=== PATIENT | female | born 1945 | race Caucasian/White ===

== ENCOUNTER 2019-12-13 11:52 | Outpatient (CLI) | payer MEDICARE, SELFPAY ==
--- NOTE | ~2019-12-13 | XR_ITS ---
XR lumbar spine 2-3V DATE: 12/13/2019 12:16 INDICATION: Chronic low back pain. No injury. TECHNIQUE: AP, lateral, coned lateral lumbosacral views COMPARISON: AP, lateral, coned lateral lumbosacral views FINDINGS: There is diffuse idiopathic skeletal hyperostosis of the thoracolumbar spine. Diffuse osteopenia. There is mild dextro scoliosis of the lumbar spine. There is severe degenerative disc disease at L1-2 and L5-S1 and moderate the prominent degenerative d isc disease at L4-5, mild degenerative disease at L2-3, L3-4. No spondylolisthesis. The sacroiliac susie ints are intact. Status post left total hip arthroplasty. There is prominent calcification the abdominal aorta but no evidence of aneurysm. IMPRESSION: Degenerative changes of the thoracic and lumbar spine Diffuse osteopenia Status post left total hip arthroplasty Reviewed, dictated and finalized at location A.
--- NOTE | ~2019-12-13 | US_ITS ---
EXAMINATION: US soft tissue head and neck DATE: 12/13/2019 12:46 INDICATION: Nonfocal swelling at the lateral right neck TECHNIQUE: Multiple grayscale and Doppler ultrasound images of the region of concern at the lateral r ight neck were obtained. COMPARISON: None FINDINGS: Visualized portions of the right common carotid artery and internal jugular vein appear normal. No ab normal mass, fluid collections or pathologically enlarged lymphadenopathy at the region of concern. IMPRESSION: 1. No discrete correlate identified for the region of swelling of concern with no abnormal masses, fl uid collections or lymphadenopathy. Reviewed, dictated and finalized at location A. IMPRESSION: 1. No discrete correlate identified for the region of swelling of concern with no abnormal masses, fluid collections or lymphadenopathy.
== END 2019-12-13 11:53 | disposition home or self-care (01) ==
LOC: ANHIMG 11:53
PROVIDERS: PCP Family Medicine; Visit Provider Family Medicine
DX: R22.1 Localized swelling, mass and lump, neck (principal); M85.88 Other specified disorders of bone density and structure, other site; Z96.642 Presence of left artificial hip joint
CPT/HCPCS: 72100; 76536

== ENCOUNTER 2020-01-18 12:52 | Outpatient (CLI) | payer MEDICARE, SELFPAY ==
--- NOTE | ~2020-01-18 | XR_ITS ---
EXAMINATION: XR thoracic spine 3V DATE: 01/18/2020 13:27 INDICATION: Chest pain and upper back pain TECHNIQUE: AP, lateral and lateral swimmer's views of the thoracic spine were obtained. COMPARISON: 12/20/2015 FINDINGS: There is no fracture, dislocation, or subluxation. There is moderate loss of intervertebral disc space height throughout the thoracic spine. The vertebral body heights are maintained. Degenera tive osteophytes project from the anterior endplates of multiple vertebral bodies. IMPRESSION: 1. Severe thoracic spondylosis without acute findings or significant interval change. Reviewed, dictated and finalized at location A. IMPRESSION: 1. Severe thoracic spondylosis without acute findings or significant interval c loretta.
--- NOTE | ~2020-01-18 | XR_ITS ---
EXAMINATION: XR chest 2V DATE: 01/18/2020 13:27 INDICATION: Chest pain. TECHNIQUE: Frontal and lateral views of the chest were obtained. COMPARISON: Chest 2 views 10/23/2015 FINDINGS: There is mild atelectasis at the lung bases. No pleural effusion or pneumothorax. The heart size is normal. There is mild chronic anterior wedging of multiple midthoracic vertebral bodies. IMPRESSION: 1. Mild atelectasis at the lung bases. Reviewed, dictated and finalized at location A.
== END 2020-01-18 12:53 | disposition home or self-care (01) ==
PROVIDERS: PCP Family Medicine; Visit Provider Family Medicine
DX: R07.9 Chest pain, unspecified (principal); M47.894 Other spondylosis, thoracic region; R91.8 Other nonspecific abnormal finding of lung field
CPT/HCPCS: 71046; 72072

== ENCOUNTER 2020-01-28 16:08 | Inpatient (IN) | payer MEDICARE, SELFPAY ==
[2020-01-28] VITALS (12 sets, daily range): BP systolic 101–137; BP diastolic 58–90; PULSE 102–155; RESP 16–25; TEMP 36.1–36.6; O2SAT 95–99; BMI 39.2
--- NOTE | ~2020-01-28 | XR_ITS ---
XR chest 2V 01/28/2020 17:06 Indication: Rapid heart rate. Midsternal chest pain. Procedure: PA and lateral views of the chest Comparison: Comparison to multiple prior studies sequentially, with oldest reviewed study dated 07/2009. Findings: Heart size normal. No focal air space disease, pulmonary edema, pleural effusion or suspect ed pneumothorax. No acute osseous abnormality. Impression: 1: No acute cardiopulmonary disease. Reviewed, dictated and finalized at location A. Impression: 1: No acute cardiopulmonary disease.
--- NOTE | 2020-01-28 16:48 | ECG_ITS ---
Measurements Intervals Gable Rate: 140 P: KS: 0 QRS: -7 QRSD: 87 T: 43 QT: 304 QTc: 464 Interpretive Statements ATRIAL FIBRILLATION WITH RAPID VENTRICULAR RESPONSE DELAYED PRECORDIAL R/S TRANSITION BORDERLINE ST-T WAVE ABNORMALITY- HIGH LATERAL LEADS ABNORMAL ECG Electronically Signed On 01-28-2020 16:53:12 CDT by Truong Mendez D.O.
[2020-01-28 17:02] LABS: Basophils Percent Auto 0.4 % (0.2-1.2); Eosinophils Absolute Auto 0.1 K/mm3 (0-0.3); Eosinophils Percent Auto 1.3 % (0-4.4); Hematocrit 43.5 % (37.0-47.0); Hemoglobin 14.5 g/dL (12.0-15.0); Immature Granulocyte Absolute 0.01 K/mm3 (0.00-0.031); Immature Granulocyte Percent A 0.1 % (0-0.5); Lymphocytes Absolute Auto 1.48 K/mm3 (0.9-3.2); Lymphocytes Percent Auto 21.9 % (18.3-44.2); Mean Corpuscular HGB Conc 33.3 g/dl (32-36); Mean Corpuscular Hemoglobin 29.2 pg (26-34); Mean Corpuscular Volume 87.5 fl (80-100); Mean Platelet Volume 10.8 fl (7.4-10.4); Monocytes Absolute Auto 0.5 K/mm3 (0.1-0.6); Monocytes Percent Auto 7.7 % (2.6-8.5); Neutrophils Absolute Auto 4.6 K/mm3 (1.3-6.7); Neutrophils Percent Auto 68.6 % (45.5-73.1); Platelet Count Result 303 k/mm3 (150-375); Red Blood Count 4.97 M/mm3 (4.2-5.4); Red Cell Distribution Width 14.8 % (11.5-14.5); White Blood Count 6.8 K/mm3 (4.5-10.0)
[2020-01-28 17:21] LABS: Anion Gap 7 mmol/L (8-16); Blood Urea Nitrogen 18 mg/dL (7-17); Carbon Dioxide 23 mmol/L (22-30); Chloride 109 mmol/L (98-107); Estimated CRCL calculation 57 ml/min; Estimated Glomerular Filt Rate > 60; Glucose 102 mg/dL (65-105); Potassium 4.3 mmol/L (3.4-5.0); Sodium 139 mmol/L (137-145)
[2020-01-28] MEDS: SODIUM CHLORIDE 0.9% IV 1,000 ML 999 ML IV CONT (17:23)
[2020-01-28] MEDS: ASPIRIN 81 MG CHEWABLE TABLET 324 MG PO (17:23)
[2020-01-28] MEDS: dilTIAZem HCl INJ 25 MG/5 ML VIAL 5 MG IV PUSH (17:23)
--- NOTE | 2020-01-28 17:23 | ED.ARRPALP ---
HPI - Arrhythmia/Palpitations General Chief Complaint: Arrhythmia/Palpitations Stated Complaint: sent by PCP, new onset AFIB Time Seen by Provider: 01/28/20 17:11 Source: RN notes reviewed History of Present Illness HPI narrative: Patient presents emergency department from PCP office for atrial fibrillation. Patient states for the past 4 days she has been feeling like her heart is been racing. Is associated with a mild aching feeling in her anterior chest and shortness of breath. Patient states she gone to her PCP today and was noted to be in A. fib with RVR and was referred to the emergency department for further evaluation. She denies any fevers or chills abdominal pain nausea vomiting or any other symptoms. Denies any previous cardiac history and denies any previous history of atrial fibrillation Related Data Allergies Allergy/AdvReac Type Severity Reaction Status Date / Time morphine Allergy Unknown ITCHING Verified 05/08/19 18:04 Review of Systems Review of Systems: Narrative: Gen.: Denies fevers or chills ENT: Denies congestion Respiratory: Reports shortness of breath CV: See HPI GI: Denies abdominal pain nausea, emesis or diarrhea Musculoskeletal: Denies back pain or muscle pain Neuro: Denies numbness, tingling, weakness or focal weakness Skin: Denies rash Except as documented, all other systems reviewed and negative [facility] Past Medical History Medical History Arthritis Bronchitis Bulging disc Depression HLD (hyperlipidemia) IBS (irritable bowel syndrome) Kidney stone Right wrist fracture UTI (urinary tract infection) Social History Social History Smoking status: Never smoker Alcohol intake: current Gender identity (if verbalized by the patient): Female Exam Narrative: Exam Narrative: APPEARANCE: No acute distress, nontoxic, resting in bed EYES: EOMI HEENT: Normocephalic, atraumatic, OMM RESPIRATORY: No respiratory distress Clear to auscultation bilaterally with no rhonchi wheezing or rales. CARDIOVASCULAR: Irregular tachycardic without murmurs rubs or gallops. ABDOMINAL: Soft, nontender, nondistended, no rebound or guarding MUSCULOSKELETAl: Moves all extremities. No clubbing, cyanosis or edema. NEURO: Awake and alert. Following commands, speech normal, no focal deficits SKIN:: Warm, dry. No rashes lesions or abrasions PSYCHIATRIC: Normal affect/mood, Course Course Emergency Course: Discussed with Dr. Katz presentation work-up. Request patient received a dose of Lovenox at this time will follow as inpatient Discussed with KARLEE Tinoco for Dr. Jiménez presentation work-up. Agrees with admission at this time Discussed with patient and family results of workup and diagnosis. Discussed need for admission. Patient and family understand and agree to current treatment plan Vital Signs Vital signs: Vital Signs Temperature 97.7 F 01/28/20 16:43 Pulse Rate 105 H 01/28/20 16:43 Respiratory Rate 16 01/28/20 16:43 Blood Pressure 109/77 01/28/20 16:43 Pulse Oximetry 97 01/28/20 16:43 Temperature 97.7 F 01/28/20 16:43 Pulse Rate 115 H 01/28/20 17:45 Respiratory Rate 18 01/28/20 17:45 Blood Pressure 104/65 01/28/20 17:45 Pulse Oximetry 98 01/28/20 17:45 MDM - Arrhythmia/Palpitations Lab Data Result diagrams: 01/28/20 16:56 01/28/20 16:56 Labs: Lab Results 01/28/20 01/28/20 01/28/20 Range/Units 16:56 16:56 17:20 WBC 6.8 (4.5-10.0) K/mm3 RBC 4.97 (4.2-5.4) M/mm3 Hgb 14.5 (12.0-15.0) g/dL Hct 43.5 (37.0-47.0) % MCV 87.5 (80-100) fl MCH 29.2 (26-34) pg MCHC 33.3 (32-36) g/dl RDW 14.8 H (11.5-14.5) % Plt Count 303 (150-375) k/mm3 MPV 10.8 H (7.4-10.4) fl Immature Gran % (Auto) 0.1 (0-0.5) % Neut % (Auto) 68.6 (45.5-73.1) % Lymph % (Auto) 21.9 (18.3-44.2) %
[2020-01-28 17:33] LABS: Troponin I < 0.012 ng/mL (0.000-0.034)
[2020-01-28 17:39] LABS: Partial Thromboplastin Time 21.8 SECONDS (22.3-36.8); Prothrombin Time 12.6 Seconds (11.1-14.7)
[2020-01-28] MEDS: ENOXAPARIN 100 MG/ML SYRINGE SUB-Q (18:12)
[2020-01-28 20:59] LABS: Troponin I < 0.012 ng/mL (0.000-0.034)
--- NOTE | 2020-01-28 21:02 | PM.IMHP ---
H&P: HPI History of Present Illness Date/Time: 01/28/20 21:02 Chief complaint: afib with rvr Narrative: This is a pleasant 74 year old female with known history of renal stones and gallbladder disease who presented to the hospital with a complaint of exertional shortness of breath and palpitations over the past 3-4 days. She has noticed that she gets very diaphoretic and short of breath with minimal exertion. She denies any significant cough, fevers, or chills. She has not had any significant chest pain but does feel some chest discomfort with the racing of her heart. She has no previous history of heart arrhythmias but tonight the patient was found to be in atrial fibrillation w/ RVR in the ER. On further questioning she also denies any history of nausea, vomiting, abdominal pain, dysuria, hematuria, diarrhea or rectal bleeding. No significant LE swelling is reported. The patient has been started on Cardizem IV and has already been anticoagulated in the ER w/ SC Lovenox. Cardiology has been consulted by ER provider. No other complaints. Review of Systems Review of Systems: All systems reviewed & are unremarkable except as noted in HPI and below PMFSH Past Medical History Medical History Arthritis Asymptomatic gallstones Bronchitis Bulging disc Depression Hemorrhoids HLD (hyperlipidemia) IBS (irritable bowel syndrome) Kidney stone Pulmonary nodule Right wrist fracture UTI (urinary tract infection) Surgical History Surgical History History of bilateral knee replacement History of total left hip replacement Family History Family History Mother Hypertension Family history of diabetes mellitus in first degree relative Family history of heart disease in male family member before age 55 Father No problems noted. Social History Social History Social History: , has been has had AFib. Three grown children. Smoking packs per day: 1 Smoking cigarettes per day: 20.0 Years smoked: 18 Smoking pack-years: 18.00 Smoking status: Former smoker Tobacco type: cigarettes Second hand tobacco smoke exposure: No Alcohol intake: never Substance use: never Substance use type: does not use Gender identity (if verbalized by the patient): Female Sexual Orientation (if Verbalized by the Patient): Straight or Heterosexual Spiritual care concerns: No Meds Home Medications and Allergies Home Medications Medication Instructions Recorded Confirmed Type acetaminophen [Tylenol Extra 500 mg PO Q6H PRN 01/28/20 01/28/20 History Strength] allopurinol 300 mg PO DAILY 01/28/20 01/28/20 History alprazolam 2 mg PO TID PRN 01/28/20 01/28/20 History baclofen 10 mg PO TID PRN 01/28/20 01/28/20 History Allergies Allergy/AdvReac Type Severity Reaction Status Date / Time morphine Allergy Unknown ITCHING Verified 01/28/20 22:25 Vital Signs Vital Signs - 24 hr 01/28/20 16:43 01/28/20 17:36 01/28/20 17:45 Temperature 36.5 C Pulse Rate 105 H 106 H 115 H Respiratory Rate 16 18 Blood Pressure 109/77 101/58 L 104/65 Pulse Oximetry 97 98 01/28/20 18:54 01/28/20 19:30 01/28/20 20:00 Temperature Pulse Rate 133 H 103 H 135 H Respiratory Rate 25 H Blood Pressure 117/90 122/83 122/87 Pulse Oximetry 96 98 01/28/20 20:30 Temperature Pulse Rate 102 H Respiratory Rate 20 Blood Pressure 115/89 Pulse Oximetry 95 Exam Const: General: cooperative, alert, awake and ill appearing chronically Nutritional Appearance: obese morbidly obese Orientation/consciousness: patient oriented x3 HENMT: Head: normal to inspection General nose exam: Normal external nose present Face and sinus: normal facial exam Mouth: Yes Normal oral and palatal mucosa present and Yes o
--- NOTE | 2020-01-28 22:00 | ADMGEN ---
This patient, Sheryl Melendez, was admitted to IMU Room 205-01 on 01/28/20 at 2113. Patient/family oriented to hospital policies and general routines including ID bracelet, bed and alarms, visiting hours, pain management, procedures, bathroom and other care routines, personal items, smoking policy, room service/diet, and visiting hours. Valuables list has been completed. Information on how to activate the Rapid Response Team has been discussed. Patient/Family are encouraged to report perceived risks to care and to ask questions if they do not understand what they are told or what they should do.
[2020-01-28 23:12] LABS: Troponin I < 0.012 ng/mL (0.000-0.034)
[2020-01-29] VITALS (25 sets, daily range): BP systolic 87–126; BP diastolic 57–68; PULSE 62–110; RESP 16–20; TEMP 35.9–36.4; O2SAT 94–97
[2020-01-29] MEDS: ALPRAZolam 0.5 MG TABLET 2 MG PO ×2 (02:20→21:08)
[2020-01-29] MEDS: ENOXAPARIN 100 MG/ML SYRINGE SUB-Q (05:09)
[2020-01-29 05:26] LABS: Basophils Percent Auto 0.3 % (0.2-1.2); Eosinophils Absolute Auto 0.1 K/mm3 (0-0.3); Eosinophils Percent Auto 1.8 % (0-4.4); Hematocrit 39.5 % (37.0-47.0); Hemoglobin 12.7 g/dL (12.0-15.0); Immature Granulocyte Absolute 0.01 K/mm3 (0.00-0.031); Immature Granulocyte Percent A 0.2 % (0-0.5); Lymphocytes Absolute Auto 1.82 K/mm3 (0.9-3.2); Mean Corpuscular HGB Conc 32.2 g/dl (32-36); Mean Corpuscular Hemoglobin 28.6 pg (26-34); Mean Platelet Volume 11.3 fl (7.4-10.4); Monocytes Absolute Auto 0.6 K/mm3 (0.1-0.6); Monocytes Percent Auto 9.1 % (2.6-8.5); Neutrophils Percent Auto 60.6 % (45.5-73.1); Platelet Count Result 269 k/mm3 (150-375); Red Blood Count 4.44 M/mm3 (4.2-5.4); Red Cell Distribution Width 14.8 % (11.5-14.5); White Blood Count 6.5 K/mm3 (4.5-10.0)
[2020-01-29 05:35] LABS: Anion Gap 3 mmol/L (8-16); Blood Urea Nitrogen 18 mg/dL (7-17); Calcium 8.4 mg/dL (8.4-10.2); Carbon Dioxide 25 mmol/L (22-30); Chloride 110 mmol/L (98-107); Estimated CRCL calculation 66 ml/min; Estimated Glomerular Filt Rate > 60; Glucose 104 mg/dL (65-105); Potassium 4.2 mmol/L (3.4-5.0); Sodium 138 mmol/L (137-145)
--- NOTE | 2020-01-29 08:34 | WPDCN ---
Assessment and Plan Assessment and plan (1) Atrial fibrillation with rapid ventricular response: Code(s): I48.91 - Unspecified atrial fibrillation Status: Acute Assessment and Plan: New onset AFib RVR, heart rate still not well controlled. Etiology may be from age, obesity, and we should rule out sleep apnea. Echo pending Apnea link Increase Cardizem drip to 15 milligrams/hour Will try to switch to p.o. Cardizem in the next 24 hours Discussed atrial fibrillation, risk of cardioembolic events etc. and recommended anticoagulation. Patient does not want to use Xarelto since she had epistaxis when using Xarelto in the past, which of course can occur with any anticoagulant. We will start Eliquis and stop Lovenox. Jose have had some hemorroidal bleeding. Follow for more significant rectal bleeding. Will see how patient does and decide on rate control/ anticoagulation strategy versus rhythm control strategy depending on patient's course. (2) Rectal bleed: Code(s): K62.5 - Hemorrhage of anus and rectum Status: Acute Assessment and Plan: Noted some blood on toilet tissue this a.m. H/O hemorrhoids May need GI eval. HPI Data of Consult Date/Time: 01/29/20 08:34 Requesting Physician: Eufemia Caruso PA-C Primary Care Provider: Shannen Doan, Consult Narrative Narrative: Date of service: 01/29/2020 Sheryl Melendez is a 74 year old female whom we were asked to see at the request of Dr. Shepherd for advice and opinion regarding her new onset atrial fibrillation, RVR. The patient states that she had noted [place] with minor exertion over the last 3 or 4 days and she felt funny and strange in her chest. She thought it might be her hiatal hernia but since it did not go away she came to the emergency room and was found to be in AFib RVR. She started on a Cardizem drip and is currently on 10 milligrams/hour with heart rate 85-120 beats per minute. She was started on Lovenox. She denies any shortness of breath at rest, chest discomfort or palpitations. The patient has no history of heart disease. She had a mildly abnormal stress test resulting in a cardiac catheterization in December [address] Valentine which showed normal coronary arteries and normal left ventricular function. She does have hyperlipidemia but no diabetes, hypertension, strokes, or known sleep apnea. She does not sleep well and has been told that she snores but nobody is noted any apnea. She had bad epistaxis when she took Xarelto for after her total hip replacement, and she noted a a little blood on her toilet tissue this morning after a bowel movement; she has a history of hemorrhoids. Review of Systems Constitutional: Constitutional: Reports difficulty sleeping and Reports fatigue Eyes: Eyes: Reports no additional eye complaints ENT: Reports epistaxis ( None recently but had epistaxis when on Xarelto) Cardiovascular: Cardiovascular: Denies chest pain, Denies pedal edema, Denies leg edema, Denies lightheadedness and Denies palpitations Respiratory: Respiratory: Denies chest congestion, Reports cough ( mild cough at night sometimes.), Denies dyspnea and Reports dyspnea on exertion Gastrointestinal: Gastrointestinal: Denies abdominal pain, Reports hematochezia ( Some blood on toilet tissue this morning) and Reports heartburn ( history of hiatal hernia) Genitourinary: Genitourinary: Denies hematuria and Denies dysuria Musculoskeletal: Musculoskeletal: Reports back pain and Reports arthralgias Integumentary/Breasts: Skin/Breast: Denies rash Neurologic: Denies confusion Psychiatric: Psychiatric: Denies anxiety and Denies confusion [facility] Past Medical History Medical History (Updated 01/29/20 @ 09:13 by Sharee Katz MD) Arthritis Asymptomatic gallstones Bronchitis Bulging disc Depression HLD
[2020-01-29] MEDS: allopurinoL 300 MG TABLET PO (09:06)
--- NOTE | 2020-01-29 12:01 | PM.IMPN ---
Progress Note: A&P Assessment and Plan (1) Atrial fibrillation with rapid ventricular response: Code(s): I48.91 - Unspecified atrial fibrillation Status: Acute Assessment and Plan: New onset. The patient reports that she developed exertional dyspnea and palpitations 3-4 days ago. She has no prior hx of atrial fibrillation. She remains in atrial fibrillation at this time. Etiology unclear. Cardiology is on board and input is greatly appreciated. Plan for apnea link to assess for underlying sleep apnea. She is obese. She remains on cardizem gtt which was increased today per cardiology. Rate is in the 80s. Plan to transition to PO cardizem in the next 24 hours. She received lovenox in the ED and was transitioned to PO eliquis today. She did report bright red blood on the toilet paper and has a hx of nose bleeds while on xarelto. Plan to monitor closely for any sx of bleeding. Trend H&H. Continue telemetry. TSH was 2.64. Echocardiogram was performed today and is pending. Appreciate cardiology. Management per cardiology. (2) Rectal bleed: Code(s): K62.5 - Hemorrhage of anus and rectum Status: Acute Assessment and Plan: She reports that she had bright red blood on the toilet paper with wiping x2 today. She is on eliquis and received lovenox yesterday in the emergency department. She has a hx of hemorrhoids. Her most recent colonoscopy was 3-4 years ago and she reports that polyps were removed. I suspect hemorrhoids but she will need to follow-up for repeat colonoscopy outpatient. Plan to order occult blood stool testing. Monitor H&H closely and consider GI consult if she has ongoing blood loss or H&H decline. Subjective Date/time seen: 01/29/20 12:01 Interval history: Mrs. Melendez is a 74 y.o. female who is seen in follow-up for atrial fibrillation with RVR. She is feeling better today. She denies palpitations, chest pain, and dyspnea at rest. She has not exerted herself today. She denies lightheadedness and dizziness. She noticed bright red blood on the toilet paper x2 today with wiping. She reports a history of this intermittently in the past and has known hemorrhoids. She denies dark black tarry stool or bright red blood filling the toilet. She reports that her bowels are regular and she has no nausea or vomiting. She reports a hx of nose bleeds in the past while on xarelto for DVT ppx following hip replacement. She has no other complaints. Review of Systems Review of Systems: All systems reviewed & are unremarkable except as noted in HPI and below Exam Narrative: Exam Narrative: General: Pleasant, well-developed, obese 74 y.o. female who is lying in the semi-recumbent position in no acute distress. HEENT: Normocephalic and atraumatic. Conjunctivae without injection or exudate. EOMI. Oral mucosa moist. Neck: Supple. Cardiac: Irregularly irregular rhythm. Rate 85 and telemetry reviewed from 01/28 with atrial fibrillation, rate controlled, and infrequent PVCs. Lungs: Effort normal. She is speaking in full sentences without distress. Lungs are clear to auscultation bilaterally. Abdomen: Normoactive bowel sounds. Abdomen is soft, non-tender, and non-distended. Musculoskeletal: Post-operative changes to the bilateral knees. Extremities: Lower extremities with scant edema. Telangiectasia throughout the lower extremities. DP and PT 1+ bilaterally. Neurological: Alert. Exam is non-focal to casual conversation. Speech is clear. Skin: Warm and dry. Psychiatric: Judgment and insight intact. Mood pleasant. Patient loquacious. Objective Data Vital Signs Vital Signs: Vital Signs - 24 hr 01/28/20 16:43 01/28/20 17:36 01/28/20 17:45 Temperature 97.7 F Pulse Rate 105 H 106 H 115 H Respiratory Rate 16 18 Blood Pressure 109/77 101/58 L 104/65 Pulse Oximetry 97 98 01/28/20 18:54 01/28/20 19:30 01/28/20 20:00 Temperature Pulse Rate 133 H 103 H 135 H Respiratory Rate 25 H Blood Pressure 117
[2020-01-29] MEDS: SODIUM CHLORIDE 0.9% IV 200 ML 999 ML IV CONT (12:57)
[2020-01-29] MEDS: APIXABAN 5 MG TABLET PO (20:57)
--- NOTE | 2020-01-29 21:13 | ECHO_ITS ---
Patient Info Name: Sheryl Melendez Age: 74 years : 1945 Gender: Female Ht: 65 in Wt: 219 lbs BSA: 2.18 m2 HR: 89 bpm BP: 115 / 68 mmHg Heart Rhythm: Atrial Fibrillation Technical Quality: Good Exam Date: 01/29/2020 9:31 AM Exam Location: [facility] Exam Room: [facility] Patient Status: Outpatient Admit Date: 01/28/2020 Staff Ordering Physician: Grzegorz Garcia MD Unemployment Claims Adjudicator: Elif Chester RDCS Attending Provider: Eufemia Caruso PA-C Referring Physician: Radha PRAKASH; Exam Type: CA echo doppler color flow Study Info Indications - A FIB RVR Complete two-dimensional, color flow and Doppler transthoracic echocardiogram is performed. Summary 1. Complete two-dimensional, color flow and Doppler transthoracic echocardiogram is performed. 2. Normal left ventricular size and function with no segmental wall motion abnormalities. Ejection fraction was 60%. Diastolic function is indeterminate. 3. Left atrial chamber dimension is moderately enlarged. 4. There is small pericardial effusion, 1.5 cm posteriorly, but otherwise trivial. 5. Mildly calcified aortic root. 6. No significant valve disease. 7. Atrial fibrillation. Left Ventricle Left ventricular chamber dimension is normal. Left ventricular systolic function is normal, estimated at 55-60%. There is no increased left ventricular wall thickness. Left ventricular septal wall motion is normal. The left ventricular diastolic function is indeterminate. Right Ventricle Right ventricular chamber dimension is normal. Right ventricular systolic function is normal. Left Atria Left atrial chamber dimension is moderately enlarged. Right Atria Right atrial chamber dimension is normal. Aortic Valve The aortic valve is trileaflet. There is no aortic valve sclerosis. There is no aortic valve stenosis. There is no aortic valve regurgitation. Pulmonic Valve The pulmonic valve is normal. There is no pulmonic valve stenosis. There is no pulmonic regurgitation. Mitral Valve The mitral valve has normal leaflets. There is no mitral valve stenosis. There is trace mitral valve regurgitation. Tricuspid Valve The tricuspid valve leaflets are normal. There is no significant tricuspid valve stenosis. There is trace tricuspid valve regurgitation. No pulmonary hypertension, estimated pulmonary arterial systolic pressure is 30 mmHg. Pericardium/Pleural The pericardium appears normal. There is small pericardial effusion, 1.5 cm posteriorly, but otherwise trivial. Inferior Vena Cava Normal inferior vena cava with >50% collapse upon inspiration consistent with Empty right atrial pressure, 10 mmHg. Aorta The aortic root size at the sinus of Valsalva is normal. The prox ascending aorta size is normal. There is mild aortic atherosclerosis. Left Ventricular Outflow Tract Name Value Normal LVOT 2D LVOT Diameter 2.0 cm LVOT Doppler LVOT Peak Gradient 7 mmHg LVOT Mean Gradient 3 mmHg LVOT VTI 21 cm LVOT VTI/AV VT
[2020-01-29] MEDS: ACETAMINOPHEN 500 MG TABLET PO (23:27)
[2020-01-30] VITALS (16 sets, daily range): BP systolic 96–122; BP diastolic 50–74; PULSE 65–96; RESP 16–20; TEMP 35.8–36.7; O2SAT 65–100
[2020-01-30 07:34] LABS: Hematocrit 39.1 % (37.0-47.0); Hemoglobin 12.5 g/dL (12.0-15.0); Mean Corpuscular Hemoglobin 28.5 pg (26-34); Mean Corpuscular Volume 89.1 fl (80-100); Mean Platelet Volume 10.7 fl (7.4-10.4); Platelet Count Result 254 k/mm3 (150-375); Red Blood Count 4.39 M/mm3 (4.2-5.4); Red Cell Distribution Width 14.9 % (11.5-14.5); White Blood Count 6.1 K/mm3 (4.5-10.0)
[2020-01-30 07:51] LABS: Anion Gap 5 mmol/L (8-16); Blood Urea Nitrogen 22 mg/dL (7-17); Calcium 8.9 mg/dL (8.4-10.2); Carbon Dioxide 24 mmol/L (22-30); Chloride 108 mmol/L (98-107); Estimated CRCL calculation 66 ml/min; Estimated Glomerular Filt Rate > 60; Glucose 106 mg/dL (65-105); Potassium 4.1 mmol/L (3.4-5.0); Sodium 137 mmol/L (137-145)
[2020-01-30] MEDS: allopurinoL 300 MG TABLET PO (08:14)
[2020-01-30] MEDS: APIXABAN 5 MG TABLET PO ×2 (08:14→20:25)
--- NOTE | 2020-01-30 08:26 | PM.PNCARD ---
Progress Note: A&P Assessment and Plan (1) Atrial fibrillation with rapid ventricular response: Code(s): I48.91 - Unspecified atrial fibrillation Status: Acute Assessment and Plan: Change Cardizem drip to p.o. Cardizem 60 mg q.6 hours. Tomorrow transition to once daily CArdizem CD. Continue Eliquis for now; pt given a Coupon card for 1 month for free. However we will have to switch her to warfarin as an outpatient. Probably discharge tomorrow with office follow-up. If she is feeling well with rate control and anticoagulation we may continue this strategy but if she is not feeling well then we can plan for an outpatient cardioversion.. (2) Suspected sleep apnea: Code(s): R29.818 - Other symptoms and signs involving the nervous system Status: Acute Assessment and Plan: Apnea link suggested mild sleep apnea. Will follow up with this as an outpatient. (3) Rectal bleed: Code(s): K62.5 - Hemorrhage of anus and rectum Status: Acute Assessment and Plan: No recurrent blood on toilet tissue. History of hemorrhoids. May need GI evaluation electively. Subjective Date/time seen: 01/30/20 08:26 Follow-up for new onset atrial fibrillation. Date of service: 01/30/2020 The patient has remained on a Cardizem drip at 15 milligrams/hour overnight with heart rates ranging in the 70s. Occasionally Has brief pauses of 2-2.3 seconds overnight. blood pressure somewhat low, given 200 cc normal saline bolus x1. Up and about in her room with no shortness of breath, chest pain or palpitations. Upset that the Eliquis ( and all the NOACs ) will cost her 100s of dollars so she will eventually be on warfarin instead of Eliquis. Apnea link: Suspected sleep apnea, AHI 6.9 events per hour. Lowest O2 sat was 81%. Echo: EF 60%, indeterminate diastolic function, trivial to small pericardial effusion, no significant valve disease. Review of Systems Constitutional: Constitutional: Reports fatigue ENT: Reports epistaxis ( None recently but had epistaxis when on Xarelto) Cardiovascular: Cardiovascular: Denies chest pain, Denies pedal edema, Denies leg edema, Denies lightheadedness, Denies palpitations, Denies dyspnea and Reports dyspnea on exertion Respiratory: Respiratory: Denies chest congestion, Reports cough ( mild cough at night sometimes.), Denies dyspnea and Reports dyspnea on exertion Gastrointestinal: Gastrointestinal: Denies abdominal pain and Denies hematochezia ( Some blood on toilet tissue this morning) Genitourinary: Genitourinary: Denies hematuria Musculoskeletal: Musculoskeletal: Reports back pain and Reports arthralgias Integumentary/Breasts: Skin/Breast: Denies rash Neurologic: Denies confusion Psychiatric: Psychiatric: Denies anxiety and Denies confusion Endocrine: Endocrine: Reports fatigue and Denies palpitations Exam Const: General: comfortable and no acute distress; No confusion Orientation/consciousness: No confusion Other: Pleasant, chatty obese white female in no distress HENMT: Mouth: Yes moist mucous membranes Eyes: EOM: EOMs intact bilaterally Neck: Neck: supple and no JVD Thyroid: thyroid normal Resp: Effort & Inspection: normal respiratory effort Cardio: Rhythm: abnormal rhythm irregularly irregular Heart sounds: no murmurs Other: dorsalis pedis pulses are intact, although decreased on the right GI: Inspection: non-distended Other: no hepatosplenomegaly Skin: General skin exam: no rashes or lesions noted Neuro: General: No confusion Cognition (Neuro): normal cognition Speech: normal speech Motor exam (neuro): Normal motor muscle tone present throughout Extrem: General: no edema and no pedal edema Psych: Mental Status: mental status grossly normal Affect: normal affect Objective Data Vital Signs Vital Signs: Vital Signs
--- NOTE | 2020-01-30 09:32 | PM.IMPN ---
Progress Note: A&P Assessment and Plan (1) Atrial fibrillation with rapid ventricular response: Code(s): I48.91 - Unspecified atrial fibrillation Status: Acute Assessment and Plan: New onset. The patient reports that she developed exertional dyspnea and palpitations 3-4 days prior to admission. She has no prior hx of atrial fibrillation. Etiology unclear. She is obese. Apnea link revealed suspected pathological breathing disorder and she will need formal outpatient sleep study. TSH was 2.64. Echocardiogram was performed and shows normal left ventricular function with no segmental wall motion abnormalities, EF 60%, moderately enlarged left atrium, small pericardial effusion posteriorly, and no significant valvular pathology. She has not converted to NSR and remains in rate-controlled atrial fibrillation. Cardizem gtt will be transitioned to PO cardizem today per cardiology. BP is soft and she received 200cc bolus overnight. Continue to monitor BP with transition to PO cardizem. She needs to get OOB and ambulate. Continue PO eliquis. She has no further evidence of bleeding. Management per cardiology. Appreciate recommendations. (2) Rectal bleed: Code(s): K62.5 - Hemorrhage of anus and rectum Status: Acute Assessment and Plan: She reports that she had bright red blood on the toilet paper with wiping x2 today. She is on eliquis and received lovenox yesterday in the emergency department. She has a hx of hemorrhoids. Her most recent colonoscopy was 3-4 years ago and she reports that polyps were removed. I suspect hemorrhoids but she will need to follow-up for repeat colonoscopy outpatient. Plan to order occult blood stool testing. Monitor H&H closely and consider GI consult if she has ongoing blood loss or H&H decline. (3) Suspected sleep apnea: Code(s): R29.818 - Other symptoms and signs involving the nervous system Status: Acute Assessment and Plan: Apnea link revealed suspected pathological breathing disorder. She will need a formal outpatient sleep study for further evaluation. Subjective Date/time seen: 01/30/20 09:32 Interval history: Mrs. Melendez is a 74 y.o. female who is seen in follow-up for atrial fibrillation with RVR. She denies chest pain, palpitations, and dyspnea. She denies dizziness, lightheadedness, and headaches. She denies fatigue. She reports anxiety overnight because she has a roommate and cannot sleep well. Her appetite is good. She denies any further episodes of rectal bleeding, melena, hematochezia. She denies urinary complaints, nausea, vomiting. She has no other concerns. Review of Systems Review of Systems: All systems reviewed & are unremarkable except as noted in HPI and below Exam Narrative: Exam Narrative: General: Pleasant, well-developed, obese 74 y.o. female lying supine in no acute distress. HEENT: Normocephalic and atraumatic. EOMI. Oral mucosa moist. Neck: Supple. Cardiac: Irregularly irregular rhythm. Rate 71 and telemetry reviewed from 01/29 with atrial fibrillation, occasional pauses 2-2.5 seconds, occasional PVCs. Lungs: Effort normal. Lungs are clear to auscultation bilaterally. Abdomen: Positive bowel sounds. Abdomen is soft, non-tender, and non-distended. Musculoskeletal: Post-operative changes to the bilateral knees. Extremities: Lower extremities with scant edema. Telangiectasia throughout. DP and PT 1+ bilaterally. Neurological: Alert. Exam is non-focal to casual conversation. Speech is clear. Skin: Warm and dry. Psychiatric: Judgment and insight intact. Mood pleasant. Patient is talkative. Objective Data Vital Signs Vital Signs: Vital Signs - 24 hr 01/29/20 10:00 01/29/20 12:00 01/29/20 12:16 Temperature 97.0 F L Pulse Rate 95 92 81 Respiratory Rate 20 Blood Pressure 87/58 L Pulse Oximetry 96 01/29/20 13:21 01/29/20 13:22 01/29/20 13:44 Temperature Pulse Rate 77 77 81 Respiratory Ra
[2020-01-30] MEDS: dilTIAZem HCL 60 MG TABLET PO ×3 (09:41→23:10)
[2020-01-30] MEDS: ACETAMINOPHEN 500 MG TABLET PO (17:16)
[2020-01-30] MEDS: ALPRAZolam 0.5 MG TABLET 2 MG PO (20:25)
[2020-01-31] VITALS: PULSE 72
[2020-01-31 03:58] VITALS: PULSE 72
[2020-01-31 04:00] VITALS: BP 121/70; PULSE 69; RESP 20; TEMP 36.3; O2SAT 95
[2020-01-31 05:44] LABS: Hematocrit 38.2 % (37.0-47.0); Hemoglobin 12.4 g/dL (12.0-15.0); Mean Corpuscular HGB Conc 32.5 g/dl (32-36); Mean Corpuscular Hemoglobin 28.8 pg (26-34); Mean Corpuscular Volume 88.6 fl (80-100); Mean Platelet Volume 10.7 fl (7.4-10.4); Platelet Count Result 250 k/mm3 (150-375); Red Blood Count 4.31 M/mm3 (4.2-5.4); Red Cell Distribution Width 14.8 % (11.5-14.5); White Blood Count 6.1 K/mm3 (4.5-10.0)
[2020-01-31] MEDS: dilTIAZem HCL 60 MG TABLET PO (05:46)
[2020-01-31 06:04] LABS: Anion Gap 4 mmol/L (8-16); Blood Urea Nitrogen 22 mg/dL (7-17); Calcium 8.8 mg/dL (8.4-10.2); Carbon Dioxide 26 mmol/L (22-30); Chloride 108 mmol/L (98-107); Estimated CRCL calculation 60 ml/min; Estimated Glomerular Filt Rate > 60; Glucose 95 mg/dL (65-105); Sodium 138 mmol/L (137-145)
[2020-01-31 07:06] VITALS: BP 105/56; PULSE 60; RESP 20; TEMP 36.6; O2SAT 95
[2020-01-31 08:00] VITALS: PULSE 64
[2020-01-31] MEDS: APIXABAN 5 MG TABLET PO (09:04)
[2020-01-31] MEDS: allopurinoL 300 MG TABLET PO (09:04)
--- NOTE | 2020-01-31 11:04 | PM.PNCARD ---
Progress Note: A&P Additional Plan 74-year-old female with: Paroxysmal atrial fibrillation patient spontaneously has converted to sinus rhythm and is asymptomatic. I would therefore shift her planned for simple rate control to rhythm control. I will discontinue diltiazem and start sotalol starting tomorrow morning. Systemic anticoagulation will be continue with apixaban. Patient was given a discount card for the 1st month supply. After that we may have to shift her to warfarin if this is unaffordable. I believe she can be discharged to home and we will follow her in the office. Vish Valentine MD [facility] Subjective Date/time seen: Date of service:01/31/20 11:04 Interval history: Follow-up visit in this 74-year-old patient with symptomatic atrial fibrillation of unknown chronicity. She feels well this morning and offers no significant complaints telemetry indicates patient has converted to sinus rhythm heart rate is in the 60s. Exam Const: General: comfortable and no acute distress HENMT: Mouth: Yes moist mucous membranes Eyes: Sclera: sclerae normal Pupils: Equal, round and reactive pupils present Neck: Neck: supple and no JVD Thyroid: thyroid normal Resp: Effort & Inspection: normal respiratory effort Auscultation: clear to auscultation bilaterally Cardio: Rate: regular rate Rhythm: regular rhythm GI: Auscultation: normal bowel sounds Skin: General skin exam: normal color Neuro: Cognition (Neuro): normal cognition Extrem: General: normal to inspection Objective Data Vital Signs Vital Signs: Vital Signs - 24 hr 01/30/20 11:49 01/30/20 12:00 01/30/20 13:44 Temperature 36.1 C L Pulse Rate 73 67 82 Respiratory Rate 16 Blood Pressure 115/52 L Pulse Oximetry 98 01/30/20 16:00 01/30/20 20:00 01/30/20 23:48 Temperature 36.7 C 36.5 C 36.4 C Pulse Rate 65 71 69 Respiratory Rate 16 20 20 Blood Pressure 122/65 99/58 L 109/51 L Pulse Oximetry 65 L 100 95 01/31/20 00:00 01/31/20 03:58 01/31/20 04:00 Temperature 36.3 C L Pulse Rate 72 72 69 Respiratory Rate 20 Blood Pressure 121/70 Pulse Oximetry 95 01/31/20 07:06 01/31/20 08:00 Temperature 36.6 C Pulse Rate 60 64 Respiratory Rate 20 Blood Pressure 105/56 L Pulse Oximetry 95 Intake/Output Intake/Output: Intake & Output 01/28/20 01/29/20 01/30/20 01/31/20 23:59 23:59 23:59 23:59 Intake Total 1000 1440 1115 240 Output Total 250 900 600 Balance 750 540 515 240 Meds/Results Medications: Active Medications Generic Name Dose Route Start Last Admin Trade Name Freq PRN Reason Stop Dose Admin Acetaminophen 500 mg 01/29/20 00:28 01/30/20 17:16 Tylenol Tablet PO 500 mg Q6H PRN Administration Fever Or Pain Allopurinol 300 mg 01/29/20 09:00 01/31/20 09:04 Zyloprim PO 300 mg DAILY DELILAH Administration Alprazolam 2 mg 01/29/20 00:28 01/30/20 20:25 Xanax PO 2 mg TID PRN Administration Anxiety Apixaban 5 mg 01/29/20 21:00 01/31/20 09:04 Eliquis PO 5 mg Q12HR DELILAH Administration Baclofen 10 mg 01/29/20 00:28 Lioresal Po PO TID PRN MUSCLE SPASMS/BACK PAIN Diltiazem HCl 60 mg 01/30/20 12:00 01/31/20 05:46 Cardizem Tab PO 60 mg Q6HR DELILAH Administration Radiology Results: ITS Impressions Chest X-Ray 01/28/20 17:08 Impression: 1: No acute cardiopulmonary disease. Labs Labs: Laboratory Results - last 24 hr 01/31/20 01/31/20 05:10 05:10 WBC 6.1 RBC 4.31 Hgb 12.4 Hct 38.2 MCV 88.6 MCH 28.8 MCHC 32.5 RDW 14.8 H Plt Count 250 MPV 10.7 H Sodium 138 Potassium 4.0 Chloride 108 H Carbon Dioxide 26 Anion Gap 4 L BUN 22 H Creatinine 0.90 Estim Creat Clear Calc 60 Estimated GFR > 60 Glucose 95 Calcium 8.8 Quality VTE Prophylaxis VTE prophylaxis: pharmacologic ordered (Therapeutic eliquis )
[2020-01-31 12:00] VITALS: BP 113/54; PULSE 66; PULSE 67; RESP 12; TEMP 36; O2SAT 95
--- NOTE | 2020-01-31 13:52 | PM.DS ---
DS: Admitting Diagnosis Admitting Diagnosis Admitting Diagnosis: afib with rvr DS: Discharge Diagnosis Discharge Diagnosis (1) Atrial fibrillation with rapid ventricular response: Code(s): I48.91 - Unspecified atrial fibrillation Status: Acute Assessment and Plan: Discharge Summary (Date of service 01/31/20): Mrs. Melendez is a 74 y.o. female with PMH significant for HLD, nephrolithiasis, IBS, and depression who presented to the emergency department after she was noted by her PCP to be in atrial fibrillation with RVR. She reported dyspnea with exertion, palpitations, diaphoresis, and chest discomfort when her heart was racing. Initial EKG in the emergency department demonstrated atrial fibrillation with RVR [address] change in the high lateral leads. Troponin was negative x3. CXR showed no evidence of acute abnormalities. She was treated with lovenox for anticoagulation and cardizem for rate control. She was admitted to the IMU and cardiology was consulted. She had no prior hx of atrial fibrillation. Etiology was unclear. She is obese. Apnea link revealed suspected pathological breathing disorder and she will need formal outpatient sleep study. TSH was 2.64. Echocardiogram was performed and showed normal left ventricular function with no segmental wall motion abnormalities, EF 60%, moderately enlarged left atrium, small pericardial effusion posteriorly, and no significant valvular pathology. She converted to normal sinus rhythm 01/[address] Valentine recommended that she discontinue diltiazem and start sotalol one day after stopping diltiazem. She was transitioned to PO eliquis for anticoagulation. She was cleared for discharge from Dr. Valentine's standpoint. She was instructed to monitor her heart rate and blood pressure and follow-up with cardiology outpatient. She was discharged in stable condition on the afternoon of 01/31/20. (2) Rectal bleed: Code(s): K62.5 - Hemorrhage of anus and rectum Status: Acute Assessment and Plan: She reports that she had bright red blood on the toilet paper with wiping x2 01/28. She was on therapeutic anticoagulation for stroke prophylaxis due to new-onset atrial fibrillation. She has a hx of hemorrhoids. Her most recent colonoscopy was 3-4 years ago and she reports that polyps were removed. I suspect that her rectal bleeding was due to hemorrhoids but she will need to follow-up for repeat colonoscopy outpatient. Hemoglobin and hematocrit were stable and she had no further episodes of bright red blood per rectum or dark stools after the two episodes 01/28. She was encouraged to follow-up with GI outpatient for repeat colonoscopy. (3) Suspected sleep apnea: Code(s): R29.818 - Other symptoms and signs involving the nervous system Status: Acute Assessment and Plan: Apnea link revealed suspected pathological breathing disorder. She will need a formal outpatient sleep study for further evaluation. DS: Summary Hospital Course Reason for hospitalization: Exertional dyspnea, palpitations Hospital Course: As above. Status at Discharge Functional status at discharge: independent ambulation Overall status at discharge: patient is back to baseline Time Spent with Patient Time attestation: Total time spent providing and/or coordinating discharge services: 35 minutes Exam Narrative: Exam Narrative: Vitals at presentation: Temp Pulse Resp BP Pulse Ox 97.7 F 105 H 16 109/77 97 01/28/20 16:43 01/28/20 16:43 01/28/20 16:43 01/28/20 16:43 01/28/20 16:43 Vitals at discharge: Temp Pulse Resp BP Pulse Ox 96.8 F L 67 12 113/54 L 95 01/31/20 12:00 01/31/20 12:00 01/31/20 12:00 01/02
== END 2020-01-31 15:05 | disposition home or self-care (01) | DRG 309 ==
LOC: ANHED 18:14 → ANHIMU 19:32
PROVIDERS: Emergency Medicine; Family Medicine; Physician Assistant; Admitting Provider Internal Medicine; Emergency Provider Emergency Medicine; PCP Family Medicine; Visit Provider Internal Medicine
DX: I48.91 Unspecified atrial fibrillation (principal); K62.5 Hemorrhage of anus and rectum; E78.5 Hyperlipidemia, unspecified; Z87.891 Personal history of nicotine dependence; K80.20 Calculus of gallbladder without cholecystitis without obstruction; K58.9 Irritable bowel syndrome, unspecified; K64.9 Unspecified hemorrhoids
CPT/HCPCS: 36415; 71046; 80048; 83735; 84443; 84484; 85025; 85027; 85610; 85730; 93005; 93306; 94762; 96365; 96366; 96372; 96375; 99285; A9270; G0378; J1650; J7030

== ENCOUNTER 2020-04-13 09:35 | Outpatient (CLI) | payer MEDICARE, SELFPAY ==
--- NOTE | 2020-05-12 03:15 | WPDHOMESLEEP ---
Sleep Study - Home Unattended Date of Study: 04/13/20 Ordering Provider: Sharon Cosby MP Interpreting Physician: Celia Ryan MD Home Sleep Study Type: Apnea Link Air Height: 1.65 m Weight: 104.326 kg Body Mass Index: 38.2 Neck Circumference (inches): 15 [place]: 4 Reason for Sleep Study Insomnia; atrial fibrillation Sleep History Sheryl Melendez is a 74 yo female who was admitted to the hospital for atrial fibrillation for 3 days. She is being evaluated for sleep disordered breathing. The patient has a primary Sleep complaint of insomnia. This is been going on between 1 and 2 years. She has difficulty falling asleep and she wakes up at night. She has tried Ambien but this has not helped her. She does not awaken from sleep feeling short of breath. She occasionally awakens at night with heartburn, belching or coughing. She does not think that she snores. She occasionally has trouble sleeping with a cold. She does not wake up gasping for breath at night. She does not have breathing problems at night reported to her by others. She occasionally sweats excessively at night. She does not notice her heart pounding or beating irregularly at night. She occasionally falls asleep during the day, never involuntarily and never while driving. She does not fall asleep during physical effort. She does not have loss of muscle tone was strong emotion. She does not have daytime difficulties due to excessive sleepiness. She denies feeling paralyzed on waking or falling asleep. She denies having vivid dreamlike scenes upon awakening or falling asleep. She has never for a to go to sleep. She does not have nightmares. She rarely remembers her dreams. She rarely has racing thoughts. She occasionally feels sad or depressed. She occasionally has anxiety. She occasionally has muscular tension. She does not notice parts of her body jerking and she does not kick at night. She occasionally has crawling and aching feelings in her legs before bedtime occasionally has leg pain during the night. She occasionally has morning jaw pain. She frequently has bothered by pain during the day. She occasionally awakens due to pain at night, frequently wakes up with sore sore achy muscles with pain in her spine. She has fatigue and depression. She occasionally has morning headaches, only occasionally wakes up feeling refreshed. Normal bedtime is 12:30 am - 1:00 am, falling asleep within 20 minutes, waking 1-2 times at night to use the bathroom, waking at 7:00 am. She takes short naps which can be refreshing. She is drowsy in the morning for 2 hours. She feels better in the evening. Habits: Smoked 1 ppd x 18 years, quit. No caffeine or alcohol. [facility] Past Medical History Medical History (Updated 05/12/20 @ 03:34 by Celia Ryan MD) Arthritis Asymptomatic gallstones Atrial fibrillation with rapid ventricular response Bronchitis Bulging disc Depression Hemorrhoids HLD (hyperlipidemia) IBS (irritable bowel syndrome) Kidney stone Pulmonary nodule Right wrist fracture UTI (urinary tract infection) Surgical History Surgical History History of bilateral knee replacement History of total left hip replacement Family History Family History Mother Hypertension Family history of diabetes mellitus in first degree relative Family history of heart disease in male family member before age 55 Father No problems noted. Social History Social History Social History: , has been has had AFib. Three grown children. Smoking packs per day: 1 Smoking cigarettes per day: 20.0 Years smoked: 18 Smoking pack-years: 18.00 Smoking status: Former smoker Tobacco type: cigarettes Second hand tobacco smoke exposure: No Alcohol intake: never Substance use: never Substance us
[2020-05-12 03:40] VITALS: BMI 38.2
== END 2020-04-13 09:36 | disposition home or self-care (01) ==
LOC: ANHCSM 09:35
PROVIDERS: PCP Family Medicine; Visit Provider Nurse Practitioner Adult Health
DX: G47.30 Sleep apnea, unspecified (principal); I48.0 Paroxysmal atrial fibrillation; G47.00 Insomnia, unspecified
CPT/HCPCS: 36415; 80048; 95806

== ENCOUNTER 2020-04-13 13:13 | Outpatient (CLI) | payer MEDICARE, SELFPAY ==
[2020-04-13 13:56] LABS: Anion Gap 6 mmol/L (8-16); Blood Urea Nitrogen 17 mg/dL (7-17); Calcium 9.7 mg/dL (8.4-10.2); Carbon Dioxide 30 mmol/L (22-30); Chloride 104 mmol/L (98-107); Estimated Glomerular Filt Rate > 60; Glucose 93 mg/dL (65-105); Potassium 4.2 mmol/L (3.4-5.0); Sodium 140 mmol/L (137-145)
== END 2020-04-13 13:14 | disposition home or self-care (01) ==
PROVIDERS: PCP Family Medicine; Visit Provider Specialist
DX: I15.9 Secondary hypertension, unspecified (principal); Z79.899 Other long term (current) drug therapy
CPT/HCPCS: 36415; 80048

== ENCOUNTER 2020-08-18 11:00 | Emergency (ER) | payer MEDICARE, SELFPAY ==
--- NOTE | ~2020-08-18 | XR_ITS ---
EXAMINATION: XR chest 2V DATE: 08/18/2020 12:21 INDICATION: Epigastric pain. Upper back pain. TECHNIQUE: frontal and lateral views of the chest were obtained. COMPARISON: Chest radiograph dated 01/28/2020 FINDINGS: The lungs remain clear with no focal airspace opacities, pulmonary edema, pleural effusion or pneumot horax. Heart size is normal. Prominent bilateral paracardial fat pads mild thoracic kyphosis with chr onic mild anterior wedging of a few mid thoracic vertebral bodies and moderate spondylosis. IMPRESSION: 1. No acute cardiopulmonary disease. Reviewed, dictated and finalized at location B.
--- NOTE | ~2020-08-18 | CT_ITS ---
EXAMINATION: CT abdomen pelvis wo con EXAM DATE: 08/18/2020 13:05 INDICATION: Right upper quadrant pain, back pain radiating to right side. TECHNIQUE: Spiral CT of the abdomen and pelvis was performed without contrast. Axial, coronal and sag ittal images were reviewed. The dose-length product (DLP) for this examination was 1335.48 mGy-cm. The exposure was tailored according to patient size (auto mA exposure control), and iterative reconst ruction (ASIR) was used as additional dose reduction technique. Comparison is made to prior examinati on from 05/08/2019. FINDINGS: There is a new region of circumscribed fat along the antimesenteric border of the ascending colon measuring about 2 cm, probably torsed epiploic appendagitis, which can cause pain but is a rahda f-limiting condition. This finding has been indicated on axial image 107. Left mid calyceal 5 mm stone. There are scattered other punctate bilateral kidney stones. No ureteral stones or hydronephrosis. Several renal lesions consistent with cysts largest in the left kidney at 2.5 cm. The uterus is anteverted and morphologically normal. The bladder is unremarkable. The edouard er, spleen, adrenal glands and pancreas are unremarkable. There are gallstones within an otherwise u nremarkable gallbladder. No evidence of obstructive biliary disease. There is no retroperitoneal or pelvic lymphadenopathy. There is moderate scattered arteriosclerotic disease. Mild chronic karishma m esentery appearance. The appendix is normal. The stomach and small bowel are unremarkable. There is expected amount of c olonic stool. No free intraperitoneal gas. The heart is normal in size. There are no pericardial or pleural effusions. There is 5 mm right middle lobe granuloma. Some new small ill-defined bibasil ar opacities which are likely infectious or postinfectious, not present in May. There are no os teoblastic or osteolytic lesions identified. There is a left hip replacement. Moderate] primary osteo arthritis. IMPRESSION: 1. Probable acute torsed epiploic appendagitis, a self-limiting condition. 2. Small amount of new basilar opacities, infectious or postinfectious. 3. Bilateral nephrolithiasis. 4. Cholelithiasis. Reviewed, dictated and finalized at location A.
[2020-08-18 11:02] VITALS: BP 150/78; PULSE 55; RESP 20; TEMP 36.2; O2SAT 97
[2020-08-18 11:29] LABS: Basophils Percent Auto 0.3 % (0.2-1.2); Eosinophils Absolute Auto 0.1 K/mm3 (0-0.3); Eosinophils Percent Auto 0.8 % (0-4.4); Hematocrit 47.3 % (37.0-47.0); Hemoglobin 15.4 g/dL (12.0-15.0); Immature Granulocyte Absolute 0.02 K/mm3 (0.00-0.031); Immature Granulocyte Percent A 0.3 % (0-0.5); Lymphocytes Absolute Auto 0.98 K/mm3 (0.9-3.2); Lymphocytes Percent Auto 13.5 % (18.3-44.2); Mean Corpuscular HGB Conc 32.6 g/dl (32-36); Mean Corpuscular Hemoglobin 28.9 pg (26-34); Mean Corpuscular Volume 88.7 fl (80-100); Mean Platelet Volume 10.6 fl (7.4-10.4); Monocytes Absolute Auto 0.5 K/mm3 (0.1-0.6); Monocytes Percent Auto 6.2 % (2.6-8.5); Neutrophils Absolute Auto 5.7 K/mm3 (1.3-6.7); Neutrophils Percent Auto 78.9 % (45.5-73.1); Platelet Count Result 258 k/mm3 (150-375); Red Blood Count 5.33 M/mm3 (4.2-5.4); Red Cell Distribution Width 13.8 % (11.5-14.5); White Blood Count 7.3 K/mm3 (4.5-10.0)
[2020-08-18 11:45] LABS: Add Urine Microscopic? YES; Appearance Urine Cloudy (Clear); Bacteria Urine Trace /hpf; Bilirubin Urine Negative (Negative); Blood Urine Negative (Negative); Color Urine Yellow (Yellow); Glucose Urine UA Negative (Negative); Ketones Urine Negative (Negative); Leukocyte Esterase Ur 2+ LEU/UL (Negative); Mucus Urine Rare /lpf; Nitrate Urine Negative (Negative); Protein Urine Negative (Negative); RBC Urine 0-2 /hpf (0-2); Specific Grav Ur 1.016 (1.001-1.035); Squamous Epithelial Cell Urine Many /hpf (Few); Urobilinogen Urine Negative mg/dL (<2.0)
[2020-08-18 11:48] LABS: Alanine Aminotransferase 12 U/L (4-35); Albumin Level 4.1 g/dL (3.5-5.1); Alkaline Phosphatase 76 U/L (38-126); Anion Gap 6 mmol/L (8-16); Aspartate Amino Transferase 21 U/L (14-36); Bilirubin,Total 0.6 mg/dL (0.2-1.3); Blood Urea Nitrogen 20 mg/dL (7-17); Calcium 9.5 mg/dL (8.4-10.2); Carbon Dioxide 28 mmol/L (22-30); Chloride 105 mmol/L (98-107); Estimated CRCL calculation 56 ml/min; Estimated Glomerular Filt Rate > 60; Glucose 111 mg/dL (65-105); Lipase 45 U/L (23-300); Potassium 4.5 mmol/L (3.4-5.0); Sodium 139 mmol/L (137-145)
[2020-08-18] MEDS: FAMOTIDINE 20 MG/2 ML VIAL IV PUSH (12:24)
--- NOTE | 2020-08-18 12:26 | ECG_ITS ---
Measurements Intervals Willis Rate: 51 P: 49 LA: 135 QRS: -8 QRSD: 96 T: 5 QT: 456 QTc: 421 Interpretive Statements SINUS BRADYCARDIA DELAYED PRECORDIAL R/S TRANSITION BORDERLINE T WAVE ABNORMALITY- INFERIOR LEADS BORDERLINE ECG Electronically Signed On 08-18-2020 13:47:37 CDT by Truong Mendez D.O.
[2020-08-18 12:48] LABS: Troponin I < 0.012 ng/mL (0.000-0.034)
--- NOTE | 2020-08-18 13:35 | ED.ABDPAIN ---
HPI - Abdominal Pain General Chief Complaint: Back Pain/Injury Stated Complaint: abd/back pain Time Seen by Provider: 08/18/20 11:18 Source: patient Mode of arrival: ambulatory Limitations: no limitations History of Present Illness HPI narrative: Patient is a 75-year-old female presents complaining of right flank pain that radiates to upper abdomen. Reports pain increases with movement. She states it all happened after Covid vaccine . Patient reports having Pfizer Covid vaccination approximately 1 week ago. She denies nausea, vomiting, diarrhea or constipation. She report mild urinary complaints at this time. She reports pain as dull and constant. She denies chest pain, shortness of breath, cough or fever. She denies taking over the counter medications for relief. MD elicited complaint: flank pain Related Data Home Medications Medication Instructions Recorded Confirmed acetaminophen [Tylenol Extra 500 mg PO Q6H PRN 01/28/20 01/28/20 Strength] allopurinol 300 mg PO DAILY 01/28/20 01/28/20 alprazolam 2 mg PO TID PRN 01/28/20 01/28/20 baclofen 10 mg PO TID PRN 01/28/20 01/28/20 Allergies Allergy/AdvReac Type Severity Reaction Status Date / Time morphine Allergy Unknown ITCHING Verified 08/18/20 11:09 Review of Systems Review of Systems: Narrative: CONSTITUTIONAL: Denies fever, chills, or sweats. EYES: Denies visual changes, redness, or discharge. ENT: Denies rhinorrhea, congestion, sore throat, or otalgia. CARDIOVASCULAR: Denies chest pain, palpitations, or edema. RESPIRATORY: Denies cough or dyspnea. GASTROINTESTINAL: Reports right flank and epigastric pain, denies nausea, vomiting or diarrhea GENITOURINARY: Denies dysuria or hematuria. SKIN: Denies rash or itching. MUSCULOSKELETAL: Denies back pain, joint pain, or myalgia. NEUROLOGIC: Denies headache, numbness, dizziness, or weakness. PSYCHIATRIC: Denies anxiety or depression. [facility] Past Medical History Medical History Arthritis Asymptomatic gallstones Atrial fibrillation with rapid ventricular response Bronchitis Bulging disc Depression Hemorrhoids HLD (hyperlipidemia) IBS (irritable bowel syndrome) Kidney stone Pulmonary nodule Right wrist fracture UTI (urinary tract infection) Surgical History Surgical History History of bilateral knee replacement History of total left hip replacement Family History Family History Mother Hypertension Family history of diabetes mellitus in first degree relative Family history of heart disease in male family member before age 55 Father No problems noted. Social History Social History Social History: , has been has had AFib. Three grown children. Smoking packs per day: 1 Smoking cigarettes per day: 20.0 Years smoked: 18 Smoking pack-years: 18.00 Smoking status: Former smoker Tobacco type: cigarettes Second hand tobacco smoke exposure: No Alcohol intake: never Substance use: never Substance use type: does not use Gender identity (if verbalized by the patient): Female Spiritual care concerns: No Comments At the time of signature, I have reviewed and agree with nursing past medical, surgical, social, and family history unless otherwise noted. Please see nursing chart for further information. There is no relevant family history pertinent to the presenting complaint. Exam Narrative: Exam Narrative: GENERAL: Well-appearing, well-nourished, and in no acute distress. HEAD: Normocephalic, atraumatic. EYES: EOMI. No redness or drainage. Conjunctiva are normal. ENT: Mucous membranes pink and moist. Nares clear. Throat normal. Uvula midline. NECK: AROM. Supple. No lymphadenopathy. CHEST: No respiratory distress. Clear to auscultation. HEART: Regular
[2020-08-18 14:13] VITALS: BP 145/70; PULSE 58; RESP 14; O2SAT 99
[2020-08-18 14:59] LABS: Troponin I < 0.012 ng/mL (0.000-0.034)
[2020-08-18 15:00] VITALS: BP 129/79; PULSE 98; RESP 16; O2SAT 100
== END 2020-08-18 15:00 | disposition home or self-care (01) ==
PROVIDERS: Emergency Medicine; Emergency Provider Nurse Practitioner; PCP Family Medicine
DX: K63.89 Other specified diseases of intestine (principal); N39.0 Urinary tract infection, site not specified; M54.9 Dorsalgia, unspecified; M19.90 Unspecified osteoarthritis, unspecified site; I48.91 Unspecified atrial fibrillation; E78.5 Hyperlipidemia, unspecified; K58.9 Irritable bowel syndrome, unspecified; F32.9 Major depressive disorder, single episode, unspecified; Z87.442 Personal history of urinary calculi; Z87.440 Personal history of urinary (tract) infections; Z96.653 Presence of artificial knee joint, bilateral; Z96.642 Presence of left artificial hip joint; Z87.891 Personal history of nicotine dependence; R03.0 Elevated blood-pressure reading, without diagnosis of hypertension; K80.20 Calculus of gallbladder without cholecystitis without obstruction; N20.0 Calculus of kidney; R00.1 Bradycardia, unspecified; R94.31 Abnormal electrocardiogram [ECG] [EKG]
CPT/HCPCS: 36415; 71046; 74176; 80053; 81001; 83690; 84484; 85025; 93005; 96374; 96375; 99284; J0131

== ENCOUNTER 2020-09-13 08:54 | Outpatient (CLI) | payer MEDICARE, SELFPAY ==
--- NOTE | ~2020-09-13 | US_ITS ---
EXAMINATION: US right upper quadrant DATE: 09/13/2020 09:28 INDICATION: Cholelithiasis without obstruction TECHNIQUE: Multiple grayscale and Doppler ultrasound images of the abdomen were obtained. COMPARISON: CT, 08/18/2020 FINDINGS: The head and body of the pancreas are normal. The pancreatic tail is obscured by bowel gas. The liver is normal with normal echogenicity and echotexture. No surface nodularity. Normal hepatope jazzy flow in the main portal vein. Stones are present in the nondistended gallbladder. There is no per icholecystic fluid or gallbladder wall thickening. The normal common bile duct measures 5 mm. There w as no sonographic Winkler sign. IMPRESSION: 1. Cholelithiasis without evidence of cholecystitis. Reviewed, dictated and finalized at location B.
== END 2020-09-13 08:55 | disposition home or self-care (01) ==
PROVIDERS: PCP Family Medicine; Visit Provider Family Medicine
DX: K80.20 Calculus of gallbladder without cholecystitis without obstruction (principal)
CPT/HCPCS: 76705

== ENCOUNTER 2020-12-29 13:40 | Outpatient (CLI) | payer MEDICARE, SELFPAY ==
--- NOTE | ~2020-12-29 | MM_ITS ---
EXAMINATION: MM screening jacqueline BI w lesly HISTORY: Screening mammogram TECHNIQUE: Craniocaudal and mediolateral oblique 3-D tomosynthesis images were obtained and synthetic 2-D images were generated. Bilateral rotated lateral CC views. CAD analysis was submitted and interp reted. COMPARISON: 03/11/2019, 12/19/2017, 08/19/2013 bilateral digital screening mammogram examinations BREAST PARENCHYMAL COMPOSITION: The breasts are almost entirely fatty. FINDINGS: There is no evidence of suspicious mass, calcification, or architectural distortion to sugg est malignancy in either breast. There has been no suspicious interval change. IMPRESSION: 1. No mammographic evidence of malignancy. 2. Recommend routine screening mammography in one year. BI-RADS Category 1: Negative Reviewed, dictated and finalized at location A.
--- NOTE | ~2020-12-29 | DEXA_ITS ---
Bone Density Report Name: Sheryl Melendez Age: 75 Sex: Female Ethnicity: White Date of : 1945 Indication: postmenopausal; parental hip fracture; height loss; prior fracture; Referring Provider: RADHA, RASHAUN Ruffin Study: Bone densitometry was performed. Exam Date: December 29, 2020 Accession number: [id number] Bone Density: Region BMD T-score Z-score Classification AP Spine (L1-L4) 1.006 -0.4 2.0 Normal Femoral Neck (Right) 0.663 -1.7 0.4 Osteopenia Total Hip (Right) 0.821 -1.0 0.8 Normal World Health Organization criteria for BMD impression classify patients as: Normal (T-score at or above -1.0), Osteopenia (T-score between -1.0 and -2.5), or Osteoporosis (T-score at or below -2.5). 10-year Fracture Risk(1): Major Osteoporotic Fracture 24% Hip Fracture 10% Reported Risk Factors: [place] (), Neck BMD=0.663, BMI=40.7, previous fracture, parental fracture (1) FRAX(R) Version 3.08. Fracture probability calculated for an untreated patient. Fracture probability may be lower if the patient has received treatment. Previous Exams: Region Exam Age BMD T-score BMD Change BMD Change Date g/cm2 vs Baseline vs Previous AP Spine(L1-L4) 12/29/2020 75 1.006 -0.4 0.051(5.3%)# 0.045(4.7%)* 12/02/2017 72 0.961 -0.8 0.006(0.6%)# 0.006(0.6%)# 03/25/2007 61 0.955 -0.8 Total Hip(Right) 12/29/2020 75 0.821 -1.0 -0.021(-2.5%)# -0.033(-3.8%)* 12/02/2017 72 0.853 -0.7 0.012(1.4%)# 0.012(1.4%)# 03/25/2007 61 0.842 -0.8 *Denotes significance at 95% confidence level, LSC for AP Spine = 0.022 g/cm2, LSC for Total Hip = 0.027 g/cm2 Clinical Information Provided by Patient: Has had a low trauma fracture Parent has had a hip fracture Patient maximum height was 65 Menopause Age: 48 No regular weight bearing exercise Does not regularly consume dairy products Drinks caffeinated beverages Onset of menses at age 12 Number of children 3 Impression: The patient has low bone mass, based on the Right Femoral Neck T-score. The patient has an estimated ten-year risk of hip fracture of 10% and an estimated ten-year risk of major fracture of 24%, based on the WHO FRAX algorithm. The patient has risk factors, including: parental hip fracture, previous fracture. The BMD for the Total Hip(Right) decreased, changing by -3.8% since the last DXA exam. Discussion: BONE DENSITY IS LOW AT ONE OR MORE SKELETAL SITES. THE PATIENT'S BMD AND CLINICAL RISK FACTORS CONTRIBUTE TO THIS PATIENT'S HIGH RIS
== END 2020-12-29 13:41 | disposition home or self-care (01) ==
LOC: ANHIMG 13:42
PROVIDERS: PCP Family Medicine; Visit Provider Family Medicine
DX: Z12.31 Encounter for screening mammogram for malignant neoplasm of breast (principal); Z78.0 Asymptomatic menopausal state; M85.851 Other specified disorders of bone density and structure, right thigh
CPT/HCPCS: 77063; 77067; 77080

== ENCOUNTER 2021-01-15 14:43 | Outpatient (CLI) | payer MEDICARE, SELFPAY ==
--- NOTE | ~2021-01-15 | XR_ITS ---
XR abdomen/kub 1V DATE: 01/15/2021 15:33 INDICATION: Bilateral kidney stones TECHNIQUE: AP projection, 2 views COMPARISON: 08/18/[address] abdomen pelvis FINDINGS: At least 2 small calcifications overlying the left kidney. Feculent bowel gas shadows overl ie both kidneys and may obscure subtle small or faintly calcified renal calculi. Noncontrast CT abdom en pelvis is more sensitive for detection of kidney stones. Abdominal aortic calcification. Moderately prominent amount fecal material within the colon. No bowel obstruction. The psoas shadows are intact. No visceromegaly. Severe right hip osteoarthritis. Status post left total hip arthroplasty. Heterotopic ossification at the left hip area. IMPRESSION: Probable left renal calcified calculi; noncontrast CT abdomen pelvis would be more sensit coleen and accurate for detection of urinary tract stones Reviewed, dictated and finalized at Location A. Reviewed, dictated and finalized at location A. IMPRESSION: Probable left renal calcified calculi; noncontrast CT abdomen pelvi s would be more sensitive and accurate for detection of urinary tract stones
== END 2021-01-15 14:44 | disposition home or self-care (01) ==
LOC: ANHIMG 14:46
PROVIDERS: PCP Family Medicine; Visit Provider Urology
DX: N20.0 Calculus of kidney (principal)
CPT/HCPCS: 74018

== ENCOUNTER 2021-06-08 14:18 | Outpatient (CLI) | payer MEDICARE, SELFPAY ==
--- NOTE | ~2021-06-08 | XR_ITS ---
EXAMINATION: XR thoracic spine 3V EXAM DATE: 06/08/2021 14:56 INDICATION: Cervicalgia, Low Back Pain, Pain In Thoracic Spin TECHNIQUE: Frontal and lateral projections of the thoracic spine as well as lateral swimmers projecti on of the upper thoracic spine for interpretation. Comparison is made to prior examination from 020. FINDINGS: Moderate sized bridging mid and lower thoracic endplate osteophytes. Mild to moderate mid a nd lower thoracic disc disease. There is aortic arteriosclerosis. There is mild diffuse loss of the l ower thoracic vertebral body heights without acute fracture line identified. Paraspinal soft tissue i s unremarkable. IMPRESSION: Chronic thoracic findings Reviewed, dictated and finalized at location G. ONAL ENGINEER IMPRESSION: Chronic thoracic findings
--- NOTE | ~2021-06-08 | CT_ITS ---
EXAMINATION: CT brain wo con DATE: 06/08/2021 15:03 INDICATION: Headache. TECHNIQUE: Computed tomography (CT) of the head was performed without intravenous contrast. The mA wa s adjusted according to patient size. Iterative reconstruction technique was employed. The dose-lengt h product was 681.00 mGy-cm. COMPARISON: None FINDINGS: There is no intracranial hemorrhage, acute infarction, or abnormal intracranial mass lesion . There are scattered areas of low attenuation in the cerebral white matter. The ventricles are yanna l in size. Cavum septum pellucidum and vergae are noted. There are likely changes of ocular lens repl acement surgeries. The paranasal sinuses are clear. The mastoid air cells are normal. IMPRESSION: 1. Moderate nonspecific cerebral white matter disease, which likely represents chronic small vessel i schemic disease. Reviewed, dictated and finalized at location A. INVENTORY SPECIALIST IMPRESSION: 1. Moderate nonspecific cerebral white matter disease, which likely represents chronic small vessel ischemic disease.
--- NOTE | ~2021-06-08 | XR_ITS ---
EXAMINATION: XR lumbar spine 2-3V EXAM DATE: 06/08/2021 14:56 INDICATION: Cervicalgia, Low Back Pain, Pain In Thoracic Spin . TECHNIQUE: Lumber spine frontal, lateral, lateral L5-S1 projections for interpretation. Comparison is made to prior examination from 12/13/2019. FINDINGS: There is mild to moderate lumbar disc disease. There is moderate to severe mid and lower simeon mbar facet arthropathy. Mild to moderate aortic arterial sclerosis and some ectasia. There is left hi p replacement. The vertebral bodies are aligned in the AP dimension. There are no acute fractures trevor ntified. Sacrum, sacroiliac joints, sacral arcuate lines are intact. Paraspinal soft tissue is unrema rkable. IMPRESSION: Moderate to severe lumbar facet arthropathy, mild to moderate disc disease. Reviewed, dictated and finalized at location G. PARALEGAL
--- NOTE | ~2021-06-08 | XR_ITS ---
EXAMINATION: XR cervical spine 4-5V EXAM DATE: 06/08/2021 14:56 INDICATION: Cervicalgia, Low Back Pain, Pain In Thoracic Spin TECHNIQUE: Cervical spine frontal, lateral, lateral swimmers, and open-mouth odontoid projections. There is no prior study for comparison. FINDINGS: Vertebral body and disc heights are well-maintained. Prevertebral soft tissue and pre-dens space are within normal limits. The odontoid process is intact. The lateral masses of C1 line up wi th C2. There is moderate cervical arthropathy. Apices are clear. IMPRESSION: Moderate arthropathy. Reviewed, dictated and finalized at location . R TREATMENT PLANT SUPERVISOR IMPRESSION: Moderate arthropathy.
== END 2021-06-08 14:19 | disposition home or self-care (01) ==
LOC: ANHIMG 14:27
PROVIDERS: PCP Family Medicine; Visit Provider Family Medicine
DX: R51.9 Headache, unspecified (principal); M54.2 Cervicalgia; M51.36 Other intervertebral disc degeneration, lumbar region; R93.0 Abnormal findings on diagnostic imaging of skull and head, not elsewhere classified
CPT/HCPCS: 70450; 72050; 72072; 72100

== ENCOUNTER 2021-09-06 13:20 | Outpatient (CLI) | payer MEDICARE, SELFPAY ==
--- NOTE | ~2021-09-06 | MR_ITS ---
EXAMINATION: MR lumbar spine wo con DATE: 09/06/2021 14:26 INDICATION: Leg pain, numbness and tingling. TECHNIQUE: Magnetic resonance imaging (MRI) of the lumbar spine was performed without intravenous con trast. Sequences included sagittal T2-weighted FSE, sagittal T2-weighted FS FSE, sagittal T1-weighted FSE, and axial T2-weighted FSE. COMPARISON: None FINDINGS: Alignment is normal. Vertebral body heights are normal with several small Schmorl's nodes along the e ndplates in the lower thoracic and upper lumbar spine. T1 hyperintense hemangioma at T11. Severe disc height loss at L1-L2, L5-S1 and at the left side of L4-L5 with associated fibrofatty degenerative en dplate changes. Marrow signal is otherwise normal. Mild disc height loss at L3-L4. The conus medullar is terminates at L1. There is normal signal in the caudal spinal cord.. 11 mm T2 hyperintense right r enal cyst. Paravertebral soft tissues are unremarkable. Metallic magnetic field artifact on the epic radiant analyst localizer images associated with a left total hip arthroplasty. The following disc levels are specif ically discussed: T12-L1: The disc does not extend beyond the endplate margin. There is mild bilateral facet joint oste oarthritis. There is no neural foraminal stenosis. There is no central canal stenosis. L1-L2: Disc is bulging. There is mild bilateral facet joint osteoarthritis. There is minimal bilatera l neural foraminal stenosis. There is mild central canal stenosis. L2-L3: The disc does not extend beyond the endplate margin. There is mild hypertrophy of the ligament um flavum. There is mild bilateral facet joint osteoarthritis. There is mild bilateral neural forami nal stenosis. There is no central canal stenosis. L3-L4: Mild disc protrusions at the bilateral foraminal zones. There is hypertrophy of the ligamentum flavum. There is mild bilateral facet joint osteoarthritis. There is mild bilateral neural foramina l stenosis. There is mild central canal stenosis. L4-L5: Disc is mildly bulging. There is hypertrophy of the ligamentum flavum. There is mild bilateral facet joint osteoarthritis. There is moderate right and mild left neural foraminal stenosis. There i s no central canal stenosis. L5-S1: Posterior disc osteophyte complex. There is mild bilateral facet joint osteoarthritis. There i s mild to moderate bilateral neural foraminal stenosis. There is no central canal stenosis. IMPRESSION: 1. Severe lumbar spondylosis. Reviewed, dictated and finalized at location B.
== END 2021-09-06 13:21 | disposition home or self-care (01) ==
PROVIDERS: PCP Family Medicine; Visit Provider Orthopaedic Surgery
DX: R20.2 Paresthesia of skin (principal); M47.896 Other spondylosis, lumbar region
CPT/HCPCS: 72148

== ENCOUNTER 2021-12-07 12:36 | Outpatient (CLI) | payer MEDICARE, SELFPAY ==
--- NOTE | ~2021-12-07 | XR_ITS ---
XR femur LT min 2V DATE: 12/07/2021 13:29 INDICATION: Left flank pain TECHNIQUE: AP and lateral views COMPARISON: None FINDINGS: Status post left total hip arthroplasty. Status post left knee arthroplasty with patellar resurfacing. There is osteopenia. No fracture or dislocation, periosteal reaction or bone destruction is detected. No prosthetic fractu re or displacement or loosening is evident radiographically. IMPRESSION: Osteopenia Status post left total hip arthroplasty Status post left total knee arthroplasty with patellar resurfacing Reviewed, dictated and finalized at location A.
--- NOTE | ~2021-12-07 | XR_ITS ---
XR knee RT min 4V DATE: 12/07/2021 13:29 INDICATION: Left knee pain TECHNIQUE: [place] and standing AP, PA and lateral views COMPARISON: None FINDINGS: Status post right total knee arthroplasty with patellar resurfacing. No fracture, dislocation, joint effusion. There is osteopenia. No periosteal reaction or bone destruction. IMPRESSION: Status post arthroplasty Osteopenia Reviewed, dictated and finalized at location A.
--- NOTE | ~2021-12-07 | XR_ITS ---
XR knee LT min 4V DATE: 12/07/2021 13:29 INDICATION: Left knee pain TECHNIQUE: AP, lateral standing views and sunrise view COMPARISON: 03/26/2019 left knee FINDINGS: Status post left total knee arthroplasty with patellar resurfacing. Osteopenia. No fracture or dislocation or joint effusion is detected. No periosteal reaction or bone destruction. IMPRESSION: Status post left total knee arthroplasty with patellar resurfacing Osteopenia No fracture or dislocation or joint effusion Reviewed, dictated and finalized at location A.
[2021-12-07 14:23] LABS: Basophils Percent Auto 0.5 % (0.2-1.2); Eosinophils Absolute Auto 0.1 K/mm3 (0-0.3); Eosinophils Percent Auto 1.2 % (0-4.4); Hematocrit 44.8 % (37.0-47.0); Hemoglobin 14.4 g/dL (12.0-15.0); Immature Granulocyte Absolute 0.02 K/mm3 (0.00-0.031); Immature Granulocyte Percent A 0.3 % (0-0.5); Lymphocytes Absolute Auto 1.37 K/mm3 (0.9-3.2); Lymphocytes Percent Auto 18.7 % (18.3-44.2); Mean Corpuscular HGB Conc 32.1 g/dl (32-36); Mean Corpuscular Hemoglobin 28.9 pg (26-34); Mean Corpuscular Volume 89.8 fl (80-100); Mean Platelet Volume 10.7 fl (7.4-10.4); Monocytes Absolute Auto 0.5 K/mm3 (0.1-0.6); Monocytes Percent Auto 7.2 % (2.6-8.5); Neutrophils Absolute Auto 5.3 K/mm3 (1.3-6.7); Neutrophils Percent Auto 72.1 % (45.5-73.1); Platelet Count Result 278 k/mm3 (150-375); Red Blood Count 4.99 M/mm3 (4.2-5.4); White Blood Count 7.3 K/mm3 (4.5-10.0)
[2021-12-07 14:34] LABS: Alanine Aminotransferase 12 U/L (6-35); Albumin Level 3.8 g/dL (3.5-5.1); Alkaline Phosphatase 67 U/L (38-126); Anion Gap 5 mmol/L (8-16); Aspartate Amino Transferase 18 U/L (14-36); Bilirubin,Total 0.5 mg/dL (0.2-1.3); Blood Urea Nitrogen 19 mg/dL (7-17); Calcium 9.2 mg/dL (8.4-10.2); Carbon Dioxide 27 mmol/L (22-30); Chloride 107 mmol/L (98-107); Cholesterol 175 mg/dL (0-200); Estimated Glomerular Filt Rate > 60; Glucose 87 mg/dL (65-110); HDL Direct 43 mg/dL; Potassium 4.1 mmol/L (3.4-5.0); Sodium 139 mmol/L (137-145); Triglycerides 189 mg/dL (<150); Uric Acid 7.7 mg/dL (2.5-7.5)
[2021-12-07 14:36] LABS: Hemoglobin A1C 6.1 % (<5.7)
[2021-12-07 14:45] LABS: LDL Cholesterol Direct 78 mg/dL
[2021-12-07 16:47] LABS: Iron 79 ug/dL (37-170)
[2021-12-07 17:20] LABS: Percent Iron Saturation 25 % (20-50)
[2021-12-07 17:21] LABS: Free T4 Free Thyroxine 1.05 ng/mL (0.78-2.19)
[2021-12-10 22:18] LABS: Vitamin D 1,25 (OH)2 Total 23 pg/mL (18-72); Vitamin D2 1,25 (OH)2 <8 pg/mL; Vitamin D3 1,25 (OH)2 23 pg/mL
== END 2021-12-07 12:37 | disposition home or self-care (01) ==
LOC: ANHIMG 12:51
PROVIDERS: PCP Family Medicine; Visit Provider Family Medicine
DX: M79.605 Pain in left leg (principal); M25.561 Pain in right knee; E11.9 Type 2 diabetes mellitus without complications; E55.9 Vitamin D deficiency, unspecified; E78.5 Hyperlipidemia, unspecified; E79.0 Hyperuricemia without signs of inflammatory arthritis and tophaceous disease; D50.9 Iron deficiency anemia, unspecified; E53.8 Deficiency of other specified B group vitamins; L65.9 Nonscarring hair loss, unspecified; M85.852 Other specified disorders of bone density and structure, left thigh; M85.861 Other specified disorders of bone density and structure, right lower leg; M85.862 Other specified disorders of bone density and structure, left lower leg
CPT/HCPCS: 36415; 73552; 73564; 80048; 80061; 80076; 82607; 82652; 82728; 83036; 83540; 83550; 84439; 84443; 84550; 85025

== ENCOUNTER 2022-03-09 12:35 | Outpatient (CLI) | payer MEDICARE, SELFPAY ==
--- NOTE | ~2022-03-09 | XR_ITS ---
XR cervical spine 4-5V INDICATION: Cervicalgia TECHNIQUE: 4 views of the cervical spine. FINDINGS: The cervical spine is visualized to the cervicothoracic junction. There is no prevertebral soft tiss ue swelling, listhesis, or loss of vertebral body height. There is moderate multilevel facet arthropa thy. Intervertebral disc spaces are normal. The osseous central canal is patent. No displaced cervi chanda spine fractures are identified. IMPRESSION: 1. Moderate cervical spondylosis.. Reviewed, dictated and finalized at location A.
--- NOTE | ~2022-03-09 | XR_ITS ---
XR hand RT min 3V 03/09/2022 14:02 Indication: Right hand pain Procedure: 3 views right hand Comparison: 07/29/2006 Findings: There is polyarticular osteoarthritis. There is mild osteoarthritis of the first MTP joint with small loose body. There is triscaphe osteoarthritis. No acute fracture or traumatic malalignment . Osteopenia. Impression: 1: Mild-moderate polyarticular osteoarthritis. Reviewed, dictated and finalized at location A. Impression: 1: Mild-moderate polyarticular osteoarthritis.
[2022-03-09 13:18] LABS: Basophils Percent Auto 0.4 % (0.2-1.2); Eosinophils Absolute Auto 0.1 K/mm3 (0-0.3); Eosinophils Percent Auto 1.3 % (0-4.4); Hematocrit 44.6 % (37.0-47.0); Hemoglobin 14.7 g/dL (12.0-15.0); Immature Granulocyte Absolute 0.01 K/mm3 (0.00-0.031); Immature Granulocyte Percent A 0.1 % (0-0.5); Lymphocytes Absolute Auto 1.36 K/mm3 (0.9-3.2); Lymphocytes Percent Auto 17.6 % (18.3-44.2); Mean Platelet Volume 10.5 fl (7.4-10.4); Monocytes Absolute Auto 0.6 K/mm3 (0.1-0.6); Monocytes Percent Auto 8.3 % (2.6-8.5); Neutrophils Absolute Auto 5.6 K/mm3 (1.3-6.7); Neutrophils Percent Auto 72.3 % (45.5-73.1); Platelet Count Result 267 k/mm3 (150-375); Red Blood Count 5.07 M/mm3 (4.2-5.4); Red Cell Distribution Width 14.2 % (11.5-14.5); White Blood Count 7.7 K/mm3 (4.5-10.0)
[2022-03-09 13:28] LABS: Alanine Aminotransferase 20 U/L (6-35); Albumin Level 4.1 g/dL (3.5-5.1); Alkaline Phosphatase 73 U/L (38-126); Anion Gap 10 mmol/L (8-16); Aspartate Amino Transferase 28 U/L (14-36); Bilirubin,Total 0.6 mg/dL (0.2-1.3); Blood Urea Nitrogen 21 mg/dL (7-17); Calcium 9.2 mg/dL (8.4-10.2); Carbon Dioxide 22 mmol/L (22-30); Chloride 109 mmol/L (98-107); Cholesterol 192 mg/dL (0-200); Estimated Glomerular Filt Rate > 60; Glucose 123 mg/dL (65-110); HDL Direct 44 mg/dL; Potassium 4.1 mmol/L (3.4-5.0); Sodium 141 mmol/L (137-145); Triglycerides 229 mg/dL (<150); Uric Acid 7.1 mg/dL (2.5-7.5)
[2022-03-09 13:36] LABS: Hemoglobin A1C 6.4 % (<5.7)
[2022-03-09 13:39] LABS: LDL Cholesterol Direct 94 mg/dL
[2022-03-09 14:34] LABS: Add Urine Microscopic? YES; Appearance Urine Cloudy (Clear); Bilirubin Urine Negative (Negative); Blood Urine 2+ (Negative); Color Urine Yellow (Yellow); Glucose Urine UA Negative (Negative); Ketones Urine Negative (Negative); Leukocyte Esterase Ur 2+ LEU/UL (Negative); Nitrate Urine Negative (Negative); Protein Urine Negative (Negative); Specific Grav Ur 1.017 (1.001-1.035); Squamous Epithelial Cell Urine Few /hpf (Few); Urobilinogen Urine Negative mg/dL (<2.0); WBC Urine 0-3 /hpf
[2022-03-09 16:36] LABS: Iron 77 ug/dL (37-170)
[2022-03-09 16:41] LABS: Percent Iron Saturation 26 % (20-50)
[2022-03-09 17:37] LABS: Free T4 Free Thyroxine 1.32 ng/mL (0.78-2.19)
== END 2022-03-09 12:36 | disposition home or self-care (01) ==
PROVIDERS: PCP Family Medicine; Visit Provider Family Medicine
DX: M79.641 Pain in right hand (principal); M54.2 Cervicalgia; E11.9 Type 2 diabetes mellitus without complications; E55.9 Vitamin D deficiency, unspecified; E78.5 Hyperlipidemia, unspecified; Z79.899 Other long term (current) drug therapy; E79.0 Hyperuricemia without signs of inflammatory arthritis and tophaceous disease; D50.9 Iron deficiency anemia, unspecified; E53.8 Deficiency of other specified B group vitamins; L65.9 Nonscarring hair loss, unspecified; R32 Unspecified urinary incontinence; M19.041 Primary osteoarthritis, right hand; M47.812 Spondylosis without myelopathy or radiculopathy, cervical region
CPT/HCPCS: 36415; 72050; 73130; 80048; 80061; 80076; 81001; 82306; 82607; 82728; 83036; 83540; 83550; 84439; 84443; 84550; 85025

== ENCOUNTER 2022-07-08 12:17 | Outpatient (CLI) | payer MEDICARE, SELFPAY ==
--- NOTE | ~2022-07-08 | XR_ITS ---
EXAMINATION: XR abdomen/kub 1V INDICATION: Right flank pain TECHNIQUE: Supine views of the abdomen were obtained on 2 radiographs. COMPARISON: 01/15/2021 FINDINGS: Stones measuring 5 mm and 4 mm project in the left kidney. No right-sided urolithiasis is i dentified. The bowel gas pattern is normal. There is advanced osteoarthritis of the right hip. Change s of left total hip arthroplasty are noted. The visualized lung bases are clear. IMPRESSION: 1. Left nephrolithiasis. Reviewed, dictated and finalized at location B. ER SHOP SUPERVISOR IMPRESSION: 1. Left nephrolithiasis.
== END 2022-07-08 12:18 | disposition home or self-care (01) ==
LOC: ANHLAB 12:21
PROVIDERS: PCP Family Medicine; Visit Provider Family Medicine
DX: R10.9 Unspecified abdominal pain (principal); N20.0 Calculus of kidney
CPT/HCPCS: 74018

== ENCOUNTER 2022-07-17 12:54 | Inpatient (IN) | payer MEDICARE, SELFPAY ==
[2022-07-17] VITALS (20 sets, daily range): BP systolic 123–189; BP diastolic 59–90; PULSE 53–67; RESP 7–28; TEMP 36.3; O2SAT 89–98; BMI 40.5
--- NOTE | ~2022-07-17 | XR_ITS ---
EXAMINATION: XR ERCP DATE: 07/18/2022 12:55 INDICATION: Cholelithiasis. TECHNIQUE: 1 spot fluoroscopic image of the right upper quadrant was obtained during endoscopic retro grade cholangiopancreatography (ERCP). Fluoroscopy exposure time was 188 seconds. COMPARISON: Ultrasound 07/17/2022 FINDINGS: The endoscope is in the second portion of the duodenum with wire in the common duct. IMPRESSION: 1. Endoscope in the duodenum. Please refer to the ERCP procedure note for additional details. Reviewed, dictated and finalized at location A. ING CHECKER IMPRESSION: 1. Endoscope in the duodenum. Please refer to the ERCP procedure note for addit ional details.
--- NOTE | ~2022-07-17 | XR_ITS ---
EXAMINATION: XR UGI water soluble wo kub DATE: 08/03/2022 12:58 INDICATION: Intractable nausea and vomiting. TECHNIQUE: The patient drank thick barium, gas-producing crystals, and thin barium. Fluoroscopy of th e esophagus, stomach, and proximal small bowel was performed. Fluoroscopy exposure time was 0.8 minut es. The total number of images was 204. COMPARISON: CT abdomen and pelvis 08/01/2022, 07/19/2021, 07/24/2022 FINDINGS: There is no mass or stricture of the esophagus. Esophageal motility is normal. There is no hiatal hernia. The stomach was filled with fluid at the beginning the exam despite the patient report ing only sips of water today. The distal stomach is not well visualized due to dilution of the contra st. There is spontaneous gastroesophageal reflux. There is a total left hip arthroplasty. IMPRESSION: 1. Large volume of fluid in the stomach despite the patient reporting only sips of water today, likel y gastric outlet obstruction secondary to pancreatitis. 2. Spontaneous gastroesophageal reflux. Reviewed, dictated and finalized at location A. E DIRECTOR IMPRESSION: 1. Large volume of fluid in the stomach despite the patient reporting only sips of water today, likely gastric outlet obstruction secondary to pancreatitis. 2. Spontaneous gastroesophageal reflux.
--- NOTE | ~2022-07-17 | XR_ITS ---
EXAMINATION: XR abdomen NG/feed tube insert INDICATION: Nasogastric tube placement TECHNIQUE: Portable AP KUB-NG at 1459 hours COMPARISON: 07/18/2022 FINDINGS: The tip of the nasogastric tube is in the stomach. The proximal side port appears to be in the distal esophagus. The bowel gas pattern is nonspecific. There is atelectasis of the lung bases. A right upper extremity PICC ends with its tip in the distal superior vena cava. IMPRESSION: 1. Tip of the nasogastric tube in the stomach with the proximal side port in the distal esophagus. Re commend advancing 3 to 4 cm. Reviewed, dictated and finalized at location F. HIC DESIGN INTERN IMPRESSION: 1. Tip of the nasogastric tube in the stomach with the proximal side port in th e distal esophagus. Recommend advancing 3 to 4 cm.
--- NOTE | ~2022-07-17 | XR_ITS ---
EXAMINATION: XR UGI water soluble w sbs DATE: 08/08/2022 12:33 INDICATION: Gastric outlet obstruction. TECHNIQUE: Water-soluble contrast was injected into the nasogastric tube. Fluoroscopy of the stomach and small bowel was performed. Fluoroscopy exposure time was 0.1 minutes. Radiographs of the abdomen were obtained. The total number of images was 10. COMPARISON: CT abdomen and pelvis 08/08/2022 FINDINGS: UPPER GASTROINTESTINAL SERIES: The nasogastric tube tip is in the stomach. There is mass effect on the distal stomach and proximal d uodenum. There is delayed passage of contrast in the stomach to the small bowel. SMALL BOWEL SERIES: The small bowel is normal in caliber. Transit time to the colon was 45 minutes. There is a total left hip arthroplasty. IMPRESSION: 1. Gastric outlet obstruction with mass effect on the distal stomach and proximal duodenum from compl ications of pancreatitis. Reviewed, dictated and finalized at location A. BULANCE MECHANIC IMPRESSION: 1. Gastric outlet obstruction with mass effect on the distal stomach and proxim al duodenum from complications of pancreatitis.
--- NOTE | ~2022-07-17 | XR_ITS ---
XR chest PICC line 08/02/2022 12:58 Indication: PICC line placement Procedure: AP portable chest Comparison: Comparison to multiple prior studies sequentially, with oldest reviewed study dated 08/18. Findings: Right subclavian PICC line tip in the SVC. Cardiomegaly. Bibasilar airspace disease. Possib le small left effusion. No pneumothorax. Impression: 1: Bibasilar airspace disease may represent residual edema, pneumonia or atelectasis. Reviewed, dictated and finalized at location B. UNITY DEVELOPMENT OFFICER Impression: 1: Bibasilar airspace disease may represent residual edema, pneumonia or atelec tasis.
--- NOTE | ~2022-07-17 | CT_ITS ---
EXAMINATION: CT abdomen pelvis wo con DATE: 07/19/2022 12:38 INDICATION: Pancreatitis TECHNIQUE: Computed tomography (CT) of the abdomen and pelvis was performed without intravenous contr ast. The dose-length product (DLP) was 1542.46 mGy-cm. Automated exposure control and iterative recon struction technique were employed. COMPARISON: 08/18/2020 FINDINGS: There are airspace opacities of the visualized lower lobes, consistent with atelectasis she isai pneumonia. The heart size is normal. The liver, spleen, and adrenal glands are normal. Contrast m aterial in the gallbladder and common bile duct are likely from yesterday's ERCP. There is a stone in the gallbladder. There is mild fat stranding surrounding the pancreas. The pancreas appears normal a nd the absence of intravenous contrast. There is mild periportal lymphadenopathy, likely reactive. No nobstructing stones of the left kidney measure up to 5 mm. Nonobstructing stones of the right kidney measure up to 3 mm. There are peripelvic cysts of the left kidney. There is a 1.9 cm cyst of the righ t kidney. There is calcified atherosclerosis of the aorta and many of the other arteries. No free int raperitoneal gas or evidence of bowel obstruction. There are changes of left hip arthroplasty. There is chronic mild infiltration of the small bowel mesentery. There are umbilical and infraumbilical palomo tral hernias containing fat. There is severe lumbar spondylosis. IMPRESSION: 1. Peripancreatic inflammatory change, consistent with history of pancreatitis. 2. Cholelithiasis. 3. Bilateral nonobstructing nephrolithiasis. Reviewed, dictated and finalized at location B. DENTIAL CONCIERGE
--- NOTE | ~2022-07-17 | US_ITS ---
US renal BI 07/22/2022 14:18 Procedure: Realtime transabdominal ultrasound of the kidneys and bladder. Indication: Acute renal insufficiency Comparison: No prior studies for comparison. Findings: Renal echotexture is normal bilaterally without hydronephrosis. There is a right renal cyst of the right kidney measuring 1.9 cm. There is an echogenic focus in the right kidney, likely repres enting a nonobstructing renal stone. The right kidney measures 10.8 cm and left kidney measures 9.7 c m. Bladder within normal limits. Impression: 1: Probable nonobstructing right nephrolithiasis. 2: Right renal cyst measuring 1.9 cm. Reviewed, dictated and finalized at location B. T PROPAGATOR Impression: 1: Probable nonobstructing right nephrolithiasis. 2: Right renal cyst measuring 1.9 cm.
--- NOTE | ~2022-07-17 | CT_ITS ---
CT of the Abdomen and Pelvis: Indication: Pancreatitis Technique: 2.5 mm axial scans were obtained through the abdomen and pelvis prior to and following in travenous administration of 100 cc of Omnipaque 350. Dose reduction technique was used on this scan b y utilizing automated exposure control and iterative reconstruction technique. The dose-length produc t (DLP) was 3054.58 mGy-cm. COMPARISON: 08/01/2022 Findings: Scans through the lung bases demonstrate small left pleural effusion. Extensive peripancreatic fluid collection extending along the lesser curvature of the stomach and gas tric antrum and somewhat surrounding the duodenum is similar in extent to prior exam. There is more a pparent peripheral enhancing wall on the current contrast enhanced exam, with internal gas within the collection now present. The liver, spleen, and adrenal glands are within normal limits. Calcified gallstones are unchanged. S table nonobstructing bilateral renal stones. No evidence of aortic aneurysm. No lymphadenopathy. The re are atherosclerotic calcifications of the aorta. No bowel obstruction or bowel wall thickening. There is no evidence to suggest acute appendicitis. Images through the pelvis were performed. Urinary bladder unremarkable. No adnexal mass evident. Trace free fluid in the pelvis. Impression: Extensive fluid collection in the peripancreatic region, surrounding the duodenum, and along the less er curvature of the stomach/gastric antrum is similar extent to prior exam, interval development of i nternal gas. Findings are consistent with pseudocyst versus walled off necrosis, with possible superi nfection given the gas present. Correlate clinically for signs symptoms of infection. Small left pleural effusion. Stable cholelithiasis and nonobstructing nephrolithiasis. Reviewed, dictated and finalized at location . P CLASSIFIER Impression: Extensive fluid collection in the peripancreatic region, surrounding the duoden um, and along the lesser curvature of the stomach/gastric antrum is similar ext ent to prior exam, interval development of internal gas. Findings are consisten t with pseudocyst versus walled off necrosis, with possible superinfection give n the gas present. Correlate clinically for signs symptoms of infection. Small left pleural effusion. Stable cholelithiasis and nonobstructing nephrolithiasis.
--- NOTE | ~2022-07-17 | XR_ITS ---
Portable chest x-ray Comparison: 07/18/2022 Clinical History: Hypoxia Findings: Probable minimal pleural effusions. Probable minimal pulmonary edema/atelectasis. Cardiom ediastinal silhouette is stable. Bones and soft tissues are unremarkable. Impression: Minimal pleural effusions with minimal bibasilar pulmonary edema/atelectasis. Correlate clinically fo r pneumonia. Reviewed, dictated and finalized at location . PLUG SHAPER Impression: Minimal pleural effusions with minimal bibasilar pulmonary edema/atelectasis. C orrelate clinically for pneumonia.
--- NOTE | ~2022-07-17 | XR_ITS ---
EXAMINATION: XR abdomen NG/feed tube rechec INDICATION: Advanced nasogastric tube TECHNIQUE: Portable AP KUB-NG at 1618 hours COMPARISON: 1459 hours FINDINGS: The nasogastric tube has been advanced. The tip is in the gastric antrum. There are airspac e opacities of the left lung base, consistent with atelectasis versus pneumonia. A right upper extrem ity PICC ends with its tip in the superior vena cava. IMPRESSION: 1. Advanced nasogastric tube now ending with its tip in the gastric antrum. Reviewed, dictated and finalized at location F. ICIPANT ADMINISTRATOR
--- NOTE | ~2022-07-17 | XR_ITS ---
Portable chest x-ray Comparison: 07/21/2022 Clinical History: Shortness of breath Findings: There is mild interstitial pattern of the lungs. Probable minimal bilateral pleural effusi ons. Cardiomediastinal silhouette is stable. Bones and soft tissues are unremarkable. Impression: Minimal bilateral pleural effusions. Interstitial pulmonary edema versus chronic interstitial disease. Reviewed, dictated and finalized at [facility]. ON BRUSH MAKER Impression: Minimal bilateral pleural effusions. Interstitial pulmonary edema versus chronic interstitial disease.
--- NOTE | ~2022-07-17 | XR_ITS ---
XR chest 1V portable 07/18/2022 18:45 Indication: Shortness of breath Procedure: AP portable chest Comparison: Comparison to multiple prior studies sequentially, with oldest reviewed study dated 10/22. Findings: Cardiomegaly. Bibasilar airspace disease. No significant effusion or pneumothorax. No acute osseous abnormality. Impression: 1: Bibasilar airspace disease may represent atelectasis or pneumonia. Reviewed, dictated and finalized at location A. S NEGOTIATOR Impression: 1: Bibasilar airspace disease may represent atelectasis or pneumonia.
--- NOTE | ~2022-07-17 | CT_ITS ---
EXAMINATION: CT abdomen pelvis wo con DATE: 07/24/2022 17:20 INDICATION: abdominal pain TECHNIQUE: Computed tomography (CT) of the abdomen and pelvis was performed without intravenous contr ast. Automated exposure control and iterative reconstruction technique were employed. The dose-length product was 1585.37 mGy-cm. COMPARISON: 07/19/2022. FINDINGS: Lower thorax: Bibasilar scar/atelectasis. Small bilateral effusions. Liver: Normal. Biliary/Gallbladder: The gallbladder is partially contracted. Multiple gallstones. Gallbladder inflam matory changes likely related to the adjacent pancreatic process. No bile duct dilation. Pancreas: Fatty atrophy. Marked increase in pancreatic inflammatory change as well as increased perip ancreatic about the pancreatic head and body and perigastric fluid about the gastric antrum and pylor us. Spleen: Normal. Adrenals:No mass. Kidneys: Bilateral scarring and cortical thinning. Bilateral nonobstructing calculi. Prominent bilate ral calyces versus parapelvic cysts. Simple midpole right cyst. GI tract: No small or large bowel dilation. Normal appendix. Mesentery/Peritoneum: No generalized ascites, mass, or free air. Rodrigue hepatic lymphadenopathy. Retroperitoneum: No mass. Atherosclerotic abdominal aortic and/or arterial calcifications. Pelvis: Pelvic organs are within normal limits. Soft Tissues: Small fat-containing infraumbilical midline hernia, with increased inflammatory change. Bones: No acute osseous finding. Uncomplicated appearing partially visualized left hip arthroplasty. IMPRESSION: Severe peripancreatic inflammation, considerably worse than the prior study. Interval interval develo pment of an organized peripancreatic fluid collections. Increasing inflammation of a small fat-contai mike infraumbilical ventral hernia. Reviewed, dictated and finalized at location K. ISHING MANAGER IMPRESSION: Severe peripancreatic inflammation, considerably worse than the prior study. In terval interval development of an organized peripancreatic fluid collections. I ncreasing inflammation of a small fat-containing infraumbilical ventral hernia.
--- NOTE | ~2022-07-17 | US_ITS ---
US abdomen limited INDICATION: Elevated liver enzymes PROCEDURE: Realtime right upper abdominal ultrasound. COMPARISON: No prior studies for comparison. FINDINGS: The pancreas is normal without focal mass or pancreatic ductal dilation. Liver echotexture is diffusely increased, consistent with fatty infiltration. There are gallstones. The gallbladder is normal without stones, gallbladder wall thickening or pericholecystic fluid. Comm on bile duct measures 9.5 mm. No sonographic Winkler's sign. IMPRESSION: 1: Cholelithiasis with dilated common bile duct measuring 9.5 mm. 2: Hepatic steatosis. Reviewed, dictated and finalized at location B. R FEEDER
--- NOTE | ~2022-07-17 | US_ITS ---
EXAMINATION: US right upper quadrant DATE: 07/17/2022 14:42 INDICATION: pain TECHNIQUE: Multiple grayscale and Doppler ultrasound images of the right upper quadrant were obtained . COMPARISON: 09/13/2020. FINDINGS: The visualized portions of the pancreas are normal. The liver is mildly enlarged with incre ased echogenicity and echotexture. No surface nodularity. Normal hepatopetal flow in the main portal vein. The gallbladder is partially contracted and contains gallstones. There is borderline wall thick ening to 3 mm, but this is difficult to interpret without complete gallbladder distention. No pericho lecystic fluid. The common bile duct measures 7 mm. There was no sonographic Winkler sign, but the pat ient is reportedly on pain medication. IMPRESSION: Mild hepatomegaly. Echogenic liver, most commonly due to steatosis but also can be seen with hepatiti s and fibrosis. Cholelithiasis in a partially contracted gallbladder, which limits evaluation. Sonogr aphic Winkler sign was negative, but pain medication confounds this interpretation. The common bile du ct diameter is at the upper limit for age, but has increased in size since the prior study. Reviewed, dictated and finalized at location K. ING SYSTEM INSTALLER IMPRESSION: Mild hepatomegaly. Echogenic liver, most commonly due to steatosis but also can be seen with hepatitis and fibrosis. Cholelithiasis in a partially contracted gallbladder, which limits evaluation. Sonographic Winkler sign was negative, but pain medication confounds this interpretation. The common bile duct diameter i s at the upper limit for age, but has increased in size since the prior study.
--- NOTE | ~2022-07-17 | XR_ITS ---
XR abdomen/kub 1V 07/18/2022 18:46 Indication: 07/08/2022 Procedure: KUB Comparison: No prior studies for comparison. Findings: Bowel gas pattern is nonobstructive. No abnormal calcifications. There is a left hip arthro plasty. 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 There is left basilar airspace disease which may represent edema or pneumonia. Impression: 1: Left basilar airspace disease may represent edema or pneumonia. 2: Nonobstructive bowel gas pattern. Reviewed, dictated and finalized at location A. IFIED SOCIAL WORKERS IN HEALTH CARE Impression: 1: Left basilar airspace disease may represent edema or pneumonia. 2: Nonobstructive bowel gas pattern.
--- NOTE | ~2022-07-17 | CT_ITS ---
Non-contrast CT scan of the Abdomen and Pelvis Clinical indication: Pancreatitis Technique: 2.5 mm axial scans were obtained through the abdomen and pelvis without intravenous or or al contrast. Dose reduction technique was used on this scan by utilizing automated exposure control a nd iterative reconstruction technique. The dose-length product (DLP) was 1443.73 mGy-cm. COMPARISON: 07/24/2022 Findings: Images through the lung bases reveal small left pleural effusion. There is an increasing, developing fluid collection along the lesser curvature of the gastric antrum and in the subhepatic region, now measuring up to approximately 10.5 x 6.1 cm in extent (axial image 68 for example). Additional peripancreatic inflammatory changes persist throughout the upper abdomen. The liver, spleen, right kidney, and adrenals appear normal. Nonobstructing left renal stones are pre sent. Cholelithiasis present. There is no aortic aneurysm. There is no evidence of bowel obstruction. Images through the pelvis are degraded by streak artifact from left hip arthroplasty. No lymphadenopa thy evident. Urinary bladder unremarkable. No adnexal mass. Trace pelvic ascites present. Impression: Progressive increase in fluid about the lesser curvature of the stomach and subhepatic region, suspic ious for very early developing pseudocyst versus walled off necrosis. Extensive peripancreatic inflam matory changes otherwise persists, similar to prior exam. Cholelithiasis and left nephrolithiasis, unchanged. Small left pleural effusion, essentially unchanged. Reviewed, dictated and finalized at [facility] [place]. UE MAKER Impression: Progressive increase in fluid about the lesser curvature of the stomach and sub hepatic region, suspicious for very early developing pseudocyst versus walled o ff necrosis. Extensive peripancreatic inflammatory changes otherwise persists, similar to prior exam. Cholelithiasis and left nephrolithiasis, unchanged. Small left pleural effusion, essentially unchanged.
[2022-07-17 14:10] LABS: Basophils Percent Auto 0.2 % (0.2-1.2); Eosinophils Percent Auto 0.4 % (0-4.4); Hematocrit 46.9 % (37.0-47.0); Hemoglobin 15.5 g/dL (12.0-15.0); Immature Granulocyte Absolute 0.03 K/mm3 (0.00-0.031); Immature Granulocyte Percent A 0.4 % (0-0.5); Lymphocytes Absolute Auto 0.66 K/mm3 (0.9-3.2); Lymphocytes Percent Auto 8.1 % (18.3-44.2); Mean Corpuscular Hemoglobin 29.3 pg (26-34); Mean Corpuscular Volume 88.7 fl (80-100); Mean Platelet Volume 10.7 fl (7.4-10.4); Monocytes Absolute Auto 0.5 K/mm3 (0.1-0.6); Monocytes Percent Auto 5.8 % (2.6-8.5); Neutrophils Absolute Auto 6.9 K/mm3 (1.3-6.7); Neutrophils Percent Auto 85.1 % (45.5-73.1); Platelet Count Result 263 k/mm3 (150-375); Red Blood Count 5.29 M/mm3 (4.2-5.4); Red Cell Distribution Width 14.2 % (11.5-14.5); White Blood Count 8.1 K/mm3 (4.5-10.0)
[2022-07-17] MEDS: ONDANSETRON INJ 4 MG/2 ML VIAL IV PUSH (14:14)
[2022-07-17] MEDS: fentaNYL CITRATE INJ (*CRX) 100 MCG/2 ML VIAL 50 MCG IV PUSH (14:15)
[2022-07-17 14:20] LABS: Alanine Aminotransferase 313 U/L (6-35); Albumin Level 4.2 g/dL (3.5-5.1); Alkaline Phosphatase 168 U/L (38-126); Anion Gap 5 mmol/L (8-16); Aspartate Amino Transferase 456 U/L (14-36); Bilirubin,Total 1.1 mg/dL (0.2-1.3); Blood Urea Nitrogen 14 mg/dL (7-17); Calcium 9.3 mg/dL (8.4-10.2); Carbon Dioxide 27 mmol/L (22-30); Chloride 105 mmol/L (98-107); Estimated CRCL calculation 65 ml/min; Estimated Glomerular Filt Rate > 60; Glucose 121 mg/dL (65-110); Lipase 51 U/L (23-300); Potassium 4.1 mmol/L (3.4-5.0); Sodium 137 mmol/L (137-145)
--- NOTE | 2022-07-17 14:26 | PC.NURSE ---
US at bedside to obtain abdominal US.
[2022-07-17 14:28] LABS: Appearance Urine Clear (Clear); Bilirubin Urine Negative (Negative); Blood Urine Trace-intact (Negative); Color Urine Yellow (Yellow); Glucose Urine UA Negative (Negative); Ketones Urine Negative (Negative); Leukocyte Esterase Ur Negative LEU/UL (Negative); Nitrate Urine Negative (Negative); Protein Urine Negative (Negative); Urobilinogen Urine 0.2 mg/dL (<2.0)
[2022-07-17 14:33] LABS: Mucus Urine Rare /lpf; Squamous Epithelial Cell Urine Rare /hpf (Few); WBC Urine 0-3 /hpf
[2022-07-17 14:46] LABS: Add Urine Microscopic? YES
--- NOTE | 2022-07-17 15:37 | ED.GENADULT ---
HPI - General Adult General Chief complaint: Abdominal Pain Stated complaint: abdominal pain Time Seen by Provider: 07/17/22 13:48 History of Present Illness HPI narrative: Patient is a 76-year-old female with history of cholelithiasis who presents ER with right upper quadrant abdominal pain. Began early this morning. Radiates into her right back. She has been having increased discomfort with eating and drinking over the last week. No fevers chills or sweats. Multiple episodes of vomiting today. Related Data Home Medications Medication Instructions Recorded Confirmed acetaminophen 500 mg tablet 500 mg PO Q6H PRN Fever Or Pain 01/28/20 01/28/20 (Tylenol Extra Strength) allopurinol 300 mg tablet 300 mg PO DAILY 01/28/20 01/28/20 alprazolam 2 mg tablet 2 mg PO TID PRN Anxiety 01/28/20 01/28/20 baclofen 10 mg tablet 10 mg PO TID PRN Pain 01/28/20 01/28/20 Allergies Allergy/AdvReac Type Severity Reaction Status Date / Time morphine Allergy Unknown ITCHING Verified 08/18/20 11:09 Review of Systems Review of Systems: All systems reviewed & are unremarkable except as noted in HPI and below Constitutional: Constitutional: Denies chills, Denies fatigue and Denies fever(s) ENT: Denies nasal congestion and Denies sore throat Cardiovascular: Cardiovascular: Denies chest pain and Denies rapid heart rate Respiratory: Respiratory: Denies cough and Denies dyspnea Gastrointestinal: Gastrointestinal: Reports abdominal pain, Denies diarrhea, Reports nausea and Reports vomiting Musculoskeletal: Musculoskeletal: Denies arthralgias and Denies joint swelling PMF Past Medical History Medical History Arthritis Asymptomatic gallstones Atrial fibrillation with rapid ventricular response Bronchitis Bulging disc Depression Hemorrhoids HLD (hyperlipidemia) IBS (irritable bowel syndrome) Kidney stone Pulmonary nodule Right wrist fracture UTI (urinary tract infection) Surgical History Surgical History History of bilateral knee replacement History of total left hip replacement Family History Family History Mother Hypertension Family history of diabetes mellitus in first degree relative Family history of heart disease in male family member before age 55 Father No problems noted. Social History Social History Social History: , has been has had AFib. Three grown children. Smoking packs per day: 1 Smoking cigarettes per day: 20.0 Years smoked: 18 Smoking pack-years: 18.00 Smoking status: Former smoker Tobacco type: cigarettes Second hand tobacco smoke exposure: No Alcohol intake: never Substance use: never Substance use type: does not use Gender identity (if verbalized by the patient): Female Sexual Orientation (if Verbalized by the Patient): Straight or Heterosexual Spiritual care concerns: No Exam Narrative: GENERAL: Well-appearing, well-nourished, and in no acute distress. HEAD: Normocephalic, atraumatic. EYES: PERRL and EOMI. CHEST: Clear to auscultation. No respiratory distress. HEART: Regular rate and rhythm. Normal peripheral pulses. ABDOMEN: Soft, tender to palpation right upper quadrant without guarding, nondistended. EXTREMITIES: Normal range of motion. No edema. SKIN: Warm, dry, no rash. NEURO: Alert and oriented x3. PSYCH: Normal mood and affect. Course Course Emergency Course: Improvement in pain with morphine but starting to return. Discussed case with GI who would like patient admitted to hospitalist service. Likely has a stone in the duct. Will need MRCP tomorrow. Patient aware of diagnosis and treatment plan. Vital Signs Vital signs: Vital Signs Temperature 97.3 F L 07/17/22 13:00 Pulse Rate 60 07/17/22 13:00 R
[2022-07-17 17:04] LABS: Influenza A QL RT-PCR Negative (Negative); Influenza B QL RT-PCR Negative (Negative); SARS-CoV-2 RNA PCR Negative
--- NOTE | 2022-07-17 17:30 | PM.IMHP ---
H&P: HPI History of Present Illness Date/Time: 07/17/22 17:30 Chief Complaint: Abdominal pain. Narrative: This is a 76-year-old female with paroxysmal atrial fibrillation on chronic anticoagulation and hypertension who presented to the emergency department for evaluation of abdominal pain. Patient provides following history. She reports upper abdominal pain for the past week. She has difficulties describing the pain but tells me it feels as though she has either constipation or has gas. Her pain worsened on Friday and has been constant since that time. Occasionally the pain is sharp and severe and seems to radiate into the right upper quadrant and through to the right side of the back. She has had nausea, vomiting, and dry heaves since Friday and has not eaten a whole lot due to the symptoms. She has also noted that her urine is a bit darker than usual, almost a yellowish orange color. She denies fever, hematemesis, melena, hematochezia, acholic stools, jaundice, and pruritus. Vital signs were stable on arrival to the ED. Labs were significant for a total bilirubin of 1.1, AST 456, ALT 313, alkaline phosphatase 168, lipase 51. Right upper quadrant ultrasound showed mild hepatomegaly, echogenic liver most commonly due to steatosis though can be seen with hepatitis and fibrosis, cholelithiasis and a partially contracted gallbladder, and common bile duct diameter at the upper limit of normal and increase in size from a prior study. She is being admitted in this setting for further evaluation in GI consultation. At the time my evaluation she is hungry and is asking for some food. She denies that her pain is worse with eating. Review of Systems Review of Systems: Twelve systems were reviewed and are negative except for as per HPI. [facility] Past Medical History Medical History (Updated 07/17/22 @ 21:25 by Ayla Plaza PA-C) Arthritis Cholelithiasis Chronic anticoagulation Depression Hemorrhoids Hyperlipidemia Hypertension Irritable bowel syndrome Kidney stone Paroxysmal atrial fibrillation Pulmonary nodule Surgical History Surgical History (Updated 07/17/22 @ 21:22 by Ayla Plaza PA-C) History of bilateral knee replacement History of removal of cyst History of total left hip replacement Family History Family History Mother Hypertension Family history of diabetes mellitus in first degree relative Family history of heart disease in male family member before age 55 Father No problems noted. Social History Social History (Updated 07/17/22 @ 21:23 by Ayla Plaza PA-C) Social History: Surrogate medical decision maker: Trevin () or Ivania (daughter) Nora. Code status: Full code. Smoking packs per day: 1 Smoking cigarettes per day: 20.0 Years smoked: 18 Smoking pack-years: 18.00 Smoking status: Former smoker Tobacco type: cigarettes Second hand tobacco smoke exposure: No Alcohol intake: never Substance use: never Substance use type: does not use Lack of Transportation: No Lack of Food: Never True Current Housing: I Have Housing Concerned About Future Housing: No Difficulty Paying Gas/Electric Bills: No Difficulty Paying for Meds: YES Currently Unemployed: No Education: High School Diploma/GED Difficulty w/ Childcare or Family Care: No Additional living arrangements comments: Lives with in [place]. Spiritual care concerns: No Meds Home Medications and Allergies Home Medications Medication Instructions Recorded Confirmed Type acetaminophen 500 mg tablet 500 mg PO Q6H PRN Fever Or Pain 01/28/20 07/17/22 History (Tylenol Extra Strength) alprazolam 2 mg tablet 1 mg PO HS 01/28/20 07/17/22 History apixaban 5 mg tablet (Eliquis) 5 mg PO Q12HR 30 days #60 tabs 01/31/20 07/17/22 Rx losartan 50 mg tablet 50 mg PO DAILY 07/17/22 07/17/22 History sertraline 50 mg tablet 50
--- NOTE | 2022-07-17 17:46 | PC.NURSE ---
Kayy CHIN approved pt to have Jetoneo. Vania given to pt in ER
[2022-07-17] MEDS: SODIUM CHLORIDE 0.9% IV 1,000 ML 125 ML IV CONT (21:09)
--- NOTE | 2022-07-17 23:16 | PC.NURSE ---
Patient arrived to unit @ 1900. Oriented to unit and resting comfortably
[2022-07-17] MEDS: ALPRAZolam (*CRX) 0.5 MG TABLET 1 MG PO (23:47)
[2022-07-18] VITALS (16 sets, daily range): BP systolic 144–206; BP diastolic 70–102; PULSE 51–77; RESP 18–25; TEMP 35.7–36.6; O2SAT 92–99
[2022-07-18] MEDS: SODIUM CHLORIDE 0.9% IV 1,000 ML 125 ML IV CONT ×3 (05:03→19:18)
[2022-07-18 06:30] LABS: Hematocrit 44.1 % (37.0-47.0); Mean Corpuscular HGB Conc 31.7 g/dl (32-36); Mean Corpuscular Hemoglobin 28.7 pg (26-34); Mean Corpuscular Volume 90.6 fl (80-100); Mean Platelet Volume 10.8 fl (7.4-10.4); Platelet Count Result 231 k/mm3 (150-375); Red Blood Count 4.87 M/mm3 (4.2-5.4); Red Cell Distribution Width 14.5 % (11.5-14.5); White Blood Count 6.1 K/mm3 (4.5-10.0)
[2022-07-18 06:41] LABS: Alanine Aminotransferase 211 U/L (6-35); Albumin Level 3.6 g/dL (3.5-5.1); Alkaline Phosphatase 122 U/L (38-126); Anion Gap 1 mmol/L (8-16); Aspartate Amino Transferase 169 U/L (14-36); Bilirubin,Total 0.9 mg/dL (0.2-1.3); Blood Urea Nitrogen 14 mg/dL (7-17); Calcium 8.7 mg/dL (8.4-10.2); Carbon Dioxide 29 mmol/L (22-30); Chloride 105 mmol/L (98-107); Estimated CRCL calculation 65 ml/min; Estimated Glomerular Filt Rate > 60; Glucose 97 mg/dL (65-110); Lipase 38 U/L (23-300); Magnesium 1.9 mg/dL (1.6-2.3); Potassium 3.8 mmol/L (3.4-5.0); Sodium 135 mmol/L (137-145)
[2022-07-18] MEDS: ACETAMINOPHEN 325 MG TABLET 650 MG PO ×2 (07:01→15:52)
--- NOTE | 2022-07-18 07:04 | WPDGICN ---
Assessment and Plan Assessment and plan (1) Abnormal abdominal ultrasound: Code(s): R93.5 - Abnormal findings on diagnostic imaging of other abdominal regions, including retroperitoneum Status: Acute Assessment and Plan: Bile duct is at the upper limits of normal on ultrasound. Her presentation is consistent with choledocholithiasis. MRCP was ordered for today. The patient however is hesitant because she has had knee and hip replacements several years ago. (2) Abdominal pain: Code(s): R10.9 - Unspecified abdominal pain Status: Acute Assessment and Plan: This appears to be due to cholelithiasis with choledocholithiasis. Patient asked, appropriately, it would be simpler to simply have surgery. I explained that if stones are the bile duct surgical removal would require common bile duct exploration and possible T-tube, an open procedure. We will recheck her labs and see if perhaps they have returned to normal in which case there may not be a need for ERCP. (3) Transaminitis: Code(s): R74.01 - Elevation of levels of liver transaminase levels Status: Acute Assessment and Plan: Enzyme elevations consistent with choledocholithiasis. I discussed with her ERCP and how it would be the means of removing stones from the bile duct. I explained that stones in the bile duct can cause pancreatitis and that even ERCP can cause pancreatitis which could be severe, could result in prolonged hospitalization or even in rare cases surgery. she is reluctant to do MRCP because the fact that she has hardware in her knees and hips. (4) Chronic anticoagulation: Code(s): Z79.01 - [facility] (current) use of anticoagulants Status: Acute Assessment and Plan: She takes Eliquis for atrial fibrillation. Her last dose was Friday evening. I explained that there is risk of bleeding even the person is not on a blood thinner but he has been off Eliquis almost 48 hours now and therefore think that she has relatively low risk of bleeding from the procedure. GI Consult Note Consult date/time: 07/18/22 07:04 HPI: Sheryl Melendez is a 76 year old female With chronic atrial fibrillation for which she is on chronic anticoagulation, came to emergency room because she has had abdominal pain for the past week. It began about a week ago present in the right upper quadrant with radiation to the back and epigastric area. She has not had a fever. She has noticed that her urine is darker. She has been nauseated and vomiting in fact she has had dry heaves although this morning she states she is feeling hungry. On presentation to the emergency room her AST was 456 ALT 313 lipase 51 and bilirubin only 1.1. Ultrasound shows a contracted gallbladder and a common bile duct at the upper limits of normal increase in size from previous studies. Review of Systems Review of Systems: All systems reviewed & are unremarkable except as noted in HPI and below PMFSH Past Medical History Medical History Arthritis Cholelithiasis Chronic anticoagulation Depression Hemorrhoids Hyperlipidemia Hypertension Irritable bowel syndrome Kidney stone Paroxysmal atrial fibrillation Pulmonary nodule Surgical History Surgical History History of bilateral knee replacement History of removal of cyst History of total left hip replacement Family History Family History Mother Hypertension Family history of diabetes mellitus in first degree relative Family history of heart disease in male family member before age 55 Father No problems noted. Social History Social History Social History: Surrogate medical decision maker: Trevin () or Ivania (daughter) Nora. Code status: Full code.
--- NOTE | 2022-07-18 08:31 | PM.IMPN ---
Progress Note: A&P Assessment and Plan (1) Transaminitis: Code(s): R74.01 - Elevation of levels of liver transaminase levels Status: Acute (2) Abdominal pain: Code(s): R10.9 - Unspecified abdominal pain Status: Acute (3) Abnormal abdominal ultrasound: Code(s): R93.5 - Abnormal findings on diagnostic imaging of other abdominal regions, including retroperitoneum Status: Acute (4) Cholelithiasis: Code(s): K80.20 - Calculus of gallbladder without cholecystitis without obstruction Status: Acute (5) Paroxysmal atrial fibrillation: Code(s): I48.0 - Paroxysmal atrial fibrillation Status: Acute (6) Chronic anticoagulation: Code(s): Z79.01 - nursing home (current) use of anticoagulants Status: Acute (7) Hypertension: Code(s): I10 - Essential (primary) hypertension Status: Acute Plan The patient presented to the emergency department for evaluation of upper abdominal pain and vomiting Transaminases are elevated and show a predominantly hepatocellular elevated alkaline phosphatase . Right upper quadrant ultrasound shows mild hepatomegaly and echogenic liver which could be steatosis though similar findings could be seen with hepatitis and fibrosis. cholelithiasis with a partially contracted gallbladder. Common bile duct diameter was at the upper limit of normal for her age though was noted to be increased from prior studies. Repeat LFTs in a.m. Hepatitis panel Dr. Steele has been consulted, considers abd pain to be due to cholelithiasis with choledocholithiasis, and has performed ERCP Patient has diffuse abdominal pain, shortness breast status post ERCP. Stat chest x-ray in August x-ray does not show free air. Pending radiologist's report [facility] Her Vijay has been placed on hold continue sotalol. Blood pressures are stable. Her antihypertensives will be continued. . Subjective Date/time seen: 07/18/22 08:31 Patient underwent ERCP abdomen, had a severe bone pain, and short of breath. Order stat chest x-ray and abdominal x-ray that do not show free air. Patient is afebrile, hemodynamically stable Exam Narrative: General: Nontoxic-appearing female sitting up in bed no distress. Weight: 110.45 kg. BMI: 40.5. HEENT: Wearing corrective lenses. PERRL, EOMI. Sclera anicteric. Tacky mucous membranes. Neck: Supple. Respiratory: Lungs are clear to auscultation bilaterally. Cardiovascular: Regular rate and rhythm with S1-S2. Gastrointestinal: Abdomen is soft, but has diffused tender, no rebound and nondistended with positive bowel sounds. . Skin: Warm and dry. No rash or lesions on limited exam. Extremities: No cyanosis, clubbing, or edema. Radial and pedal pulses intact. Neurological: Alert. Cranial nerves 2-12 are grossly intact. No gross focal deficits to casual conversation. Psychiatric: Appropriate mood and affect. Objective Data Vital Signs Vital Signs: Vital Signs - 24 hr 07/17/22 13:00 07/17/22 13:53 07/17/22 14:00 Temperature 97.3 F L Pulse Rate 60 55 L 54 L Respiratory Rate 14 18 19 Blood Pressure 177/90 H Pulse Oximetry 98 98 94 Oxygen Delivery Room Air 07/17/22 14:17 07/17/22 14:30 07/17/22 14:32 Temperature Pulse Rate 63 54 L 67 Respiratory Rate 17 7 L 27 H Blood Pressure 189/84 H Pulse Oximetry 94 91 92 Oxygen Delivery 07/17/22 14:42 07/17/22 14:45 07/17/22 14:47 Temperature Pulse Rate 57 L 56 L 56 L Respiratory Rate 17 23 H 26 H Blood Pressure 173/72 H Pulse Oximetry 91 89 L 90 Oxygen Delivery 07/17/22 15:00 07/17/22 15:15 07/17/22 15:17 Temperature Pulse Rate 65 55 L 56 L Respiratory Rate 25 H 28 H 24 H Blood Pressure 163/82 H Pulse Oximetry 90 92 93 Oxygen Delivery 07/17/22 15:30 07/17/22 16:11 07/17/22 16:26 Temperature Pulse Rate 54 L 54 L 55 L Respiratory Rate 27 H 20 28 H Blood Pressure Pulse Oximetry 91 96 92 Oxyge
[2022-07-18] MEDS: SOTALOL HCL 40 MG TABLET PO ×2 (09:19→20:25)
[2022-07-18 10:01] LABS: Hepatitis B Surface Antigen Negative (Negative)
[2022-07-18 10:07] LABS: HAV RESULT Negative (Negative); Hepatitis B Core IgM Result Negative (Negative)
[2022-07-18 10:18] LABS: Hepatitis C Virus Antibody Negative (Negative)
[2022-07-18] MEDS: LACTATED RINGERS 1,000 ML 150 ML IV CONT (10:40)
--- NOTE | 2022-07-18 10:49 | WPDANESEPPF ---
Anes - Initial Pre Proc Eval Procedure: Operation Date: 07/18/22 11:30 Proposed Procedures p Endoscopic Retro Cholangiopancreatogram - Kevin Steele MD Date/Time: 07/18/22 10:49 Surgeon: Lilia Taylor MD Pre Op Diagnosis: abdominal pain Patient Data Age: 76 Gender: F Height: 1.65 m Weight: 109.9 kg Last Vital Signs Temp 97.2 F L 07/18/22 10:38 Pulse 53 L 07/18/22 10:38 Resp 18 07/18/22 10:38 BP 166/77 H 07/18/22 10:38 Pulse Ox 97 07/18/22 10:38 O2 Del Method Room Air 07/18/22 10:38 Allergies Allergy/AdvReac Type Severity Reaction Status Date / Time morphine Allergy Unknown ITCHING Verified 07/18/22 10:36 Home Medications Medication Instructions Recorded Confirmed Type acetaminophen 500 mg tablet 500 mg PO Q6H PRN Fever Or Pain 01/28/20 07/17/22 History (Tylenol Extra Strength) alprazolam 2 mg tablet 1 mg PO HS 01/28/20 07/17/22 History apixaban 5 mg tablet (Eliquis) 5 mg PO Q12HR 30 days #60 tabs 01/31/20 07/17/22 Rx losartan 50 mg tablet 50 mg PO DAILY 07/17/22 07/17/22 History sertraline 50 mg tablet 50 mg PO DAILY 07/17/22 07/17/22 History sotalol 80 mg tablet 40 mg PO Q12HR 07/17/22 07/17/22 History Laboratory Tests 07/17/22 07/17/22 07/17/22 14:03 14:03 14:03 WBC 8.1 K/mm3 K/mm3 (4.5-10.0) RBC 5.29 M/mm3 M/mm3 (4.2-5.4) Hgb 15.5 g/dL H g/dL (12.0-15.0) Hct 46.9 % % (37.0-47.0) MCV 88.7 fl fl (80-100) MCH 29.3 pg pg (26-34) MCHC 33.0 g/dl g/dl (32-36) RDW 14.2 % % (11.5-14.5) Plt Count 263 k/mm3 k/mm3 (150-375) MPV 10.7 fl H fl (7.4-10.4) Immature Gran % (Auto) 0.4 % % (0-0.5) Neut % (Auto) 85.1 % H % (45.5-73.1) Lymph % (Auto) 8.1 % L % (18.3-44.2) [place] % (Auto) 5.8 % % (2.6-8.5) Eos % (Auto) 0.4 % % (0-4.4) Baso % (Auto) 0.2 % % (0.2-1.2) Lymph # (Auto) 0.66 K/mm3 L K/mm3 (0.9-3.2) [place] # (Auto) 0.5 K/mm3 K/mm3 (0.1-0.6) Eos # (Auto) 0.0 K/mm3 K/mm3 (0-0.3) Baso # (Auto) 0.0 K/mm3 K/mm3 (0.0-0.1) Abs Immat Gran (auto) 0.03 K/mm3 K/mm3 (0.00-0.031) Absolute Neuts (auto) 6.9 K/mm3 H K/mm3 (1.3-6.7) Absolute Nucleated RBC 0.0 K/mm3 K/mm3 (0.0-0.012) Nucleated RBC % 0.0 % % (0.0-0.2) Sodium 137 mmol/L mmol/L (137-145) Potassium 4.1 mmol/L mmol/L (3.4-5.0) Chloride 105 mmol/L mmol/L (98-107) Carbon Dioxide 27 mmol/L mmol/L (22-30) Anion Gap 5 mmol/L L mmol/L (8-16) BUN 14 mg/dL D mg/dL (7-17) Creatinine 0.80 mg/dL mg/dL (0.7-1.0) Estim Creat Clear Calc 65 ml/min ml/min Estimated GFR > 60 (59 - ) Glucose 121 mg/dL H mg/dL (65-110) Calcium 9.3 mg/dL mg/dL (8.4-10.2) Magnesium Total Bilirubin 1.1 mg/dL mg/dL (0.2-1.3) AST 456 U/L H U/L (14-36) ALT 313 U/L H U/L (6-35) Alkaline Phosphatase 168 U/L H U/L (38-126) Total Protein 7.0 g/dL g/dL (6.3-8.2) Albumin 4.2 g/dL g/dL (3.5-5.1) Lipase 51 U/L U/L (23-300) TSH (Reflex) Urine Color Yellow (Yellow) Urine Appearance Clear (Clear) Urine pH 6.0 (5.0-9.0) Ur Specific [place] 1.020 (1.001-1.035) Urine Protein Negative mg/dL mg/dL (Negative) Urine Glucose (UA) Negative mg/dL mg/dL (Negative) Urine Ketones Negative mg/dL mg/dL (Negative) Ur Blood (Man) Trace-intact (Negative) Urine Nitrate Negative (Negative) Urine Bilirubin Negative (Negative) Urine Urobilinogen 0.2 mg/dL mg/dL (<2.0) Leukocyte Esterase Rfl Negative DESIRE/UL DESIRE/UL (Negative) Urine RBC 3-5 /hpf
[2022-07-18] MEDS: INDOMETHACIN 50 MG SUPP.RECT 100 MG RECTAL (12:00)
--- NOTE | 2022-07-18 13:48 | SUR.PHASEII ---
Blood pressure at 1340 180/82, Patient denies pain or any other symptoms, Dr. Nelson notified, no new orders at this time, Okay to transfer pt. back to floor.
[2022-07-18] MEDS: fentaNYL CITRATE INJ (*CRX) 100 MCG/2 ML VIAL 50 MCG IV PUSH (14:59)
[2022-07-18] MEDS: fentaNYL CITRATE INJ (*CRX) 100 MCG/2 ML VIAL 25 MCG IV PUSH ×3 (17:25→22:14)
[2022-07-18] MEDS: LOSARTAN POTASSIUM 50 MG TABLET PO (18:00)
[2022-07-18] MEDS: ALPRAZolam (*CRX) 0.5 MG TABLET 1 MG PO (20:26)
[2022-07-18] MEDS: traMADol HCL (*CRX) 50 MG TABLET PO (22:55)
[2022-07-18] MEDS: hydrALAZINE HCL 20 MG/ML VIAL 10 MG IV PUSH (23:54)
[2022-07-19] VITALS (7 sets, daily range): BP systolic 118–177; BP diastolic 57–84; PULSE 72–80; RESP 18; TEMP 36.2–36.6; O2SAT 88–95
[2022-07-19] MEDS: KETOROLAC 15 MG/ML VIAL (*BKC) IV PUSH (00:25)
[2022-07-19] MEDS: fentaNYL CITRATE INJ (*CRX) 100 MCG/2 ML VIAL 25 MCG IV PUSH (02:45)
[2022-07-19] MEDS: HYDROmorphone HCL INJ (*CRX) 1 MG/ML SYR 0.5 MG IV PUSH ×2 (04:23→07:35)
--- NOTE | 2022-07-19 07:15 | WPDGIPROGNO ---
Progress Note: A&P Assessment and Plan (1) Abnormal abdominal ultrasound: Code(s): R93.5 - Abnormal findings on diagnostic imaging of other abdominal regions, including retroperitoneum Status: Acute Assessment and Plan: Bile duct is at the upper limits of normal on ultrasound. Her presentation is consistent with choledocholithiasis. MRCP was ordered for today. The patient however is hesitant because she has had knee and hip replacements several years ago. ERCP revealed no stones in the bile duct, therefore she likely passed stones or sludge prior to the procedure. (2) Abdominal pain: Code(s): R10.9 - Unspecified abdominal pain Status: Acute Assessment and Plan: This appears to be due to cholelithiasis with choledocholithiasis. Patient asked, appropriately, it would be simpler to simply have surgery. I explained that if stones are the bile duct surgical removal would require common bile duct exploration and possible T-tube, an open procedure. We will recheck her labs and see if perhaps they have returned to normal in which case there may not be a need for ERCP. 07/19/2022 she is having significant pain today beginning with past evening. I suspect that she has pancreatitis. Lipase has been ordered but is pending. the current regimen is not controlling her pain. I will increase her hydromorphone to 1 mg every 2-3 hours (3) Transaminitis: Code(s): R74.01 - Elevation of levels of liver transaminase levels Status: Acute Assessment and Plan: Enzyme elevations consistent with choledocholithiasis. I discussed with her ERCP and how it would be the means of removing stones from the bile duct. I explained that stones in the bile duct can cause pancreatitis and that even ERCP can cause pancreatitis which could be severe, could result in prolonged hospitalization or even in rare cases surgery. she is reluctant to do MRCP because the fact that she has hardware in her knees and hips. 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 Her last dose was Friday evening. I explained that there is risk of bleeding even the person is not on a blood thinner but he has been off Eliquis almost 48 hours now and therefore think that she has relatively low risk of bleeding from the procedure. will hold off on anticoagulation for now (5) Cholelithiasis: Code(s): K80.20 - Calculus of gallbladder without cholecystitis without obstruction Status: Acute Assessment and Plan: she would like Dr. Rodarte to do her cholecystectomy. I told her that it would probably have to wait until she has recovered from her present situation, Probably be done later as an outpatient but we will notify him. Plan I discussed with her the that she apparently has pancreatitis secondary to the ERCP. As we had discussed yesterday it is unfortunately an outcome in a small percentage of patients. CT scan will be ordered to assess the extent of pancreatitis. Gut rest will be continued except for ice chips today. Pancreatic enzyme supplements will be use when she is able to start eating. Subjective Date/time seen: 07/19/22 07:15 she is experiencing severe pain which began a few hours after her procedure yesterday. The pain is generalized. She points to her mid abdomen upper abdomen and her flanks and states that is worse when she walks. She has not tried eating but has had ice chips. Fentanyl only gave her partial relief of her pain. She has been switched to Dilaudid. She is allergic to morphine. Exam Const: General: alert Nutritional Appearance: obese Orientation/consciousness: patient oriented x3 Resp: Auscultation: clear to auscultation bilaterally Cardio: Rhythm: regular rhythm GI: Inspecti
[2022-07-19 07:27] LABS: Basophils Percent Auto 0.2 % (0.2-1.2); Hematocrit 45.8 % (37.0-47.0); Hemoglobin 14.9 g/dL (12.0-15.0); Immature Granulocyte Absolute 0.07 K/mm3 (0.00-0.031); Immature Granulocyte Percent A 0.6 % (0-0.5); Lymphocytes Percent Auto 4.7 % (18.3-44.2); Mean Corpuscular HGB Conc 32.5 g/dl (32-36); Mean Corpuscular Hemoglobin 28.6 pg (26-34); Mean Corpuscular Volume 87.9 fl (80-100); Mean Platelet Volume 10.6 fl (7.4-10.4); Monocytes Absolute Auto 0.8 K/mm3 (0.1-0.6); Monocytes Percent Auto 6.5 % (2.6-8.5); Neutrophils Absolute Auto 11.2 K/mm3 (1.3-6.7); Platelet Count Result 262 k/mm3 (150-375); Red Blood Count 5.21 M/mm3 (4.2-5.4); Red Cell Distribution Width 14.4 % (11.5-14.5); White Blood Count 12.7 K/mm3 (4.5-10.0)
[2022-07-19] MEDS: hydrALAZINE HCL 20 MG/ML VIAL 10 MG IV PUSH (07:36)
[2022-07-19 07:46] LABS: Alanine Aminotransferase 182 U/L (6-35); Albumin Level 4.2 g/dL (3.5-5.1); Alkaline Phosphatase 133 U/L (38-126); Anion Gap 6 mmol/L (8-16); Aspartate Amino Transferase 118 U/L (14-36); Bilirubin,Total 1.3 mg/dL (0.2-1.3); Blood Urea Nitrogen 19 mg/dL (7-17); Calcium 8.2 mg/dL (8.4-10.2); Carbon Dioxide 26 mmol/L (22-30); Chloride 103 mmol/L (98-107); Estimated CRCL calculation 66 ml/min; Estimated Glomerular Filt Rate > 60; Glucose 118 mg/dL (65-110); Potassium 3.8 mmol/L (3.4-5.0); Sodium 135 mmol/L (137-145)
[2022-07-19] MEDS: ONDANSETRON INJ 4 MG/2 ML VIAL IV PUSH (09:11)
[2022-07-19] MEDS: SERTRALINE HCL 50 MG TABLET PO (09:12)
[2022-07-19] MEDS: SOTALOL HCL 40 MG TABLET PO ×2 (09:12→20:13)
[2022-07-19 09:18] LABS: Lipase 5197 U/L (23-300)
[2022-07-19] MEDS: ACETAMINOPHEN 325 MG TABLET 650 MG PO (09:19)
[2022-07-19] MEDS: LOSARTAN POTASSIUM 50 MG TABLET PO (10:44)
[2022-07-19] MEDS: HYDROmorphone HCL INJ (*CRX) 1 MG/ML SYR IV PUSH ×3 (10:45→23:08)
--- NOTE | 2022-07-19 14:36 | P.PNAN_ITS ---
Anes - Prog Note Post-Op Date/Time: 07/19/22 14:36 Vital Signs: Last Vital Signs Temp 36.2 C L 07/19/22 07:24 Pulse 72 07/19/22 09:12 Resp 18 07/19/22 07:24 BP 177/84 H 07/19/22 07:24 Pulse Ox 94 07/19/22 08:39 O2 Del Method Room Air 07/19/22 09:10 O2 Flow Rate 1 07/18/22 13:20 Pain Score (VAS): 4-sore abdomen I/O: Intake & Output 07/18/22 07/19/22 07/19/22 23:59 07:59 15:59 Intake Total 1200 500 Output Total 200 625 Balance 1000 -125 Laboratory Tests 07/19/22 07:01 07/19/22 07:01 07/19/22 07/19/22 07:01 07:01 WBC 12.7 H RBC 5.21 Hgb 14.9 Hct 45.8 MCV 87.9 MCH 28.6 MCHC 32.5 RDW 14.4 Plt Count 262 MPV 10.6 H Immature Gran % (Auto) 0.6 H Neut % (Auto) 88.0 H Lymph % (Auto) 4.7 L [place] % (Auto) 6.5 Eos % (Auto) 0.0 Baso % (Auto) 0.2 Lymph # (Auto) 0.60 L [place] # (Auto) 0.8 H Eos # (Auto) 0.0 Baso # (Auto) 0.0 Abs Immat Gran (auto) 0.07 H Absolute Neuts (auto) 11.2 H Absolute Nucleated RBC 0.0 Nucleated RBC % 0.0 Sodium 135 L Potassium 3.8 Chloride 103 Carbon Dioxide 26 Anion Gap 6 L BUN 19 H Creatinine 0.80 Estim Creat Clear Calc 66 Estimated GFR > 60 Glucose 118 H Calcium 8.2 L Total Bilirubin 1.3 AST 118 H ALT 182 H Alkaline Phosphatase 133 H Total Protein 7.0 Albumin 4.2 Lipase 5197 H Patient Feedback: Patient satisfied with anesthetic care.
[2022-07-19] MEDS: LORazepam INJ (*CRX) 2 MG/ML VIAL 0.5 MG IV PUSH (14:44)
--- NOTE | 2022-07-19 16:26 | PM.IMPN ---
Progress Note: A&P Assessment and Plan (1) Transaminitis: Code(s): R74.01 - Elevation of levels of liver transaminase levels Status: Acute (2) Abdominal pain: Code(s): R10.9 - Unspecified abdominal pain Status: Acute (3) Abnormal abdominal ultrasound: Code(s): R93.5 - Abnormal findings on diagnostic imaging of other abdominal regions, including retroperitoneum Status: Acute (4) Cholelithiasis: Code(s): K80.20 - Calculus of gallbladder without cholecystitis without obstruction Status: Acute (5) Paroxysmal atrial fibrillation: Code(s): I48.0 - Paroxysmal atrial fibrillation Status: Acute (6) Chronic anticoagulation: Code(s): Z79.01 - [facility] care (current) use of anticoagulants Status: Acute (7) Hypertension: Code(s): I10 - Essential (primary) hypertension Status: Acute Plan The patient presented to the emergency department for evaluation of upper abdominal pain and vomiting Transaminases are elevated and show a predominantly hepatocellular elevated alkaline phosphatase . Right upper quadrant ultrasound shows mild hepatomegaly and echogenic liver which could be steatosis though similar findings could be seen with hepatitis and fibrosis. cholelithiasis with a partially contracted gallbladder. Common bile duct diameter was at the upper limit of normal for her age though was noted to be increased from prior studies. Repeat LFTs in a.m. Hepatitis panel Dr. Steele has been consulted, considers abd pain to be due to cholelithiasis with choledocholithiasis, and has performed ERCP Patient has diffuse abdominal pain, shortness breast status post ERCP. Stat chest x-ray in August x-ray does not show free air. Pending radiologist's report [facility] Her Vijay has been placed on hold continue sotalol. Blood pressures are stable. Her antihypertensives will be continued. . 07/19/2022 interval history: 76-year-old female with abdominal pain is found to have cholelithiasis patient had a ERCP did not show any stone in the duct, likely passed stones, however patient lipase are elevated most likely secondary to ERCP, patient patient continue to complain of abdominal pain currently NPO, continue to hydrate the patient and monitor. Subjective Date/time seen: 07/19/22 16:26 07/19/2022 interval history: 76-year-old female with abdominal pain is found to have cholelithiasis patient had a ERCP did not show any stone in the duct, likely passed stones, however patient lipase are elevated most likely secondary to ERCP, patient patient continue to complain of abdominal pain currently NPO, continue to hydrate the patient and monitor. Review of Systems Review of Systems: All systems reviewed & are unremarkable except as noted in HPI and below Exam Narrative: Patient is comfortable, NAD HEENT: eyes are clear and none icteric LUNGS: normal respiratory effort ABD: not distended Lower extremities: no edema SKIN: nonjaundiced Neuro: grossly intact. Objective Data Vital Signs Vital Signs: Vital Signs - 24 hr 07/18/22 20:25 07/18/22 20:00 07/18/22 22:57 Temperature 96.3 F L Pulse Rate 63 63 62 Respiratory Rate 20 18 Blood Pressure 189/89 H Pulse Oximetry 95 96 Oxygen Delivery Room Air 07/18/22 23:00 07/18/22 23:00 07/18/22 23:00 Temperature Pulse Rate 77 Respiratory Rate Blood Pressure 201/83 H 204/102 H 206/98 H Pulse Oximetry Oxygen Delivery 07/19/22 03:15 07/19/22 03:15 07/19/22 07:24 Temperature 97.2 F L Pulse Rate 80 80 72 Respiratory Rate 18 18 18 Blood Pressure 165/73 H 165/73 H 177/84 H Pulse Oximetry 95 95 93 Oxygen Delivery 07/19/22 09:12 07/19/22 08:39 07/19/22 09:10 Temperature Pulse Rate 72 Respiratory Rate Blood Pressure Pulse Oximetry 94 Oxygen Delivery Room Air Room Air Intake/Output Intake/Output: Intake & Output 07/16/22 07/17/22 0
[2022-07-19] MEDS: ALPRAZolam (*CRX) 0.5 MG TABLET 1 MG PO (23:05)
[2022-07-20] VITALS (8 sets, daily range): BP systolic 85–107; BP diastolic 46–60; PULSE 65–78; RESP 18–20; TEMP 36.1–36.6; O2SAT 90–98
[2022-07-20] MEDS: HYDROmorphone HCL INJ (*CRX) 1 MG/ML SYR IV PUSH ×3 (06:49→22:36)
--- NOTE | 2022-07-20 07:51 | WPDGIPROGNO ---
Progress Note: A&P Assessment and Plan (1) Abnormal abdominal ultrasound: Code(s): R93.5 - Abnormal findings on diagnostic imaging of other abdominal regions, including retroperitoneum Status: Acute Assessment and Plan: Bile duct is at the upper limits of normal on ultrasound. Her presentation is consistent with choledocholithiasis. MRCP was ordered for today. The patient however is hesitant because she has had knee and hip replacements several years ago. ERCP revealed no stones in the bile duct, therefore she likely passed stones or sludge prior to the procedure. (2) Abdominal pain: Code(s): R10.9 - Unspecified abdominal pain Status: Acute Assessment and Plan: This appears to be due to cholelithiasis with choledocholithiasis. Patient asked, appropriately, it would be simpler to simply have surgery. I explained that if stones are the bile duct surgical removal would require common bile duct exploration and possible T-tube, an open procedure. We will recheck her labs and see if perhaps they have returned to normal in which case there may not be a need for ERCP. 07/19/2022 she is having significant pain today beginning with past evening. I suspect that she has pancreatitis. Lipase has been ordered but is pending. the current regimen is not controlling her pain. I will increase her hydromorphone to 1 mg every 2-3 hours 07/20/2022 much less pain today. She is not needing pain medication nearly as often. Now her pain is back to where was on admission, primarily epigastric area (3) Transaminitis: Code(s): R74.01 - Elevation of levels of liver transaminase levels Status: Acute Assessment and Plan: Enzyme elevations consistent with choledocholithiasis. I discussed with her ERCP and how it would be the means of removing stones from the bile duct. I explained that stones in the bile duct can cause pancreatitis and that even ERCP can cause pancreatitis which could be severe, could result in prolonged hospitalization or even in rare cases surgery. she is reluctant to do MRCP because the fact that she has hardware in her knees and hips. transaminases are gradually improving. Today however bilirubin has increased to 1.6. 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 Her last dose was Lacy evening. I explained that there is risk of bleeding even the person is not on a blood thinner but he has been off Eliquis almost 48 hours now and therefore think that she has relatively low risk of bleeding from the procedure. will hold off on anticoagulation for now (5) Cholelithiasis: Code(s): K80.20 - Calculus of gallbladder without cholecystitis without obstruction Status: Acute Assessment and Plan: she would like Dr. Rodarte to do her cholecystectomy. I told her that it would probably have to wait until she has recovered from her present situation, Probably be done later as an outpatient but we will notify him. (6) Dehydration: Code(s): E86.0 - Dehydration Status: Acute Assessment and Plan: relative dehydration due to NPO status and lack of IV fluids. Will start clear liquid diet today lactated Ringer's, initially 150 mils per hour (7) Acute pancreatitis: Code(s): K85.90 - Acute pancreatitis without necrosis or infection, unspecified Status: Acute Assessment and Plan: lipase, which shows over 5000 yesterday is down to 579 today. Alkaline phosphatase also has normalized and AST is down to 55. I think we can gradually start her on oral feedings. I will start with clear liquids this morning. Plan I discussed with her the that she apparently has pancreatitis secondary to the ERCP. As we had discussed yesterday it is unfortunately an outcome in a small percentage of patien
[2022-07-20 08:07] LABS: Hematocrit 42.1 % (37.0-47.0); Hemoglobin 13.6 g/dL (12.0-15.0); Mean Corpuscular HGB Conc 32.3 g/dl (32-36); Mean Corpuscular Hemoglobin 28.6 pg (26-34); Mean Corpuscular Volume 88.6 fl (80-100); Platelet Count Result 241 k/mm3 (150-375); Red Blood Count 4.75 M/mm3 (4.2-5.4); Red Cell Distribution Width 15.4 % (11.5-14.5); White Blood Count 18.4 K/mm3 (4.5-10.0)
[2022-07-20 08:13] LABS: Alanine Aminotransferase 109 U/L (6-35); Albumin Level 3.6 g/dL (3.5-5.1); Alkaline Phosphatase 103 U/L (38-126); Anion Gap 7 mmol/L (8-16); Aspartate Amino Transferase 55 U/L (14-36); Bilirubin,Total 1.6 mg/dL (0.2-1.3); Blood Urea Nitrogen 37 mg/dL (7-17); Calcium 7.4 mg/dL (8.4-10.2); Carbon Dioxide 23 mmol/L (22-30); Chloride 105 mmol/L (98-107); Estimated CRCL calculation 26 ml/min; Estimated Glomerular Filt Rate 23; Glucose 93 mg/dL (65-110); Lipase 579 U/L (23-300); Magnesium 1.7 mg/dL (1.6-2.3); Potassium 3.8 mmol/L (3.4-5.0); Sodium 135 mmol/L (137-145)
[2022-07-20] MEDS: LACTATED RINGERS 1,000 ML 150 ML IV CONT ×3 (08:35→22:41)
[2022-07-20] MEDS: SOTALOL HCL 40 MG TABLET PO ×2 (08:38→20:46)
[2022-07-20] MEDS: LORazepam INJ (*CRX) 2 MG/ML VIAL 0.5 MG IV PUSH ×3 (08:39→22:36)
[2022-07-20] MEDS: LOSARTAN POTASSIUM 50 MG TABLET PO (08:39)
[2022-07-20] MEDS: SERTRALINE HCL 50 MG TABLET PO (08:39)
--- NOTE | 2022-07-20 12:08 | PM.IMPN ---
Progress Note: A&P Assessment and Plan (1) Transaminitis: Code(s): R74.01 - Elevation of levels of liver transaminase levels Status: Acute (2) Abdominal pain: Code(s): R10.9 - Unspecified abdominal pain Status: Acute (3) Abnormal abdominal ultrasound: Code(s): R93.5 - Abnormal findings on diagnostic imaging of other abdominal regions, including retroperitoneum Status: Acute (4) Cholelithiasis: Code(s): K80.20 - Calculus of gallbladder without cholecystitis without obstruction Status: Acute (5) Paroxysmal atrial fibrillation: Code(s): I48.0 - Paroxysmal atrial fibrillation Status: Acute (6) Chronic anticoagulation: Code(s): Z79.01 - correction (current) use of anticoagulants Status: Acute (7) Hypertension: Code(s): I10 - Essential (primary) hypertension Status: Acute Plan The patient presented to the emergency department for evaluation of upper abdominal pain and vomiting Transaminases are elevated and show a predominantly hepatocellular elevated alkaline phosphatase . Right upper quadrant ultrasound shows mild hepatomegaly and echogenic liver which could be steatosis though similar findings could be seen with hepatitis and fibrosis. cholelithiasis with a partially contracted gallbladder. Common bile duct diameter was at the upper limit of normal for her age though was noted to be increased from prior studies. Repeat LFTs in a.m. Hepatitis panel Dr. Steele has been consulted, considers abd pain to be due to cholelithiasis with choledocholithiasis, and has performed ERCP Patient has diffuse abdominal pain, shortness breast status post ERCP. Stat chest x-ray in August x-ray does not show free air. Pending radiologist's report [facility] Her Michaelis has been placed on hold continue sotalol. Blood pressures are stable. Her antihypertensives will be continued. .07/20/2022 interval history: 76-year-old female with abdominal pain is found to have cholelithiasis patient had a ERCP did not show any stone in the duct, likely passed stones, however patient lipase were elevated on 07/19 most likely secondary to ERCP, patient patient continue to complain of abdominal pain currently NPO, continued to hydrate the patient and monitor. today patient lipase have trended down to 579 from 5197, seen by GI started the patient on clear liquid, will stop the patient IV Dilaudid and switch her over to [place] 5/325 every 6 hours as needed, will advance the diet as tolerated, per PT OT evaluate the and further recommendation to follow. patient on Eliquis for atrial fibrillation GI is recommending to hold until further recommendation Subjective Date/time seen: 07/20/22 12:08 The patient presented to the emergency department for evaluation of upper abdominal pain and vomiting Transaminases are elevated and show a predominantly hepatocellular elevated alkaline phosphatase . Right upper quadrant ultrasound shows mild hepatomegaly and echogenic liver which could be steatosis though similar findings could be seen with hepatitis and fibrosis. cholelithiasis with a partially contracted gallbladder. Common bile duct diameter was at the upper limit of normal for her age though was noted to be increased from prior studies. Repeat LFTs in a.m. Hepatitis panel Dr. Steele has been consulted, considers abd pain to be due to cholelithiasis with choledocholithiasis, and has performed ERCP Patient has diffuse abdominal pain, shortness breast status post ERCP. Stat chest x-ray in August x-ray does not show free air. Pending radiologist's report [facility] Her Eliquis has been placed on hold continue sotalol. Blood pressures are stable. Her antihypertensives will be continued. . 07/20/2022 interval history: 76-year-old female with abdominal pain is found to have cholelithiasis patient had a ERCP did not show any stone in the duct, likely
[2022-07-20 13:10] LABS: Procalcitonin 2.6 ng/mL
[2022-07-20] MEDS: HYDROcodone/acetaminophen (*CRX) 5-325 MG TABLET 1 TAB PO (15:06)
[2022-07-20] MEDS: ALPRAZolam (*CRX) 0.5 MG TABLET 1 MG PO (20:46)
[2022-07-21] MEDS: LORazepam INJ (*CRX) 2 MG/ML VIAL 0.5 MG IV PUSH ×2 (05:24→12:27)
[2022-07-21] MEDS: HYDROmorphone HCL INJ (*CRX) 1 MG/ML SYR IV PUSH ×2 (05:25→08:48)
[2022-07-21] MEDS: LACTATED RINGERS 1,000 ML 150 ML IV CONT ×2 (05:28→12:24)
[2022-07-21 05:45] VITALS: BP 113/65; PULSE 75; RESP 18; TEMP 36.6; O2SAT 94
[2022-07-21 06:15] LABS: Hematocrit 40.3 % (37.0-47.0); Hemoglobin 12.6 g/dL (12.0-15.0); Mean Corpuscular HGB Conc 31.3 g/dl (32-36); Mean Corpuscular Volume 92.6 fl (80-100); Mean Platelet Volume 10.8 fl (7.4-10.4); Platelet Count Result 208 k/mm3 (150-375); Red Blood Count 4.35 M/mm3 (4.2-5.4); Red Cell Distribution Width 15.8 % (11.5-14.5); White Blood Count 16.4 K/mm3 (4.5-10.0)
[2022-07-21 06:32] LABS: Alanine Aminotransferase 114 U/L (6-35); Albumin Level 3.2 g/dL (3.5-5.1); Alkaline Phosphatase 98 U/L (38-126); Anion Gap 6 mmol/L (8-16); Aspartate Amino Transferase 98 U/L (14-36); Bilirubin,Total 1.9 mg/dL (0.2-1.3); Blood Urea Nitrogen 45 mg/dL (7-17); Calcium 7.6 mg/dL (8.4-10.2); Carbon Dioxide 25 mmol/L (22-30); Chloride 106 mmol/L (98-107); Estimated CRCL calculation 26 ml/min; Estimated Glomerular Filt Rate 23; Glucose 83 mg/dL (65-110); Magnesium 1.8 mg/dL (1.6-2.3); Potassium 3.6 mmol/L (3.4-5.0); Sodium 137 mmol/L (137-145)
[2022-07-21 07:34] LABS: Lipase 55 U/L (23-300)
[2022-07-21 08:00] VITALS: O2SAT 93
[2022-07-21 08:47] VITALS: PULSE 75
[2022-07-21] MEDS: SOTALOL HCL 40 MG TABLET PO (08:47)
[2022-07-21] MEDS: SERTRALINE HCL 50 MG TABLET PO (08:47)
[2022-07-21] MEDS: LOSARTAN POTASSIUM 50 MG TABLET PO (08:48)
[2022-07-21] MEDS: LIPASE/AMYLASE/PROTEASE 12,000 UNITS CAP 2 CAP PO ×2 (08:48→12:25)
--- NOTE | 2022-07-21 11:04 | WPDGIPROGNO ---
Progress Note: A&P Assessment and Plan (1) Abnormal abdominal ultrasound: Code(s): R93.5 - Abnormal findings on diagnostic imaging of other abdominal regions, including retroperitoneum Status: Acute Assessment and Plan: Bile duct is at the upper limits of normal on ultrasound. Her presentation is consistent with choledocholithiasis. MRCP was ordered for today. The patient however is hesitant because she has had knee and hip replacements several years ago. ERCP revealed no stones in the bile duct, therefore she likely passed stones or sludge prior to the procedure. (2) Abdominal pain: Code(s): R10.9 - Unspecified abdominal pain Status: Acute Assessment and Plan: This appears to be due to cholelithiasis with choledocholithiasis. Patient asked, appropriately, it would be simpler to simply have surgery. I explained that if stones are the bile duct surgical removal would require common bile duct exploration and possible T-tube, an open procedure. We will recheck her labs and see if perhaps they have returned to normal in which case there may not be a need for ERCP. 07/19/2022 she is having significant pain today beginning with past evening. I suspect that she has pancreatitis. Lipase has been ordered but is pending. the current regimen is not controlling her pain. I will increase her hydromorphone to 1 mg every 2-3 hours 07/20/2022 much less pain today. She is not needing pain medication nearly as often. Now her pain is back to where was on admission, primarily epigastric area 07/21/2022 today she says her pain is a little more generalized than it was but still mostly epigastric. her states that she has been out of it this morning. I explained to the patient and family that we would like to get her off Dilaudid which she has been requesting regularly. I explained her that this may be causing some of her nausea and certainly some of her mental status changes, Sedation. (3) Transaminitis: Code(s): R74.01 - Elevation of levels of liver transaminase levels Status: Acute Assessment and Plan: Enzyme elevations consistent with choledocholithiasis. I discussed with her ERCP and how it would be the means of removing stones from the bile duct. I explained that stones in the bile duct can cause pancreatitis and that even ERCP can cause pancreatitis which could be severe, could result in prolonged hospitalization or even in rare cases surgery. she is reluctant to do MRCP because the fact that she has hardware in her knees and hips. transaminases are gradually improving. Today however bilirubin has increased to 1.6. LFTs are essentially unchanged. 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 Her last dose was Friday evening. I explained that there is risk of bleeding even the person is not on a blood thinner but he has been off Eliquis almost 48 hours now and therefore think that she has relatively low risk of bleeding from the procedure. will hold off on anticoagulation for now (5) Cholelithiasis: Code(s): K80.20 - Calculus of gallbladder without cholecystitis without obstruction Status: Acute Assessment and Plan: she would like Dr. Rodarte to do her cholecystectomy. I told her that it would probably have to wait until she has recovered from her present situation, Probably be done later as an outpatient but we will notify him. surgical consultation placed (6) Dehydration: Code(s): E86.0 - Dehydration Status: Acute Assessment and Plan: relative dehydration due to NPO status and lack of IV fluids. Will start clear liquid diet today lactated Rin
[2022-07-21] MEDS: HYDROcodone/acetaminophen (*CRX) 5-325 MG TABLET 1 TAB PO (12:29)
--- NOTE | 2022-07-21 12:57 | PM.IMPN ---
Progress Note: A&P Assessment and Plan (1) Transaminitis: Code(s): R74.01 - Elevation of levels of liver transaminase levels Status: Acute (2) Abdominal pain: Code(s): R10.9 - Unspecified abdominal pain Status: Acute (3) Abnormal abdominal ultrasound: Code(s): R93.5 - Abnormal findings on diagnostic imaging of other abdominal regions, including retroperitoneum Status: Acute (4) Cholelithiasis: Code(s): K80.20 - Calculus of gallbladder without cholecystitis without obstruction Status: Acute (5) Paroxysmal atrial fibrillation: Code(s): I48.0 - Paroxysmal atrial fibrillation Status: Acute (6) Chronic anticoagulation: Code(s): Z79.01 - correction (current) use of anticoagulants Status: Acute (7) Hypertension: Code(s): I10 - Essential (primary) hypertension Status: Acute Plan The patient presented to the emergency department for evaluation of upper abdominal pain and vomiting Transaminases are elevated and show a predominantly hepatocellular elevated alkaline phosphatase . Right upper quadrant ultrasound shows mild hepatomegaly and echogenic liver which could be steatosis though similar findings could be seen with hepatitis and fibrosis. cholelithiasis with a partially contracted gallbladder. Common bile duct diameter was at the upper limit of normal for her age though was noted to be increased from prior studies. Repeat LFTs in a.m. Hepatitis panel Dr. Steele has been consulted, considers abd pain to be due to cholelithiasis with choledocholithiasis, and has performed ERCP Patient has diffuse abdominal pain, shortness breast status post ERCP. Stat chest x-ray in August x-ray does not show free air. Pending radiologist's report [facility] Her Vijay has been placed on hold continue sotalol. Blood pressures are stable. Her antihypertensives will be continued. 07/21/2022 interval history: 76-year-old female with abdominal pain is found to have cholelithiasis patient had a ERCP did not show any stone in the duct, likely passed stones, however patient lipase were elevated on 07/19 most likely secondary to ERCP, patient patient continue to complain of abdominal pain was NPO, continued to hydrate the patient and monitor. today patient lipase have trended down to 55 from 5197 on 07/19, seen by GI started the patient on clear liquid, today advanced to full liquids, on 07/20 stopped the patient IV Dilaudid and switch her over to [place] 5/325 every 6 hours as needed, will advance the diet as tolerated, per PT OT evaluate the and further recommendation to follow. patient on Eliquis for atrial fibrillation GI is recommending to hold until further recommendation Subjective Date/time seen: 07/21/22 12:57 07/21/2022 interval history: 76-year-old female with abdominal pain is found to have cholelithiasis patient had a ERCP did not show any stone in the duct, likely passed stones, however patient lipase were elevated on 07/19 most likely secondary to ERCP, patient patient continue to complain of abdominal pain was NPO, continued to hydrate the patient and monitor. today patient lipase have trended down to 55 from 5197 on 07/19, seen by GI started the patient on clear liquid, today advanced to full liquids, on 07/20 stopped the patient IV Dilaudid and switch her over to [place] 5/325 every 6 hours as needed, will advance the diet as tolerated, per PT OT evaluate the and further recommendation to follow. patient on Eliquis for atrial fibrillation GI is recommending to hold until further recommendation Review of Systems Review of Systems: All systems reviewed & are unremarkable except as noted in HPI and below Exam Narrative: Patient is comfortable, NAD HEENT: eyes are clear and none icteric LUNGS: normal respiratory effort ABD: not distended Lower extremities: no edema SKIN: nonjaundiced Neuro: grossly intact. Objective Data Vital
--- NOTE | 2022-07-21 14:20 | PCOTNOTE ---
Attempted OT evaluation; per RN pt. has 10/10 pain and has taken pain medication. She is unsafe at this time to walk or get out of bed. Will attempt tomorrow as able.
[2022-07-21 16:00] VITALS: BP 148/88; PULSE 73; RESP 20; TEMP 36.6; O2SAT 95
--- NOTE | 2022-07-21 17:37 | PC.NURSE ---
pt is demanding more pain meds however there is nothing IV available and pt is refusing PO meds. Pt refused schedule lipase PO. Pt refused clear liquids. Pt demanded that the IV be stopped and attempted to rip the IV catheter out of her hand.
[2022-07-21] MEDS: ALPRAZolam (*CRX) 0.5 MG TABLET 1 MG PO (21:06)
[2022-07-21] MEDS: NALOXONE HCL 0.4 MG/ML VIAL IV PUSH (22:46)
[2022-07-21 23:10] LABS: Alveolar/Arterial O2 Gradient 53.3 mmHg; Base Excess ABG -0.2 mEq/l (+/-2.0); Carboxyhemoglobin 0.8 % THb (0-2.0); Fractional Inspired Oxygen 21 %; HCO3 ABG 24.9 mEq/l (22.0-26.0); Methemoglobin ABG 0.4 %THb (0-1.5); Oxygen Content ABG 16.6 %vol (16.0-22.0); PCO2 ABG 42.2 mmHg (35.0-45.0); PO2 FiO2 Ratio Arterial Blood 2.19 %; Reduced Hemoglobin 16.6 %THb (0-5.0); Total Hemoglobin 14.4 g/dL (12.0-18.0); pH ABG 7.388 (7.350-7.450)
[2022-07-21 23:12] LABS: PO2 ABG 45.9 mmHg (80.0-100.0)
[2022-07-21 23:13] LABS: Oxygen Saturation ABG 81.4 % (95.0-100.0)
[2022-07-21 23:14] LABS: Modified Allen's Test Pass; Oxyhemoglobin 82.2 % THb (90.0-100.0); Site Drawn RIGHT RADIAL
[2022-07-21 23:16] LABS: Device ROOM AIR
[2022-07-22] VITALS: PULSE 89; O2SAT 79
--- NOTE | 2022-07-22 00:06 | PM.EVENT ---
Event Note Event Note Event Note: 07/21/2022 at 22:30 was called by nursing staff as patient was becoming progressively more altered. The patient was uncooperative and refusing to wear oxygen. Oxygen saturations were dropping into the upper 60s and lower 70s. The patient had not had any narcotics since the decorating machine tender hours. She had had some anxiolytics in the afternoon. I ordered a stat ABG to rule possible CO2 retention with presence of narcotics and anxiolytics on board in a patient with morbid obesity. ABG demonstrated only hypoxic respiratory failure with a normal pH. The patient was on room air at the time of her ABG. Her pulse ox was ranging between 80 and 86% well respiratory therapy was obtaining ABG. But again the patient was refusing to put oxygen on. the patient was restless when I came up to the bedside to evaluate her. Chest x-ray was reviewed. The patient does have a wedge-like opacification in the right lower lobe I am concerned for possible pneumonia specially given this patient's had elevated white count for 3 days. She has been afebrile. She is not coughing or wheezing. X-ray could also be consistent with some pulmonary vascular congestion but echocardiogram from 2019 was reviewed and was normal. Patient does have history of atrial fibrillation but rate is normal on palpation of pulse. She is uncooperative with exam and argumentative. The patient has hypoactive bowel sounds in the left abdomen but as hyperactive high-pitched bowel sounds in the right upper abdomen. She shoves me away when I attempt to auscultate the top part of her abdomen in seems to be uncomfortable with palpation even light palpation at the area. She is not having any nausea or vomiting. Patient is only oriented to self. Her encephalopathy could be due to narcotics benzos or acute infection. Stat labs have been ordered including CBC with diff, repeat CMP, lactic acid, blood cultures and lipase as well as procalcitonin. Patient's lipase had normalized yesterday but transaminases had went up slightly compared to the day before but not significantly. But given the patient's discomfort will re-evaluate CMP for this reason. In in chest x-rayed did not demonstrate any significant dilated bowel loops in the upper portion of the abdomen but if his full KUB was not completed. Will make the patient NPO at this time given her level of discomfort in the fact that she keeps repetitively asking for more pain medications we do not need to feed her and possibly increase her pain. The patient does have acute kidney injury and would benefit from additional IV fluid administration but she is refusing IV fluids. The daughter was contacted and has agreed come up and sit with the patient as she she is a nurse and understands the patient's condition. She thinks that she may be able to get the patient to cooperate with some of keep the cares. We may be able to convince the patient to let us place an IV in a different position because she does not want the IV where it is at as the IV kept beeping all day. I will at this time I am going to go in place patient on empiric antibiotic therapy with Zosyn to cover for possible pneumonia given her chest x-ray findings and Zosyn would also cover any GI pathology if he possible is developing acute acute cholecystitis post instrumentation. Assessment: Acute encephalopathy metabolic versus toxic in nature. Likely metabolic due to hypoxia and or infection. given the patient is also having urinary frequency and foul-smelling urine will check UA to rule out UTI. Will have nurses bladder scan the patient to see if patient is retaining if she is retaining urine will place a Vazquez catheter if she is not retaining we will obtain the specimen via straight catheterization so that we have a true clean /Accurate specimen. Abnormal chest x-ray concerning for pneumonia with new hypoxic respiratory failure-- antibiotics as discussed above. No evidence
--- NOTE | 2022-07-22 00:30 | PC.NURSE ---
2300 Patient having increased confusion, increased SOB and refusing all cares including wearing oxygen with a desaturation at 76% 2320 Dr. Aguiar arrived at bedside and orders were received for labs, CXR, and medications. 2350 Dr. Aguiar notified Daughter Ivania and explained patient's condition. Daughter lives close by and is an RN and will come in to sit with patient. 0015 DaughterIvania arrived at bedside. Patient calming down and less agitated and fighting staff. 0045 Dr. Aguiar aware of labs and Xray as results start to trickle in. Orders received, Daughter updated with plan. Patient condition stable at this this time.
[2022-07-22 00:39] LABS: Basophils Absolute Auto 0.1 K/mm3 (0.0-0.1); Basophils Percent Auto 0.3 % (0.2-1.2); Eosinophils Percent Auto 0.1 % (0-4.4); Hematocrit 40.7 % (37.0-47.0); Hemoglobin 13.1 g/dL (12.0-15.0); Immature Granulocyte Absolute 0.08 K/mm3 (0.00-0.031); Immature Granulocyte Percent A 0.5 % (0-0.5); Lymphocytes Percent Auto 2.6 % (18.3-44.2); Mean Corpuscular HGB Conc 32.2 g/dl (32-36); Mean Corpuscular Hemoglobin 28.9 pg (26-34); Mean Corpuscular Volume 89.8 fl (80-100); Mean Platelet Volume 10.9 fl (7.4-10.4); Monocytes Absolute Auto 1.3 K/mm3 (0.1-0.6); Monocytes Percent Auto 8.2 % (2.6-8.5); Neutrophils Absolute Auto 13.9 K/mm3 (1.3-6.7); Neutrophils Percent Auto 88.3 % (45.5-73.1); Platelet Count Result 247 k/mm3 (150-375); Red Blood Count 4.53 M/mm3 (4.2-5.4); Red Cell Distribution Width 15.7 % (11.5-14.5); White Blood Count 15.7 K/mm3 (4.5-10.0)
[2022-07-22 00:49] LABS: Lipase 26 U/L (23-300)
[2022-07-22 00:50] LABS: Lactic Acid Reflex 0.8 mmol/L (0.7-2.0)
[2022-07-22 00:51] LABS: Alanine Aminotransferase 95 U/L (6-35); Albumin Level 3.3 g/dL (3.5-5.1); Alkaline Phosphatase 114 U/L (38-126); Anion Gap 6 mmol/L (8-16); Aspartate Amino Transferase 62 U/L (14-36); Bilirubin,Total 2.5 mg/dL (0.2-1.3); Blood Urea Nitrogen 44 mg/dL (7-17); Calcium 8.4 mg/dL (8.4-10.2); Carbon Dioxide 27 mmol/L (22-30); Chloride 107 mmol/L (98-107); Estimated CRCL calculation 42 ml/min; Estimated Glomerular Filt Rate 40; Glucose 81 mg/dL (65-110); Potassium 3.5 mmol/L (3.4-5.0); Sodium 140 mmol/L (137-145)
[2022-07-22 00:59] LABS: NT Pro B Type Natriuretic Pept 2890 pg/mL (19.9-100)
[2022-07-22 01:23] LABS: Procalcitonin 1.7 ng/mL
[2022-07-22] MEDS: BELLADONNA ALK/PHENOB ELIX 10 ML, MAG HYDROX/ALUMINUM HYD/SIMETH 30 ML, LIDOCAINE HCL 2... PO (02:48)
[2022-07-22 05:00] VITALS: BP 189/89; PULSE 77; RESP 18; TEMP 36.2; O2SAT 93
[2022-07-22] MEDS: LIPASE/AMYLASE/PROTEASE 12,000 UNITS CAP 2 CAP PO ×3 (09:19→17:41)
[2022-07-22 09:20] VITALS: PULSE 80
[2022-07-22] MEDS: SOTALOL HCL 40 MG TABLET PO ×2 (09:20→21:03)
[2022-07-22] MEDS: SERTRALINE HCL 50 MG TABLET PO (09:21)
[2022-07-22] MEDS: PANTOPRAZOLE SODIUM IV 40 MG VIAL IV PUSH (09:21)
--- NOTE | 2022-07-22 10:03 | PCPTNOTE ---
Attempted PT evaluation, pt refused stating I hurt real bad right here pointing to her abdomen. RN aware. Will Follow.
--- NOTE | 2022-07-22 11:22 | PM.CNGS ---
Assessment and Plan Assessment and plan (1) Cholelithiasis: Code(s): K80.20 - Calculus of gallbladder without cholecystitis without obstruction Status: Acute Assessment and Plan: Patient presented with transaminitis, cholelithiasis, and ultrasound showing the common bile duct at upper limits of normal. She underwent ERCP with sphincterotomy with no findings of stones in her common bile duct. They felt she likely passed a stone. Day 1 after her ERCP, her lipase went up to 5,000 and she has been treated for acute pancreatitis s/p ERCP. Her lipase is improving but the patient continues to have a significant amount of upper abdominal pain and her total bilirubin has gone up over the past few days since her negative ERCP. Will await GI's recommendations for further imaging. I discussed with the patient that eventually she may need a cholecystectomy to help prevent recurrence and future complications with her gallstones, but we would like her to be medically optimized prior to proceeding with surgery. Description of the procedure, risks, benefits, expected outcomes, and expected recovery were discussed with the patient in detail. I discussed that she does have multiple co-morbidities that do increase her risks of surgery and general anesthesia as well. With her current issues of hypoxia, mental status changes, and VONNIE, we do not have plans for surgery today, but will continue to follow along to decide on optimal timing for her cholecystectomy. (2) Acute pancreatitis: Code(s): K85.90 - Acute pancreatitis without necrosis or infection, unspecified Status: Acute Assessment and Plan: Acute pancreatitis following ERCP. Lipase normalized. Seems to be improving but continues to have upper abdominal pain, predominately in the LUQ, and her total bilirubin has gone up over the past few days. GI following. May need repeat imaging. She was made NPO last night due to her significant amount of abdominal pain. Continue medical management per GI/primary service. (3) Transaminitis: Code(s): R74.01 - Elevation of levels of liver transaminase levels Status: Acute Assessment and Plan: Total bilirubin trending up over the past few days with other LFTs trending down. See plan above. 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 Could consider a cholecystectomy while inpatient if she is medically optimized, or she could be brought back as an outpatient. Discussed this with the patient and her . (7) Hypoxia: Code(s): R09.02 - Hypoxemia Status: Acute Assessment and Plan: Hypoxia overnight and is currently on 4 liters O2. Management per the primary service. Discussed with the patient that her respiratory status would need to improve prior to proceeding with surgery during this hospitalization. (8) Obesity, morbid, BMI 40.0-49.9: Code(s): E66.01 - Morbid (severe) obesity due to excess calories Status: Acute Assessment and Plan: Increases risks for surgery. Plan I have discussed the patient's case and plan of care with Dr. Rodarte. History of Present Illness Consult details Consult date: 07/22/22 Reason for consult: gallstones Requesting physician: Kevin Steele MD Narrative: This is a 77-year-old woman with a history of paroxysmal atrial fibrillation on chronic anticoagulation and hypertension, who presented to the emergency room 5 days ago with right upper quadrant abdominal pain that started earlier that morning. She additionally complained of nausea, vomiting, and dark colored urine. In
[2022-07-22] MEDS: HYDROcodone/acetaminophen (*CRX) 5-325 MG TABLET 1 TAB PO (11:44)
[2022-07-22 11:48] VITALS: O2SAT 94
--- NOTE | 2022-07-22 12:16 | PM.CNNEP ---
Assessment and Plan Assessment and plan (1) Acute kidney injury: Code(s): N17.9 - Acute kidney failure, unspecified Status: Acute Assessment and Plan: already resolving with IVF resuscitation suspect VONNIE/ARF due to volume depletion follow up on renal ultrasound but previous imaging without obstruction continue gentle IVFs as long as NPO or not eating follow trend of repeat labs and UOP Will continue to follow. History of Present Illness Reason for Consult Consult date: 07/22/22 Reason for consult: acute renal failure Chief Complaint Chief complaint: abdominal pain History of Present Illness Narrative: The patient is a 76-year-old female with a past medical history as outlined below who presented to [facility] Emergency Room for further evaluation of abdominal pain. She reports the pain in her upper abdominal area for the past week and describes the pain as a sensation of constipation or cast that cannot be relieved. The pain worsened in the past few days prior to her admission and apparently is now constant at the time of her arrival to the emergency room. She described the pain at that time as sharp and severe with radiation to the right upper quadrant and the right side of her back. Associated symptoms included nausea, vomiting, dry heaves and she reports poor oral intake because of these symptoms. Workup and evaluation emergency room demonstrated the patient to be hemodynamically stable. Routine blood test demonstrated elevated liver function tests including her AST, ALT, and bili bilirubin as well as her total alkaline phosphatase but a normal lipase. I had right upper quadrant ultrasound was done given her symptoms which showed mild hepatomegaly an echogenic liver thought to be secondary to steatosis (although reportedly can be seen with hepatitis and fibrosis) along with cholelithiasis and a partially contracted gallbladder with a common bile duct at the upper limit of normal in terms of diameter. Given her constellation of symptoms as well as these laboratory findings in conjunction with the imaging as mentioned, she was admitted to the hospital for further evaluation and therapy Since her admission, she has been seen in consultation by GI with multiple imaging studies including an ERCP for evaluation of abdominal pain. General surgery is also seen the patient is well for the possibility of a cholecystectomy in the hopes that this may resolve her abdominal symptoms. Renal consultation was requested after was noted by labs done yesterday that her creatinine was at quite elevated in comparison to baseline. It was noted from review of her records that she had been NPO for multiple procedures and had not been receiving IV fluids during that time. She was started on IV fluids yesterday on the assumption that this was all due to dehydration and would seem that this has improved her kidney function reasonably well by review of her labs this morning. I am unclear what the long-term plan is for her abdominal pain but it would seem that her acute renal failure/acute kidney injury seems to be resolving with current interventions. Currently, at the time my visit, her main complaint is that of abdominal pain as already mentioned. Review of Systems Review of Systems: As per HPI. [facility] Past Medical History Medical History Arthritis Chronic anticoagulation Depression Hemorrhoids Hyperlipidemia Hypertension Irritable bowel syndrome Kidney stone Paroxysmal atrial fibrillation Pulmonary nodule Surgical History Surgical History History of bilateral knee replacement History of removal of cyst History of total left hip replacement Family History Family History Mother Hypertension Family history of diabetes mellitus in [facility]
[2022-07-22 14:00] VITALS: BP 195/94; PULSE 73; RESP 20; TEMP 36.3; O2SAT 94
--- NOTE | 2022-07-22 15:29 | PM.IMPN ---
Progress Note: A&P Assessment and Plan (1) Transaminitis: Code(s): R74.01 - Elevation of levels of liver transaminase levels Status: Acute (2) Abdominal pain: Code(s): R10.9 - Unspecified abdominal pain Status: Acute (3) Abnormal abdominal ultrasound: Code(s): R93.5 - Abnormal findings on diagnostic imaging of other abdominal regions, including retroperitoneum Status: Acute (4) Cholelithiasis: Code(s): K80.20 - Calculus of gallbladder without cholecystitis without obstruction Status: Deleted (5) Paroxysmal atrial fibrillation: Code(s): I48.0 - Paroxysmal atrial fibrillation Status: Acute (6) Chronic anticoagulation: 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 Right upper quadrant ultrasound shows mild hepatomegaly and echogenic liver which could be steatosis though similar findings could be seen with hepatitis and fibrosis. cholelithiasis with a partially contracted gallbladder. Common bile duct diameter was at the upper limit of normal for her age though was noted to be increased from prior studies. Repeat LFTs in a.m. Hepatitis panel Dr. Steele has been consulted, considers abd pain to be due to cholelithiasis with choledocholithiasis, and has performed ERCP Patient has diffuse abdominal pain, shortness breast status post ERCP. Stat chest x-ray in August x-ray does not show free air. Pending radiologist's report [facility] pain management Her Vijay has been placed on hold continue sotalol. Blood pressures are stable. Her antihypertensives will be continued. 07/22/2022 interval history: 76-year-old female with abdominal pain is found to have cholelithiasis patient had a ERCP did not show any stone in the duct, likely passed stones, however patient lipase were elevated on 07/19 most likely secondary to ERCP, patient patient continue to complain of abdominal pain was NPO, continued to hydrate the patient and monitor. today patient lipase have trended down to 26 from 5197 on 07/19, on 07/20 seen by GI started the patient on clear liquid, on 07/21 advanced to full liquids, patient continued to complain of abdominal will continue full liquid, patient seen by surgery today not a candidate for cholecystectomy currently will continue to monitor, on 07/20 stopped the patient IV Dilaudid and switch her over to [place] 5/325 every 6 hours as needed, will advance the diet as tolerated, per PT OT evaluate the and further recommendation to follow. patient on Eliquis for atrial fibrillation GI is recommending to hold until further recommendation Subjective Date/time seen: 07/22/22 15:29 07/22/2022 interval history: 76-year-old female with abdominal pain is found to have cholelithiasis patient had a ERCP did not show any stone in the duct, likely passed stones, however patient lipase were elevated on 07/19 most likely secondary to ERCP, patient patient continue to complain of abdominal pain was NPO, continued to hydrate the patient and monitor. today patient lipase have trended down to 26 from 5197 on 07/19, on 07/20 seen by GI started the patient on clear liquid, on 07/21 advanced to full liquids, patient continued to complain of abdominal will continue full liquid, patient seen by surgery today not a candidate for cholecystectomy currently will continue to monitor, on 07/20 stopped the patient IV Dilaudid and switch her over to [place] 5/325 every 6 hours as needed, will advance the diet as tolerated, per PT OT evaluate the and further recommendation to follow. patient on Eliquis for atrial fibrillation GI is recommending to hold until further
[2022-07-22] MEDS: hydrALAZINE HCL 20 MG/ML VIAL 10 MG IV PUSH (15:57)
--- NOTE | 2022-07-22 17:14 | WPDGIPROGNO ---
Progress Note: A&P Assessment and Plan (1) Abnormal abdominal ultrasound: Code(s): R93.5 - Abnormal findings on diagnostic imaging of other abdominal regions, including retroperitoneum Status: Acute Assessment and Plan: Bile duct is at the upper limits of normal on ultrasound. Her presentation is consistent with choledocholithiasis. MRCP was ordered for today. The patient however is hesitant because she has had knee and hip replacements several years ago. ERCP revealed no stones in the bile duct, therefore she likely passed stones or sludge prior to the procedure. 07/22/2022 ultrasound today shows no abnormalities of the liver or the pancreas. The bile ducts remain dilated. Nothing was seen to explain her abdominal pain (2) Abdominal pain: Code(s): R10.9 - Unspecified abdominal pain Status: Acute Assessment and Plan: This appears to be due to cholelithiasis with choledocholithiasis. Patient asked, appropriately, it would be simpler to simply have surgery. I explained that if stones are the bile duct surgical removal would require common bile duct exploration and possible T-tube, an open procedure. We will recheck her labs and see if perhaps they have returned to normal in which case there may not be a need for ERCP. 07/19/2022 she is having significant pain today beginning with past evening. I suspect that she has pancreatitis. Lipase has been ordered but is pending. the current regimen is not controlling her pain. I will increase her hydromorphone to 1 mg every 2-3 hours 07/20/2022 much less pain today. She is not needing pain medication nearly as often. Now her pain is back to where was on admission, primarily epigastric area 07/21/2022 today she says her pain is a little more generalized than it was but still mostly epigastric. her states that she has been out of it this morning. I explained to the patient and family that we would like to get her off Dilaudid which she has been requesting regularly. I explained her that this may be causing some of her nausea and certainly some of her mental status changes, Sedation. she is finally been encouraged to cut back on pain medication. She was getting very sedated and also hypoxic. (3) Transaminitis: Code(s): R74.01 - Elevation of levels of liver transaminase levels Status: Acute Assessment and Plan: Enzyme elevations consistent with choledocholithiasis. I discussed with her ERCP and how it would be the means of removing stones from the bile duct. I explained that stones in the bile duct can cause pancreatitis and that even ERCP can cause pancreatitis which could be severe, could result in prolonged hospitalization or even in rare cases surgery. she is reluctant to do MRCP because the fact that she has hardware in her knees and hips. transaminases are gradually improving. Today however bilirubin has increased to 1.6. LFTs are essentially unchanged. 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 Her last dose was Friday evening. I explained that there is risk of bleeding even the person is not on a blood thinner but he has been off Eliquis almost 48 hours now and therefore think that she has relatively low risk of bleeding from the procedure. will hold off on anticoagulation for now (5) Cholelithiasis: Code(s): K80.20 - Calculus of gallbladder without cholecystitis without obstruction Status: Deleted Assessment and Plan: she would like Dr. Rodarte to do her cholecystectomy. I told her that it would probably have to wait until she has recovered from her present situation, Probably be done later as an o
[2022-07-22] MEDS: ALPRAZolam (*CRX) 0.5 MG TABLET 1 MG PO (21:03)
[2022-07-22 21:30] VITALS: O2SAT 92
[2022-07-23] VITALS (10 sets, daily range): BP systolic 177–209; BP diastolic 76–94; PULSE 66–92; RESP 16–20; TEMP 35.9–36.4; O2SAT 89–95
--- NOTE | 2022-07-23 03:42 | PC.NURSE ---
Patient beligerent when this RN attempted to apply oxygen to patient due to patient having some mild labored breathing. Patient also started picking off items on her bedside table and began hurling them at this nurse. Items including her cellphone, the room phone and her glasses and call button. Bedside table removed from patient's reach. Daughter was called Ivania and informed of situation. Daughter was going to attempt to call patient and reason with her. Patient again starting to refuse all cares. Dr. Aguiar and charge out clerk aware of patient's behavior. Will continue to monitor.
[2022-07-23] MEDS: ONDANSETRON INJ 4 MG/2 ML VIAL IV PUSH (04:50)
[2022-07-23] MEDS: hydrALAZINE HCL 20 MG/ML VIAL 10 MG IV PUSH (04:50)
[2022-07-23 06:17] LABS: Hematocrit 41.2 % (37.0-47.0); Hemoglobin 13.5 g/dL (12.0-15.0); Mean Corpuscular HGB Conc 32.8 g/dl (32-36); Mean Corpuscular Hemoglobin 29.3 pg (26-34); Mean Corpuscular Volume 89.4 fl (80-100); Mean Platelet Volume 11.2 fl (7.4-10.4); Platelet Count Result 262 k/mm3 (150-375); Red Blood Count 4.61 M/mm3 (4.2-5.4); Red Cell Distribution Width 15.5 % (11.5-14.5)
[2022-07-23 06:29] LABS: Alanine Aminotransferase 62 U/L (6-35); Albumin Level 3.1 g/dL (3.5-5.1); Alkaline Phosphatase 119 U/L (38-126); Anion Gap 6 mmol/L (8-16); Aspartate Amino Transferase 35 U/L (14-36); Bilirubin,Total 1.8 mg/dL (0.2-1.3); Blood Urea Nitrogen 28 mg/dL (7-17); Calcium 8.6 mg/dL (8.4-10.2); Carbon Dioxide 28 mmol/L (22-30); Chloride 105 mmol/L (98-107); Estimated CRCL calculation 67 ml/min; Estimated Glomerular Filt Rate > 60; Glucose 108 mg/dL (65-110); Lipase 13 U/L (23-300); Potassium 3.2 mmol/L (3.4-5.0); Sodium 139 mmol/L (137-145)
[2022-07-23 07:22] LABS: Procalcitonin 0.9 ng/mL
[2022-07-23] MEDS: PANTOPRAZOLE SODIUM IV 40 MG VIAL IV PUSH (09:44)
[2022-07-23] MEDS: POTASSIUM CHLORIDE 20 MEQ TABLET 40 MEQ PO (09:48)
[2022-07-23] MEDS: SERTRALINE HCL 50 MG TABLET PO (09:49)
[2022-07-23] MEDS: SOTALOL HCL 40 MG TABLET PO ×2 (09:49→21:56)
[2022-07-23] MEDS: LIPASE/AMYLASE/PROTEASE 12,000 UNITS CAP 2 CAP PO ×3 (09:50→16:48)
--- NOTE | 2022-07-23 10:42 | PM.PNGS ---
Progress Note: A&P Assessment and Plan (1) Acute pancreatitis: Code(s): K85.90 - Acute pancreatitis without necrosis or infection, unspecified Status: Acute Assessment and Plan: likely secondary to ERCP vs choledocholithiasis, labs normalized, still c/o pain, will get CT per GI for further evaluation, cont diet mgmt per GI (2) Cholelithiasis: Code(s): K80.20 - Calculus of gallbladder without cholecystitis without obstruction Status: Acute Assessment and Plan: will need interval heidy, ?this would improve current symptomatology, given medical comorbidities including current O2 requirements, MS changes, would like to see medical optimization prior to OR (3) Transaminitis: Code(s): R74.01 - Elevation of levels of liver transaminase levels Status: Acute Assessment and Plan: improved, likely has passed CBD stone Subjective Subjective Date/Time Seen: 07/23/22 10:42 still c/o upper abd pain, discomfort, poor appetite Review of Systems Review of Systems: All systems reviewed & are unremarkable except as noted in HPI and below Exam Const: General: cooperative, acute distress mild, ill appearing, uncomfortable and obese Resp: Auscultation: diminished lung sounds Cardio: Rate: regular rate Rhythm: regular rhythm GI: Inspection: normal to inspection and distended GI Palp: Yes abdominal tenderness, Yes Soft to palpation, Yes Tenderness to palpation present (GI), No Guarding due to palpation present (GI) and No Rigid due to palpation Objective Data Vital Signs Vital Signs: Vital Signs - 24 hr 07/22/22 11:48 07/22/22 14:30 07/22/22 14:00 Temperature 36.3 C L Pulse Rate 73 Respiratory Rate 20 Blood Pressure 195/94 H Pulse Oximetry 94 94 Oxygen Delivery Nasal Cannula Nasal Cannula Oxygen Flow Rate 3 3 07/22/22 21:30 07/23/22 00:00 07/23/22 08:00 Temperature 36.4 C Pulse Rate 74 76 Respiratory Rate 20 20 Blood Pressure 177/86 H 209/92 H Pulse Oximetry 92 91 94 Oxygen Delivery Oxygen Flow Rate 3 07/23/22 09:49 Temperature Pulse Rate 73 Respiratory Rate Blood Pressure Pulse Oximetry Oxygen Delivery Oxygen Flow Rate Intake/Output Intake/Output: Intake & Output 07/20/22 07/21/22 07/22/22 07/23/22 23:59 23:59 23:59 23:59 Intake Total 3912 2100 830 400 Output Total 700 200 200 Balance 3212 1900 630 400 Meds/Results Medications: Active Medications Generic Name Dose Route Start Last Admin Trade Name Freq PRN Reason Stop Dose Admin Acetaminophen 650 mg 07/17/22 21:31 07/19/22 09:19 Acetaminophen 325 Mg Tablet PO 650 mg Q6H PRN Administration Mild Pain (1-3) or Fever Hydrocodone Bitart/Acetaminophen 1 tab 07/20/22 08:36 07/22/22 11:44 Hydrocodone/Acetaminophen (*Crx) 5-325 Mg Tablet PO 1 tab Q6H PRN Administration Pain Rated 4-6 Al Hydrox/Mg Hydrox/Simethicone 30 ml 07/22/22 04:11 Mag Hydrox/Al Hydrox/Simeth 30 Ml Udc PO Q6H PRN Indigestion Alprazolam 1 mg 07/17/22 21:40 07/22/22 21:03 Alprazolam (*Crx) 0.5 Mg Tablet PO 1 mg HS DELILAH Administration Lipase/Protease/Amylase 2 cap 07/21/22 08:00 07/23/22 09:50 Lipase/Amylase/Protease 12,000 Units Cap PO 2 cap TIDWM DELILAH Administration Hydralazine HCl 10 mg 07/18/22 23:17 07/23/22 04:50 Hydralazine Hcl 20 Mg/Ml Vial IV PUSH 10 mg Q6H PRN Administration SBP > 165 or DBP > 105 Piperacillin Sod/Tazobactam Sod 2.25 gm in 50 mls @ 100 mls/hr 07/22/22 06:00 07/23/22 04:51 Zosyn 2.25 Gm/D5w 50 Ml IVPB 100 mls/hr Q6HR DELILAH Administration Lorazepam 0.5 mg 07/19/22 12:07 07/21/22 12:27 Lorazepam Inj (*Crx) 2 Mg/Ml Vial IV PUSH 0.5 mg Q6H PRN Administration Anxiety Losartan Potassium 50 mg 07/18/22 09:00 07/21/22 08:48 Losartan Potassium 50 Mg Tablet PO 50 mg DAILY DELILAH Administration Ondansetron HCl 4 mg 07/17/22 16:18 07/23/22 04:50 Ondansetro
[2022-07-23] MEDS: MAG HYDROX/AL HYDROX/SIMETH 30 ML UDC PO ×2 (10:48→16:46)
--- NOTE | 2022-07-23 11:19 | PCOTNOTE ---
Attempted OT treatment, patient's family declined due to patient sleeping soundly, will follow.
--- NOTE | 2022-07-23 11:57 | PM.PNNEP ---
Progress Note: A&P Assessment and Plan (1) Acute kidney injury: Code(s): N17.9 - Acute kidney failure, unspecified Status: Acute Assessment and Plan: resolved suspect VONNIE/ARF due to volume depletion and previous NPO status imaging to date without obstruction would resume gentle IVFs if NPO or not eating advance diet as tolerated follow trend of repeat labs and UOP Not much else to add -- will follow from a distance. Subjective Date/time seen: 07/23/22 11:57 Still has abdominal pain at the time of my visit but her renal function has normalized (off IVFs but not sure who discontinued them); no other acute issues or problems voiced. Exam Narrative: General: ederly female in NAD Heart: normal S1 and S2; no rub Lungs: clear to auscultation Abdomen: soft, mild TTP, nondistended, hypoactive bowel sounds Extremities: no cyanosis or clubbing; no edema Skin: warm and dry Objective Data Vital Signs Vital Signs: Vital Signs Temp Pulse Resp BP Pulse Ox O2 Del Method O2 Flow Rate 07/23/22 09:49 73 07/23/22 08:00 76 20 209/92 H 94 07/23/22 00:00 97.6 F 74 20 177/86 H 91 07/22/22 21:30 92 3 07/22/22 14:00 97.4 F L 73 20 195/94 H 94 07/22/22 14:30 Nasal Cannula 3 Intake/Output Intake/Output: Intake & Output 07/20/22 07/21/22 07/22/22 07/23/22 23:59 23:59 23:59 23:59 Intake Total 3912 2100 830 400 Output Total 700 200 200 100 Balance 3212 1900 630 300 Meds/Results Medications: Active Medications Generic Name Dose Route Start Last Admin Trade Name Freq PRN Reason Stop Dose Admin Acetaminophen 650 mg 07/17/22 21:31 07/19/22 09:19 Acetaminophen 325 Mg Tablet PO 650 mg Q6H PRN Administration Mild Pain (1-3) or Fever Hydrocodone Bitart/Acetaminophen 1 tab 07/20/22 08:36 07/22/22 11:44 Hydrocodone/Acetaminophen (*Crx) 5-325 Mg Tablet PO 1 tab Q6H PRN Administration Pain Rated 4-6 Al Hydrox/Mg Hydrox/Simethicone 30 ml 07/22/22 04:11 07/23/22 10:48 Mag Hydrox/Al Hydrox/Simeth 30 Ml Udc PO 30 ml Q6H PRN Administration Indigestion Alprazolam 1 mg 07/17/22 21:40 07/22/22 21:03 Alprazolam (*Crx) 0.5 Mg Tablet PO 1 mg HS DELIALH Administration Lipase/Protease/Amylase 2 cap 07/21/22 08:00 07/23/22 09:50 Lipase/Amylase/Protease 12,000 Units Cap PO 2 cap TIDWM DELILAH Administration Hydralazine HCl 10 mg 07/18/22 23:17 07/23/22 04:50 Hydralazine Hcl 20 Mg/Ml Vial IV PUSH 10 mg Q6H PRN Administration SBP > 165 or DBP > 105 Piperacillin Sod/Tazobactam Sod 2.25 gm in 50 mls @ 100 mls/hr 07/22/22 06:00 07/23/22 04:51 Zosyn 2.25 Gm/D5w 50 Ml IVPB 100 mls/hr Q6HR DELILAH Administration Lorazepam 0.5 mg 07/19/22 12:07 07/21/22 12:27 Lorazepam Inj (*Crx) 2 Mg/Ml Vial IV PUSH 0.5 mg Q6H PRN Administration Anxiety Losartan Potassium 50 mg 07/18/22 09:00 07/21/22 08:48 Losartan Potassium 50 Mg Tablet PO 50 mg DAILY DELILAH Administration Ondansetron HCl 4 mg 07/17/22 16:18 07/23/22 04:50 Ondansetron Inj 4 Mg/2 Ml Vial IV PUSH 4 mg Q4H PRN Administration Nausea Pantoprazole Sodium 40 mg 07/22/22 09:00 07/23/22 09:44 Pantoprazole Sodium Iv 40 Mg Vial IV PUSH 40 mg QAM DELILAH Administration Sertraline HCl 50 mg 07/18/22 09:00 07/23/22 09:49 Sertraline Hcl 50 Mg Tablet PO 50 mg DAILY DELILAH Administration Sotalol HCl 40 mg 07/17/22 21:35 07/23/22 09:49 Sotalol Hcl 40 Mg Tablet PO 40 mg Q12HR DELILAH Administration Radiology Results: ITS Impressions Upper Quadrant Ultrasound 07/17/22 14:44 IMPRESSION: Mild hepatomegaly. Echogenic liver, most commonly due to steatosis but also can be seen with hepatitis and fibrosis. Cholelithiasis in a partially contracted gallbladder, which limits evaluation. Sonographic Winkler sign was negative, but pain medication confounds this interpretation. The c
--- NOTE | 2022-07-23 15:04 | PM.IMPN ---
Progress Note: A&P Assessment and Plan (1) Transaminitis: Code(s): R74.01 - Elevation of levels of liver transaminase levels Status: Acute (2) Abdominal pain: Code(s): R10.9 - Unspecified abdominal pain Status: Acute (3) Abnormal abdominal ultrasound: Code(s): R93.5 - Abnormal findings on diagnostic imaging of other abdominal regions, including retroperitoneum Status: Acute (4) Cholelithiasis: Code(s): K80.20 - Calculus of gallbladder without cholecystitis without obstruction Status: Deleted (5) Paroxysmal atrial fibrillation: Code(s): I48.0 - Paroxysmal atrial fibrillation Status: Acute (6) Chronic anticoagulation: 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 Right upper quadrant ultrasound shows mild hepatomegaly and echogenic liver which could be steatosis though similar findings could be seen with hepatitis and fibrosis. cholelithiasis with a partially contracted gallbladder. Common bile duct diameter was at the upper limit of normal for her age though was noted to be increased from prior studies. Repeat LFTs in a.m. Hepatitis panel Dr. Steele has been consulted, considers abd pain to be due to cholelithiasis with choledocholithiasis, and has performed ERCP Patient has diffuse abdominal pain, shortness breast status post ERCP. Stat chest x-ray in August x-ray does not show free air. Pending radiologist's report [facility] pain management Her Vijay has been placed on hold continue sotalol. Blood pressures are stable. Her antihypertensives will be continued. 07/23/2022 interval history: 76-year-old female with abdominal pain is found to have cholelithiasis patient had a ERCP did not show any stone in the duct, likely passed stones, however patient lipase were elevated on 07/19 most likely secondary to ERCP, patient patient continue to complain of abdominal pain was NPO, continued to hydrate the patient and monitor. today patient lipase have trended down to 13 from 5197 on 07/19, on 07/20 seen by GI started the patient on clear liquid, on 07/21 advanced to full liquids, patient continued to complain of abdominal will continue full liquid, patient seen by surgery today not a candidate for cholecystectomy currently will continue to monitor, on 07/20 stopped the patient IV Dilaudid and switch her over to [place] 5/325 every 6 hours as needed, Patient on full liquid diet discussed with the GI will advance to fat however patient continued to have full liquid, patient was seen by surgery service there is no plan for surgery resume patient's Eliquis, PT OT evaluate the and further recommendation to follow. and preparation for discharge patient had home O2 eval and patient does not need any oxygen, may possibly discharged tomorrow. Subjective Date/time seen: 07/23/22 15:04 07/23/2022 interval history: 76-year-old female with abdominal pain is found to have cholelithiasis patient had a ERCP did not show any stone in the duct, likely passed stones, however patient lipase were elevated on 07/19 most likely secondary to ERCP, patient patient continue to complain of abdominal pain was NPO, continued to hydrate the patient and monitor. today patient lipase have trended down to 13 from 5197 on 07/19, on 07/20 seen by GI started the patient on clear liquid, on 07/21 advanced to full liquids, patient continued to complain of abdominal will continue full liquid, patient seen by surgery today not a candidate for cholecystectomy currently will continue to monitor, on 07/20 stopped the patient IV Dilaudid and switch her over to [place] 5/325 every 6 otoniel
[2022-07-23] MEDS: ACETAMINOPHEN 325 MG TABLET 650 MG PO (15:07)
--- NOTE | 2022-07-23 15:11 | HOMEO2EVAL ---
Evaluation was performed at [facility] Home Oxygen Evaluation RC: Home Oxygen (O2) Evaluation Start: 07/23/22 10:13 Freq: ONCE Status: Active Protocol: RPE Activity Type Activity Date Activity User E-sign Co-sign Detail Recorded Client Recorded Date Recorded By Document 07/23/22 14:50 ROSALINDA [id number] 07/23/22 15:11 ROSALINDA Document 07/23/22 14:55 ROSALINDA [email or web address] 07/23/22 15:11 ROSALINDA Document 07/23/22 15:00 ROSALINDA [email or web address] 07/23/22 15:11 ROSALINDA 07/23/22 07/23/22 07/23/22 14:50 14:55 15:00 Home O2 Evaluation [Oxygen] -Test Phase Resting Exercise Resting -Oxygen Delivery Room Air Room Air Room Air [Pulse Oximetry] -Pulse Oximetry (90-100 %) 92 89 L 90 [Pulse Rate] -Pulse Rate (60-100 beats/min) 86 92 90 [Comments] -Home Oxygen Evaluation Comments NO HOME O2 NEEDED [Charges] -Treatment Charges O2 Evaluation - Inpatient
--- NOTE | 2022-07-23 15:11 | PCRCNOTE ---
HOME O2 EVAL DONE, NO HOME O2 NEEDED, UP TO BATHROOM AND BACK INTO BED, SATS 89% ON ROOM AIR, RN NOTIFIED
[2022-07-23] MEDS: APIXABAN 5 MG TABLET PO (21:56)
[2022-07-23] MEDS: SIMETHICONE 125 MG CHEW TAB PO (21:56)
[2022-07-23] MEDS: ALPRAZolam (*CRX) 0.5 MG TABLET 1 MG PO (21:57)
[2022-07-24] MEDS: HYDROcodone/acetaminophen (*CRX) 5-325 MG TABLET 1 TAB PO (01:24)
[2022-07-24] MEDS: LORazepam INJ (*CRX) 2 MG/ML VIAL 0.5 MG IV PUSH (04:07)
[2022-07-24 06:21] VITALS: BP 174/88; PULSE 65; RESP 20; TEMP 36.2; O2SAT 90
[2022-07-24 07:02] LABS: Hematocrit 42.9 % (37.0-47.0); Hemoglobin 13.9 g/dL (12.0-15.0); Mean Corpuscular HGB Conc 32.4 g/dl (32-36); Mean Corpuscular Volume 89.4 fl (80-100); Mean Platelet Volume 10.7 fl (7.4-10.4); Platelet Count Result 247 k/mm3 (150-375); Red Cell Distribution Width 15.7 % (11.5-14.5); White Blood Count 13.1 K/mm3 (4.5-10.0)
[2022-07-24 07:15] LABS: Alanine Aminotransferase 47 U/L (6-35); Albumin Level 3.1 g/dL (3.5-5.1); Alkaline Phosphatase 130 U/L (38-126); Anion Gap 4 mmol/L (8-16); Aspartate Amino Transferase 36 U/L (14-36); Bilirubin,Total 1.4 mg/dL (0.2-1.3); Blood Urea Nitrogen 25 mg/dL (7-17); Calcium 8.6 mg/dL (8.4-10.2); Carbon Dioxide 31 mmol/L (22-30); Chloride 102 mmol/L (98-107); Estimated CRCL calculation 58 ml/min; Estimated Glomerular Filt Rate > 60; Glucose 114 mg/dL (65-110); Lipase 17 U/L (23-300); Magnesium 2.1 mg/dL (1.6-2.3); Potassium 3.3 mmol/L (3.4-5.0); Sodium 137 mmol/L (137-145)
--- NOTE | 2022-07-24 07:31 | P.PNGI_ITS ---
Progress Note: A&P Assessment and Plan (1) Abnormal abdominal ultrasound: Code(s): R93.5 - Abnormal findings on diagnostic imaging of other abdominal regions, including retroperitoneum Status: Acute Assessment and Plan: Bile duct is at the upper limits of normal on ultrasound. Her presentation is consistent with choledocholithiasis. MRCP was ordered for today. The patient however is hesitant because she has had knee and hip replacements several years ago. ERCP revealed no stones in the bile duct, therefore she likely passed stones or sludge prior to the procedure. 07/22/2022 ultrasound today shows no abnormalities of the liver or the pancreas. The bile ducts remain dilated. Nothing was seen to explain her abdominal pain (2) Abdominal pain: Code(s): R10.9 - Unspecified abdominal pain Status: Acute Assessment and Plan: This appears to be due to cholelithiasis with choledocholithiasis. Patient asked, appropriately, it would be simpler to simply have surgery. I explained that if stones are the bile duct surgical removal would require common bile duct exploration and possible T-tube, an open procedure. We will recheck her labs and see if perhaps they have returned to normal in which case there may not be a need for ERCP. 07/19/2022 she is having significant pain today beginning with past evening. I suspect that she has pancreatitis. Lipase has been ordered but is pending. the current regimen is not controlling her pain. I will increase her hydromorphone to 1 mg every 2-3 hours 07/20/2022 much less pain today. She is not needing pain medication nearly as often. Now her pain is back to where was on admission, primarily epigastric area 07/21/2022 today she says her pain is a little more generalized than it was but still mostly epigastric. her states that she has been out of it this morning. I explained to the patient and family that we would like to get her off Dilaudid which she has been requesting regularly. I explained her that this may be causing some of her nausea and certainly some of her mental status changes, Sedation. she is finally been encouraged to cut back on pain medication. She was getting very sedated and also hypoxic. 07/24/2022 she is still having pain which is constant, diffuse, and somewhat tender on physical exam. She again complains CT with contrast. I will give her laxative because she has not had a bowel movement for few days. Hopefully that will help. (3) Transaminitis: Code(s): R74.01 - Elevation of levels of liver transaminase levels Status: Acute Assessment and Plan: Enzyme elevations consistent with choledocholithiasis. I discussed with her ERCP and how it would be the means of removing stones from the bile duct. I explained that stones in the bile duct can cause pancreatitis and that even ERCP can cause pancreatitis which could be severe, could result in prolonged hospitalization or even in rare cases surgery. she is reluctant to do MRCP because the fact that she has hardware in her knees and hips. transaminases are gradually improving. Today however bilirubin has increased to 1.6. LFTs are essentially unchanged. 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 Her last dose was Friday evening. I explained that there is risk of bleeding even the person is not on a blood
[2022-07-24 08:00] VITALS: O2SAT 91
[2022-07-24 08:47] VITALS: PULSE 65
[2022-07-24] MEDS: SERTRALINE HCL 50 MG TABLET PO (08:47)
[2022-07-24] MEDS: LIPASE/AMYLASE/PROTEASE 12,000 UNITS CAP 2 CAP PO ×3 (08:47→17:56)
[2022-07-24] MEDS: SOTALOL HCL 40 MG TABLET PO ×2 (08:47→21:13)
[2022-07-24] MEDS: PANTOPRAZOLE SODIUM IV 40 MG VIAL IV PUSH (08:47)
[2022-07-24] MEDS: APIXABAN 5 MG TABLET PO ×2 (08:47→21:15)
[2022-07-24] MEDS: SIMETHICONE 125 MG CHEW TAB PO ×4 (08:48→21:13)
[2022-07-24] MEDS: BISACODYL 10 MG SUPPOSITORY RECTAL (08:49)
--- NOTE | 2022-07-24 10:52 | PM.PNGS ---
Progress Note: A&P Assessment and Plan (1) Acute pancreatitis: Code(s): K85.90 - Acute pancreatitis without necrosis or infection, unspecified Status: Acute Assessment and Plan: abd exam benign, tata low fat diet, labs largely normalized, ok to dc home from surgical standpoint and f/u 1-2 wks to setup interval cholecystectomy Subjective Subjective Date/Time Seen: 07/24/22 10:52 feels better today, BM this am, abd pain improved, tata low fat diet Review of Systems Review of Systems: All systems reviewed & are unremarkable except as noted in HPI and below Exam Const: General: cooperative, no acute distress, ill appearing and obese Resp: Auscultation: clear to auscultation bilaterally Cardio: Rate: regular rate Rhythm: regular rhythm GI: Inspection: normal to inspection and non-distended GI Palp: No abdominal tenderness, Yes Soft to palpation, No Tenderness to palpation present (GI), No Guarding due to palpation present (GI) and No Rigid due to palpation Objective Data Vital Signs Vital Signs: Vital Signs - 24 hr 07/23/22 14:23 07/23/22 14:50 07/23/22 14:55 Temperature 35.9 C L Pulse Rate 66 86 92 Respiratory Rate 20 Blood Pressure 191/76 H Pulse Oximetry 95 92 89 L Oxygen Delivery Room Air Room Air 07/23/22 15:00 07/23/22 15:14 07/23/22 21:56 Temperature Pulse Rate 90 69 Respiratory Rate Blood Pressure Pulse Oximetry 90 91 Oxygen Delivery Room Air Room Air 07/23/22 21:00 07/24/22 06:21 07/24/22 08:47 Temperature 36.3 C L 36.2 C L Pulse Rate 69 65 65 Respiratory Rate 16 20 Blood Pressure 209/94 H 174/88 H Pulse Oximetry 93 90 Oxygen Delivery Intake/Output Intake/Output: Intake & Output 07/21/22 07/22/22 07/23/22 07/24/22 23:59 23:59 23:59 23:59 Intake Total 2100 830 1270 570 Output Total 200 200 400 250 Balance 1900 630 870 320 Meds/Results Medications: Active Medications Generic Name Dose Route Start Last Admin Trade Name Freq PRN Reason Stop Dose Admin Acetaminophen 650 mg 07/17/22 21:31 07/23/22 15:07 Acetaminophen 325 Mg Tablet PO 650 mg Q6H PRN Administration Mild Pain (1-3) or Fever Hydrocodone Bitart/Acetaminophen 1 tab 07/20/22 08:36 07/24/22 01:24 Hydrocodone/Acetaminophen (*Crx) 5-325 Mg Tablet PO 1 tab Q6H PRN Administration Pain Rated 4-6 Al Hydrox/Mg Hydrox/Simethicone 30 ml 07/22/22 04:11 07/23/22 16:46 Mag Hydrox/Al Hydrox/Simeth 30 Ml Udc PO 30 ml Q6H PRN Administration Indigestion Alprazolam 1 mg 07/17/22 21:40 07/23/22 21:57 Alprazolam (*Crx) 0.5 Mg Tablet PO 1 mg HS DELILAH Administration Lipase/Protease/Amylase 2 cap 07/21/22 08:00 07/24/22 08:47 Lipase/Amylase/Protease 12,000 Units Cap PO 2 cap TIDWM DELILAH Administration Apixaban 5 mg 07/23/22 21:00 07/24/22 08:47 Apixaban 5 Mg Tablet PO 5 mg Q12HR DELILAH Administration Hydralazine HCl 10 mg 07/18/22 23:17 07/23/22 04:50 Hydralazine Hcl 20 Mg/Ml Vial IV PUSH 10 mg Q6H PRN Administration SBP > 165 or DBP > 105 Piperacillin Sod/Tazobactam Sod 2.25 gm in 50 mls @ 100 mls/hr 07/22/22 06:00 07/24/22 05:25 Zosyn 2.25 Gm/D5w 50 Ml IVPB 100 mls/hr Q6HR DELILAH Administration Lorazepam 0.5 mg 07/19/22 12:07 07/24/22 04:07 Lorazepam Inj (*Crx) 2 Mg/Ml Vial IV PUSH 0.5 mg Q6H PRN Administration Anxiety Losartan Potassium 50 mg 07/18/22 09:00 07/21/22 08:48 Losartan Potassium 50 Mg Tablet PO 50 mg DAILY DELILAH Administration Ondansetron HCl 4 mg 07/17/22 16:18 07/23/22 04:50 Ondansetron Inj 4 Mg/2 Ml Vial IV PUSH 4 mg Q4H PRN Administration Nausea Pantoprazole Sodium 40 mg 07/22/22 09:00 07/24/22 08:47 Pantoprazole Sodium Iv 40 Mg Vial IV PUSH 40 mg QAM DELILAH Administration Sertraline HCl 50 mg 07/18/22 09:00 07/24/22 08:47 Sertraline Hcl 50 Mg Tablet PO 50 mg DAILY DELILAH Administration Simethicone 125 mg 02
[2022-07-24 14:00] VITALS: BP 168/74; PULSE 66; RESP 18; TEMP 35.9; O2SAT 90
--- NOTE | 2022-07-24 15:36 | PM.IMPN ---
Progress Note: A&P Assessment and Plan (1) Transaminitis: Code(s): R74.01 - Elevation of levels of liver transaminase levels Status: Acute (2) Abdominal pain: Code(s): R10.9 - Unspecified abdominal pain Status: Acute (3) Abnormal abdominal ultrasound: Code(s): R93.5 - Abnormal findings on diagnostic imaging of other abdominal regions, including retroperitoneum Status: Acute (4) Cholelithiasis: Code(s): K80.20 - Calculus of gallbladder without cholecystitis without obstruction Status: Deleted (5) Paroxysmal atrial fibrillation: Code(s): I48.0 - Paroxysmal atrial fibrillation Status: Acute (6) Chronic anticoagulation: Code(s): 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 Transaminases are elevated and show a predominantly hepatocellular elevated alkaline phosphatase . Right upper quadrant ultrasound with mild hepatomegaly and echogenic liver which could be steatosis saw similar findings could be seen in hepatitis and fibrosis. Partially contracted gallbladder with cholelithiasis. MRCP was refused and hence underwent ERCP. ERCP revealed no stones in the bile duct likely passed stones or sludge. # post ERCP pancreatitis with elevated liver enzymes to 5 thousands. Now settling down . Need cholecystectomy as an outpatient basis general surgery followed the patient # abdominal pain lower worsened today. Will recheck CT abdomen pelvis without contrast. Will also check urinalysis. Patient currently on Zosyn which will be continued. # transaminitis: Slowly improving # hypertension: Losartan on hold. # AFib: On sotalol and apixaban which are continued # encephalopathy mildly confused to be related to this. # hypoxia still requiring oxygen. # VONNIE with creatinine up to 2.1. Now resolved # DVT prophylaxis on Eliquis Subjective Date/time seen: 07/24/22 15:36 Interval history: complains of lower abdominal pain. she is also peeing quite frequently as well. no nausea, vomitign. tolerating diet. she is overall improved but still confused intemrittently. Review of Systems Review of Systems: All systems reviewed & are unremarkable except as noted in HPI and below Exam Narrative: Patient is comfortable, NAD HEENT: eyes are clear and none icteric LUNGS: normal respiratory effort diminshed breath sounds bialterlaly ABD: not distended Lower extremities: no edema SKIN: nonjaundiced Neuro: grossly intact. Objective Data Vital Signs Vital Signs: Vital Signs - 24 hr 07/23/22 21:56 07/23/22 21:00 07/24/22 06:21 Temperature 97.4 F L 97.2 F L Pulse Rate 69 69 65 Respiratory Rate 16 20 Blood Pressure 209/94 H 174/88 H Pulse Oximetry 93 90 Oxygen Delivery 07/24/22 08:47 07/24/22 08:00 Temperature Pulse Rate 65 Respiratory Rate Blood Pressure Pulse Oximetry 91 Oxygen Delivery Room Air Intake/Output Intake/Output: Intake & Output 07/21/22 07/22/22 07/23/22 07/24/22 23:59 23:59 23:59 23:59 Intake Total 2100 830 1270 570 Output Total 200 200 400 250 Balance 1900 630 870 320 Meds/Results Medications: Active Medications Generic Name Dose Route Start Last Admin Trade Name Freq PRN Reason Stop Dose Admin Acetaminophen 650 mg 07/17/22 21:31 07/23/22 15:07 Acetaminophen 325 Mg Tablet PO 650 mg Q6H PRN Administration Mild Pain (1-3) or Fever Hydrocodone Bitart/Acetaminophen 1 tab 07/20/22 08:36 07/24/22 01:24 Hydrocodone/Acetaminophen (*Crx) 5-325 Mg Tablet PO 1 tab Q6H PRN Administration Pain Rated 4-6 Al Hydrox/Mg Hydrox/Simethicone 30 ml 07/22/22 04:11 07/23/22 16:46 Mag Hydrox/Al Hydrox/Simeth 30 Ml [facility] [place]
[2022-07-24 16:14] VITALS: O2SAT 93
[2022-07-24 17:32] LABS: Appearance Urine Slightly Cloudy (Clear); Bilirubin Urine 1+ (Negative); Blood Urine Trace-intact (Negative); Color Urine Yellow (Yellow); Glucose Urine UA Negative (Negative); Ketones Urine Trace mg/dL (Negative); Leukocyte Esterase Ur Negative LEU/UL (NEGATIVE); Nitrate Urine Negative (Negative); Protein Urine 2+ mg/dL (Negative); Specific Grav Ur 1.015 (1.001-1.035)
[2022-07-24 17:39] LABS: Bacteria Urine Trace /hpf; Mucus Urine Rare /lpf; Squamous Epithelial Cell Urine Many /hpf (Few); WBC Urine 0-3 /hpf (0-3)
[2022-07-24 17:46] LABS: Add Urine Microscopic? YES
[2022-07-24 21:13] VITALS: PULSE 74
[2022-07-24] MEDS: AMOXICILLIN/CLAVULANATE K 875-125 MG TAB 1 TABLET PO (21:13)
[2022-07-24] MEDS: ALPRAZolam (*CRX) 0.5 MG TABLET 1 MG PO (21:13)
[2022-07-25] VITALS (7 sets, daily range): BP systolic 124–174; BP diastolic 62–82; PULSE 57–69; RESP 14–21; TEMP 35.8–36.6; O2SAT 90–96
[2022-07-25 06:08] LABS: Hematocrit 41.2 % (37.0-47.0); Hemoglobin 13.3 g/dL (12.0-15.0); Mean Corpuscular HGB Conc 32.3 g/dl (32-36); Mean Corpuscular Hemoglobin 28.6 pg (26-34); Mean Corpuscular Volume 88.6 fl (80-100); Mean Platelet Volume 11.1 fl (7.4-10.4); Platelet Count Result 226 k/mm3 (150-375); Red Blood Count 4.65 M/mm3 (4.2-5.4); Red Cell Distribution Width 15.7 % (11.5-14.5); White Blood Count 14.2 K/mm3 (4.5-10.0)
[2022-07-25 06:28] LABS: Alanine Aminotransferase 33 U/L (6-35); Albumin Level 2.9 g/dL (3.5-5.1); Alkaline Phosphatase 112 U/L (38-126); Anion Gap 0 mmol/L (8-16); Aspartate Amino Transferase 28 U/L (14-36); Bilirubin,Total 0.9 mg/dL (0.2-1.3); Blood Urea Nitrogen 24 mg/dL (7-17); Calcium 8.4 mg/dL (8.4-10.2); Carbon Dioxide 33 mmol/L (22-30); Chloride 102 mmol/L (98-107); Estimated CRCL calculation 58 ml/min; Estimated Glomerular Filt Rate > 60; Glucose 105 mg/dL (65-110); Lipase 17 U/L (23-300); Magnesium 2.1 mg/dL (1.6-2.3); Potassium 3.4 mmol/L (3.4-5.0); Sodium 135 mmol/L (137-145)
--- NOTE | 2022-07-25 07:26 | WPDGIPROGNO ---
Progress Note: A&P Assessment and Plan (1) Abnormal abdominal ultrasound: Code(s): R93.5 - Abnormal findings on diagnostic imaging of other abdominal regions, including retroperitoneum Status: Acute Assessment and Plan: Bile duct is at the upper limits of normal on ultrasound. Her presentation is consistent with choledocholithiasis. MRCP was ordered for today. The patient however is hesitant because she has had knee and hip replacements several years ago. ERCP revealed no stones in the bile duct, therefore she likely passed stones or sludge prior to the procedure. 07/22/2022 ultrasound today shows no abnormalities of the liver or the pancreas. The bile ducts remain dilated. Nothing was seen to explain her abdominal pain (2) Abdominal pain: Code(s): R10.9 - Unspecified abdominal pain Status: Acute Assessment and Plan: This appears to be due to cholelithiasis with choledocholithiasis. Patient asked, appropriately, it would be simpler to simply have surgery. I explained that if stones are the bile duct surgical removal would require common bile duct exploration and possible T-tube, an open procedure. We will recheck her labs and see if perhaps they have returned to normal in which case there may not be a need for ERCP. 07/19/2022 she is having significant pain today beginning with past evening. I suspect that she has pancreatitis. Lipase has been ordered but is pending. the current regimen is not controlling her pain. I will increase her hydromorphone to 1 mg every 2-3 hours 07/20/2022 much less pain today. She is not needing pain medication nearly as often. Now her pain is back to where was on admission, primarily epigastric area 07/21/2022 today she says her pain is a little more generalized than it was but still mostly epigastric. her states that she has been out of it this morning. I explained to the patient and family that we would like to get her off Dilaudid which she has been requesting regularly. I explained her that this may be causing some of her nausea and certainly some of her mental status changes, Sedation. she is finally been encouraged to cut back on pain medication. She was getting very sedated and also hypoxic. 07/24/2022 she is still having pain which is constant, diffuse, and somewhat tender on physical exam. She again complains CT with contrast. I will give her laxative because she has not had a bowel movement for few days. Hopefully that will help. (3) Transaminitis: Code(s): R74.01 - Elevation of levels of liver transaminase levels Status: Acute Assessment and Plan: Enzyme elevations consistent with choledocholithiasis. I discussed with her ERCP and how it would be the means of removing stones from the bile duct. I explained that stones in the bile duct can cause pancreatitis and that even ERCP can cause pancreatitis which could be severe, could result in prolonged hospitalization or even in rare cases surgery. she is reluctant to do MRCP because the fact that she has hardware in her knees and hips. transaminases are gradually improving. Today however bilirubin has increased to 1.6. LFTs are essentially unchanged. 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 Her last dose was Friday evening. I explained that there is risk of bleeding even the person is not on a blood thinner but he has been off Eliquis almost 48 hours now and therefore think that she has relatively low risk of bleeding from the procedure. will hold off on anticoagulation for now (5) Dehydration: Code(s): E86.0 - Dehydration Status: Acute Assessment
[2022-07-25] MEDS: APIXABAN 5 MG TABLET PO ×2 (08:59→20:44)
[2022-07-25] MEDS: SOTALOL HCL 40 MG TABLET PO ×2 (08:59→20:44)
[2022-07-25] MEDS: AMOXICILLIN/CLAVULANATE K 875-125 MG TAB 1 TABLET PO (08:59)
[2022-07-25] MEDS: LIPASE/AMYLASE/PROTEASE 12,000 UNITS CAP 2 CAP PO ×3 (09:00→17:29)
[2022-07-25] MEDS: SERTRALINE HCL 50 MG TABLET PO (09:00)
[2022-07-25] MEDS: SIMETHICONE 125 MG CHEW TAB PO ×4 (09:00→20:44)
[2022-07-25] MEDS: HYDROcodone/acetaminophen (*CRX) 5-325 MG TABLET 1 TAB PO ×2 (10:15→20:06)
--- NOTE | 2022-07-25 10:30 | PCNWS ---
Weekly nutritional screen. Patient is tolerating current Low fat diet with adequate intake at 75%. No weight loss reported. No nutritional needs at this time.
--- NOTE | 2022-07-25 10:57 | PCPTNOTE ---
Patient refused treatment this session stating I don't feel well enough to do anything.
--- NOTE | 2022-07-25 15:12 | PCPTNOTE ---
The patient treatment was not able to be completed this afternoon due to patient having I.V. placed at bedside. Will plan to continue treatment per plan of care.
--- NOTE | 2022-07-25 15:15 | PM.IMPN ---
Progress Note: A&P Assessment and Plan (1) Transaminitis: Code(s): R74.01 - Elevation of levels of liver transaminase levels Status: Acute (2) Abdominal pain: Code(s): R10.9 - Unspecified abdominal pain Status: Acute (3) Abnormal abdominal ultrasound: Code(s): R93.5 - Abnormal findings on diagnostic imaging of other abdominal regions, including retroperitoneum Status: Acute (4) Cholelithiasis: Code(s): K80.20 - Calculus of gallbladder without cholecystitis without obstruction Status: Deleted (5) Paroxysmal atrial fibrillation: Code(s): I48.0 - Paroxysmal atrial fibrillation Status: Acute (6) Chronic anticoagulation: Code(s): Z79.01 - 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 Transaminases are elevated and show a predominantly hepatocellular elevated? alkaline phosphatase .? Right upper quadrant ultrasound with mild hepatomegaly and echogenic liver which could be steatosis saw similar findings could be seen in hepatitis and fibrosis.? Partially contracted gallbladder with cholelithiasis.? MRCP was refused and hence underwent ERCP.? ERCP revealed no stones in the bile duct likely passed stones or sludge. # post ERCP pancreatitis with elevated liver enzymes to 5 thousands.? Now settling down .? Need cholecystectomy as an outpatient basis general surgery followed the patient. Continues to have abdominal pain. CT yesterday with severe peripancreatic inflammation worsened with interval development of peripancreatic collections. Lipase is normal continue with Creon will need some bowel rest and will initiate IV fluid treatment. Better pain control prior to discharge. Mild leukocytosis still persist. LFTs normal # abdominal pain lower worsened today.? Will recheck CT abdomen pelvis without contrast.? Will also check urinalysis.? Patient currently on Zosyn which will be continued.? # transaminitis:? Slowly improving # hypertension:? Losartan on hold. # AFib: On sotalol and apixaban which are continued # encephalopathy mildly confused to be related to this.? # hypoxia still requiring oxygen. now off oxygen # VONNIE with creatinine up to 2.1.? Now resolved # DVT prophylaxis on Eliquis Subjective Date/time seen: 07/25/22 15:15 Interval history: still continues to have 8 to 10/10 intensity pain in her upper abdominal. Some nausea no vomiting. Did eat grilled cheese sandwich this morning. Review of Systems Review of Systems: All systems reviewed & are unremarkable except as noted in HPI and below Exam Narrative: Patient is Uncomfortable, NAD HEENT: eyes are clear and none icteric LUNGS: normal respiratory effort diminshed breath sounds bialterlaly ABD: not distended tender epigastric area morbid obesity Lower extremities: no edema cyanosis or clubbing SKIN: nonjaundiced Neuro: grossly intact. Objective Data Vital Signs Vital Signs: Vital Signs - 24 hr 07/24/22 16:14 07/24/22 21:13 07/25/22 00:00 Temperature 97.9 F Pulse Rate 74 69 Respiratory Rate 21 H Blood Pressure 151/65 H Pulse Oximetry 93 91 Oxygen Delivery Room Air 07/25/22 06:00 07/25/22 08:59 07/25/22 08:00 Temperature 96.9 F L Pulse Rate 67 66 Respiratory Rate 19 Blood Pressure 151/67 H Pulse Oximetry 90 95 Oxygen Delivery Room Air 07/25/22 14:22 Temperature 96.5 F L Pulse Rate 57 L Respiratory Rate 18 Blood Pressure 124/62 Pulse Oximetry 93 Oxygen Delivery Intake/Output Intake/Output: Intake & Output 07/22/22 07/23/22 07/24/22 07/25/22 23:59 23:59 23:59 23:59 Intake Total 830 1270 1230 580 Output Total 200 400 250 350 Balance 630 870 980 230 Meds/Results Medications:
[2022-07-25] MEDS: SODIUM CHLORIDE 0.9% IV 1,000 ML 100 ML IV CONT (15:22)
[2022-07-25] MEDS: ALPRAZolam (*CRX) 0.5 MG TABLET 1 MG PO (20:44)
[2022-07-26] MEDS: SODIUM CHLORIDE 0.9% IV 1,000 ML 100 ML IV CONT ×2 (00:55→11:00)
[2022-07-26] MEDS: HYDROcodone/acetaminophen (*CRX) 5-325 MG TABLET 1 TAB PO ×3 (06:15→19:35)
[2022-07-26 06:36] LABS: Hematocrit 42.1 % (37.0-47.0); Hemoglobin 13.5 g/dL (12.0-15.0); Mean Corpuscular HGB Conc 32.1 g/dl (32-36); Mean Corpuscular Volume 90.5 fl (80-100); Mean Platelet Volume 10.9 fl (7.4-10.4); Platelet Count Result 234 k/mm3 (150-375); Red Blood Count 4.65 M/mm3 (4.2-5.4); Red Cell Distribution Width 15.7 % (11.5-14.5); White Blood Count 17.4 K/mm3 (4.5-10.0)
[2022-07-26 06:46] LABS: Alanine Aminotransferase 28 U/L (6-35); Albumin Level 2.8 g/dL (3.5-5.1); Alkaline Phosphatase 98 U/L (38-126); Anion Gap 4 mmol/L (8-16); Aspartate Amino Transferase 29 U/L (14-36); Bilirubin,Total 1.1 mg/dL (0.2-1.3); Blood Urea Nitrogen 21 mg/dL (7-17); Calcium 8.3 mg/dL (8.4-10.2); Carbon Dioxide 32 mmol/L (22-30); Chloride 102 mmol/L (98-107); Estimated CRCL calculation 53 ml/min; Estimated Glomerular Filt Rate 54; Glucose 102 mg/dL (65-110); Potassium 3.5 mmol/L (3.4-5.0); Sodium 138 mmol/L (137-145)
[2022-07-26 07:40] VITALS: BP 166/76; PULSE 66; RESP 20; TEMP 36.1; O2SAT 93
[2022-07-26 08:28] VITALS: PULSE 60
[2022-07-26] MEDS: SOTALOL HCL 40 MG TABLET PO ×2 (08:28→21:41)
[2022-07-26] MEDS: LIPASE/AMYLASE/PROTEASE 12,000 UNITS CAP 2 CAP PO ×3 (08:28→16:35)
[2022-07-26] MEDS: SIMETHICONE 125 MG CHEW TAB PO ×4 (08:28→21:41)
[2022-07-26] MEDS: APIXABAN 5 MG TABLET PO ×2 (08:28→21:41)
[2022-07-26] MEDS: SERTRALINE HCL 50 MG TABLET PO (08:28)
[2022-07-26] MEDS: PANTOPRAZOLE SODIUM IV 40 MG VIAL IV PUSH (08:28)
--- NOTE | 2022-07-26 10:57 | PCOTNOTE ---
Attempted to see patient this am, however patient refused. Pt stated, I feel terrible. I have no get up and go. Pt reported constant pain in abdomen. Pt is hoping to get abdominal binder to help with pulling sensation with getting up. Pt reported having a terrible pulling sensation when she gets up. Pt refused activity out of bed at this time. CHEPE Vela present will see about getting binder sooner.
--- NOTE | 2022-07-26 14:55 | PM.IMPN ---
Progress Note: A&P Assessment and Plan (1) Transaminitis: Code(s): R74.01 - Elevation of levels of liver transaminase levels Status: Acute (2) Abdominal pain: Code(s): R10.9 - Unspecified abdominal pain Status: Acute (3) Abnormal abdominal ultrasound: Code(s): R93.5 - Abnormal findings on diagnostic imaging of other abdominal regions, including retroperitoneum Status: Acute (4) Cholelithiasis: Code(s): K80.20 - Calculus of gallbladder without cholecystitis without obstruction Status: Deleted (5) Paroxysmal atrial fibrillation: Code(s): I48.0 - Paroxysmal atrial fibrillation Status: Acute (6) Chronic anticoagulation: Code(s): Z79.01 - prison (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 Transaminases are elevated and show a predominantly hepatocellular elevated? alkaline phosphatase .? Right upper quadrant ultrasound with mild hepatomegaly and echogenic liver which could be steatosis saw similar findings could be seen in hepatitis and fibrosis.? Partially contracted gallbladder with cholelithiasis.? MRCP was refused and hence underwent ERCP.? ERCP revealed no stones in the bile duct likely passed stones or sludge. # post ERCP pancreatitis with elevated liver enzymes to 5000.? Now settling down and normalized .? Need cholecystectomy as an outpatient basis. general surgery followed the patient. Continues to have abdominal pain. CT yesterday with severe peripancreatic inflammation worsened with interval development of peripancreatic collections. Lipase is normal continue with Creon will need some bowel rest and will initiate IV fluid treatment. Better pain control prior to discharge. Mild leukocytosis still persist. LFTs normal # abdominal pain lower worsened . recheck CT abdomen pelvis without contrast Showed severe peripancreatic inflammation worsened with interval development of peripancreatic collections. Started on IV fluids. Urinalysis is negative for infection.? Patient currently on Zosyn which will be continued.? # transaminitis:? Slowly improving # hypertension:? Losartan on hold. Blood pressure creeping up will resume losartan # AFib: On sotalol and apixaban which are continued # encephalopathy mildly confused to be related to this.? # hypoxia still requiring oxygen. now off oxygen # VONNIE with creatinine up to 2.1.? Now resolved # DVT prophylaxis on Eliquis Subjective Date/time seen: 07/26/22 14:55 Interval history: No overnight events. Continues to complain of abdominal pain. No nausea vomiting. Tolerating low-fat diet. Reports generalized weakness could not even get up Review of Systems Review of Systems: All systems reviewed & are unremarkable except as noted in HPI and below Exam Narrative: Patient is comfortable alert and oriented x3 NAD HEENT: eyes are clear and none icteric LUNGS: normal respiratory effort diminshed breath sounds bialterlaly ABD: not distended tender epigastric area morbid obesity Lower extremities: no edema cyanosis or clubbing SKIN: nonjaundiced Neuro: grossly intact. Objective Data Vital Signs Vital Signs: Vital Signs - 24 hr 07/25/22 20:44 07/25/22 22:18 07/26/22 07:40 Temperature 97.5 F L 97 F L Pulse Rate 66 61 66 Respiratory Rate 14 20 Blood Pressure 174/82 H 166/76 H Pulse Oximetry 96 93 Oxygen Delivery 07/26/22 08:28 07/26/22 08:25 Temperature Pulse Rate 60 Respiratory Rate Blood Pressure Pulse Oximetry Oxygen Delivery Room Air Intake/Output Intake/Output: Intake & Output 07/23/22 07/24/22 07/25/22 07/26/22 23:59 23:59 23:59 23:59 Intake Total 1270 1230 1220 2810 Output Total 400 250 650 250 B
--- NOTE | 2022-07-26 15:05 | PCPTNOTE ---
Called hospitalist about duplicated order and gave update on pt condition/motivation to participate in skilled therapy.
[2022-07-26 16:00] VITALS: BP 136/59; PULSE 58; RESP 12; TEMP 36.4; O2SAT 96
--- NOTE | 2022-07-26 16:03 | WPDGIPROGNO ---
Progress Note: A&P Assessment and Plan (1) Abnormal abdominal ultrasound: Code(s): R93.5 - Abnormal findings on diagnostic imaging of other abdominal regions, including retroperitoneum Status: Acute Assessment and Plan: Bile duct is at the upper limits of normal on ultrasound. Her presentation is consistent with choledocholithiasis. MRCP was ordered for today. The patient however is hesitant because she has had knee and hip replacements several years ago. ERCP revealed no stones in the bile duct, therefore she likely passed stones or sludge prior to the procedure. 07/22/2022 ultrasound today shows no abnormalities of the liver or the pancreas. The bile ducts remain dilated. Nothing was seen to explain her abdominal pain (2) Abdominal pain: Code(s): R10.9 - Unspecified abdominal pain Status: Acute Assessment and Plan: This appears to be due to cholelithiasis with choledocholithiasis. Patient asked, appropriately, it would be simpler to simply have surgery. I explained that if stones are the bile duct surgical removal would require common bile duct exploration and possible T-tube, an open procedure. We will recheck her labs and see if perhaps they have returned to normal in which case there may not be a need for ERCP. 07/19/2022 she is having significant pain today beginning with past evening. I suspect that she has pancreatitis. Lipase has been ordered but is pending. the current regimen is not controlling her pain. I will increase her hydromorphone to 1 mg every 2-3 hours 07/20/2022 much less pain today. She is not needing pain medication nearly as often. Now her pain is back to where was on admission, primarily epigastric area 07/21/2022 today she says her pain is a little more generalized than it was but still mostly epigastric. her states that she has been out of it this morning. I explained to the patient and family that we would like to get her off Dilaudid which she has been requesting regularly. I explained her that this may be causing some of her nausea and certainly some of her mental status changes, Sedation. she is finally been encouraged to cut back on pain medication. She was getting very sedated and also hypoxic. 07/24/2022 she is still having pain which is constant, diffuse, and somewhat tender on physical exam. She again declines CT with contrast. I will give her laxative because she has not had a bowel movement for few days. Hopefully that will help. 07/26/[address] scan without contrast did reveal peripancreatic inflammation. Nothing to indicate abscess. White blood count is higher. She has been started on Zosyn empirically although her procalcitonins have been normal up to this point. (3) Transaminitis: Code(s): R74.01 - Elevation of levels of liver transaminase levels Status: Acute Assessment and Plan: Enzyme elevations consistent with choledocholithiasis. I discussed with her ERCP and how it would be the means of removing stones from the bile duct. I explained that stones in the bile duct can cause pancreatitis and that even ERCP can cause pancreatitis which could be severe, could result in prolonged hospitalization or even in rare cases surgery. she is reluctant to do MRCP because the fact that she has hardware in her knees and hips. transaminases are gradually improving. Today however bilirubin has increased to 1.6. LFTs are essentially unchanged. Bilirubin 1.9 it is possible that some sludge has enter her bile duct but I think that this is probably all secondary to inflammation 07/26/2022 LFTs all returned to normal (4) Chronic anticoagulation: Code(s): Z79.01 - senior care (current) use of anticoagulants Status: Acute Assessment and Plan: She takes Eliquis for atrial fibrillation. Her last dose was Friday evening. I explained that there is risk of bleeding even the person is
[2022-07-26 21:00] VITALS: BP 147/70; PULSE 68; RESP 20; TEMP 36.3; O2SAT 94
[2022-07-26 21:41] VITALS: PULSE 86
[2022-07-26] MEDS: ALPRAZolam (*CRX) 0.5 MG TABLET 1 MG PO (21:41)
[2022-07-27] MEDS: HYDROcodone/acetaminophen (*CRX) 5-325 MG TABLET 1 TAB PO ×4 (01:28→21:50)
[2022-07-27 05:00] VITALS: BP 144/61; PULSE 61; RESP 16; TEMP 36.2; O2SAT 92
[2022-07-27 08:06] LABS: Alanine Aminotransferase 23 U/L (6-35); Albumin Level 2.6 g/dL (3.5-5.1); Alkaline Phosphatase 101 U/L (38-126); Anion Gap 4 mmol/L (8-16); Aspartate Amino Transferase 27 U/L (14-36); Blood Urea Nitrogen 18 mg/dL (7-17); Calcium 8.5 mg/dL (8.4-10.2); Carbon Dioxide 29 mmol/L (22-30); Chloride 100 mmol/L (98-107); Estimated CRCL calculation 59 ml/min; Estimated Glomerular Filt Rate > 60; Glucose 91 mg/dL (65-110); Hematocrit 37.7 % (37.0-47.0); Mean Corpuscular HGB Conc 31.8 g/dl (32-36); Mean Corpuscular Hemoglobin 28.9 pg (26-34); Mean Corpuscular Volume 90.8 fl (80-100); Mean Platelet Volume 11.7 fl (7.4-10.4); Platelet Count Result 232 k/mm3 (150-375); Potassium 3.4 mmol/L (3.4-5.0); Red Blood Count 4.15 M/mm3 (4.2-5.4); Red Cell Distribution Width 15.8 % (11.5-14.5); Sodium 133 mmol/L (137-145); White Blood Count 19.9 K/mm3 (4.5-10.0)
[2022-07-27 08:31] VITALS: PULSE 70
[2022-07-27] MEDS: SERTRALINE HCL 50 MG TABLET PO (08:31)
[2022-07-27] MEDS: SIMETHICONE 125 MG CHEW TAB PO ×4 (08:31→21:12)
[2022-07-27] MEDS: LIPASE/AMYLASE/PROTEASE 12,000 UNITS CAP 2 CAP PO ×3 (08:31→16:05)
[2022-07-27] MEDS: APIXABAN 5 MG TABLET PO ×2 (08:31→21:11)
[2022-07-27] MEDS: SOTALOL HCL 40 MG TABLET PO ×2 (08:31→21:12)
[2022-07-27] MEDS: PANTOPRAZOLE SODIUM IV 40 MG VIAL IV PUSH (08:32)
[2022-07-27] MEDS: LOSARTAN POTASSIUM 50 MG TABLET PO (08:32)
[2022-07-27] MEDS: SODIUM CHLORIDE 0.9% IV 1,000 ML 100 ML IV CONT (08:37)
--- NOTE | 2022-07-27 15:21 | PM.IMPN ---
Progress Note: A&P Assessment and Plan (1) Transaminitis: Code(s): R74.01 - Elevation of levels of liver transaminase levels Status: Acute (2) Abdominal pain: Code(s): R10.9 - Unspecified abdominal pain Status: Acute (3) Abnormal abdominal ultrasound: Code(s): R93.5 - Abnormal findings on diagnostic imaging of other abdominal regions, including retroperitoneum Status: Acute (4) Cholelithiasis: Code(s): K80.20 - Calculus of gallbladder without cholecystitis without obstruction Status: Deleted (5) Paroxysmal atrial fibrillation: Code(s): I48.0 - Paroxysmal atrial fibrillation Status: Acute (6) Chronic anticoagulation: Code(s): Z79.01 - alf (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 Transaminases are elevated and show a predominantly hepatocellular elevated? alkaline phosphatase .? Right upper quadrant ultrasound with mild hepatomegaly and echogenic liver which could be steatosis saw similar findings could be seen in hepatitis and fibrosis.? Partially contracted gallbladder with cholelithiasis.? MRCP was refused and hence underwent ERCP.? ERCP revealed no stones in the bile duct likely passed stones or sludge. # post ERCP pancreatitis with elevated liver enzymes to 5000.? Now settling down and normalized .? Need cholecystectomy as an outpatient basis. general surgery followed the patient. Continues to have abdominal pain. CT yesterday with severe peripancreatic inflammation worsened with interval development of peripancreatic collections. Lipase is normal continue with Creon will need some bowel rest and will initiate IV fluid treatment. Better pain control prior to discharge. Mild leukocytosis still persist. LFTs normal Abdominal pain is still persist. Will keep clear liquid and stay on bowel rest. Continue IV fluids as ordered. Leukocytosis worsened as well. Continue on Zosyn as ordered # abdominal pain lower worsened . recheck CT abdomen pelvis without contrast Showed severe peripancreatic inflammation worsened with interval development of peripancreatic collections. Started on IV fluids. Urinalysis is negative for infection.? Patient currently on Zosyn which will be continued.? # transaminitis:? Slowly improving # hypertension:? Losartan on hold. Blood pressure creeping up will resume losartan # AFib: On sotalol and apixaban which are continued # encephalopathy mildly confused to be related to this.? # hypoxia still requiring oxygen. now off oxygen # VONNIE with creatinine up to 2.1.? Now resolved # DVT prophylaxis on Eliquis Subjective Date/time seen: 07/27/22 15:21 Interval history: Patient continues to complain of abdominal discomfort bloating sensation and pain. She is hesitant to work with therapy. Discussed with the family. No fever chills. No nausea vomiting. Review of Systems Review of Systems: All systems reviewed & are unremarkable except as noted in HPI and below Exam Narrative: Patient is comfortable alert and oriented x3 NAD HEENT: eyes are clear and none icteric LUNGS: normal respiratory effort diminshed breath sounds bialterlaly ABD: not distended tender epigastric area morbid obesity Lower extremities: no edema cyanosis or clubbing SKIN: nonjaundiced Neuro: grossly intact. Objective Data Vital Signs Vital Signs: Vital Signs - 24 hr 07/26/22 16:00 07/26/22 21:41 07/26/22 21:00 Temperature 97.5 F L 97.3 F L Pulse Rate 58 L 86 68 Respiratory Rate 12 20 Blood Pressure 136/59 L 147/70 H Pulse Oximetry 96 94 Oxygen Delivery 07/27/22 05:00 07/27/22 08:31 07/27/22 09:00 Temperature 97.2 F L Pulse Rate 61 70 Respiratory Rate 16 Blood Pressu
[2022-07-27 15:30] VITALS: BP 152/71; PULSE 64; RESP 21; TEMP 36.3; O2SAT 95
--- NOTE | 2022-07-27 16:47 | WPDGIPROGNO ---
Progress Note: A&P Assessment and Plan (1) Post-ERCP acute pancreatitis: Code(s): K91.89 - Other postprocedural complications and disorders of digestive system; K85.90 - Acute pancreatitis without necrosis or infection, unspecified Status: Acute Assessment and Plan: still with pain but normalization of liver enzymes on liquid diet still asking for pain meds as needed (2) Abdominal pain: Code(s): R10.9 - Unspecified abdominal pain Status: Acute Assessment and Plan: similar no nausea or vomining medical support (3) Leukocytosis: Code(s): D72.829 - Elevated white blood cell count, unspecified Status: Acute Assessment and Plan: started empirically on zosyn monitor (4) Transaminitis: Code(s): R74.01 - Elevation of levels of liver transaminase levels Status: Acute Assessment and Plan: resolved (5) Obesity, morbid, BMI 40.0-49.9: Code(s): E66.01 - Morbid (severe) obesity due to excess calories Status: Acute Subjective Date/time seen: 07/27/22 16:47 Interval history: similar abdominal pain, no nausea, tolerating liquid diet Review of Systems Review of Systems: All systems reviewed & are unremarkable except as noted in HPI and below Exam Const: General: alert, tired appearing and obese Orientation/consciousness: patient oriented x3 HENMT: Face/Nose/Sinus: Normal nares present Eyes: General: appearance normal, both eyes and all related structures Neck: Neck: supple Resp: Auscultation: clear to auscultation bilaterally Cardio: Rhythm: regular rhythm GI: Inspection: normal to inspection GI Palp: Yes abdominal tenderness ( Diffuse), Yes Soft to palpation and No Guarding due to palpation present (GI) Auscultation: normal bowel sounds Skin: General skin exam: ecchymosis ( upper extremities from blood draws) Neuro: General: patient oriented x3 Speech: normal speech Extrem: General: normal to inspection Psych: Affect: normal affect Objective Data Vital Signs Vital Signs: Vital Signs - 24 hr 07/26/22 21:41 07/26/22 21:00 07/27/22 05:00 Temperature 97.3 F L 97.2 F L Pulse Rate 86 68 61 Respiratory Rate 20 16 Blood Pressure 147/70 H 144/61 H Pulse Oximetry 94 92 Oxygen Delivery 07/27/22 08:31 07/27/22 09:00 07/27/22 15:30 Temperature 97.3 F L Pulse Rate 70 64 Respiratory Rate 21 H Blood Pressure 152/71 H Pulse Oximetry 95 Oxygen Delivery Room Air Intake/Output Intake/Output: Intake & Output 07/24/22 07/25/22 07/26/22 07/27/22 23:59 23:59 23:59 23:59 Intake Total 1230 1220 4870 510 Output Total 250 650 250 Balance 849 882 7408 510 Meds/Results Medications: Active Medications Generic Name Dose Route Start Last Admin Trade Name Freq PRN Reason Stop Dose Admin Acetaminophen 650 mg 07/17/22 21:31 07/23/22 15:07 Acetaminophen 325 Mg Tablet PO 650 mg Q6H PRN Administration Mild Pain (1-3) or Fever Hydrocodone Bitart/Acetaminophen 1 tab 07/20/22 08:36 07/27/22 16:05 Hydrocodone/Acetaminophen (*Crx) 5-325 Mg Tablet PO 1 tab Q6H PRN Administration Pain Rated 4-6 Al Hydrox/Mg Hydrox/Simethicone 30 ml 07/22/22 04:11 07/23/22 16:46 Mag Hydrox/Al Hydrox/Simeth 30 Ml Udc PO 30 ml Q6H PRN Administration Indigestion Alprazolam 1 mg 07/17/22 21:40 07/26/22 21:41 Alprazolam (*Crx) 0.5 Mg Tablet PO 1 mg HS DELILAH Administration Lipase/Protease/Amylase 2 cap 07/21/22 08:00 07/27/22 16:05 Lipase/Amylase/Protease 12,000 Units Cap PO 2 cap TIDWM DELILAH Administration Apixaban 5 mg 07/23/22 21:00 07/27/22 08:31 Apixaban 5 Mg Tablet PO 5 mg Q12HR DELILAH Administration Hydralazine HCl 10 mg 07/18/22 23:17 07/23/22 04:50 Hydralazine Hcl 20 Mg/Ml Vial IV PUSH 10 mg Q6H PRN Administration SBP > 165 or DBP > 105 Sodium Chloride 1,000 mls @ 100 mls/hr 07/25/22 15:15 07/27/22 08:37 Normal Otoniel
[2022-07-27] MEDS: ALPRAZolam (*CRX) 0.5 MG TABLET 1 MG PO (21:11)
[2022-07-27 22:14] LABS: Appearance Urine Slightly Cloudy (Clear); Bilirubin Urine 1+ (Negative); Blood Urine Trace-lysed (Negative); Color Urine Yellow (Yellow); Glucose Urine UA Negative (Negative); Ketones Urine Trace mg/dL (Negative); Leukocyte Esterase Ur 1+ LEU/UL (Negative); Nitrate Urine Negative (Negative); Protein Urine 1+ mg/dL (Negative); pH Urine 5.5 (5.0-9.0)
[2022-07-27 22:20] LABS: Mucus Urine Rare /lpf; Squamous Epithelial Cell Urine Moderate /hpf (Few); WBC Urine 21-30 /hpf
[2022-07-27 22:22] LABS: Add Urine Microscopic? YES
[2022-07-27 22:31] LABS: Creatinine Urine 116.9 mg/dL; Total Protein Urine Random 39 mg/dL; Ur Ttl Prot Creatinine Ratio 0.33 mg/mg (0-0.20); Urea Random Urine 1096 MG/DL
[2022-07-27 22:35] LABS: Sodium Urine Random 64 meq/L
[2022-07-28] VITALS: BP 176/70; PULSE 63; RESP 14; TEMP 36.3; O2SAT 94
[2022-07-28 02:03] LABS: Eosinophil Urine None Seen % (None Seen); Urine Eos QC 2nd Tech Confirmed
[2022-07-28] MEDS: SODIUM CHLORIDE 0.9% IV 1,000 ML 100 ML IV CONT ×2 (02:11→23:28)
[2022-07-28] MEDS: HYDROcodone/acetaminophen (*CRX) 5-325 MG TABLET 1 TAB PO ×4 (04:50→23:27)
[2022-07-28 07:40] LABS: Hematocrit 37.9 % (37.0-47.0); Hemoglobin 12.2 g/dL (12.0-15.0); Mean Corpuscular HGB Conc 32.2 g/dl (32-36); Mean Corpuscular Hemoglobin 29.1 pg (26-34); Mean Corpuscular Volume 90.5 fl (80-100); Mean Platelet Volume 11.5 fl (7.4-10.4); Platelet Count Result 251 k/mm3 (150-375); Red Blood Count 4.19 M/mm3 (4.2-5.4); Red Cell Distribution Width 15.7 % (11.5-14.5); White Blood Count 17.6 K/mm3 (4.5-10.0)
[2022-07-28 07:51] LABS: Alanine Aminotransferase 22 U/L (6-35); Albumin Level 2.6 g/dL (3.5-5.1); Alkaline Phosphatase 97 U/L (38-126); Anion Gap 4 mmol/L (8-16); Aspartate Amino Transferase 30 U/L (14-36); Bilirubin,Total 1.2 mg/dL (0.2-1.3); Blood Urea Nitrogen 16 mg/dL (7-17); Calcium 8.4 mg/dL (8.4-10.2); Carbon Dioxide 28 mmol/L (22-30); Chloride 102 mmol/L (98-107); Estimated CRCL calculation 66 ml/min; Estimated Glomerular Filt Rate > 60; Glucose 83 mg/dL (65-110); Lipase 25 U/L (23-300); Magnesium 1.8 mg/dL (1.6-2.3); Potassium 3.3 mmol/L (3.4-5.0); Sodium 134 mmol/L (137-145)
[2022-07-28 08:27] VITALS: PULSE 68
[2022-07-28] MEDS: SOTALOL HCL 40 MG TABLET PO ×2 (08:27→20:16)
[2022-07-28] MEDS: APIXABAN 5 MG TABLET PO ×2 (08:27→20:16)
[2022-07-28] MEDS: SERTRALINE HCL 50 MG TABLET PO (08:27)
[2022-07-28] MEDS: LOSARTAN POTASSIUM 50 MG TABLET PO (08:27)
[2022-07-28] MEDS: PANTOPRAZOLE SODIUM IV 40 MG VIAL IV PUSH (08:27)
[2022-07-28] MEDS: LIPASE/AMYLASE/PROTEASE 12,000 UNITS CAP 2 CAP PO ×3 (08:27→16:54)
[2022-07-28] MEDS: SIMETHICONE 125 MG CHEW TAB PO ×4 (08:27→20:16)
[2022-07-28] MEDS: POTASSIUM CHLORIDE INJ 40 MEQ in SODIUM CHLORIDE 0.9% IV 500 ML 130 MEQ IVPB (09:04)
[2022-07-28 14:00] VITALS: BP 155/77; PULSE 62; RESP 18; TEMP 36.3; O2SAT 97
--- NOTE | 2022-07-28 14:11 | PCPTNOTE ---
Attempted to see patient for Physical Therapy treatment this date; pt declined stating she is waiting for them to come start a new IV and that she had been sitting up in a chair all day. Pt declined sitting EOB for seated exercises as well.
[2022-07-28 16:26] LABS: Potassium 3.5 mmol/L (3.4-5.0)
--- NOTE | 2022-07-28 16:39 | PM.IMPN ---
Progress Note: A&P Assessment and Plan (1) Transaminitis: Code(s): R74.01 - Elevation of levels of liver transaminase levels Status: Acute (2) Abdominal pain: Code(s): R10.9 - Unspecified abdominal pain Status: Acute (3) Abnormal abdominal ultrasound: Code(s): R93.5 - Abnormal findings on diagnostic imaging of other abdominal regions, including retroperitoneum Status: Acute (4) Cholelithiasis: Code(s): K80.20 - Calculus of gallbladder without cholecystitis without obstruction Status: Deleted (5) Paroxysmal atrial fibrillation: Code(s): I48.0 - Paroxysmal atrial fibrillation Status: Acute (6) Chronic anticoagulation: Code(s): Z79.01 - long-term (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 Transaminases are elevated and show a predominantly hepatocellular elevated? alkaline phosphatase .? Right upper quadrant ultrasound with mild hepatomegaly and echogenic liver which could be steatosis saw similar findings could be seen in hepatitis and fibrosis.? Partially contracted gallbladder with cholelithiasis.? MRCP was refused and hence underwent ERCP.? ERCP revealed no stones in the bile duct likely passed stones or sludge. # post ERCP pancreatitis with elevated liver enzymes to 5000.? Now settling down and normalized .? Need cholecystectomy as an outpatient basis. general surgery followed the patient. Continues to have abdominal pain. CT yesterday with severe peripancreatic inflammation worsened with interval development of peripancreatic collections. Lipase is normal continue with Creon will need some bowel rest and will initiate IV fluid treatment. Better pain control prior to discharge. Mild leukocytosis still persist. LFTs normal Abdominal pain is still persist. started back on clear liquid and stay on bowel rest 07/27/2022 Continue IV fluids as ordered. Leukocytosis worsened as well. Continue on Zosyn as ordered 07/28: Leukocytosis improved abdominal discomfort improved. Will continue clear liquids for today and reassess again in a.m. # abdominal pain lower worsened . recheck CT abdomen pelvis without contrast Showed severe peripancreatic inflammation worsened with interval development of peripancreatic collections. Started on IV fluids. Urinalysis is negative for infection.? Patient currently on Zosyn which will be continued.? # transaminitis:? Slowly improving unresolved # hypertension:? Losartan on hold. Blood pressure creeping up will resume losartan # AFib: On sotalol and apixaban which are continued # encephalopathy mildly confused to be related to this.? # hypoxia still requiring oxygen. now off oxygen # VONNIE with creatinine up to 2.1.? Now resolved # hypokalemia replace # DVT prophylaxis on Eliquis Subjective Date/time seen: 07/28/22 16:39 Interval history: no overnight events. On clear liquid diet. Abdominal bloating nausea slightly improved. Remains afebrile. Sitting in the chair today. Review of Systems Review of Systems: All systems reviewed & are unremarkable except as noted in HPI and below Exam Narrative: Patient is comfortable alert and oriented x3 NAD HEENT: eyes are clear and none icteric LUNGS: normal respiratory effort diminshed breath sounds bialterlaly ABD: not distended Mildly tender epigastric area morbid obesity Lower extremities: no edema cyanosis or clubbing SKIN: nonjaundiced Neuro: grossly intact. Objective Data Vital Signs Vital Signs: Vital Signs - 24 hr 07/28/22 00:00 07/28/22 08:27 07/28/22 08:25 Temperature 97.3 F L Pulse Rate 63 68 Respiratory Rate 14 Blood Pressure 176/70 H Pulse Oximetry 94 Oxygen Delivery Room Air 07/28
--- NOTE | 2022-07-28 17:22 | WPDGIPROGNO ---
Progress Note: A&P Assessment and Plan (1) Post-ERCP acute pancreatitis: Code(s): K91.89 - Other postprocedural complications and disorders of digestive system; K85.90 - Acute pancreatitis without necrosis or infection, unspecified Status: Acute Assessment and Plan: still with pain but normalization of liver enzymes tolerating full liquid diet on oral narcotics as needed (2) Abdominal pain: Code(s): R10.9 - Unspecified abdominal pain Status: Acute Assessment and Plan: slowly improving no nausea or vomiting medical support (3) Leukocytosis: Code(s): D72.829 - Elevated white blood cell count, unspecified Status: Acute Assessment and Plan: she is empirically on zosyn monitor (4) Transaminitis: Code(s): R74.01 - Elevation of levels of liver transaminase levels Status: Acute Assessment and Plan: resolved (5) Obesity, morbid, BMI 40.0-49.9: Code(s): E66.01 - Morbid (severe) obesity due to excess calories Status: Acute Subjective Date/time seen: 07/28/22 17:22 Interval history: still with pain and using oral narcotics but slowly improving, tolerated full liquid diet no nausea Review of Systems Review of Systems: All systems reviewed & are unremarkable except as noted in HPI and below Exam Const: General: alert, tired appearing and obese Orientation/consciousness: patient oriented x3 HENMT: Face/Nose/Sinus: Normal nares present Eyes: General: appearance normal, both eyes and all related structures Neck: Neck: supple Resp: Auscultation: clear to auscultation bilaterally Cardio: Rhythm: regular rhythm GI: Inspection: normal to inspection GI Palp: Yes Soft to palpation, Yes Tenderness to palpation present (GI) (mildly ttp in epigastric, no rebound- better) and No Guarding due to palpation present (GI) Auscultation: normal bowel sounds Skin: General skin exam: ecchymosis ( upper extremities from blood draws) Neuro: General: patient oriented x3 Speech: normal speech Extrem: General: normal to inspection Psych: Affect: normal affect Objective Data Vital Signs Vital Signs: Vital Signs - 24 hr 07/28/22 00:00 07/28/22 08:27 07/28/22 08:25 Temperature 97.3 F L Pulse Rate 63 68 Respiratory Rate 14 Blood Pressure 176/70 H Pulse Oximetry 94 Oxygen Delivery Room Air 07/28/22 14:00 Temperature 97.3 F L Pulse Rate 62 Respiratory Rate 18 Blood Pressure 155/77 H Pulse Oximetry 97 Oxygen Delivery Intake/Output Intake/Output: Intake & Output 07/25/22 07/26/22 07/27/22 07/28/22 23:59 23:59 23:59 23:59 Intake Total 1220 4870 2110 800 Output Total 650 250 Balance 570 4620 2110 800 Meds/Results Medications: Active Medications Generic Name Dose Route Start Last Admin Trade Name Freq PRN Reason Stop Dose Admin Acetaminophen 650 mg 07/17/22 21:31 07/23/22 15:07 Acetaminophen 325 Mg Tablet PO 650 mg Q6H PRN Administration Mild Pain (1-3) or Fever Hydrocodone Bitart/Acetaminophen 1 tab 07/20/22 08:36 07/28/22 16:55 Hydrocodone/Acetaminophen (*Crx) 5-325 Mg Tablet PO 1 tab Q6H PRN Administration Pain Rated 4-6 Al Hydrox/Mg Hydrox/Simethicone 30 ml 07/22/22 04:11 07/23/22 16:46 Mag Hydrox/Al Hydrox/Simeth 30 Ml Udc PO 30 ml Q6H PRN Administration Indigestion Lipase/Protease/Amylase 2 cap 07/21/22 08:00 07/28/22 16:54 Lipase/Amylase/Protease 12,000 Units Cap PO 2 cap TIDWM DELILAH Administration Apixaban 5 mg 07/23/22 21:00 07/28/22 08:27 Apixaban 5 Mg Tablet PO 5 mg Q12HR DELILAH Administration Hydralazine HCl 10 mg 07/18/22 23:17 07/23/22 04:50 Hydralazine Hcl 20 Mg/Ml Vial IV PUSH 10 mg Q6H PRN Administration SBP > 165 or DBP > 105 Sodium Chloride 1,000 mls @ 100 mls/hr 07/25/22 15:15 07/28/22 02:11 Normal Saline Iv IV CONT 100 mls/hr .Q10H DELILAH Administration Piperacillin/Tazobactam/Dextr
[2022-07-28] MEDS: ACETAMINOPHEN 325 MG TABLET 650 MG PO (20:14)
[2022-07-28 21:33] VITALS: BP 155/74; PULSE 55; RESP 16; TEMP 35.7; O2SAT 97
[2022-07-29 06:00] VITALS: BP 169/72; PULSE 61; RESP 24; TEMP 35.7; O2SAT 97
[2022-07-29] MEDS: HYDROcodone/acetaminophen (*CRX) 5-325 MG TABLET 1 TAB PO ×3 (06:12→18:08)
[2022-07-29 06:34] LABS: Hematocrit 38.2 % (37.0-47.0); Mean Corpuscular HGB Conc 31.4 g/dl (32-36); Mean Corpuscular Hemoglobin 28.8 pg (26-34); Mean Corpuscular Volume 91.8 fl (80-100); Mean Platelet Volume 11.7 fl (7.4-10.4); Platelet Count Result 260 k/mm3 (150-375); Red Blood Count 4.16 M/mm3 (4.2-5.4); Red Cell Distribution Width 15.7 % (11.5-14.5); White Blood Count 14.5 K/mm3 (4.5-10.0)
[2022-07-29 06:59] LABS: Alanine Aminotransferase 23 U/L (6-35); Albumin Level 2.6 g/dL (3.5-5.1); Alkaline Phosphatase 97 U/L (38-126); Anion Gap 3 mmol/L (8-16); Aspartate Amino Transferase 32 U/L (14-36); Bilirubin,Total 1.1 mg/dL (0.2-1.3); Blood Urea Nitrogen 14 mg/dL (7-17); Calcium 8.4 mg/dL (8.4-10.2); Carbon Dioxide 28 mmol/L (22-30); Chloride 102 mmol/L (98-107); Estimated CRCL calculation 76 ml/min; Estimated Glomerular Filt Rate > 60; Glucose 106 mg/dL (65-110); Lipase 33 U/L (23-300); Magnesium 1.8 mg/dL (1.6-2.3); Potassium 3.4 mmol/L (3.4-5.0); Sodium 133 mmol/L (137-145)
[2022-07-29] MEDS: LIPASE/AMYLASE/PROTEASE 12,000 UNITS CAP 2 CAP PO ×2 (08:30→12:11)
[2022-07-29] MEDS: SIMETHICONE 125 MG CHEW TAB PO ×4 (08:31→20:30)
[2022-07-29] MEDS: APIXABAN 5 MG TABLET PO ×2 (08:32→20:30)
[2022-07-29] MEDS: LOSARTAN POTASSIUM 50 MG TABLET PO (08:32)
[2022-07-29] MEDS: PANTOPRAZOLE SODIUM IV 40 MG VIAL IV PUSH (08:34)
[2022-07-29 08:35] VITALS: BP 179/84; PULSE 55; RESP 18; TEMP 36.5; O2SAT 96
[2022-07-29] MEDS: SERTRALINE HCL 50 MG TABLET PO (08:36)
[2022-07-29 10:50] VITALS: PULSE 54
[2022-07-29 13:40] VITALS: BP 154/63; PULSE 62; RESP 19; TEMP 36.2; O2SAT 97
--- NOTE | 2022-07-29 15:38 | PM.IMPN ---
Progress Note: A&P Assessment and Plan (1) Transaminitis: Code(s): R74.01 - Elevation of levels of liver transaminase levels Status: Acute (2) Abdominal pain: Code(s): R10.9 - Unspecified abdominal pain Status: Acute (3) Abnormal abdominal ultrasound: Code(s): R93.5 - Abnormal findings on diagnostic imaging of other abdominal regions, including retroperitoneum Status: Acute (4) Cholelithiasis: Code(s): K80.20 - Calculus of gallbladder without cholecystitis without obstruction Status: Deleted (5) Paroxysmal atrial fibrillation: Code(s): I48.0 - Paroxysmal atrial fibrillation Status: Acute (6) Chronic anticoagulation: Code(s): Z79.01 - longterm (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 Transaminases are elevated and show a predominantly hepatocellular elevated? alkaline phosphatase .? Right upper quadrant ultrasound with mild hepatomegaly and echogenic liver which could be steatosis saw similar findings could be seen in hepatitis and fibrosis.? Partially contracted gallbladder with cholelithiasis.? MRCP was refused and hence underwent ERCP.? ERCP revealed no stones in the bile duct likely passed stones or sludge. # post ERCP pancreatitis with elevated liver enzymes to 5000.? Now settling down and normalized .? Need cholecystectomy as an outpatient basis. general surgery followed the patient. Continues to have abdominal pain. CT yesterday with severe peripancreatic inflammation worsened with interval development of peripancreatic collections. Lipase is normal continue with Creon will need some bowel rest and will initiate IV fluid treatment. Better pain control prior to discharge. Mild leukocytosis still persist. LFTs normal Abdominal pain is still persist. started back on clear liquid and stay on bowel rest 07/27/2022 Continue IV fluids as ordered. Leukocytosis worsened as well. Continue on Zosyn as ordered 07/28: Leukocytosis improved abdominal discomfort improved. Will continue clear liquids for today and reassess again in a.m. 07/29: Leukocytosis improving. Abdominal discomfort is improved as well. Will Advanced further to soft diet. # abdominal pain lower worsened . recheck CT abdomen pelvis without contrast Showed severe peripancreatic inflammation worsened with interval development of peripancreatic collections. Started on IV fluids. Urinalysis is negative for infection.? Patient currently on Zosyn which will be continued.?Urine culture growing Thi albicans likely colonization # transaminitis:? Slowly improving unresolved # hypertension:? Losartan on hold. Blood pressure creeping up will resume losartan # AFib: On sotalol and apixaban which are continued # encephalopathy mildly confused to be related to this.? # hypoxia still requiring oxygen. now off oxygen # VONNIE with creatinine up to 2.1.? Now resolved # hypokalemia replace # DVT prophylaxis on Eliquis Subjective Date/time seen: 07/29/22 15:38 Interval history: no overnight events. Sick and tired of drinking clear liquids. No nausea vomiting. She is working with therapy had couple of loose stools overnight Review of Systems Review of Systems: All systems reviewed & are unremarkable except as noted in HPI and below Exam Narrative: Patient is comfortable alert and oriented x3 NAD HEENT: eyes are clear and none icteric LUNGS: normal respiratory effort diminshed breath sounds bialterlaly fine wheezes heard at the bases ABD: not distended Mildly tender epigastric area morbid obesity Lower extremities: no edema cyanosis or clubbing SKIN: nonjaundiced Neuro: grossly intact. Objective Data Vital Signs Vital Signs: Missy
[2022-07-29 20:30] VITALS: PULSE 62
[2022-07-29] MEDS: SOTALOL HCL 40 MG TABLET PO (20:30)
[2022-07-29 22:00] VITALS: BP 170/85; PULSE 64; RESP 20; TEMP 35.7; O2SAT 98
[2022-07-30] MEDS: HYDROcodone/acetaminophen (*CRX) 5-325 MG TABLET 1 TAB PO ×3 (00:08→20:40)
[2022-07-30 06:26] LABS: Hematocrit 37.9 % (37.0-47.0); Mean Corpuscular HGB Conc 31.7 g/dl (32-36); Mean Corpuscular Hemoglobin 28.3 pg (26-34); Mean Corpuscular Volume 89.4 fl (80-100); Mean Platelet Volume 11.3 fl (7.4-10.4); Platelet Count Result 318 k/mm3 (150-375); Red Blood Count 4.24 M/mm3 (4.2-5.4); Red Cell Distribution Width 15.4 % (11.5-14.5); White Blood Count 13.8 K/mm3 (4.5-10.0)
[2022-07-30 06:30] VITALS: BP 197/75; PULSE 57; RESP 24; TEMP 35.6; O2SAT 98
[2022-07-30 06:41] LABS: Alanine Aminotransferase 26 U/L (6-35); Albumin Level 2.7 g/dL (3.5-5.1); Alkaline Phosphatase 101 U/L (38-126); Anion Gap 3 mmol/L (8-16); Aspartate Amino Transferase 38 U/L (14-36); Bilirubin,Total 0.9 mg/dL (0.2-1.3); Blood Urea Nitrogen 10 mg/dL (7-17); Calcium 8.4 mg/dL (8.4-10.2); Carbon Dioxide 29 mmol/L (22-30); Chloride 106 mmol/L (98-107); Estimated CRCL calculation 76 ml/min; Estimated Glomerular Filt Rate > 60; Glucose 111 mg/dL (65-110); Magnesium 1.8 mg/dL (1.6-2.3); Potassium 3.4 mmol/L (3.4-5.0); Sodium 138 mmol/L (137-145)
--- NOTE | 2022-07-30 07:20 | WPDGIPROGNO ---
Progress Note: A&P Assessment and Plan (1) Abnormal abdominal ultrasound: Code(s): R93.5 - Abnormal findings on diagnostic imaging of other abdominal regions, including retroperitoneum Status: Acute Assessment and Plan: Bile duct is at the upper limits of normal on ultrasound. Her presentation is consistent with choledocholithiasis. MRCP was ordered for today. The patient however is hesitant because she has had knee and hip replacements several years ago. ERCP revealed no stones in the bile duct, therefore she likely passed stones or sludge prior to the procedure. 07/22/2022 ultrasound today shows no abnormalities of the liver or the pancreas. The bile ducts remain dilated. Nothing was seen to explain her abdominal pain (2) Abdominal pain: Code(s): R10.9 - Unspecified abdominal pain Status: Acute Assessment and Plan: This appears to be due to cholelithiasis with choledocholithiasis. Patient asked, appropriately, it would be simpler to simply have surgery. I explained that if stones are the bile duct surgical removal would require common bile duct exploration and possible T-tube, an open procedure. We will recheck her labs and see if perhaps they have returned to normal in which case there may not be a need for ERCP. 07/19/2022 she is having significant pain today beginning with past evening. I suspect that she has pancreatitis. Lipase has been ordered but is pending. the current regimen is not controlling her pain. I will increase her hydromorphone to 1 mg every 2-3 hours 07/20/2022 much less pain today. She is not needing pain medication nearly as often. Now her pain is back to where was on admission, primarily epigastric area 07/21/2022 today she says her pain is a little more generalized than it was but still mostly epigastric. her states that she has been out of it this morning. I explained to the patient and family that we would like to get her off Dilaudid which she has been requesting regularly. I explained her that this may be causing some of her nausea and certainly some of her mental status changes, Sedation. she is finally been encouraged to cut back on pain medication. She was getting very sedated and also hypoxic. 07/24/2022 she is still having pain which is constant, diffuse, and somewhat tender on physical exam. She again declines CT with contrast. I will give her laxative because she has not had a bowel movement for few days. Hopefully that will help. 07/26/[address] scan without contrast did reveal peripancreatic inflammation. Nothing to indicate abscess. White blood count is higher. She has been started on Zosyn empirically although her procalcitonins have been normal up to this point. 07/29/2022 pain is better each day and is more localized to the epigastric area. She finds it is more tolerable, and is able to walk around now. (3) Transaminitis: Code(s): R74.01 - Elevation of levels of liver transaminase levels Status: Acute Assessment and Plan: Enzyme elevations consistent with choledocholithiasis. I discussed with her ERCP and how it would be the means of removing stones from the bile duct. I explained that stones in the bile duct can cause pancreatitis and that even ERCP can cause pancreatitis which could be severe, could result in prolonged hospitalization or even in rare cases surgery. she is reluctant to do MRCP because the fact that she has hardware in her knees and hips. transaminases are gradually improving. Today however bilirubin has increased to 1.6. LFTs are essentially unchanged. Bilirubin 1.9 it is possible that some sludge has enter her bile duct but I think that this is probably all secondary to inflammation 07/26/2022 LFTs all returned to normal (4) Chronic anticoagulation: Code(s): Z79.01 - half-way (current) use of anticoagulants Status: Acute Assessment and Plan:
[2022-07-30 08:14] VITALS: O2SAT 98
[2022-07-30 08:23] VITALS: PULSE 57
[2022-07-30] MEDS: SOTALOL HCL 40 MG TABLET PO ×2 (08:23→20:31)
[2022-07-30] MEDS: SIMETHICONE 125 MG CHEW TAB PO ×4 (08:23→20:31)
[2022-07-30] MEDS: LIPASE/AMYLASE/PROTEASE 12,000 UNITS CAP 2 CAP PO ×3 (08:23→17:57)
[2022-07-30] MEDS: LOSARTAN POTASSIUM 50 MG TABLET PO (08:24)
[2022-07-30] MEDS: SERTRALINE HCL 50 MG TABLET PO (08:24)
[2022-07-30] MEDS: FUROSEMIDE INJ 40 MG/4 ML VIAL IV PUSH (08:24)
[2022-07-30] MEDS: PANTOPRAZOLE SODIUM IV 40 MG VIAL IV PUSH (08:24)
[2022-07-30] MEDS: FUROSEMIDE INJ 40 MG/4 ML VIAL (08:31)
[2022-07-30] MEDS: APIXABAN 5 MG TABLET PO ×2 (09:24→20:31)
--- NOTE | 2022-07-30 10:58 | PCOTNOTE ---
Patient refused treatment this session due to she just got off the commode, having difficulty getting off the commode due to the amount of Lasix she has been given. I'm worn out and in a mad mood right now.
--- NOTE | 2022-07-30 11:41 | PM.PNNEP ---
Progress Note: A&P Assessment and Plan (1) Acute kidney injury: Code(s): N17.9 - Acute kidney failure, unspecified Status: Acute Assessment and Plan: resolved suspect VONNEI/ARF due to volume depletion and previous NPO status imaging to date without obstruction would resume gentle IVFs if NPO or not eating advance diet as tolerated follow trend of repeat labs and UOP (2) Anasarca: Code(s): R60.1 - Generalized edema Status: Acute Assessment and Plan: localized to bilateral lower extremities with some concern with pulmonary involvement by CXR results suspect this may have been precipitated diminished oral intake and low albumin possibly leading to 3rd spacing seems reasonable to start with IV lasix -- already received dose so will see how she responds if tolerates/responds to current dose of IV lasix, consider qday or bid frequency for a few days follow I/Os and renal function Will continue to follow. Subjective Date/time seen: 07/30/22 11:41 Called to see patient again due to lower extremity edema/swelling and diuretic recommendations; noted also to be more short of breath this AM with CXR suggestive of mild volume overload; already dosed with IV lasix. Exam Narrative: General: ederly female in NAD Heart: normal S1 and S2; no rub Lungs: clear to auscultation Abdomen: soft, mild TTP, nondistended, positive bowel sounds Extremities: no cyanosis or clubbing; 2+ edema Skin: warm and dry Objective Data Vital Signs Vital Signs: Vital Signs Temp Pulse Resp BP Pulse Ox O2 Del Method 07/30/22 08:14 98 Room Air 07/30/22 08:23 57 L 07/30/22 06:30 96.1 F L 57 L 24 H 197/75 H 98 07/29/22 22:00 96.3 F L 64 20 170/85 H 98 07/29/22 20:30 62 07/29/22 13:40 97.2 F L 62 19 154/63 H 97 Intake/Output Intake/Output: Intake & Output 07/27/22 07/28/22 07/29/22 07/30/22 23:59 23:59 23:59 23:59 Intake Total 2110 2810 1330 100 Balance 2110 2810 1330 100 Meds/Results Medications: Active Medications Generic Name Dose Route Start Last Admin Trade Name Freq PRN Reason Stop Dose Admin Acetaminophen 650 mg 02/15/23 21:31 07/28/22 20:14 Acetaminophen 325 Mg Tablet PO 650 mg Q6H PRN Administration Mild Pain (1-3) or Fever Hydrocodone Bitart/Acetaminophen 1 tab 07/20/22 08:36 07/30/22 11:28 Hydrocodone/Acetaminophen (*Crx) 5-325 Mg Tablet PO 1 tab Q6H PRN Administration Pain Rated 4-6 Al Hydrox/Mg Hydrox/Simethicone 30 ml 07/22/22 04:11 07/23/22 16:46 Mag Hydrox/Al Hydrox/Simeth 30 Ml Udc PO 30 ml Q6H PRN Administration Indigestion Lipase/Protease/Amylase 2 cap 07/21/22 08:00 07/30/22 08:23 Lipase/Amylase/Protease 12,000 Units Cap PO 2 cap TIDWM DELILAH Administration Apixaban 5 mg 07/23/22 21:00 07/30/22 09:24 Apixaban 5 Mg Tablet PO 5 mg Q12HR DELILAH Administration Hydralazine HCl 10 mg 07/18/22 23:17 07/23/22 04:50 Hydralazine Hcl 20 Mg/Ml Vial IV PUSH 10 mg Q6H PRN Administration SBP > 165 or DBP > 105 Piperacillin/Tazobactam/Dextrose 3.375 gm in 50 mls @ 100 mls/hr 07/25/22 16:00 07/30/22 11:32 Zosyn 3.375 Gm/D5w 50ml Pm IVPB 07/31/22 23:59 Not Given Q6H DELILAH Loperamide HCl 4 mg 07/30/22 06:56 Loperamide Hcl 2 Mg Capsule PO TID PRN Diarrhea Losartan Potassium 50 mg 07/18/22 09:00 07/30/22 08:24 Losartan Potassium 50 Mg Tablet PO 50 mg DAILY DELILAH Administration Miscellaneous Information 1 each 07/28/22 12:10 Lorazepam Needs To Be Renewed Or It Will Automatically Discontinue. XX 08/27/22 12:09 CLARIFY DELILAH Miscellaneous Information 1 each 07/29/22 00:01 07/29/22 18:45 Norco_ Needs To Be Renewed Or It Will Automatically Discontinue 07/30. XX 08/28/22 00:00 Not Given CLARIFY [facility] Ondansetron HCl 4 mg 07/17/22 16:18 02/21/23 04:50 Ondansetron Inj 4 Mg/2 Ml Vial IV PUSH 4 mg
[2022-07-30 14:00] VITALS: BP 180/69; PULSE 50; RESP 24; TEMP 36.6; O2SAT 96
--- NOTE | 2022-07-30 15:18 | PM.IMPN ---
Progress Note: A&P Assessment and Plan (1) Transaminitis: Code(s): R74.01 - Elevation of levels of liver transaminase levels Status: Acute (2) Abdominal pain: Code(s): R10.9 - Unspecified abdominal pain Status: Acute (3) Abnormal abdominal ultrasound: Code(s): R93.5 - Abnormal findings on diagnostic imaging of other abdominal regions, including retroperitoneum Status: Acute (4) Cholelithiasis: Code(s): K80.20 - Calculus of gallbladder without cholecystitis without obstruction Status: Deleted (5) Paroxysmal atrial fibrillation: Code(s): I48.0 - Paroxysmal atrial fibrillation Status: Acute (6) Chronic anticoagulation: Code(s): Z79.01 - jail (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 Transaminases are elevated and show a predominantly hepatocellular elevated? alkaline phosphatase .? Right upper quadrant ultrasound with mild hepatomegaly and echogenic liver which could be steatosis saw similar findings could be seen in hepatitis and fibrosis.? Partially contracted gallbladder with cholelithiasis.? MRCP was refused and hence underwent ERCP.? ERCP revealed no stones in the bile duct likely passed stones or sludge. # post ERCP pancreatitis with elevated liver enzymes to 5000.? Now settling down and normalized .? Need cholecystectomy as an outpatient basis. general surgery followed the patient. Continues to have abdominal pain. CT yesterday with severe peripancreatic inflammation worsened with interval development of peripancreatic collections. Lipase is normal continue with Creon will need some bowel rest and will initiate IV fluid treatment. Better pain control prior to discharge. Mild leukocytosis still persist. LFTs normal Abdominal pain is still persist. started back on clear liquid and stay on bowel rest 07/27/2022 Continue IV fluids as ordered. Leukocytosis worsened as well. Continue on Zosyn as ordered 07/28: Leukocytosis improved abdominal discomfort improved. Will continue clear liquids for today and reassess again in a.m. 07/29: Leukocytosis improving. Abdominal discomfort is improved as well. Will Advanced further to soft diet. # abdominal pain lower worsened . recheck CT abdomen pelvis without contrast Showed severe peripancreatic inflammation worsened with interval development of peripancreatic collections. Started on IV fluids. Urinalysis is negative for infection.? Patient currently on Zosyn which will be continued.?Urine culture growing Thi albicans likely colonization # pulmonary congestion: Likely due to IV fluid. This is been stopped. One dose of Lasix received. Chest x-ray reviewed. Continue monitor. # transaminitis:? Slowly improving unresolved # hypertension:? Losartan on hold. Blood pressure creeping up will resume losartan # AFib: On sotalol and apixaban which are continued # encephalopathy mildly confused to be related to this.? # hypoxia still requiring oxygen. now off oxygen # VONNIE with creatinine up to 2.1.? Now resolved # hypokalemia replace # DVT prophylaxis on Eliquis Subjective Date/time seen: 07/30/22 15:18 Interval history: Patient reported more shortness of breath earlier today. IV fluids has been stopped and received a dose of Lasix. This afternoon she is feeling better. She is that when she Went to [facility] she had a sharp pain in her groin area. she denies any nausea vomiting. Reports leg swelling. Review of Systems Review of Systems: All systems reviewed & are unremarkable except as noted in HPI and below Exam Narrative: Patient is comfortable alert and oriented x3 NAD HEENT: eyes are clear and none icteric LUNGS: normal respiratory effo
--- NOTE | 2022-07-30 17:10 | PC.NURSE ---
Patient is refusing antibiotics. States that she wishes to talk to Dr. Steele about her antibiotic use in morning.
[2022-07-30 18:24] LABS: Appearance Urine Turbid (Clear); Bilirubin Urine Negative (Negative); Blood Urine 2+ (Negative); Color Urine Dark Yellow (Yellow); Glucose Urine UA Negative (Negative); Ketones Urine Negative (Negative); Leukocyte Esterase Ur 2+ LEU/UL (NEGATIVE); Need Manual Microscopic Reviewed; Nitrate Urine Negative (Negative); Protein Urine Trace mg/dL (Negative); Specific Grav Ur 1.015 (1.001-1.035); Squamous Epithelial Cell Urine Many /hpf (Few); WBC Urine 51-100 /hpf (0-3); pH Urine 5.5 (5.0-9.0)
[2022-07-30 18:27] LABS: Bacteria Urine 1+ /hpf
[2022-07-30 18:28] LABS: Add Urine Microscopic? YES
[2022-07-30 20:31] VITALS: PULSE 72
[2022-07-30] MEDS: MELATONIN 5 MG TABLET PO (21:34)
[2022-07-30 22:00] VITALS: BP 158/66; PULSE 62; RESP 27; TEMP 36; O2SAT 95
[2022-07-31] VITALS (9 sets, daily range): BP systolic 135–186; BP diastolic 35–94; PULSE 52–76; RESP 18–28; TEMP 35.8–36.4; O2SAT 94–97
[2022-07-31] MEDS: HYDROcodone/acetaminophen (*CRX) 5-325 MG TABLET 1 TAB PO ×2 (02:30→08:50)
[2022-07-31] MEDS: hydrALAZINE HCL 20 MG/ML VIAL 10 MG IV PUSH (05:35)
[2022-07-31 06:32] LABS: Hematocrit 40.3 % (37.0-47.0); Hemoglobin 12.8 g/dL (12.0-15.0); Mean Corpuscular HGB Conc 31.8 g/dl (32-36); Mean Corpuscular Hemoglobin 28.8 pg (26-34); Mean Corpuscular Volume 90.8 fl (80-100); Mean Platelet Volume 11.4 fl (7.4-10.4); Platelet Count Result 396 k/mm3 (150-375); Red Blood Count 4.44 M/mm3 (4.2-5.4); Red Cell Distribution Width 15.4 % (11.5-14.5); White Blood Count 14.5 K/mm3 (4.5-10.0)
[2022-07-31 06:44] LABS: Alanine Aminotransferase 35 U/L (6-35); Albumin Level 3.1 g/dL (3.5-5.1); Alkaline Phosphatase 110 U/L (38-126); Anion Gap 4 mmol/L (8-16); Aspartate Amino Transferase 54 U/L (14-36); Bilirubin,Total 0.9 mg/dL (0.2-1.3); Blood Urea Nitrogen 14 mg/dL (7-17); Calcium 9.2 mg/dL (8.4-10.2); Carbon Dioxide 33 mmol/L (22-30); Chloride 99 mmol/L (98-107); Estimated CRCL calculation 77 ml/min; Estimated Glomerular Filt Rate > 60; Glucose 118 mg/dL (65-110); Magnesium 1.8 mg/dL (1.6-2.3); Sodium 136 mmol/L (137-145)
[2022-07-31] MEDS: APIXABAN 5 MG TABLET PO ×2 (08:50→20:57)
[2022-07-31] MEDS: LOSARTAN POTASSIUM 50 MG TABLET PO (08:51)
[2022-07-31] MEDS: PANTOPRAZOLE SODIUM IV 40 MG VIAL IV PUSH (08:51)
[2022-07-31] MEDS: SERTRALINE HCL 50 MG TABLET PO (08:51)
[2022-07-31] MEDS: SIMETHICONE 125 MG CHEW TAB PO ×4 (08:51→20:57)
[2022-07-31] MEDS: LIPASE/AMYLASE/PROTEASE 12,000 UNITS CAP 2 CAP PO ×3 (08:51→16:10)
[2022-07-31] MEDS: SOTALOL HCL 40 MG TABLET PO ×2 (08:52→20:56)
--- NOTE | 2022-07-31 10:16 | PCPTNOTE ---
Attempted to see pt this morning pt declined due to bleeding from the rectum, high pain complaints of 8-9/10 issues with increased blood pressure diarrhea and mouth sores.
[2022-07-31] MEDS: BUMETANIDE INJ 1 MG/4 ML VIAL IV PUSH (11:14)
[2022-07-31] MEDS: POTASSIUM CHLORIDE 20 MEQ PACKET (FOR LIQUID) 40 MEQ PO (11:14)
[2022-07-31] MEDS: ONDANSETRON INJ 4 MG/2 ML VIAL IV PUSH ×2 (11:28→17:15)
--- NOTE | 2022-07-31 12:08 | PM.PNNEP ---
Progress Note: A&P Assessment and Plan (1) Anasarca: Code(s): R60.1 - Generalized edema Status: Acute Assessment and Plan: localized to bilateral lower extremities with some concern with pulmonary involvement by CXR results suspect this may have been precipitated diminished oral intake and low albumin possibly leading to 3rd spacing reasonable response to IV lasix however, concerning that she is still having nausea and vomiting she is once again at risk for dehydration if she continues to have vomiting (and we continue IV diuretics) will give one time dose of IV bumex today (given her reaction to IV lasix) daily assessment for diuretic therapy for now follow I/Os and renal function replete K+ as needed Will continue to follow. (2) Acute kidney injury: Code(s): N17.9 - Acute kidney failure, unspecified Status: Acute Assessment and Plan: resolved suspect VONNIE/ARF due to volume depletion and previous NPO status imaging to date without obstruction follow trend of repeat labs and UOP Subjective Date/time seen: 07/31/22 12:08 Tolerated IV lasix yesterday [though reported more abdominal pain with use and thinks it might have potentiated passing a gallstone(?)] although hypokalemia noted by AM labs -- K+ repletion ordered earlier; still with some on/off abdominal discomfort in association with nausea/vomiting at this time; also still with significant lower extremity swelling/edema present. Exam Narrative: General: ederly female in NAD Heart: normal S1 and S2; no rub Lungs: clear to auscultation Abdomen: soft, mild TTP, nondistended, positive bowel sounds Extremities: no cyanosis or clubbing; 2+ edema Skin: warm and dry Objective Data Vital Signs Vital Signs: Vital Signs Temp Pulse Resp BP Pulse Ox O2 Del Method 07/31/22 08:00 Room Air 07/31/22 08:00 97.5 F L 70 18 135/35 L 97 07/31/22 08:52 66 07/31/22 06:00 96.5 F L 52 L 20 184/82 H 96 07/31/22 06:30 64 149/70 H 07/31/22 06:15 174/71 H 07/31/22 05:30 186/94 H 07/30/22 22:00 96.8 F L 62 27 H 158/66 H 95 07/30/22 20:31 72 Intake/Output Intake/Output: Intake & Output 07/28/22 07/29/22 07/30/22 07/31/22 23:59 23:59 23:59 23:59 Intake Total 2810 1380 820 790 Output Total 1500 Balance 2810 1380 820 -710 Meds/Results Medications: Active Medications Generic Name Dose Route Start Last Admin Trade Name Freq PRN Reason Stop Dose Admin Acetaminophen 650 mg 07/17/22 21:31 07/28/22 20:14 Acetaminophen 325 Mg Tablet PO 650 mg Q6H PRN Administration Mild Pain (1-3) or Fever Hydrocodone Bitart/Acetaminophen 1 tab 07/20/22 08:36 07/31/22 08:50 Hydrocodone/Acetaminophen (*Crx) 5-325 Mg Tablet PO 1 tab Q6H PRN Administration Pain Rated 4-6 Al Hydrox/Mg Hydrox/Simethicone 30 ml 07/22/22 04:11 07/23/22 16:46 Mag Hydrox/Al Hydrox/Simeth 30 Ml Udc PO 30 ml Q6H PRN Administration Indigestion Lipase/Protease/Amylase 2 cap 07/21/22 08:00 07/31/22 16:10 Lipase/Amylase/Protease 12,000 Units Cap PO 2 cap TIDWM DELILAH Administration Apixaban 5 mg 07/23/22 21:00 07/31/22 08:50 Apixaban 5 Mg Tablet PO 5 mg Q12HR DELILAH Administration Furosemide 40 mg 08/01/22 09:00 Furosemide 40 Mg Tablet PO DAILY DELILAH Hydralazine HCl 10 mg 07/18/22 23:17 07/31/22 05:35 Hydralazine Hcl 20 Mg/Ml Vial IV PUSH 10 mg Q6H PRN Administration SBP > 165 or DBP > 105 Piperacillin/Tazobactam/Dextrose 3.375 gm in 50 mls @ 100 mls/hr 07/25/22 16:00 07/31/22 15:53 Zosyn 3.375 Gm/D5w 50ml Pm IVPB 07/31/22 23:59 Infused Q6H DELILAH Infusion Potassium Chloride 40 meq/ 520 mls @ 130 mls/hr 07/31/22 15:00 07/31/22 15:44 Sodium Chloride IVPB 07/31/22 18:59 130 mls/hr ONCE ONE Administration Lidocaine/Diphenhydr/Alum/Mg/Simeth 5 ml 07/31/22 13:00 07/31/22 16:12
[2022-07-31] MEDS: MAGNES & ALUM HYD/SIMETH/DIPHENHYD/LIDOCAINE 119 ML MOUTHWASH BY MOUTH ×3 (12:21→20:55)
[2022-07-31] MEDS: NYSTATIN 100,000 UNITS/ML SUSP 5 ML ORAL.SUSP PO ×3 (12:21→20:55)
--- NOTE | 2022-07-31 12:54 | PCOTNOTE ---
Attempted to see patient this pm, however patient reported still not feeling well. I'm not getting up right now. Pt reported, I was having high blood pressure, bleeding from my rectum, and I passed a stone earlier. I'm going backwards.
--- NOTE | 2022-07-31 14:27 | PM.IMPN ---
Progress Note: A&P Assessment and Plan (1) Transaminitis: Code(s): R74.01 - Elevation of levels of liver transaminase levels Status: Acute (2) Abdominal pain: Code(s): R10.9 - Unspecified abdominal pain Status: Acute (3) Abnormal abdominal ultrasound: Code(s): R93.5 - Abnormal findings on diagnostic imaging of other abdominal regions, including retroperitoneum Status: Acute (4) Cholelithiasis: Code(s): K80.20 - Calculus of gallbladder without cholecystitis without obstruction Status: Deleted (5) Paroxysmal atrial fibrillation: Code(s): I48.0 - Paroxysmal atrial fibrillation Status: Acute (6) Chronic anticoagulation: 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 Right upper quadrant ultrasound with mild hepatomegaly and echogenic liver,?Partially contracted gallbladder with cholelithiasis.? MRCP was refused and hence underwent ERCP.? ERCP revealed no stones in the bile duct likely passed stones or sludge. post ERCP pancreatitis with elevated liver enzymes to? 5000.? Will? Need cholecystectomy as an outpatient basis. General surgery followed the patient.? Repeat CT with severe peripancreatic inflammation worsened with interval development of peripancreatic collections along with leucocytosis, Started on Zosyn. Continued to have pain, repeat CT ?Showed severe peripancreatic inflammation worsened with interval development of peripancreatic collections.(Urine negative for UTI) Also developed VONNIE Had episode of resp distress 2/2 volume overload which responded well to lasix. 1)Abdominal Pain: ERCP related pancreatitis c/w Zosyn c/w Pancreatic enzyme Tolerating diet Outpatient follow up with Surgery for cholecystectomy Monitor leucocytosis Appreciate GI help 2)Apthous Ulcer+?papa Add magic mouth wash Nystatin swish and swallow 3)VONNIE: resolved Nephrology following Supplement potassium for hypokalemia c/w Bumex 4)H/o Afibb: c/w Eliquis 5)Code:Full 6)DVT ppx:On Eliquis 7)Dispo:pending improvement Time Spent With Patient Time with patient: 25 - 35 minutes Subjective Date/time seen: 07/31/22 14:27 Interval history: c/o ulcers in mouth Abdominal discomfort present Review of Systems Review of Systems: All systems reviewed & are unremarkable except as noted in HPI and below Exam Narrative: Patient is? comfortable alert and oriented x3 NAD HEENT: eyes are clear and none icteric, aphthous ulcers covering B/L buccal mucosa LUNGS: normal respiratory effort diminished breath sounds bilaterally ABD: not distended? Mildly tender epigastric area morbid obesity Lower extremities: ? Trace edema, no cyanosis or clubbing SKIN: nonjaundiced Neuro: grossly intact Objective Data Vital Signs Vital Signs: Vital Signs - 24 hr 07/30/22 20:31 07/30/22 22:00 07/31/22 05:30 Temperature 96.8 F L Pulse Rate 72 62 Respiratory Rate 27 H Blood Pressure 158/66 H 186/94 H Pulse Oximetry 95 Oxygen Delivery 07/31/22 06:15 07/31/22 06:30 07/31/22 06:00 Temperature 96.5 F L Pulse Rate 64 52 L Respiratory Rate 20 Blood Pressure 174/71 H 149/70 H 184/82 H Pulse Oximetry 96 Oxygen Delivery 07/31/22 08:52 07/31/22 08:00 07/31/22 08:00 Temperature 97.5 F L Pulse Rate 66 70 Respiratory Rate 18 Blood Pressure 135/35 L Pulse Oximetry 97 Oxygen Delivery Room Air Intake/Output Intake/Output: Intake & Output 07/28/22 07/29/22 07/30/22 07/31/22 23:59 23:59 23:59 23:59 Intake Total 2810 1380 820 740 Output Total 1500 Balance 2810 1380 820 -760 Meds/Results Medications: A
--- NOTE | 2022-07-31 15:28 | WPDGIPROGNO ---
Progress Note: A&P Assessment and Plan (1) Abnormal abdominal ultrasound: Code(s): R93.5 - Abnormal findings on diagnostic imaging of other abdominal regions, including retroperitoneum Status: Acute Assessment and Plan: Bile duct is at the upper limits of normal on ultrasound. Her presentation is consistent with choledocholithiasis. MRCP was ordered for today. The patient however is hesitant because she has had knee and hip replacements several years ago. ERCP revealed no stones in the bile duct, therefore she likely passed stones or sludge prior to the procedure. 07/22/2022 ultrasound today shows no abnormalities of the liver or the pancreas. The bile ducts remain dilated. Nothing was seen to explain her abdominal pain (2) Abdominal pain: Code(s): R10.9 - Unspecified abdominal pain Status: Acute Assessment and Plan: This appears to be due to cholelithiasis with choledocholithiasis. Patient asked, appropriately, it would be simpler to simply have surgery. I explained that if stones are the bile duct surgical removal would require common bile duct exploration and possible T-tube, an open procedure. We will recheck her labs and see if perhaps they have returned to normal in which case there may not be a need for ERCP. 07/19/2022 she is having significant pain today beginning with past evening. I suspect that she has pancreatitis. Lipase has been ordered but is pending. the current regimen is not controlling her pain. I will increase her hydromorphone to 1 mg every 2-3 hours 07/20/2022 much less pain today. She is not needing pain medication nearly as often. Now her pain is back to where was on admission, primarily epigastric area 07/21/2022 today she says her pain is a little more generalized than it was but still mostly epigastric. her states that she has been out of it this morning. I explained to the patient and family that we would like to get her off Dilaudid which she has been requesting regularly. I explained her that this may be causing some of her nausea and certainly some of her mental status changes, Sedation. she is finally been encouraged to cut back on pain medication. She was getting very sedated and also hypoxic. 07/24/2022 she is still having pain which is constant, diffuse, and somewhat tender on physical exam. She again declines CT with contrast. I will give her laxative because she has not had a bowel movement for few days. Hopefully that will help. 07/26/[address] scan without contrast did reveal peripancreatic inflammation. Nothing to indicate abscess. White blood count is higher. She has been started on Zosyn empirically although her procalcitonins have been normal up to this point. 07/29/2022 pain is better each day and is more localized to the epigastric area. She finds it is more tolerable, and is able to walk around now. 07/31/2022 I am concerned that her pain seems to be worse today. There was a slight increase her weight blood count as well although which remains afebrile (3) Transaminitis: Code(s): R74.01 - Elevation of levels of liver transaminase levels Status: Acute Assessment and Plan: Enzyme elevations consistent with choledocholithiasis. I discussed with her ERCP and how it would be the means of removing stones from the bile duct. I explained that stones in the bile duct can cause pancreatitis and that even ERCP can cause pancreatitis which could be severe, could result in prolonged hospitalization or even in rare cases surgery. she is reluctant to do MRCP because the fact that she has hardware in her knees and hips. transaminases are gradually improving. Today however bilirubin has increased to 1.6. LFTs are essentially unchanged. Bilirubin 1.9 it is possible that some sludge has enter her bile duct but I think that this is probably all secondary to inflammation 07/26/2022 LFTs all return
[2022-07-31] MEDS: POTASSIUM CHLORIDE INJ 40 MEQ in SODIUM CHLORIDE 0.9% IV 500 ML 130 MEQ IVPB (15:44)
[2022-07-31] MEDS: POTASSIUM CHLORIDE 20 MEQ PACKET (FOR LIQUID) PO (17:11)
[2022-07-31] MEDS: HYDROmorphone HCL INJ (*CRX) 1 MG/ML SYR 0.2 MG IV PUSH ×2 (17:58→21:47)
[2022-07-31] MEDS: MELATONIN 5 MG TABLET PO (20:57)
[2022-08-01] MEDS: MAGNES & ALUM HYD/SIMETH/DIPHENHYD/LIDOCAINE 119 ML MOUTHWASH BY MOUTH ×6 (01:57→20:58)
[2022-08-01] MEDS: HYDROcodone/acetaminophen (*CRX) 5-325 MG TABLET 1 TAB PO ×3 (01:58→20:59)
[2022-08-01 06:00] VITALS: BP 167/80; PULSE 85; RESP 16; TEMP 36.1; O2SAT 93
[2022-08-01 06:55] LABS: Basophils Absolute Auto 0.1 K/mm3 (0.0-0.1); Basophils Percent Auto 0.4 % (0.2-1.2); Eosinophils Absolute Auto 0.1 K/mm3 (0-0.3); Eosinophils Percent Auto 0.4 % (0-4.4); Hematocrit 39.2 % (37.0-47.0); Hemoglobin 12.5 g/dL (12.0-15.0); Immature Granulocyte Absolute 0.12 K/mm3 (0.00-0.031); Immature Granulocyte Percent A 0.6 % (0-0.5); Lymphocytes Absolute Auto 0.36 K/mm3 (0.9-3.2); Lymphocytes Percent Auto 1.9 % (18.3-44.2); Mean Corpuscular HGB Conc 31.9 g/dl (32-36); Mean Corpuscular Hemoglobin 28.9 pg (26-34); Mean Corpuscular Volume 90.5 fl (80-100); Monocytes Percent Auto 5.3 % (2.6-8.5); Neutrophils Percent Auto 91.4 % (45.5-73.1); Platelet Count Result 422 k/mm3 (150-375); Red Blood Count 4.33 M/mm3 (4.2-5.4); Red Cell Distribution Width 15.6 % (11.5-14.5); White Blood Count 18.6 K/mm3 (4.5-10.0)
[2022-08-01 07:11] LABS: Albumin Level 3.1 g/dL (3.5-5.1); Anion Gap 7 mmol/L (8-16); Blood Urea Nitrogen 16 mg/dL (7-17); Calcium 8.7 mg/dL (8.4-10.2); Carbon Dioxide 28 mmol/L (22-30); Chloride 102 mmol/L (98-107); Estimated CRCL calculation 61 ml/min; Estimated Glomerular Filt Rate > 60; Glucose 125 mg/dL (65-110); Magnesium 1.7 mg/dL (1.6-2.3); Phosphorus 4.3 mg/dL (2.5-4.5); Potassium 3.2 mmol/L (3.4-5.0); Sodium 137 mmol/L (137-145)
[2022-08-01] MEDS: ONDANSETRON INJ 4 MG/2 ML VIAL IV PUSH ×3 (07:39→17:52)
[2022-08-01 08:00] VITALS: BP 147/86; PULSE 75; RESP 20; TEMP 36.5; O2SAT 94
[2022-08-01] MEDS: POTASSIUM CHLORIDE 20 MEQ TABLET 40 MEQ PO (09:54)
[2022-08-01] MEDS: SPIRONOLACTONE 25 MG TABLET PO (09:55)
[2022-08-01] MEDS: FUROSEMIDE 40 MG TABLET PO (09:55)
[2022-08-01 09:56] VITALS: PULSE 80
[2022-08-01] MEDS: SIMETHICONE 125 MG CHEW TAB PO ×4 (09:56→20:56)
[2022-08-01] MEDS: NYSTATIN 100,000 UNITS/ML SUSP 5 ML ORAL.SUSP PO ×4 (09:56→20:56)
[2022-08-01] MEDS: APIXABAN 5 MG TABLET PO (09:56)
[2022-08-01] MEDS: SOTALOL HCL 40 MG TABLET PO ×2 (09:56→20:57)
[2022-08-01] MEDS: LOSARTAN POTASSIUM 50 MG TABLET PO (09:56)
[2022-08-01] MEDS: SERTRALINE HCL 50 MG TABLET PO (09:57)
[2022-08-01] MEDS: PANTOPRAZOLE SODIUM IV 40 MG VIAL IV PUSH (09:57)
--- NOTE | 2022-08-01 12:47 | PM.PNNEP ---
Progress Note: A&P Assessment and Plan (1) Anasarca: Code(s): R60.1 - Generalized edema Status: Acute Assessment and Plan: localized to bilateral lower extremities with some concern with pulmonary involvement by CXR results suspect this may have been precipitated diminished oral intake and low albumin possibly leading to 3rd spacing reasonable response to IV lasix however, concerning that she is still having nausea and vomiting she is once again at risk for dehydration if she continues to have vomiting (and we continue IV diuretics) good urine output with IV bumex however, complaining about using the bathroom frequently with diuretics with exacerbates her abdominal pain daily assessment for diuretic therapy for now (will hold today) perhaps she may tolerated oral diuretic therapy better(?) follow I/Os and renal function replete K+ as needed Will continue to follow. (2) Acute kidney injury: Code(s): N17.9 - Acute kidney failure, unspecified Status: Acute Assessment and Plan: resolved suspect VONNIE/ARF due to volume depletion and previous NPO status imaging to date without obstruction follow trend of repeat labs and UOP Subjective Date/time seen: 08/01/22 12:47 She continues to have on/off abdominal pain and results on CT scan in the morning noted; she still has quite a bit of swelling/edema in her lower extremities and seemed to have a reasonable diuresis with IV bumex yesterday; however, she seems to indicate that she does not like the diuretic therapy since it make her go to the bathroom frequently although I tried to explain to her that is an appropriate response to diuretic therapy. Exam Narrative: General: ederly female in NAD Heart: normal S1 and S2; no rub Lungs: clear to auscultation Abdomen: soft, mild TTP, nondistended, positive bowel sounds Extremities: no cyanosis or clubbing; 2+ edema Skin: warm and dry Objective Data Vital Signs Vital Signs: Vital Signs Temp Pulse Resp BP Pulse Ox O2 Del Method 08/01/22 12:30 Room Air 08/01/22 11:45 85 171/65 H 92 08/01/22 08:41 80 08/01/22 07:51 97.5 F L 78 20 194/72 H 94 07/31/22 23:00 97.2 F L 80 24 H 152/73 H 91 07/31/22 20:57 80 07/31/22 16:00 97.8 F 72 18 150/62 H 94 Intake/Output Intake/Output: Intake & Output 07/30/22 07/31/22 08/01/22 08/02/22 23:59 23:59 23:59 23:59 Intake Total 820 1090 2630 770 Output Total 2100 700 400 Balance 820 -1010 1930 370 Meds/Results Medications: Active Medications Generic Name Dose Route Start Last Admin Trade Name Freq PRN Reason Stop Dose Admin Acetaminophen 650 mg 07/17/22 21:31 07/28/22 20:14 Acetaminophen 325 Mg Tablet PO 650 mg Q6H PRN Administration Mild Pain (1-3) or Fever Hydrocodone Bitart/Acetaminophen 1 tab 07/20/22 08:36 08/02/22 07:02 Hydrocodone/Acetaminophen (*Crx) 5-325 Mg Tablet PO 1 tab Q6H PRN Administration Pain Rated 4-6 Al Hydrox/Mg Hydrox/Simethicone 30 ml 07/22/22 04:11 08/02/22 08:51 Mag Hydrox/Al Hydrox/Simeth 30 Ml Udc PO 30 ml Q6H PRN Administration Indigestion Alprazolam 1 mg 08/02/22 21:00 Alprazolam (*Crx) 0.5 Mg Tablet PO HS DELILAH Lipase/Protease/Amylase 2 cap 07/21/22 08:00 08/02/22 08:40 Lipase/Amylase/Protease 12,000 Units Cap PO 2 cap TIDWM DELILAH Administration Furosemide 40 mg 08/01/22 09:00 08/02/22 08:42 Furosemide 40 Mg Tablet PO 40 mg DAILY DELILAH Administration Hydralazine HCl 10 mg 07/18/22 23:17 08/02/22 07:12 Hydralazine Hcl 20 Mg/Ml Vial IV PUSH 10 mg Q6H PRN Administration SBP > 165 or DBP > 105 Hydromorphone HCl 0.2 mg 07/31/22 17:41 07/31/22 21:47 Hydromorphone Hcl Inj (*Crx) 1 Mg/Ml Syr IV PUSH 0.2 mg Q3H PRN Administration Pain Rated 7-10 Imipenem/Cilastatin Sodium 400 100 mls @ 300 mls/hr 08/01/22 13:00 08/02/22 07:10
--- NOTE | 2022-08-01 14:38 | WPDGIPROGNO ---
Progress Note: A&P Assessment and Plan (1) Abnormal abdominal ultrasound: Code(s): R93.5 - Abnormal findings on diagnostic imaging of other abdominal regions, including retroperitoneum Status: Acute Assessment and Plan: Bile duct is at the upper limits of normal on ultrasound. Her presentation is consistent with choledocholithiasis. MRCP was ordered for today. The patient however is hesitant because she has had knee and hip replacements several years ago. ERCP revealed no stones in the bile duct, therefore she likely passed stones or sludge prior to the procedure. 07/22/2022 ultrasound today shows no abnormalities of the liver or the pancreas. The bile ducts remain dilated. Nothing was seen to explain her abdominal pain (2) Abdominal pain: Code(s): R10.9 - Unspecified abdominal pain Status: Acute Assessment and Plan: This appears to be due to cholelithiasis with choledocholithiasis. Patient asked, appropriately, it would be simpler to simply have surgery. I explained that if stones are the bile duct surgical removal would require common bile duct exploration and possible T-tube, an open procedure. We will recheck her labs and see if perhaps they have returned to normal in which case there may not be a need for ERCP. 07/19/2022 she is having significant pain today beginning with past evening. I suspect that she has pancreatitis. Lipase has been ordered but is pending. the current regimen is not controlling her pain. I will increase her hydromorphone to 1 mg every 2-3 hours 07/20/2022 much less pain today. She is not needing pain medication nearly as often. Now her pain is back to where was on admission, primarily epigastric area 07/21/2022 today she says her pain is a little more generalized than it was but still mostly epigastric. her states that she has been out of it this morning. I explained to the patient and family that we would like to get her off Dilaudid which she has been requesting regularly. I explained her that this may be causing some of her nausea and certainly some of her mental status changes, Sedation. she is finally been encouraged to cut back on pain medication. She was getting very sedated and also hypoxic. 07/24/2022 she is still having pain which is constant, diffuse, and somewhat tender on physical exam. She again declines CT with contrast. I will give her laxative because she has not had a bowel movement for few days. Hopefully that will help. 07/26/[address] scan without contrast did reveal peripancreatic inflammation. Nothing to indicate abscess. White blood count is higher. She has been started on Zosyn empirically although her procalcitonins have been normal up to this point. 07/29/2022 pain is better each day and is more localized to the epigastric area. She finds it is more tolerable, and is able to walk around now. 07/31/2022 I am concerned that her pain seems to be worse today. There was a slight increase her weight blood count as well although which remains afebrile 08/01/2022 she is more concerned about vomiting today than pain although she does continue to have generalized discomfort in the form of full sensation. She feels full of gas. (3) Transaminitis: Code(s): R74.01 - Elevation of levels of liver transaminase levels Status: Acute Assessment and Plan: Enzyme elevations consistent with choledocholithiasis. I discussed with her ERCP and how it would be the means of removing stones from the bile duct. I explained that stones in the bile duct can cause pancreatitis and that even ERCP can cause pancreatitis which could be severe, could result in prolonged hospitalization or even in rare cases surgery. she is reluctant to do MRCP because the fact that she has hardware in her knees and hips. transaminases are gradually improving. Today however bilirubin has increased to 1.6. LFTs are essentia
[2022-08-01 16:00] VITALS: BP 150/62; PULSE 72; RESP 18; TEMP 36.6; O2SAT 94
--- NOTE | 2022-08-01 16:11 | PM.IMPN ---
Progress Note: A&P Assessment and Plan (1) Transaminitis: Code(s): R74.01 - Elevation of levels of liver transaminase levels Status: Acute Assessment and Plan: 76-year-old female with paroxysmal atrial fibrillation on chronic anticoagulation and hypertension who presented to the emergency department for evaluation of abdominal pain, transaminase was elevated, ? Right upper quadrant ultrasound with mild hepatomegaly and echogenic liver,?Partially contracted gallbladder with cholelithiasis.? MRCP was refused and hence underwent ERCP.? ERCP revealed no stones in the bile duct likely passed stones or sludge. post ERCP pancreatitis with elevated liver enzymes to? 5000.? Will? Need cholecystectomy as an outpatient basis. General surgery followed the patient.? Repeat CT with severe peripancreatic inflammation worsened with interval development of peripancreatic collections along with leucocytosis, Started on Zosyn. Continued to have pain, repeat CT ?Showed severe peripancreatic inflammation worsened with interval development of peripancreatic collections.(Urine negative for UTI) Also developed VONNIE. 08/01/2021 interval history: patient continued to complaint of abdominal pain nausea or vomiting, poor appetite, repeat CT scan of abdomen shows cholelithiasis and inflammatory around pancreas and pseudocyst, will consult surgery service again to reassess for possible cholecystectomy, will continue to monitor patient is seen by GI and further recommendation to follow, her son and present in the room answered all the questions. (2) Abdominal pain: Code(s): R10.9 - Unspecified abdominal pain Status: Acute (3) Abnormal abdominal ultrasound: Code(s): R93.5 - Abnormal findings on diagnostic imaging of other abdominal regions, including retroperitoneum Status: Acute (4) Cholelithiasis: Code(s): K80.20 - Calculus of gallbladder without cholecystitis without obstruction Status: Deleted (5) Paroxysmal atrial fibrillation: Code(s): I48.0 - Paroxysmal atrial fibrillation Status: Acute (6) Chronic anticoagulation: Code(s): Z79.01 - custodial (current) use of anticoagulants Status: Acute (7) Hypertension: Code(s): I10 - Essential (primary) hypertension Status: Acute Subjective Date/time seen: 08/01/22 16:11 76-year-old female with paroxysmal atrial fibrillation on chronic anticoagulation and hypertension who presented to the emergency department for evaluation of abdominal pain, transaminase was elevated, ? Right upper quadrant ultrasound with mild hepatomegaly and echogenic liver,?Partially contracted gallbladder with cholelithiasis.? MRCP was refused and hence underwent ERCP.? ERCP revealed no stones in the bile duct likely passed stones or sludge. post ERCP pancreatitis with elevated liver enzymes to? 5000.? Will? Need cholecystectomy as an outpatient basis. General surgery followed the patient.? Repeat CT with severe peripancreatic inflammation worsened with interval development of peripancreatic collections along with leucocytosis, Started on Zosyn. Continued to have pain, repeat CT ?Showed severe peripancreatic inflammation worsened with interval development of peripancreatic collections.(Urine negative for UTI) Also developed VONNIE. 08/01/2021 interval history: patient continued to complaint of abdominal pain nausea or vomiting, poor appetite, repeat CT scan of abdomen shows cholelithiasis and inflammatory around pancreas and pseudocyst, will consult surgery service again to reassess for possible cholecystectomy, will continue to monitor patient is seen by GI and further recommendation to follow, her son and present in the room answered all the questions. Review of Systems Review of Systems: All systems reviewed & are unremarkable except as noted in HPI and below Exam Narrative: morbidly obese Patient is comfortable, NAD HEENT: eyes are clear and n
[2022-08-01 16:17] LABS: Chloride Rand Ur 52 mmol/L (32-290); Chloride/Creatinine Rand Ur 46 (38-318); Creatinine Random Urine 114 mg/dL (20-275)
[2022-08-01] MEDS: ALBUMIN HUMAN 25% 25 GM/100 ML 200 ML IVPB (17:15)
[2022-08-01] MEDS: MELATONIN 5 MG TABLET PO (20:56)
[2022-08-01 20:57] VITALS: PULSE 80
[2022-08-01 23:00] VITALS: BP 152/73; PULSE 80; RESP 24; TEMP 36.2; O2SAT 91
[2022-08-02] MEDS: MAGNES & ALUM HYD/SIMETH/DIPHENHYD/LIDOCAINE 119 ML MOUTHWASH BY MOUTH ×6 (00:38→22:30)
[2022-08-02] MEDS: ONDANSETRON INJ 4 MG/2 ML VIAL IV PUSH ×3 (00:42→12:12)
[2022-08-02 06:46] LABS: Partial Thromboplastin Time 26.7 SECONDS (22.3-36.8)
[2022-08-02 06:48] LABS: Magnesium 2.3 mg/dL (1.6-2.3)
[2022-08-02] MEDS: HYDROcodone/acetaminophen (*CRX) 5-325 MG TABLET 1 TAB PO ×3 (07:02→21:12)
[2022-08-02] MEDS: hydrALAZINE HCL 20 MG/ML VIAL 10 MG IV PUSH (07:12)
[2022-08-02 07:51] VITALS: BP 194/72; PULSE 78; RESP 20; TEMP 36.4; O2SAT 94
[2022-08-02 08:04] LABS: Transferrin < 80 mg/dL (206-381)
[2022-08-02] MEDS: PANTOPRAZOLE SODIUM IV 40 MG VIAL IV PUSH (08:40)
[2022-08-02] MEDS: LIPASE/AMYLASE/PROTEASE 12,000 UNITS CAP 2 CAP PO ×3 (08:40→17:33)
[2022-08-02 08:41] VITALS: PULSE 80
[2022-08-02] MEDS: SIMETHICONE 125 MG CHEW TAB PO ×4 (08:41→22:29)
[2022-08-02] MEDS: SOTALOL HCL 40 MG TABLET PO ×2 (08:41→22:31)
[2022-08-02] MEDS: SPIRONOLACTONE 25 MG TABLET PO (08:41)
[2022-08-02] MEDS: SERTRALINE HCL 50 MG TABLET PO (08:42)
[2022-08-02] MEDS: LOSARTAN POTASSIUM 50 MG TABLET PO (08:42)
[2022-08-02] MEDS: FUROSEMIDE 40 MG TABLET PO (08:42)
[2022-08-02] MEDS: NYSTATIN 100,000 UNITS/ML SUSP 5 ML ORAL.SUSP PO ×4 (08:42→22:30)
--- NOTE | 2022-08-02 08:43 | PC.NURSE ---
Care of pt from 1899- 729. Pt awake most of shift. Pt begins complaining about multiple issues , many requests upon any staff member enter room Moans and groans. Repeats self with demands and inpatient. Gave pt meds at 1999 with sip of water- emesis of 600ml immediately afterwards. Pt requested sherbert, popsicles, and jello right after throwing up. C/o taste of water given from filtered water dispenser- refused to drink. Constantly asks for something for my mouth SL L AC for antibiotics- bends arm frequently when IV infusing causes IV solution to stop infusing and irritation to site. Encouraged IS use- pt does not always comply.. Does not perform per self unless instructed to do so. SCD on. Encouraged pt to use walker and ambulate - get out of bed, perform exercises. Pt refused. Elevated BP this am,pt complaining and constantly talking about plan for an IV site and taking a shower Gave hydralazine IVP per PRN order
[2022-08-02 08:45] VITALS: BP 171/65; PULSE 85; O2SAT 92
[2022-08-02] MEDS: MAG HYDROX/AL HYDROX/SIMETH 30 ML UDC PO ×2 (08:51→21:13)
[2022-08-02 09:43] LABS: Hemoglobin 11.8 g/dL (12.0-15.0); Mean Corpuscular HGB Conc 31.1 g/dl (32-36); Mean Corpuscular Hemoglobin 28.5 pg (26-34); Mean Corpuscular Volume 91.8 fl (80-100); Mean Platelet Volume 10.5 fl (7.4-10.4); Platelet Count Result 372 k/mm3 (150-375); Red Blood Count 4.14 M/mm3 (4.2-5.4); Red Cell Distribution Width 15.6 % (11.5-14.5); White Blood Count 13.2 K/mm3 (4.5-10.0)
[2022-08-02 10:15] LABS: Alanine Aminotransferase 26 U/L (6-35); Albumin Level 3.1 g/dL (3.5-5.1); Alkaline Phosphatase 90 U/L (38-126); Anion Gap 8 mmol/L (8-16); Aspartate Amino Transferase 86 U/L (14-36); Bilirubin,Total 1.1 mg/dL (0.2-1.3); Blood Urea Nitrogen 21 mg/dL (7-17); Calcium 9.2 mg/dL (8.4-10.2); Carbon Dioxide 26 mmol/L (22-30); Chloride 104 mmol/L (98-107); Estimated CRCL calculation 73 ml/min; Estimated Glomerular Filt Rate > 60; Glucose 110 mg/dL (65-110); Lipase 64 U/L (23-300); Potassium 3.2 mmol/L (3.4-5.0); Sodium 138 mmol/L (137-145)
--- NOTE | 2022-08-02 12:01 | PM.PNNEP ---
Progress Note: A&P Assessment and Plan (1) Anasarca: Code(s): R60.1 - Generalized edema Status: Acute Assessment and Plan: localized to bilateral lower extremities with some concern with pulmonary involvement by CXR results suspect this may have been precipitated diminished oral intake and low albumin possibly leading to 3rd spacing reasonable response to IV diuretics however, concerning that she is still having nausea and vomiting remains at risk for dehydration (particularly in the context of vomiting and use of diuretics) good urine output with IV bumex use previously will try IV albumin chased by IV bumex to see if this will facilitate diuresis given TPN (which is more fluid), I worry her volume status will worsen.... follow I/Os and renal function replete K+ as needed (although the addition of aldactone should help) Will continue to follow. (2) Acute kidney injury: Code(s): N17.9 - Acute kidney failure, unspecified Status: Acute Assessment and Plan: resolved suspect VONNIE/ARF due to volume depletion and previous NPO status imaging to date without obstruction follow trend of repeat labs and UOP Subjective Date/time seen: 08/02/22 12:01 She continues to have nauseaand vomiting with just sips of water; started on TPN for nutritional support; she seems fixated on the idea that she needs to have surgery to have her gallbladder removed and that will fix all of her issues/problems; still with significant swelling/edema in her lower extremities. Exam Narrative: General: ederly female in NAD Heart: normal S1 and S2; no rub Lungs: clear to auscultation Abdomen: soft, mild TTP, nondistended, positive bowel sounds Extremities: no cyanosis or clubbing; 2+ edema Skin: warm and dry Objective Data Vital Signs Vital Signs: Vital Signs Temp Pulse Resp BP Pulse Ox O2 Del Method 08/02/22 11:22 97.7 F 88 22 H 177/63 H 82 L 08/02/22 08:30 Room Air 08/02/22 08:45 85 171/65 H 92 08/02/22 08:41 80 08/02/22 07:51 97.5 F L 78 20 194/72 H 94 08/01/22 23:00 97.2 F L 80 24 H 152/73 H 91 08/01/22 20:57 80 Intake/Output Intake/Output: Intake & Output 07/30/22 07/31/22 08/01/22 08/02/22 23:59 23:59 23:59 23:59 Intake Total 820 1090 2630 970 Output Total 2100 700 400 Balance 820 -1010 1930 570 Meds/Results Medications: Active Medications Generic Name Dose Route Start Last Admin Trade Name Freq PRN Reason Stop Dose Admin Acetaminophen 650 mg 07/17/22 21:31 07/28/22 20:14 Acetaminophen 325 Mg Tablet PO 650 mg Q6H PRN Administration Mild Pain (1-3) or Fever Hydrocodone Bitart/Acetaminophen 1 tab 07/20/22 08:36 08/02/22 14:33 Hydrocodone/Acetaminophen (*Crx) 5-325 Mg Tablet PO 1 tab Q6H PRN Administration Pain Rated 4-6 Al Hydrox/Mg Hydrox/Simethicone 30 ml 07/22/22 04:11 08/02/22 08:51 Mag Hydrox/Al Hydrox/Simeth 30 Ml Udc PO 30 ml Q6H PRN Administration Indigestion Alprazolam 1 mg 08/02/22 21:00 Alprazolam (*Crx) 0.5 Mg Tablet PO HS DELILAH Lipase/Protease/Amylase 2 cap 07/21/22 08:00 08/02/22 12:12 Lipase/Amylase/Protease 12,000 Units Cap PO 2 cap TIDWM DELILAH Administration Furosemide 40 mg 08/01/22 09:00 08/02/22 08:42 Furosemide 40 Mg Tablet PO 40 mg DAILY DELILAH Administration Hydralazine HCl 10 mg 07/18/22 23:17 08/02/22 07:12 Hydralazine Hcl 20 Mg/Ml Vial IV PUSH 10 mg Q6H PRN Administration SBP > 165 or DBP > 105 Hydromorphone HCl 0.2 mg 07/31/22 17:41 07/31/22 21:47 Hydromorphone Hcl Inj (*Crx) 1 Mg/Ml Syr IV PUSH 0.2 mg Q3H PRN Administration Pain Rated 7-10 Imipenem/Cilastatin Sodium 400 100 mls @ 300 mls/hr 08/01/22 13:00 08/02/22 12:35 mg/ Sodium Chloride IVPB Infused Q6HR DELILAH Infusion Dextrose 1,000 mls @ 50 mls/hr 08/02/22 06:13 Dextrose 10%
[2022-08-02 12:32] VITALS: BMI 40.5
[2022-08-02 13:10] LABS: Glucose Point of Care 129 mg/dl (65-105)
--- NOTE | 2022-08-02 13:21 | P.PNGI_ITS ---
Progress Note: A&P Assessment and Plan (1) Abnormal abdominal ultrasound: Code(s): R93.5 - Abnormal findings on diagnostic imaging of other abdominal regions, including retroperitoneum Status: Acute Assessment and Plan: Bile duct is at the upper limits of normal on ultrasound. Her presentation is consistent with choledocholithiasis. MRCP was ordered for today. The patient however is hesitant because she has had knee and hip replacements several years ago. ERCP revealed no stones in the bile duct, therefore she likely passed stones or sludge prior to the procedure. 07/22/2022 ultrasound today shows no abnormalities of the liver or the pancreas. The bile ducts remain dilated. Nothing was seen to explain her abdominal pain (2) Abdominal pain: Code(s): R10.9 - Unspecified abdominal pain Status: Acute Assessment and Plan: This appears to be due to cholelithiasis with choledocholithiasis. Patient asked, appropriately, it would be simpler to simply have surgery. I explained that if stones are the bile duct surgical removal would require common bile duct exploration and possible T-tube, an open procedure. We will recheck her labs and see if perhaps they have returned to normal in which case there may not be a need for ERCP. 07/19/2022 she is having significant pain today beginning with past evening. I suspect that she has pancreatitis. Lipase has been ordered but is pending. the current regimen is not controlling her pain. I will increase her hydromorphone to 1 mg every 2-3 hours 07/20/2022 much less pain today. She is not needing pain medication nearly as often. Now her pain is back to where was on admission, primarily epigastric area 07/21/2022 today she says her pain is a little more generalized than it was but still mostly epigastric. her states that she has been out of it this morning. I explained to the patient and family that we would like to get her off Dilaudid which she has been requesting regularly. I explained her that this may be causing some of her nausea and certainly some of her mental status changes, Sedation. she is finally been encouraged to cut back on pain medication. She was getting very sedated and also hypoxic. 07/24/2022 she is still having pain which is constant, diffuse, and somewhat tender on physical exam. She again declines CT with contrast. I will give her laxative because she has not had a bowel movement for few days. Hopefully that will help. 07/26/[address] scan without contrast did reveal peripancreatic inflammation. Nothing to indicate abscess. White blood count is higher. She has been started on Zosyn empirically although her procalcitonins have been normal up to this point. 07/29/2022 pain is better each day and is more localized to the epigastric area. She finds it is more tolerable, and is able to walk around now. 07/31/2022 I am concerned that her pain seems to be worse today. There was a slight increase her weight blood count as well although which remains afebrile 08/01/2022 she is more concerned about vomiting today than pain although she does continue to have generalized discomfort in the form of full sensation. She feels full of gas. 08/02 no significant change today. (3) Transaminitis: Code(s): R74.01 - Elevation of levels of liver transaminase levels Status: Acute Assessment and Plan: Enzyme elevations consistent with choledocholithiasis. I discussed with her ERCP and how it would be the means of removing stones from the bile duct. I explained that stones in the bile duct can cause pancreatitis and that even ERCP can cause pancrea
[2022-08-02 13:22] VITALS: BP 177/63; PULSE 88; RESP 22; TEMP 36.5; O2SAT 82
--- NOTE | 2022-08-02 14:23 | PM.IMPN ---
Progress Note: A&P Assessment and Plan (1) Transaminitis: Code(s): R74.01 - Elevation of levels of liver transaminase levels Status: Acute Assessment and Plan: 76-year-old female with paroxysmal atrial fibrillation on chronic anticoagulation and hypertension who presented to the emergency department for evaluation of abdominal pain, transaminase was elevated, ? Right upper quadrant ultrasound with mild hepatomegaly and echogenic liver,?Partially contracted gallbladder with cholelithiasis.? MRCP was refused and hence underwent ERCP.? ERCP revealed no stones in the bile duct likely passed stones or sludge. post ERCP pancreatitis with elevated liver enzymes to? 5000.? Will? Need cholecystectomy as an outpatient basis. General surgery followed the patient.? Repeat CT with severe peripancreatic inflammation worsened with interval development of peripancreatic collections along with leucocytosis, Started on Zosyn. Continued to have pain, repeat CT ?Showed severe peripancreatic inflammation worsened with interval development of peripancreatic collections.(Urine negative for UTI) Also developed VONNIE. 08/02/2021 interval history: patient continued to complaint of abdominal pain nausea or vomiting, poor appetite, repeat CT scan of abdomen shows cholelithiasis and inflammatory around pancreas and pseudocyst, will consult surgery service again to reassess for possible cholecystectomy, patient daughter is present in the room and gave updates, if surgery is not planned, will try to transfer the patient to tertiary in [facility], will continue to monitor patient is seen by GI and further recommendation to follow, (2) Abdominal pain: Code(s): R10.9 - Unspecified abdominal pain Status: Acute (3) Abnormal abdominal ultrasound: Code(s): R93.5 - Abnormal findings on diagnostic imaging of other abdominal regions, including retroperitoneum Status: Acute (4) Cholelithiasis: Code(s): K80.20 - Calculus of gallbladder without cholecystitis without obstruction Status: Deleted (5) Paroxysmal atrial fibrillation: Code(s): I48.0 - Paroxysmal atrial fibrillation Status: Acute (6) Chronic 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 Right upper quadrant ultrasound with mild hepatomegaly and echogenic liver,?Partially contracted gallbladder with cholelithiasis.? MRCP was refused and hence underwent ERCP.? ERCP revealed no stones in the bile duct likely passed stones or sludge. post ERCP pancreatitis with elevated liver enzymes to? 5000.? Will? Need cholecystectomy as an outpatient basis. General surgery followed the patient.? Repeat CT with severe peripancreatic inflammation worsened with interval development of peripancreatic collections along with leucocytosis, Started on Zosyn. Continued to have pain, repeat CT ?Showed severe peripancreatic inflammation worsened with interval development of peripancreatic collections.(Urine negative for UTI) Also developed VONNIE. 08/02/2021 interval history: patient continued to complaint of abdominal pain nausea or vomiting, poor appetite, repeat CT scan of abdomen shows cholelithiasis and inflammatory around pancreas and pseudocyst, will consult surgery service again to reassess for possible cholecystectomy, patient daughter is present in the room and gave updates, if surgery is not planned, will try to transfer the patient to tertiary in [facility], will continue to monitor patient is seen by GI and further recommendation to follow, Review of Systems Review of Systems: All systems re
--- NOTE | 2022-08-02 14:24 | PCPTNOTE ---
The patient treatment was not able to be completed this afternoon due to patient being nauseated and vomiting. Will plan to continue treatment per plan of care.
[2022-08-02] MEDS: AMINO ACIDS 5%/D15W/E-LYTES/CA 2,000 ML with MULTIVITAMINS-12 INJ VIAL 1 2.5 ML, MULTIV... 40 ML IV CONT (14:33)
[2022-08-02] MEDS: CENTRAL LINE FLUSH 10 ML IV PUSH ×2 (14:33→21:15)
[2022-08-02] MEDS: PROMETHAZINE HCL 25 MG/ML AMPUL 12.5 MG IV PUSH ×2 (14:40→21:13)
[2022-08-02 20:08] LABS: Glucose Point of Care 167 mg/dl (65-105)
[2022-08-02] MEDS: ALBUMIN HUMAN 25% 12.5 GM/50ML 50 ML IVPB (21:11)
[2022-08-02] MEDS: MELATONIN 5 MG TABLET PO (21:13)
[2022-08-02] MEDS: ALPRAZolam (*CRX) 0.5 MG TABLET 1 MG PO (21:13)
[2022-08-02] MEDS: BUMETANIDE INJ 1 MG/4 ML VIAL IV PUSH (22:30)
[2022-08-02 22:31] VITALS: PULSE 79
[2022-08-02] MEDS: HYDROmorphone HCL INJ (*CRX) 1 MG/ML SYR 0.2 MG IV PUSH (23:57)
[2022-08-03] VITALS: BP 147/63; PULSE 72; RESP 20; TEMP 35.8; O2SAT 92
[2022-08-03 01:00] LABS: Glucose Point of Care 200 mg/dl (65-105)
[2022-08-03] MEDS: ONDANSETRON INJ 4 MG/2 ML VIAL IV PUSH ×2 (02:24→12:05)
[2022-08-03] MEDS: HYDROcodone/acetaminophen (*CRX) 5-325 MG TABLET 1 TAB PO ×2 (03:56→12:11)
[2022-08-03] MEDS: PROMETHAZINE HCL 25 MG/ML AMPUL 12.5 MG IV PUSH ×2 (03:57→08:08)
[2022-08-03 04:30] LABS: Hematocrit 34.6 % (37.0-47.0); Hemoglobin 10.9 g/dL (12.0-15.0); Mean Corpuscular HGB Conc 31.5 g/dl (32-36); Mean Corpuscular Hemoglobin 28.7 pg (26-34); Mean Corpuscular Volume 91.1 fl (80-100); Mean Platelet Volume 10.9 fl (7.4-10.4); Platelet Count Result 404 k/mm3 (150-375); Red Cell Distribution Width 15.6 % (11.5-14.5); White Blood Count 12.5 K/mm3 (4.5-10.0)
[2022-08-03 05:32] LABS: Alanine Aminotransferase 24 U/L (6-35); Albumin Level 3.1 g/dL (3.5-5.1); Alkaline Phosphatase 88 U/L (38-126); Anion Gap 4 mmol/L (8-16); Aspartate Amino Transferase 26 U/L (14-36); Bilirubin,Total 0.9 mg/dL (0.2-1.3); Blood Urea Nitrogen 26 mg/dL (7-17); Calcium 8.9 mg/dL (8.4-10.2); Carbon Dioxide 36 mmol/L (22-30); Chloride 101 mmol/L (98-107); Estimated CRCL calculation 64 ml/min; Estimated Glomerular Filt Rate > 60; Glucose 208 mg/dL (65-110); Lipase 74 U/L (23-300); Magnesium 2.2 mg/dL (1.6-2.3); Phosphorus 2.7 mg/dL (2.5-4.5); Potassium 2.4 mmol/L (3.4-5.0); Sodium 141 mmol/L (137-145); Triglycerides 110 mg/dL (<150)
[2022-08-03] MEDS: HYDROmorphone HCL INJ (*CRX) 1 MG/ML SYR 0.2 MG IV PUSH ×2 (06:09→09:31)
[2022-08-03] MEDS: MAGNES & ALUM HYD/SIMETH/DIPHENHYD/LIDOCAINE 119 ML MOUTHWASH BY MOUTH ×5 (06:10→21:27)
[2022-08-03] MEDS: CENTRAL LINE FLUSH 10 ML IV PUSH ×2 (06:13→16:27)
--- NOTE | 2022-08-03 07:32 | PC.NURSE ---
gary labs this am per PICC. Received call from lab larisa K level 2.4 This nurse redrewK. Again K level 2.[address] Aguiar received order for K [id number] x2 one right after another. Recheck K level one hour after second K rider infused. Pt moans, c/o abd pain, inability to eat, frustration with care all 12 hour shift Pt never slept. 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 Pt continues with multiple requests, jello, popsicles, juice, asked for hot tea, then would not drink it because it was hot. Then requested to have hot tea again, took two sips and then refused to drink more. Refused to sit in lounge chair, Perform IS more than twice or do any exercises. Yells out frequently for help
[2022-08-03 07:41] LABS: Glucose Point of Care 193 mg/dl (65-105)
[2022-08-03] MEDS: MAG HYDROX/AL HYDROX/SIMETH 30 ML UDC PO (08:08)
[2022-08-03] MEDS: KCL 40 MEQ/WATER 100 ML 100 ML 25 ML IVPB ×2 (08:08→12:04)
[2022-08-03 08:09] VITALS: PULSE 78
[2022-08-03] MEDS: PANTOPRAZOLE SODIUM IV 40 MG VIAL IV PUSH (08:09)
[2022-08-03] MEDS: SOTALOL HCL 40 MG TABLET PO (08:09)
[2022-08-03] MEDS: SIMETHICONE 125 MG CHEW TAB PO ×2 (08:09→12:05)
[2022-08-03] MEDS: SPIRONOLACTONE 25 MG TABLET PO (08:09)
[2022-08-03] MEDS: LIPASE/AMYLASE/PROTEASE 12,000 UNITS CAP 2 CAP PO ×2 (08:09→12:05)
[2022-08-03] MEDS: NYSTATIN 100,000 UNITS/ML SUSP 5 ML ORAL.SUSP PO ×3 (08:09→16:28)
[2022-08-03] MEDS: ALBUMIN HUMAN 25% 12.5 GM/50ML 50 ML IVPB ×2 (08:10→16:28)
[2022-08-03] MEDS: LOSARTAN POTASSIUM 50 MG TABLET PO (08:10)
[2022-08-03] MEDS: SERTRALINE HCL 50 MG TABLET PO (08:11)
[2022-08-03 08:50] VITALS: PULSE 78; RESP 20; O2SAT 92
[2022-08-03] MEDS: BUMETANIDE INJ 1 MG/4 ML VIAL IV PUSH ×2 (09:31→17:24)
[2022-08-03 11:13] LABS: Glucose Point of Care 237 mg/dl (65-105)
--- NOTE | 2022-08-03 11:38 | WPDGIPROGNO ---
Progress Note: A&P Assessment and Plan (1) Abnormal abdominal ultrasound: Code(s): R93.5 - Abnormal findings on diagnostic imaging of other abdominal regions, including retroperitoneum Status: Acute Assessment and Plan: Bile duct is at the upper limits of normal on ultrasound. Her presentation is consistent with choledocholithiasis. MRCP was ordered for today. The patient however is hesitant because she has had knee and hip replacements several years ago. ERCP revealed no stones in the bile duct, therefore she likely passed stones or sludge prior to the procedure. 07/22/2022 ultrasound today shows no abnormalities of the liver or the pancreas. The bile ducts remain dilated. Nothing was seen to explain her abdominal pain (2) Abdominal pain: Code(s): R10.9 - Unspecified abdominal pain Status: Acute Assessment and Plan: This appears to be due to cholelithiasis with choledocholithiasis. Patient asked, appropriately, it would be simpler to simply have surgery. I explained that if stones are the bile duct surgical removal would require common bile duct exploration and possible T-tube, an open procedure. We will recheck her labs and see if perhaps they have returned to normal in which case there may not be a need for ERCP. 07/19/2022 she is having significant pain today beginning with past evening. I suspect that she has pancreatitis. Lipase has been ordered but is pending. the current regimen is not controlling her pain. I will increase her hydromorphone to 1 mg every 2-3 hours 07/20/2022 much less pain today. She is not needing pain medication nearly as often. Now her pain is back to where was on admission, primarily epigastric area 07/21/2022 today she says her pain is a little more generalized than it was but still mostly epigastric. her states that she has been out of it this morning. I explained to the patient and family that we would like to get her off Dilaudid which she has been requesting regularly. I explained her that this may be causing some of her nausea and certainly some of her mental status changes, Sedation. she is finally been encouraged to cut back on pain medication. She was getting very sedated and also hypoxic. 07/24/2022 she is still having pain which is constant, diffuse, and somewhat tender on physical exam. She again declines CT with contrast. I will give her laxative because she has not had a bowel movement for few days. Hopefully that will help. 07/26/[address] scan without contrast did reveal peripancreatic inflammation. Nothing to indicate abscess. White blood count is higher. She has been started on Zosyn empirically although her procalcitonins have been normal up to this point. 07/29/2022 pain is better each day and is more localized to the epigastric area. She finds it is more tolerable, and is able to walk around now. 07/31/2022 I am concerned that her pain seems to be worse today. There was a slight increase her weight blood count as well although which remains afebrile 08/01/2022 she is more concerned about vomiting today than pain although she does continue to have generalized discomfort in the form of full sensation. She feels full of gas. 08/02 no significant change today. 08/03/2022. She feels that she may be a little better today. She has not been requesting pain medication as often as she had been. I noticed that the hydromorphone dose was somehow reduced to 0.2 mg and I will increase that to 0.5. (3) Transaminitis: Code(s): R74.01 - Elevation of levels of liver transaminase levels Status: Acute Assessment and Plan: Enzyme elevations consistent with choledocholithiasis. I discussed with her ERCP and how it would be the means of removing stones from the bile duct. I explained that stones in the bile duct can cause pancreatitis and that even ERCP can cause pancreatitis which could be sever
--- NOTE | 2022-08-03 11:59 | P.PNNP_ITS ---
Progress Note: A&P Assessment and Plan (1) Anasarca: Code(s): R60.1 - Generalized edema Status: Acute Assessment and Plan: * localized to bilateral lower extremities with some concern with pulmonary involvement by CXR results * suspect this may have been precipitated diminished oral intake and low albumin possibly leading to 3rd spacing * reasonable response to IV diuretics * however, concerning that she is still having nausea and vomiting * remains at risk for dehydration (particularly in the context of vomiting and use of diuretics) * good urine output with IV bumex use previously * on IV albumin chased by IV bumex to see if this will facilitate diuresis * given TPN (which is more fluid), I worry her volume status will worsen.... * follow I/Os and renal function * replete K+ as needed (although the addition of aldactone should help) (2) Hypokalemia: Code(s): E87.6 - Hypokalemia Status: Acute Assessment and Plan: * suspect due to a combination of total body store depletion, vomiting (GI loss), and attempts at diuresis * given her vomiting issue, K+ being replaced IV * on aldactone and dosage has been increased * check magnesium intermittently (3) Intractable nausea and vomiting: Code(s): R11.2 - Nausea with vomiting, unspecified Status: Acute Assessment and Plan: * ongoing issue limiting oral intake * presumably related to pancreatitis * on antiemetics * follow clinical symptoms (4) Acute kidney injury: Code(s): N17.9 - Acute kidney failure, unspecified Status: Acute Assessment and Plan: * resolved * suspect VONNIE/ARF due to volume depletion and previous NPO status * imaging to date without obstruction * follow trend of repeat labs and UOP Will continue to follow. Subjective Date/time seen: 08/03/22 11:59 States has she feels terrible -- she continues to have ongoing nausea and vomiting even with attempted sips of water and antiemetics help to some degree; she also continues to have significant abdominal pain as well with mild improvement when she takes pain medications; noted plans for possible transfer to another hospital/facility but unclear when this will occur; started on IV albumin and IV bumex in an effort to treated her lower extremity edema. Exam Narrative: General: ederly female in NAD Heart: normal S1 and S2; no rub Lungs: clear to auscultation Abdomen: soft, mild TTP, nondistended, positive bowel sounds Extremities: no cyanosis or clubbing; 2+ edema Skin: warm and dry Objective Data Vital Signs Vital Signs: Vital Signs Temp Pulse Resp BP Pulse Ox O2 Del Method 08/03/22 08:50 78 20 92 Room Air 08/03/22 08:09 78 08/03/22 00:00 96.5 F L 72 20 147/63 H 92 08/02/22 22:31 79 08/02/22 13:22 97.7 F 88 22 H 177/63 H 82 L Intake/Output Intake/Output: Intake & Output 07/31/22 08/01/22 08/02/22 08/03/22 23:59 23:59 23:59 23:59 Intake Total 1090 2630 1720 2440 Output Total 2100 700 1300 Balance -1010 7099 584 [id number] Meds/Results Medications: Active Medications Generic Name Dose Route Start Last Admin Trade Name Freq PRN Reason Stop Dose Admi
--- NOTE | 2022-08-03 11:59 | PM.PNNEP ---
Progress Note: A&P Assessment and Plan (1) Anasarca: Code(s): R60.1 - Generalized edema Status: Acute Assessment and Plan: localized to bilateral lower extremities with some concern with pulmonary involvement by CXR results suspect this may have been precipitated diminished oral intake and low albumin possibly leading to 3rd spacing reasonable response to IV diuretics however, concerning that she is still having nausea and vomiting remains at risk for dehydration (particularly in the context of vomiting and use of diuretics) good urine output with IV bumex use previously on IV albumin chased by IV bumex to see if this will facilitate diuresis given TPN (which is more fluid), I worry her volume status will worsen.... follow I/Os and renal function replete K+ as needed (although the addition of aldactone should help) (2) Hypokalemia: Code(s): E87.6 - Hypokalemia Status: Acute Assessment and Plan: suspect due to a combination of total body store depletion, vomiting (GI loss), and attempts at diuresis given her vomiting issue, K+ being replaced IV on aldactone and dosage has been increased check magnesium intermittently (3) Intractable nausea and vomiting: Code(s): R11.2 - Nausea with vomiting, unspecified Status: Acute Assessment and Plan: ongoing issue limiting oral intake presumably related to pancreatitis on antiemetics follow clinical symptoms (4) Acute kidney injury: Code(s): N17.9 - Acute kidney failure, unspecified Status: Acute Assessment and Plan: resolved suspect VONNIE/ARF due to volume depletion and previous NPO status imaging to date without obstruction follow trend of repeat labs and UOP Will continue to follow. Subjective Date/time seen: 08/03/22 11:59 States has she feels terrible -- she continues to have ongoing nausea and vomiting even with attempted sips of water and antiemetics help to some degree; she also continues to have significant abdominal pain as well with mild improvement when she takes pain medications; noted plans for possible transfer to another hospital/facility but unclear when this will occur; started on IV albumin and IV bumex in an effort to treated her lower extremity edema. Exam Narrative: General: ederly female in NAD Heart: normal S1 and S2; no rub Lungs: clear to auscultation Abdomen: soft, mild TTP, nondistended, positive bowel sounds Extremities: no cyanosis or clubbing; 2+ edema Skin: warm and dry Objective Data Vital Signs Vital Signs: Vital Signs Temp Pulse Resp BP Pulse Ox O2 Del Method 08/03/22 08:50 78 20 92 Room Air 08/03/22 08:09 78 08/03/22 00:00 96.5 F L 72 20 147/63 H 92 08/02/22 22:31 79 08/02/22 13:22 97.7 F 88 22 H 177/63 H 82 L Intake/Output Intake/Output: Intake & Output 07/31/22 08/01/22 08/02/22 08/03/22 23:59 23:59 23:59 23:59 Intake Total 1090 2630 1720 2440 Output Total 2100 700 1300 Balance -1010 6571 313 1856 Meds/Results Medications: Active Medications Generic Name Dose Route Start Last Admin Trade Name Freq PRN Reason Stop Dose Admin Acetaminophen 650 mg 07/17/22 21:31 07/28/22 20:14 Acetaminophen 325 Mg Tablet PO 650 mg Q6H PRN Administration Mild Pain (1-3) or Fever Hydrocodone Bitart/Acetaminophen 1 tab 07/20/22 08:36 08/03/22 12:11 Hydrocodone/Acetaminophen (*Crx) 5-325 Mg Tablet PO 1 tab Q6H PRN Administration Pain Rated 4-6 Al Hydrox/Mg Hydrox/Simethicone 30 ml 07/22/22 04:11 08/03/22 08:08 Mag Hydrox/Al Hydrox/Simeth 30 Ml Udc PO 30 ml Q6H PRN Administration Indigestion Alprazolam 1 mg 08/02/22 21:00 08/02/22 21:13 Alprazolam (*Crx) 0.5 Mg Tablet PO 1 mg HS DELILAH Administration Lipase/Protease/Amylase 2 cap 07/21/22 08:00 08/03/22 12:05 Lipase/Amylase/Protease 12,000 Units Ca
[2022-08-03] MEDS: AMINO ACIDS 5%/D15W/E-LYTES/CA 2,000 ML with MULTIVITAMINS-12 INJ VIAL 1 2.5 ML, MULTIV... 40 ML IV CONT (12:04)
[2022-08-03] MEDS: INSULIN ASPART (*BKC) 100 UNITS/ML SUB-Q (12:06)
--- NOTE | 2022-08-03 12:19 | PM.PNGS ---
Progress Note: A&P Assessment and Plan (1) Intractable nausea and vomiting: Code(s): R11.2 - Nausea with vomiting, unspecified Status: Acute Assessment and Plan: I reviewed her recent CT. She still has significant swelling of the pancreas which could be causing gastric outlet obstruction. Surgery will be unsafe given the significant amount of pancreatic inflammation at this time. She does not appear to be having symptoms of the gallstones, therefore surgery can be delayed until her other symptoms have been treated. Laparoscopic cholecystectomy will eventually be recommended to prevent recurrent episodes like this. This will likely be delayed until pancreatic swelling has improved. In regards to her intractable nausea and vomiting, I would like to get an upper GI contrast study today to rule out gastric outlet obstruction. Could consider NG tube placement if vomiting is continuing. Also could consider nasogastric tube advancement beyond the 2nd portion of the duodenum to allow for enteral feedings. Will follow patient while she is here, but I understand she has already been accepted for transfer to [place]. (2) Post-ERCP acute pancreatitis: Code(s): K91.89 - Other postprocedural complications and disorders of digestive system; K85.90 - Acute pancreatitis without necrosis or infection, unspecified Status: Acute Assessment and Plan: Lipase now normal, but CT still shows significant peripancreatic inflammation and fluid collection. White blood count is slightly elevated but she has no other signs to be concerned for infected pancreatic necrosis. 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 Patient continues to have epigastric pain and intractable nausea and vomiting. She is currently on TPN and unable to tolerate p.o.. She has had follow-up CTs, but no further studies to assess her intractable nausea and vomiting. She is passing flatus. She had a bowel movement a couple days ago. Her last CT was done 2 days ago. She is currently in the process of being transferred to [facility] for higher level of care. Exam GI: Inspection: non-distended and obesity GI Palp: Yes Soft to palpation, Yes Tenderness to palpation present (GI) ( Epigastric), No Guarding due to palpation present (GI) and No Rebound tenderness present Objective Data Vital Signs Vital Signs: Vital Signs - 24 hr 08/02/22 13:22 08/02/22 22:31 08/03/22 00:00 Temperature 36.5 C 35.8 C L Pulse Rate 88 79 72 Respiratory Rate 22 H 20 Blood Pressure 177/63 H 147/63 H Pulse Oximetry 82 L 92 Oxygen Delivery 08/03/22 08:09 08/03/22 08:50 Temperature Pulse Rate 78 78 Respiratory Rate 20 Blood Pressure Pulse Oximetry 92 Oxygen Delivery Room Air Intake/Output Intake/Output: Intake & Output 07/31/22 08/01/22 08/02/22 08/03/22 23:59 23:59 23:59 23:59 Intake Total 1090 2630 1720 435 Output Total 2100 700 1300 Balance -1010 1930 420 435 Meds/Results Medications: Active Medications Generic Name Dose Route Start Last Admin Trade Name Freq PRN Reason Stop Dose Admin Acetaminophen 650 mg 07/17/22 21:31 07/28/22 20:14 Acetaminophen 325 Mg Tablet PO 650 mg Q6H PRN Admin
[2022-08-03 14:20] VITALS: BP 157/75; PULSE 90; RESP 20; TEMP 36.4; O2SAT 93
[2022-08-03 17:26] LABS: Anion Gap 8 mmol/L (8-16); Blood Urea Nitrogen 30 mg/dL (7-17); Calcium 9.1 mg/dL (8.4-10.2); Carbon Dioxide 27 mmol/L (22-30); Chloride 104 mmol/L (98-107); Estimated CRCL calculation 59 ml/min; Estimated Glomerular Filt Rate > 60; Glucose 201 mg/dL (65-110); Potassium 3.3 mmol/L (3.4-5.0); Sodium 139 mmol/L (137-145)
--- NOTE | 2022-08-03 17:32 | PM.IMPN ---
Progress Note: A&P Assessment and Plan (1) Transaminitis: Code(s): R74.01 - Elevation of levels of liver transaminase levels Status: Acute Assessment and Plan: 76-year-old female with paroxysmal atrial fibrillation on chronic anticoagulation and hypertension who presented to the emergency department for evaluation of abdominal pain, transaminase was elevated, ? Right upper quadrant ultrasound with mild hepatomegaly and echogenic liver,?Partially contracted gallbladder with cholelithiasis.? MRCP was refused and hence underwent ERCP.? ERCP revealed no stones in the bile duct likely passed stones or sludge. post ERCP pancreatitis with elevated liver enzymes to? 5000.? Will? Need cholecystectomy as an outpatient basis. General surgery followed the patient.? Repeat CT with severe peripancreatic inflammation worsened with interval development of peripancreatic collections along with leucocytosis, Started on Zosyn. Continued to have pain, repeat CT ?Showed severe peripancreatic inflammation worsened with interval development of peripancreatic collections.(Urine negative for UTI) Also developed VONNIE. 08/03/2021 interval history: patient continued to complaint of abdominal pain nausea or vomiting, poor appetite, repeat CT scan of abdomen shows cholelithiasis and inflammatory around pancreas and pseudocyst, today patient was seen Dr. Booth and reviewd patient CT scan of abdomen showed significan inflammation around Pancrease and suspected patient has developed gastric outlet obstruction upper gi series confirmed and surgeon has ordered NG tube, patient daughter is present in the room and gave updates, also called [facility] and spoke with Dr. Centeno Gi fellow and has accpeted the patient, once the bed available, will transfer the patient. 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 Right upper quadrant ultrasound with mild hepatomegaly and echogenic liver,?Partially contracted gallbladder with cholelithiasis.? MRCP was refused and hence underwent ERCP.? ERCP revealed no stones in the bile duct likely passed stones or sludge. post ERCP pancreatitis with elevated liver enzymes to? 5000.? Will? Need cholecystectomy as an outpatient basis. General surgery followed the patient.? Repeat CT with severe peripancreatic inflammation worsened with interval development of peripancreatic collections along with leucocytosis, Started on Zosyn. Continued to have pain, repeat CT ?Showed severe peripancreatic inflammation worsened with interval development of peripancreatic collections.(Urine negative for UTI) Also developed VONNIE. 08/03/2021 interval history: patient continued to complaint of abdominal pain nausea or vomiting, poor appetite, repeat CT scan of abdomen shows cholelithiasis and inflammatory around pancreas and pseudocyst, today patient was seen Dr. Booth and reviewd patient CT scan of abdomen showed significan inflammation around Pancrease and suspected patient has developed gastric outlet obstruction upper gi series confirmed and surgeon shaheen
[2022-08-03 17:39] LABS: Glucose Point of Care 196 mg/dl (65-105)
[2022-08-03 20:56] LABS: Glucose Point of Care 157 mg/dl (65-105)
[2022-08-04] VITALS: BP 165/72; PULSE 72; RESP 20; TEMP 36.3; O2SAT 92
[2022-08-04] MEDS: CENTRAL LINE FLUSH 10 ML IV PUSH ×4 (00:15→21:38)
[2022-08-04 01:08] LABS: Glucose Point of Care 172 mg/dl (65-105)
[2022-08-04] MEDS: HYDROmorphone HCL INJ (*CRX) 1 MG/ML SYR 0.5 MG IV PUSH ×5 (05:06→21:34)
[2022-08-04 05:24] LABS: Hematocrit 34.6 % (37.0-47.0); Hemoglobin 10.8 g/dL (12.0-15.0); Mean Corpuscular HGB Conc 31.2 g/dl (32-36); Mean Corpuscular Hemoglobin 28.3 pg (26-34); Mean Corpuscular Volume 90.6 fl (80-100); Mean Platelet Volume 11.1 fl (7.4-10.4); Platelet Count Result 334 k/mm3 (150-375); Red Blood Count 3.82 M/mm3 (4.2-5.4); Red Cell Distribution Width 15.6 % (11.5-14.5); White Blood Count 11.7 K/mm3 (4.5-10.0)
[2022-08-04] MEDS: MAGNES & ALUM HYD/SIMETH/DIPHENHYD/LIDOCAINE 119 ML MOUTHWASH BY MOUTH ×5 (05:24→20:15)
[2022-08-04 05:38] LABS: Alanine Aminotransferase 22 U/L (6-35); Albumin Level 2.9 g/dL (3.5-5.1); Alkaline Phosphatase 73 U/L (38-126); Anion Gap 5 mmol/L (8-16); Aspartate Amino Transferase 29 U/L (14-36); Bilirubin,Total 1.3 mg/dL (0.2-1.3); Blood Urea Nitrogen 34 mg/dL (7-17); Calcium 8.6 mg/dL (8.4-10.2); Carbon Dioxide 37 mmol/L (22-30); Chloride 104 mmol/L (98-107); Estimated CRCL calculation 59 ml/min; Estimated Glomerular Filt Rate > 60; Glucose 167 mg/dL (65-110); Lipase 72 U/L (23-300); Magnesium 2.1 mg/dL (1.6-2.3); Potassium 3.3 mmol/L (3.4-5.0); Sodium 146 mmol/L (137-145)
[2022-08-04 06:21] LABS: Glucose Point of Care 174 mg/dl (65-105)
[2022-08-04] MEDS: PROMETHAZINE HCL 25 MG/ML AMPUL 12.5 MG IV PUSH (07:08)
--- NOTE | 2022-08-04 07:28 | WPDGIPROGNO ---
Progress Note: A&P Assessment and Plan (1) Gastric outlet obstruction: Code(s): K31.1 - Adult hypertrophic pyloric stenosis Status: Acute Assessment and Plan: patient seen yesterday by , who ordered upper GI. This confirms his suspicion That she had gastric outlet obstructiondue to the edema surrounding the pancreas . upper GI revealed:1. Large volume of fluid in the stomach despite the patient reporting only sips of water today, likely gastric outlet obstruction secondary to pancreatitis. 2. Spontaneous gastroesophageal reflux. 1200 cc has been withdrawn by NG tube already (2) Abnormal abdominal ultrasound: Code(s): R93.5 - Abnormal findings on diagnostic imaging of other abdominal regions, including retroperitoneum Status: Acute Assessment and Plan: Bile duct is at the upper limits of normal on ultrasound. Her presentation is consistent with choledocholithiasis. MRCP was ordered for today. The patient however is hesitant because she has had knee and hip replacements several years ago. ERCP revealed no stones in the bile duct, therefore she likely passed stones or sludge prior to the procedure. 07/22/2022 ultrasound today shows no abnormalities of the liver or the pancreas. The bile ducts remain dilated. Nothing was seen to explain her abdominal pain (3) Abdominal pain: Code(s): R10.9 - Unspecified abdominal pain Status: Acute Assessment and Plan: This appears to be due to cholelithiasis with choledocholithiasis. Patient asked, appropriately, it would be simpler to simply have surgery. I explained that if stones are the bile duct surgical removal would require common bile duct exploration and possible T-tube, an open procedure. We will recheck her labs and see if perhaps they have returned to normal in which case there may not be a need for ERCP. 07/19/2022 she is having significant pain today beginning with past evening. I suspect that she has pancreatitis. Lipase has been ordered but is pending. the current regimen is not controlling her pain. I will increase her hydromorphone to 1 mg every 2-3 hours 07/20/2022 much less pain today. She is not needing pain medication nearly as often. Now her pain is back to where was on admission, primarily epigastric area 07/21/2022 today she says her pain is a little more generalized than it was but still mostly epigastric. her states that she has been out of it this morning. I explained to the patient and family that we would like to get her off Dilaudid which she has been requesting regularly. I explained her that this may be causing some of her nausea and certainly some of her mental status changes, Sedation. she is finally been encouraged to cut back on pain medication. She was getting very sedated and also hypoxic. 07/24/2022 she is still having pain which is constant, diffuse, and somewhat tender on physical exam. She again declines CT with contrast. I will give her laxative because she has not had a bowel movement for few days. Hopefully that will help. 07/26/[address] scan without contrast did reveal peripancreatic inflammation. Nothing to indicate abscess. White blood count is higher. She has been started on Zosyn empirically although her procalcitonins have been normal up to this point. 07/29/2022 pain is better each day and is more localized to the epigastric area. She finds it is more tolerable, and is able to walk around now. 07/31/2022 I am concerned that her pain seems to be worse today. There was a slight increase her weight blood count as well although which remains afebrile 08/01/2022 she is more concerned about vomiting today than pain although she does continue to have generalized discomfort in the form of full sensation. She feels full of gas. 08/02 no significant change today. 08/03/2022. She feels that she may be a little better today. She has no
[2022-08-04] MEDS: ALBUMIN HUMAN 25% 12.5 GM/50ML 50 ML IVPB ×2 (08:07→16:59)
[2022-08-04] MEDS: NYSTATIN 100,000 UNITS/ML SUSP 5 ML ORAL.SUSP PO ×3 (08:08→17:00)
[2022-08-04] MEDS: PANTOPRAZOLE SODIUM IV 40 MG VIAL IV PUSH (08:08)
[2022-08-04] MEDS: BUMETANIDE INJ 1 MG/4 ML VIAL IV PUSH ×2 (09:35→18:29)
--- NOTE | 2022-08-04 10:12 | PM.PNGS ---
Progress Note: A&P Assessment and Plan (1) Gastric outlet obstruction: Code(s): K31.1 - Adult hypertrophic pyloric stenosis Status: Acute Assessment and Plan: NG placed yesterday. Continue NPO except ice chips. Monitor NG output. Could consider clamping trial in a couple days if output is decreasing. Consider advancement beyond obstruction to start enteral tube feedings eventually. (2) Intractable nausea and vomiting: Code(s): R11.2 - Nausea with vomiting, unspecified Status: Acute (3) Post-ERCP acute pancreatitis: Code(s): K91.89 - Other postprocedural complications and disorders of digestive system; K85.90 - Acute pancreatitis without necrosis or infection, unspecified Status: Acute Assessment and Plan: Family inquiring about steroids to treat residual inflammation/swelling of pancreas. I will defer this to Medicine/GI. (4) Asymptomatic gallstones: Code(s): K80.20 - Calculus of gallbladder without cholecystitis without obstruction Status: Chronic Assessment and Plan: Lap heidy will be delayed until pancreatic inflammation has resolved. She doesn't have any symptoms to suggest acute cholecystitis at this time. (5) Chronic anticoagulation: Code(s): Z79.01 - [employer] (current) use of anticoagulants Status: Acute (6) Paroxysmal atrial fibrillation: Code(s): I48.0 - Paroxysmal atrial fibrillation Status: Acute (7) Protein calorie malnutrition: Code(s): E46 - Unspecified protein-calorie malnutrition Status: Acute (8) Leukocytosis: Code(s): D72.829 - Elevated white blood cell count, unspecified Status: Acute Subjective Subjective Date/Time Seen: 08/04/22 10:12 Interval history: Mainly complains of thirst. Pain about the same. No more vomiting. Exam GI: Inspection: non-distended and obesity GI Palp: Yes Soft to palpation, Yes Tenderness to palpation present (GI) (epigastric), No Guarding due to palpation present (GI) and No Rebound tenderness present Objective Data Vital Signs Vital Signs: Vital Signs - 24 hr 08/03/22 14:20 08/04/22 00:00 08/04/22 08:40 Temperature 36.4 C 36.3 C L Pulse Rate 90 72 Respiratory Rate 20 20 Blood Pressure 157/75 H 165/72 H Pulse Oximetry 93 92 Oxygen Delivery Room Air Intake/Output Intake/Output: Intake & Output 08/01/22 08/02/22 08/03/22 08/04/22 23:59 23:59 23:59 23:59 Intake Total 2630 1720 3495 100 Output Total 700 1300 1200 500 Balance 2392 273 1023 -400 Meds/Results Medications: Active Medications Generic Name Dose Route Start Last Admin Trade Name Freq PRN Reason Stop Dose Admin Acetaminophen 650 mg 07/17/22 21:31 07/28/22 20:14 Acetaminophen 325 Mg Tablet PO 650 mg Q6H PRN Administration Mild Pain (1-3) or Fever Hydrocodone Bitart/Acetaminophen 1 tab 07/20/22 08:36 08/03/22 12:11 Hydrocodone/Acetaminophen (*Crx) 5-325 Mg Tablet PO 1 tab Q6H PRN Administration Pain Rated 4-6 Al Hydrox/Mg Hydrox/Simethicone 30 ml 07/22/22 04:11 08/03/22 08:08 Mag Hydrox/Al Hydrox/Simeth 30 Ml Udc PO 30 ml Q6H PRN Administration Indigestion Alprazolam 1 mg 08/02/22 21:00 08/04/22 00:04 Alprazolam (*Crx) 0.5 Mg Tablet PO Not Given HS DELILAH Lipase/Protease/Amylase 2 cap 07/21/22 08:00 08/04/22 08:07 Lipase/Amylase/Protease 12,000 Units Cap PO Not Given TIDWM [facility] Benzocaine 1 lozenge 08/04/22 10:09 Benzocaine/Menthol (*Bkc) 18 Ea Lozenge PO PRN PRN Sore Throat Bumetanide 1 mg 08/03/22 09:30 08/04/22 09:35 Bumetanide Inj 1 Mg/4 Ml Vial IV PUSH 08/04/22 17:31 1 mg 0930,1730 DELILAH Administration Dextrose 12.5 gm 08/03/22 11:16 Dextrose 50% 25 Gm/50 Ml Syringe IV PUSH PRN PRN Hypoglycemia Protocol Glucagon 1 mg 08/03/22 11:16 Glucagon For Inj 1 Mg Vial IM PRN PRN Hypoglycemia Protocol Glucose 15 gm
[2022-08-04 11:57] LABS: Glucose Point of Care 155 mg/dl (65-105)
[2022-08-04] MEDS: AMINO ACIDS 5%/D15W/E-LYTES/CA 2,000 ML with MULTIVITAMINS-12 INJ VIAL 1 2.5 ML, MULTIV... 40 ML IV CONT (12:05)
[2022-08-04] MEDS: KCL 20 MEQ/SW 100 ML 100 ML 50 MEQ IVPB (12:06)
[2022-08-04] MEDS: BENZOCAINE/MENTHOL (*BKC) 18 EA LOZENGE 1 LOZENGE PO (12:07)
--- NOTE | 2022-08-04 12:20 | P.PNNP_ITS ---
Progress Note: A&P Assessment and Plan (1) Anasarca: Code(s): R60.1 - Generalized edema Status: Acute Assessment and Plan: * localized to bilateral lower extremities with some concern with pulmonary involvement by CXR results * suspect this may have been precipitated diminished oral intake and low albumin possibly leading to 3rd spacing * good urine output with IV bumex use previously * on IV albumin chased by IV bumex to see if this will facilitate diuresis (should finish later today) * follow I/Os and renal function * replete K+ as needed (although the addition of aldactone should help) (2) Hypokalemia: Code(s): E87.6 - Hypokalemia Status: Acute Assessment and Plan: * suspect due to a combination of total body store depletion, vomiting (GI loss), and attempts at diuresis * given her vomiting issue, K+ being replaced IV * on aldactone and dosage has been increased * check magnesium intermittently (3) Intractable nausea and vomiting: Code(s): R11.2 - Nausea with vomiting, unspecified Status: Acute Assessment and Plan: * ongoing issue limiting oral intake * presumably related to pancreatitis * on antiemetics * follow clinical symptoms (4) Acute kidney injury: Code(s): N17.9 - Acute kidney failure, unspecified Status: Acute Assessment and Plan: * resolved * suspect VONNIE/ARF due to volume depletion and previous NPO status * imaging to date without obstruction * follow trend of repeat labs and UOP Will continue to follow. Subjective Date/time seen: 08/04/22 12:20 Upper GI series done yesterday confirmed gastric outlet obstruction and subsequently, NG placed for decompression; no further vomiting at this time but her abdominal pain persists; other other complaint is just feeling thirsty; tolerating IV albumin + IV bumex but since I/Os not being fully documented, difficult to say if achieving good diuresis although the patient reports increased urine output and her lower extremity edema seems better. Exam Narrative: General: elderly female in NAD Heart: normal S1 and S2; no rub Lungs: clear to auscultation Abdomen: soft, mild TTP, nondistended, positive bowel sounds Extremities: no cyanosis or clubbing; 1+ edema Skin: warm and dry Objective Data Vital Signs Vital Signs: Vital Signs Temp Pulse Resp BP Pulse Ox O2 Del Method 08/04/22 08:40 Room Air 03/05/23 00:00 97.4 F L 72 20 165/72 H 92 08/03/22 14:20 97.6 F 90 20 157/75 H 93 Intake/Output Intake/Output: Intake & Output 08/01/22 08/02/22 08/03/22 08/04/22 23:59 23:59 23:59 23:59 Intake Total 2630 1720 3495 2255 Output Total 700 1300 1200 500 Balance 2918 465 4115 1755 Meds/Results Medications: Active Medications Generic Name Dose Route Start Last Admin Trade Name Freq PRN Reason Stop Dose Admin Acetaminophen 650 mg 07/17/22 21:31 07/28/22 20:14 Acetaminophen 325 Mg Tablet PO 650 mg Q6H PRN Administration Mild Pain (1-3) or Fever Hydrocodone Bitart/Acetaminophen 1 tab 07/20/22 08:36 08/03/22 12:11 Hydrocodone/Acetaminophen (*Crx) 5-325 Mg Tablet PO 1 tab Q6H P
--- NOTE | 2022-08-04 12:20 | PM.PNNEP ---
Progress Note: A&P Assessment and Plan (1) Anasarca: Code(s): R60.1 - Generalized edema Status: Acute Assessment and Plan: localized to bilateral lower extremities with some concern with pulmonary involvement by CXR results suspect this may have been precipitated diminished oral intake and low albumin possibly leading to 3rd spacing good urine output with IV bumex use previously on IV albumin chased by IV bumex to see if this will facilitate diuresis (should finish later today) follow I/Os and renal function replete K+ as needed (although the addition of aldactone should help) (2) Hypokalemia: Code(s): E87.6 - Hypokalemia Status: Acute Assessment and Plan: suspect due to a combination of total body store depletion, vomiting (GI loss), and attempts at diuresis given her vomiting issue, K+ being replaced IV on aldactone and dosage has been increased check magnesium intermittently (3) Intractable nausea and vomiting: Code(s): R11.2 - Nausea with vomiting, unspecified Status: Acute Assessment and Plan: ongoing issue limiting oral intake presumably related to pancreatitis on antiemetics follow clinical symptoms (4) Acute kidney injury: Code(s): N17.9 - Acute kidney failure, unspecified Status: Acute Assessment and Plan: resolved suspect VONNIE/ARF due to volume depletion and previous NPO status imaging to date without obstruction follow trend of repeat labs and UOP Will continue to follow. Subjective Date/time seen: 08/04/22 12:20 Upper GI series done yesterday confirmed gastric outlet obstruction and subsequently, NG placed for decompression; no further vomiting at this time but her abdominal pain persists; other other complaint is just feeling thirsty; tolerating IV albumin + IV bumex but since I/Os not being fully documented, difficult to say if achieving good diuresis although the patient reports increased urine output and her lower extremity edema seems better. Exam Narrative: General: elderly female in NAD Heart: normal S1 and S2; no rub Lungs: clear to auscultation Abdomen: soft, mild TTP, nondistended, positive bowel sounds Extremities: no cyanosis or clubbing; 1+ edema Skin: warm and dry Objective Data Vital Signs Vital Signs: Vital Signs Temp Pulse Resp BP Pulse Ox O2 Del Method 08/04/22 08:40 Room Air 08/04/22 00:00 97.4 F L 72 20 165/72 H 92 08/03/22 14:20 97.6 F 90 20 157/75 H 93 Intake/Output Intake/Output: Intake & Output 08/01/22 08/02/22 08/03/22 08/04/22 23:59 23:59 23:59 23:59 Intake Total 2630 1720 3495 2255 Output Total 700 1300 1200 500 Balance 1608 028 8003 1755 Meds/Results Medications: Active Medications Generic Name Dose Route Start Last Admin Trade Name Freq PRN Reason Stop Dose Admin Acetaminophen 650 mg 07/17/22 21:31 07/28/22 20:14 Acetaminophen 325 Mg Tablet PO 650 mg Q6H PRN Administration Mild Pain (1-3) or Fever Hydrocodone Bitart/Acetaminophen 1 tab 07/20/22 08:36 08/03/22 12:11 Hydrocodone/Acetaminophen (*Crx) 5-325 Mg Tablet PO 1 tab Q6H PRN Administration Pain Rated 4-6 Al Hydrox/Mg Hydrox/Simethicone 30 ml 07/22/22 04:11 08/03/22 08:08 Mag Hydrox/Al Hydrox/Simeth 30 Ml Udc PO 30 ml Q6H PRN Administration Indigestion Alprazolam 1 mg 08/02/22 21:00 08/04/22 00:04 Alprazolam (*Crx) 0.5 Mg Tablet PO Not Given HS [facility] Lipase/Protease/Amylase 2 cap 07/21/22 08:00 08/04/22 12:06 Lipase/Amylase/Protease 12,000 Units Cap PO Not Given TIDWM [facility] Benzocaine 1 lozenge 08/04/22 10:09 08/04/22 12:07 Benzocaine/Menthol (*Bkc) 18 Ea Lozenge PO 1 lozenge PRN PRN Administration Sore Throat Bumetanide 1 mg 08/03/22 09:30 08/04/22 09:35 Bumetanide Inj 1 Mg/4 Ml Vial IV PUSH 08/04/22 17:31 1 mg 0930,1730 [facility] Administratio
--- NOTE | 2022-08-04 13:17 | PM.IMPN ---
Progress Note: A&P Assessment and Plan (1) Transaminitis: Code(s): R74.01 - Elevation of levels of liver transaminase levels Status: Acute Assessment and Plan: 76-year-old female with paroxysmal atrial fibrillation on chronic anticoagulation and hypertension who presented to the emergency department for evaluation of abdominal pain, transaminase was elevated, ? Right upper quadrant ultrasound with mild hepatomegaly and echogenic liver,?Partially contracted gallbladder with cholelithiasis.? MRCP was refused and hence underwent ERCP.? ERCP revealed no stones in the bile duct likely passed stones or sludge. post ERCP pancreatitis with elevated liver enzymes to? 5000.? Will? Need cholecystectomy as an outpatient basis. General surgery followed the patient.? Repeat CT with severe peripancreatic inflammation worsened with interval development of peripancreatic collections along with leucocytosis, Started on Zosyn. Continued to have pain, repeat CT ?Showed severe peripancreatic inflammation worsened with interval development of peripancreatic collections.(Urine negative for UTI) Also developed VONNIE. 08/04/2021 interval history: patient continued to complaint of abdominal pain nausea or vomiting, poor appetite, repeat CT scan of abdomen shows cholelithiasis and inflammatory around pancreas and pseudocyst, on 08/[address] Booth general surgeon and reviewd patient CT scan of abdomen showed significant inflammation around Pancrease and suspected patient has developed gastric outlet obstruction, upper gi series confirmed and surgeon has ordered NG tube, there is over 1700cc of bile like fluid has drained, patient and son are present in the room and gave updates, on 08/03 also called [facility] and spoke with Dr. Centeno Gi fellow and has accpeted the patient, once the bed available, will transfer the patient. (2) Abdominal pain: Code(s): R10.9 - Unspecified abdominal pain Status: Acute (3) Abnormal abdominal ultrasound: Code(s): R93.5 - Abnormal findings on diagnostic imaging of other abdominal regions, including retroperitoneum Status: Acute (4) Cholelithiasis: Code(s): K80.20 - Calculus of gallbladder without cholecystitis without obstruction Status: Deleted (5) Paroxysmal atrial fibrillation: Code(s): I48.0 - Paroxysmal atrial fibrillation Status: Acute (6) Chronic anticoagulation: Code(s): Z79.01 - [facility] (current) use of anticoagulants Status: Acute (7) Hypertension: Code(s): I10 - Essential (primary) hypertension Status: Acute Subjective Date/time seen: 08/04/22 13:17 76-year-old female with paroxysmal atrial fibrillation on chronic anticoagulation and hypertension who presented to the emergency department for evaluation of abdominal pain, transaminase was elevated, ? Right upper quadrant ultrasound with mild hepatomegaly and echogenic liver,?Partially contracted gallbladder with cholelithiasis.? MRCP was refused and hence underwent ERCP.? ERCP revealed no stones in the bile duct likely passed stones or sludge. post ERCP pancreatitis with elevated liver enzymes to? 5000.? Will? Need cholecystectomy as an outpatient basis. General surgery followed the patient.? Repeat CT with severe peripancreatic inflammation worsened with interval development of peripancreatic collections along with leucocytosis, Started on Zosyn. Continued to have pain, repeat CT ?Showed severe peripancreatic inflammation worsened with interval development of peripancreatic collections.(Urine negative for UTI) Also developed VONNIE. 08/04/2021 interval history: patient continued to complaint of abdominal pain nausea or vomiting, poor appetite, repeat CT scan of abdomen shows cholelithiasis and inflammatory around pancreas and pseudocyst, on 08/[address] Booth general surgeon and reviewd patient CT scan of abdomen showed significant inflammation around
[2022-08-04 14:57] VITALS: BP 143/62; PULSE 87; RESP 16; TEMP 36; O2SAT 92
[2022-08-04 15:47] LABS: SARS-CoV-2 RNA PCR Negative
[2022-08-04 18:20] LABS: Glucose Point of Care 158 mg/dl (65-105)
[2022-08-04 21:25] VITALS: BP 173/80; PULSE 92; RESP 20; TEMP 36.2; O2SAT 95
[2022-08-04 22:24] VITALS: BP 154/83; PULSE 79; RESP 18; TEMP 36.1; O2SAT 96
[2022-08-05 00:28] LABS: Glucose Point of Care 152 mg/dl (65-105)
[2022-08-05] MEDS: HYDROmorphone HCL INJ (*CRX) 1 MG/ML SYR 0.5 MG IV PUSH ×5 (00:29→23:14)
[2022-08-05 03:51] LABS: Basophils Percent Auto 0.2 % (0.2-1.2); Eosinophils Percent Auto 0.3 % (0-4.4); Hemoglobin 11.3 g/dL (12.0-15.0); Immature Granulocyte Absolute 0.07 K/mm3 (0.00-0.031); Immature Granulocyte Percent A 0.6 % (0-0.5); Lymphocytes Absolute Auto 0.45 K/mm3 (0.9-3.2); Mean Corpuscular HGB Conc 31.4 g/dl (32-36); Mean Corpuscular Hemoglobin 28.1 pg (26-34); Mean Corpuscular Volume 89.6 fl (80-100); Mean Platelet Volume 11.3 fl (7.4-10.4); Monocytes Absolute Auto 0.7 K/mm3 (0.1-0.6); Monocytes Percent Auto 6.5 % (2.6-8.5); Neutrophils Percent Auto 88.4 % (45.5-73.1); Platelet Count Result 288 k/mm3 (150-375); Red Blood Count 4.02 M/mm3 (4.2-5.4); Red Cell Distribution Width 15.6 % (11.5-14.5); White Blood Count 11.3 K/mm3 (4.5-10.0)
[2022-08-05 04:02] LABS: Alanine Aminotransferase 22 U/L (6-35); Albumin Level 3.1 g/dL (3.5-5.1); Alkaline Phosphatase 79 U/L (38-126); Anion Gap 7 mmol/L (8-16); Aspartate Amino Transferase 32 U/L (14-36); Bilirubin,Total 1.8 mg/dL (0.2-1.3); Blood Urea Nitrogen 37 mg/dL (7-17); Calcium 8.7 mg/dL (8.4-10.2); Carbon Dioxide 38 mmol/L (22-30); Chloride 103 mmol/L (98-107); Estimated CRCL calculation 59 ml/min; Estimated Glomerular Filt Rate > 60; Glucose 167 mg/dL (65-110); INR 1.3; Lipase 94 U/L (23-300); Partial Thromboplastin Time 24.8 SECONDS (22.3-36.8); Phosphorus 3.3 mg/dL (2.5-4.5); Potassium 3.2 mmol/L (3.4-5.0); Prothrombin Time 15.9 Seconds (11.1-14.7); Sodium 148 mmol/L (137-145); Triglycerides 104 mg/dL (<150)
[2022-08-05 04:11] LABS: Transferrin < 80 mg/dL (206-381)
[2022-08-05] MEDS: MAGNES & ALUM HYD/SIMETH/DIPHENHYD/LIDOCAINE 119 ML MOUTHWASH BY MOUTH ×2 (05:42→09:46)
[2022-08-05 05:53] VITALS: BP 139/80; PULSE 85; RESP 20; TEMP 36.1; O2SAT 92
[2022-08-05] MEDS: CENTRAL LINE FLUSH 10 ML IV PUSH ×3 (06:02→22:32)
[2022-08-05 07:11] LABS: Glucose Point of Care 163 mg/dl (65-105)
[2022-08-05 08:00] VITALS: BP 141/57; PULSE 90; RESP 14; TEMP 36.2; O2SAT 97
[2022-08-05 08:17] LABS: Glucose Point of Care 168 mg/dl (65-105)
[2022-08-05] MEDS: KCL 20 MEQ/SW 100 ML 100 ML 50 MEQ IVPB (08:51)
--- NOTE | 2022-08-05 09:18 | PM.PNGS ---
Progress Note: A&P Assessment and Plan (1) Gastric outlet obstruction: Code(s): K31.1 - Adult hypertrophic pyloric stenosis Status: Acute Assessment and Plan: cont NG decompression, cont to treat pancreatitis (2) Post-ERCP acute pancreatitis: Code(s): K91.89 - Other postprocedural complications and disorders of digestive system; K85.90 - Acute pancreatitis without necrosis or infection, unspecified Status: Acute Assessment and Plan: awaiting transfer to [facility] (3) Cholelithiasis: Code(s): K80.20 - Calculus of gallbladder without cholecystitis without obstruction Status: Acute Assessment and Plan: will need interval heidy in the future Subjective Subjective Date/Time Seen: 08/05/22 09:18 no acute issues, still awaiting transfer to [facility] Review of Systems Review of Systems: All systems reviewed & are unremarkable except as noted in HPI and below Exam Const: General: cooperative, acute distress mild, ill appearing and uncomfortable Resp: Auscultation: diminished lung sounds Cardio: Rate: regular rate Rhythm: regular rhythm GI: Inspection: normal to inspection and distended GI Palp: Yes abdominal tenderness, Yes Soft to palpation, Yes Tenderness to palpation present (GI), No Guarding due to palpation present (GI) and No Rigid due to palpation Objective Data Vital Signs Vital Signs: Vital Signs - 24 hr 08/04/22 14:57 08/04/22 21:25 08/04/22 22:24 Temperature 36.0 C L 36.2 C L 36.1 C L Pulse Rate 87 92 79 Respiratory Rate 16 20 18 Blood Pressure 143/62 H 173/80 H 154/83 H Pulse Oximetry 92 95 96 08/05/22 05:53 Temperature 36.1 C L Pulse Rate 85 Respiratory Rate 20 Blood Pressure 139/80 Pulse Oximetry 92 Intake/Output Intake/Output: Intake & Output 08/02/22 08/03/22 08/04/22 08/05/22 23:59 23:59 23:59 23:59 Intake Total 1720 3495 2505 100 Output Total 1300 1200 800 650 Balance 420 2295 1705 -550 Meds/Results Medications: Active Medications Generic Name Dose Route Start Last Admin Trade Name Freq PRN Reason Stop Dose Admin Acetaminophen 650 mg 07/17/22 21:31 07/28/22 20:14 Acetaminophen 325 Mg Tablet PO 650 mg Q6H PRN Administration Mild Pain (1-3) or Fever Hydrocodone Bitart/Acetaminophen 1 tab 07/20/22 08:36 08/03/22 12:11 Hydrocodone/Acetaminophen (*Crx) 5-325 Mg Tablet PO 1 tab Q6H PRN Administration Pain Rated 4-6 Al Hydrox/Mg Hydrox/Simethicone 30 ml 07/22/22 04:11 08/03/22 08:08 Mag Hydrox/Al Hydrox/Simeth 30 Ml Udc PO 30 ml Q6H PRN Administration Indigestion Alprazolam 1 mg 08/02/22 21:00 08/04/22 20:16 Alprazolam (*Crx) 0.5 Mg Tablet PO Not Given HS DELILAH Lipase/Protease/Amylase 2 cap 07/21/22 08:00 08/04/22 16:42 Lipase/Amylase/Protease 12,000 Units Cap PO Not Given TIDWM DELIL[facility] Benzocaine 1 lozenge 08/04/22 10:09 08/04/22 12:07 Benzocaine/Menthol (*Bkc) 18 Ea Lozenge PO 1 lozenge PRN PRN Administration Sore Throat Bumetanide 1 mg 08/03/22 09:30 08/04/22 18:29 Bumetanide Inj 1 Mg/4 Ml Vial IV PUSH 08/06/22 09:31 1 mg 0930,1730 DELILAH Administration Dextrose 12.5 gm 08/03/22 11:16 Dextrose 50% 25 Gm/50 Ml Syringe IV PUSH PRN PRN Hypoglycemia Protocol Glucagon 1 mg 08/03/22 11:16 Glucagon For Inj 1 Mg Vial IM PRN PRN Hypoglycemia Protocol Glucose 15 gm 08/03/22 11:16 Glucose Oral Gel 15 Gm Of Glucse In 37.5 Gm Tube PO PRN PRN Hypoglycemia Protocol Hydralazine HCl 10 mg 07/18/22 23:17 08/02/22 07:12 Hydralazine Hcl 20 Mg/Ml Vial IV PUSH 10 mg Q6H PRN Administration SBP > 165 or DBP > 105 Hydromorphone HCl 0.5 mg 08/03/22 09:34 08/05/22 08:54 Hydromorphone Hcl Inj (*Crx) 1 Mg/Ml Syr IV PUSH 0.5 mg Q3H PRN Administration Pain Rated 7-10 Imipenem/Cilastatin Sodium 400 100 mls @ 300 mls/hr 08/01/22 13:00 08/05/22 05:42 mg/ Sodium Ch
[2022-08-05] MEDS: BUMETANIDE INJ 1 MG/4 ML VIAL IV PUSH (09:46)
[2022-08-05] MEDS: PANTOPRAZOLE SODIUM IV 40 MG VIAL IV PUSH (09:46)
[2022-08-05] MEDS: NYSTATIN 100,000 UNITS/ML SUSP 5 ML ORAL.SUSP PO (09:46)
[2022-08-05] MEDS: ALBUMIN HUMAN 25% 12.5 GM/50ML 50 ML IVPB (09:53)
--- NOTE | 2022-08-05 10:54 | P.PNNP_ITS ---
Progress Note: A&P Assessment and Plan (1) Anasarca: Code(s): R60.1 - Generalized edema Status: Acute Assessment and Plan: * localized to bilateral lower extremities with some concern with pulmonary involvement by CXR results * suspect this may have been precipitated diminished oral intake and low albumin possibly leading to 3rd spacing * good urine output with IV bumex use previously * s/p IV albumin chased by IV bumex to see if this will facilitate diuresis (will stop today given rising sodium) * follow I/Os and renal function * replete K+ as needed (although the addition of aldactone should help) (2) Hypokalemia: Code(s): E87.6 - Hypokalemia Status: Acute Assessment and Plan: * suspect due to a combination of total body store depletion, vomiting (GI loss), and attempts at diuresis * given her vomiting issue, K+ being replaced IV * on aldactone and dosage has been increased * check magnesium intermittently (3) Intractable nausea and vomiting: Code(s): R11.2 - Nausea with vomiting, unspecified Status: Acute Assessment and Plan: * ongoing issue limiting oral intake * presumably related to pancreatitis and gastric outlet obstruction * on antiemetics and NG tube in place * follow clinical symptoms (4) Acute kidney injury: Code(s): N17.9 - Acute kidney failure, unspecified Status: Acute Assessment and Plan: * resolved * suspect VONNIE/ARF due to volume depletion and previous NPO status * imaging to date without obstruction * follow trend of repeat labs and UOP Will continue to follow. Subjective Date/time seen: 08/05/22 10:54 LE edema seems a bit better with IV albumin + IV bumex with stable renal function although her sodium level is starting to rise as noted by AM labs; still has on/off abdominal pain and does not really appear any better at this time; no issues overnight or earlier this AM. Exam Narrative: General: elderly female in NAD Heart: normal S1 and S2; no rub Lungs: clear to auscultation Abdomen: soft, mild TTP, nondistended, positive bowel sounds Extremities: no cyanosis or clubbing; trace - 1+ edema Skin: warm and dry Objective Data Vital Signs Vital Signs: Vital Signs Temp Pulse Resp BP Pulse Ox 08/05/22 05:53 97 F L 85 20 139/80 92 08/04/22 22:24 96.9 F L 79 18 154/83 H 96 08/04/22 21:25 97.2 F L 92 20 173/80 H 95 08/04/22 14:57 96.8 F L 87 16 143/62 H 92 Intake/Output Intake/Output: Intake & Output 08/02/22 08/03/22 08/04/22 08/05/22 23:59 23:59 23:59 23:59 Intake Total 1720 3495 2505 100 Output Total 1300 1200 800 650 Balance 420 2295 1705 -550 Meds/Results Medications: Active Medications Generic Name Dose Route Start Last Admin Trade Name Freq PRN Reason Stop Dose Admin Acetaminophen 650 mg 07/17/22 21:31 07/28/22 20:14 Acetaminophen 325 Mg Tablet PO 650 mg Q6H PRN Administration Mild Pain (1-3) or Fever Hydrocodone Bitart/Acetaminophen 1 tab 07/20/22 08:36 08/03/22 12:11 Hydrocodone/Acetaminophen (*Crx) 5-325 Mg Tablet PO 1 tab Q6H PRN Administration Pain Rated 4-6
--- NOTE | 2022-08-05 10:54 | PM.PNNEP ---
Progress Note: A&P Assessment and Plan (1) Anasarca: Code(s): R60.1 - Generalized edema Status: Acute Assessment and Plan: localized to bilateral lower extremities with some concern with pulmonary involvement by CXR results suspect this may have been precipitated diminished oral intake and low albumin possibly leading to 3rd spacing good urine output with IV bumex use previously s/p IV albumin chased by IV bumex to see if this will facilitate diuresis (will stop today given rising sodium) follow I/Os and renal function replete K+ as needed (although the addition of aldactone should help) (2) Hypokalemia: Code(s): E87.6 - Hypokalemia Status: Acute Assessment and Plan: suspect due to a combination of total body store depletion, vomiting (GI loss), and attempts at diuresis given her vomiting issue, K+ being replaced IV on aldactone and dosage has been increased check magnesium intermittently (3) Intractable nausea and vomiting: Code(s): R11.2 - Nausea with vomiting, unspecified Status: Acute Assessment and Plan: ongoing issue limiting oral intake presumably related to pancreatitis and gastric outlet obstruction on antiemetics and NG tube in place follow clinical symptoms (4) Acute kidney injury: Code(s): N17.9 - Acute kidney failure, unspecified Status: Acute Assessment and Plan: resolved suspect VONNIE/ARF due to volume depletion and previous NPO status imaging to date without obstruction follow trend of repeat labs and UOP Will continue to follow. Subjective Date/time seen: 08/05/22 10:54 LE edema seems a bit better with IV albumin + IV bumex with stable renal function although her sodium level is starting to rise as noted by AM labs; still has on/off abdominal pain and does not really appear any better at this time; no issues overnight or earlier this AM. Exam Narrative: General: elderly female in NAD Heart: normal S1 and S2; no rub Lungs: clear to auscultation Abdomen: soft, mild TTP, nondistended, positive bowel sounds Extremities: no cyanosis or clubbing; trace - 1+ edema Skin: warm and dry Objective Data Vital Signs Vital Signs: Vital Signs Temp Pulse Resp BP Pulse Ox 08/05/22 05:53 97 F L 85 20 139/80 92 08/04/22 22:24 96.9 F L 79 18 154/83 H 96 08/04/22 21:25 97.2 F L 92 20 173/80 H 95 08/04/22 14:57 96.8 F L 87 16 143/62 H 92 Intake/Output Intake/Output: Intake & Output 08/02/22 08/03/22 08/04/22 08/05/22 23:59 23:59 23:59 23:59 Intake Total 1720 3495 2505 100 Output Total 1300 1200 800 650 Balance 420 2295 1705 -550 Meds/Results Medications: Active Medications Generic Name Dose Route Start Last Admin Trade Name Freq PRN Reason Stop Dose Admin Acetaminophen 650 mg 07/17/22 21:31 07/28/22 20:14 Acetaminophen 325 Mg Tablet PO 650 mg Q6H PRN Administration Mild Pain (1-3) or Fever Hydrocodone Bitart/Acetaminophen 1 tab 07/20/22 08:36 08/03/22 12:11 Hydrocodone/Acetaminophen (*Crx) 5-325 Mg Tablet PO 1 tab Q6H PRN Administration Pain Rated 4-6 Al Hydrox/Mg Hydrox/Simethicone 30 ml 07/22/22 04:11 08/03/22 08:08 Mag Hydrox/Al Hydrox/Simeth 30 Ml Udc PO 30 ml Q6H PRN Administration Indigestion Alprazolam 1 mg 08/02/22 21:00 08/04/22 20:16 Alprazolam (*Crx) 0.5 Mg Tablet PO Not Given HS DELILAH Lipase/Protease/Amylase 2 cap 07/21/22 08:00 08/04/22 16:42 Lipase/Amylase/Protease 12,000 Units Cap PO Not Given TIDWM DELILAH Benzocaine 1 lozenge 08/04/22 10:09 08/04/22 12:07 Benzocaine/Menthol (*Bkc) 18 Ea Lozenge PO 1 lozenge PRN PRN Administration Sore Throat Bumetanide 1 mg 08/03/22 09:30 08/05/22 09:46 Bumetanide Inj 1 Mg/4 Ml Vial IV PUSH 08/06/22 09:31 1 mg 0930,1730 DELILAH Administration Dextrose 12.5 gm 08/03/22 11:16 Dextrose 50%
[2022-08-05 11:53] LABS: Glucose Point of Care 179 mg/dl (65-105)
--- NOTE | 2022-08-05 12:27 | PM.IMPN ---
Progress Note: A&P Assessment and Plan (1) Transaminitis: Code(s): R74.01 - Elevation of levels of liver transaminase levels Status: Acute Assessment and Plan: 76-year-old female with paroxysmal atrial fibrillation on chronic anticoagulation and hypertension who presented to the emergency department for evaluation of abdominal pain, transaminase was elevated, ? Right upper quadrant ultrasound with mild hepatomegaly and echogenic liver,?Partially contracted gallbladder with cholelithiasis.? MRCP was refused and hence underwent ERCP.? ERCP revealed no stones in the bile duct likely passed stones or sludge. post ERCP pancreatitis with elevated liver enzymes to? 5000.? Will? Need cholecystectomy as an outpatient basis. General surgery followed the patient.? Repeat CT with severe peripancreatic inflammation worsened with interval development of peripancreatic collections along with leucocytosis, Started on Zosyn. Continued to have pain, repeat CT ?Showed severe peripancreatic inflammation worsened with interval development of peripancreatic collections.(Urine negative for UTI) Also developed VONNIE. 08/05/2021 interval history: patient continued to complaint of abdominal pain nausea or vomiting, poor appetite, repeat CT scan of abdomen shows cholelithiasis and inflammatory around pancreas and pseudocyst, on 08/03 patient was seen by Dr. Booth general surgeon and reviewed patient CT scan of abdomen showed significant inflammation around Pancrease and suspected patient has developed gastric outlet obstruction, upper gi series confirmed and surgeon has ordered NG tube, there is over 2350cc of bile like fluid has drained, today stats she is passing little gas, No BM, patient's daughter is present in the room and gave updates, on 08/03 also called [facility] and spoke with Dr. Centeno Gi fellow and has accepted the patient, once the bed available, will transfer the patient. (2) Abdominal pain: Code(s): R10.9 - Unspecified abdominal pain Status: Acute (3) Abnormal abdominal ultrasound: Code(s): R93.5 - Abnormal findings on diagnostic imaging of other abdominal regions, including retroperitoneum Status: Acute (4) Cholelithiasis: Code(s): K80.20 - Calculus of gallbladder without cholecystitis without obstruction Status: Deleted (5) Paroxysmal atrial fibrillation: Code(s): I48.0 - Paroxysmal atrial fibrillation Status: Acute (6) Chronic anticoagulation: Code(s): Z79.01 - skimmer (current) use of anticoagulants Status: Acute (7) Hypertension: Code(s): I10 - Essential (primary) hypertension Status: Acute Subjective Date/time seen: 08/05/22 12:27 76-year-old female with paroxysmal atrial fibrillation on chronic anticoagulation and hypertension who presented to the emergency department for evaluation of abdominal pain, transaminase was elevated, ? Right upper quadrant ultrasound with mild hepatomegaly and echogenic liver,?Partially contracted gallbladder with cholelithiasis.? MRCP was refused and hence underwent ERCP.? ERCP revealed no stones in the bile duct likely passed stones or sludge. post ERCP pancreatitis with elevated liver enzymes to? 5000.? Will? Need cholecystectomy as an outpatient basis. General surgery followed the patient.? Repeat CT with severe peripancreatic inflammation worsened with interval development of peripancreatic collections along with leucocytosis, Started on Zosyn. Continued to have pain, repeat CT ?Showed severe peripancreatic inflammation worsened with interval development of peripancreatic collections.(Urine negative for UTI) Also developed VONNIE. 08/05/2021 interval history: patient continued to complaint of abdominal pain nausea or vomiting, poor appetite, repeat CT scan of abdomen shows cholelithiasis and inflammatory around pancreas and pseudocyst, on 08/03 patient was seen by Dr. Booth general surgeon and reviewed patient CT scan o
[2022-08-05] MEDS: AMINO ACIDS 5%/D15W/E-LYTES/CA 2,000 ML with MULTIVITAMINS-12 INJ VIAL 1 2.5 ML, MULTIV... 40 ML IV CONT (14:23)
[2022-08-05] MEDS: CENTRAL LINE FLUSH 20 ML IV PUSH (17:15)
[2022-08-05 17:17] LABS: Glucose Point of Care 183 mg/dl (65-105)
--- NOTE | 2022-08-05 21:01 | PC.NURSE ---
Re: non-administered medication on 08/05/22: numerous medication documented as not given with reason see notes r/t unclear documentation from previous shift RN in attempt to accurately document medication administration correctly moving forward. -0800 medication Creon not given ; 0900 medications documented as not given include: spironolactone, sotalol, simethicone, sertraline, and --losartan -1200 medication Creon and insulin not given -1300 medications not given include: simethicone, nystatin, and mag&al/sim/diphenhyd/lidocaine 5ml -1700 medication not given includes: nystatin, mag&al/sim/diphenhyd/lidocaine 5ml, and simethicone -1800 insulin not given Additionally, pain reassessments for 0924 and 1530 documented as not done , as it was not documented against from previous RN.
[2022-08-06] VITALS (7 sets, daily range): BP systolic 121–175; BP diastolic 57–78; PULSE 76–105; RESP 16–22; TEMP 36.1–36.3; O2SAT 90–96
[2022-08-06 00:15] LABS: Glucose Point of Care 180 mg/dl (65-105)
[2022-08-06] MEDS: MAGNES & ALUM HYD/SIMETH/DIPHENHYD/LIDOCAINE 119 ML MOUTHWASH BY MOUTH ×2 (01:08→21:42)
[2022-08-06 06:32] LABS: Hematocrit 36.4 % (37.0-47.0); Hemoglobin 11.3 g/dL (12.0-15.0); Mean Corpuscular Hemoglobin 28.6 pg (26-34); Mean Corpuscular Volume 92.2 fl (80-100); Mean Platelet Volume 11.6 fl (7.4-10.4); Platelet Count Result 265 k/mm3 (150-375); Red Blood Count 3.95 M/mm3 (4.2-5.4); Red Cell Distribution Width 15.7 % (11.5-14.5); White Blood Count 7.9 K/mm3 (4.5-10.0)
[2022-08-06 06:46] LABS: Alanine Aminotransferase 20 U/L (6-35); Albumin Level 2.9 g/dL (3.5-5.1); Alkaline Phosphatase 75 U/L (38-126); Aspartate Amino Transferase 27 U/L (14-36); Bilirubin,Total 1.8 mg/dL (0.2-1.3); Blood Urea Nitrogen 40 mg/dL (7-17); Calcium 8.9 mg/dL (8.4-10.2); Carbon Dioxide > 40 mmol/L (22-30); Chloride 104 mmol/L (98-107); Estimated CRCL calculation 57 ml/min; Estimated Glomerular Filt Rate > 60; Glucose 182 mg/dL (65-110); Lipase 39 U/L (23-300); Phosphorus 3.8 mg/dL (2.5-4.5); Potassium 2.5 mmol/L (3.4-5.0); Sodium 149 mmol/L (137-145)
--- NOTE | 2022-08-06 07:15 | WPDGIPROGNO ---
Progress Note: A&P Assessment and Plan (1) Gastric outlet obstruction: Code(s): K31.1 - Adult hypertrophic pyloric stenosis Status: Acute Assessment and Plan: patient seen yesterday by , who ordered upper GI. This confirms his suspicion That she had gastric outlet obstructiondue to the edema surrounding the pancreas . upper GI revealed:1. Large volume of fluid in the stomach despite the patient reporting only sips of water today, likely gastric outlet obstruction secondary to pancreatitis. 2. Spontaneous gastroesophageal reflux. 1200 cc has been withdrawn by NG tube already (2) Abdominal pain: Code(s): R10.9 - Unspecified abdominal pain Status: Acute Assessment and Plan: This appears to be due to cholelithiasis with choledocholithiasis. Patient asked, appropriately, it would be simpler to simply have surgery. I explained that if stones are the bile duct surgical removal would require common bile duct exploration and possible T-tube, an open procedure. We will recheck her labs and see if perhaps they have returned to normal in which case there may not be a need for ERCP. 07/19/2022 she is having significant pain today beginning with past evening. I suspect that she has pancreatitis. Lipase has been ordered but is pending. the current regimen is not controlling her pain. I will increase her hydromorphone to 1 mg every 2-3 hours 07/20/2022 much less pain today. She is not needing pain medication nearly as often. Now her pain is back to where was on admission, primarily epigastric area 07/21/2022 today she says her pain is a little more generalized than it was but still mostly epigastric. her states that she has been out of it this morning. I explained to the patient and family that we would like to get her off Dilaudid which she has been requesting regularly. I explained her that this may be causing some of her nausea and certainly some of her mental status changes, Sedation. she is finally been encouraged to cut back on pain medication. She was getting very sedated and also hypoxic. 07/24/2022 she is still having pain which is constant, diffuse, and somewhat tender on physical exam. She again declines CT with contrast. I will give her laxative because she has not had a bowel movement for few days. Hopefully that will help. 07/26/[address] scan without contrast did reveal peripancreatic inflammation. Nothing to indicate abscess. White blood count is higher. She has been started on Zosyn empirically although her procalcitonins have been normal up to this point. 07/29/2022 pain is better each day and is more localized to the epigastric area. She finds it is more tolerable, and is able to walk around now. 07/31/2022 I am concerned that her pain seems to be worse today. There was a slight increase her weight blood count as well although which remains afebrile 08/01/2022 she is more concerned about vomiting today than pain although she does continue to have generalized discomfort in the form of full sensation. She feels full of gas. 08/02 no significant change today. 08/03/2022. She feels that she may be a little better today. She has not been requesting pain medication as often as she had been. I noticed that the hydromorphone dose was somehow reduced to 0.2 mg and I will increase that to 0.5. she is despondent that she has not yet been transferred to [place]. I did Explain to her that they rarely except patients on the weekend. 08/06/2022 she states that she is having less pain. She feels that the NG tube has helped with that. (3) Transaminitis: Code(s): R74.01 - Elevation of levels of liver transaminase levels Status: Acute Assessment and Plan: Enzyme elevations consistent with choledocholithiasis. I discussed with her ERCP and how it would be the means of removing stones from the bile duct. I explained th
[2022-08-06] MEDS: KCL 40 MEQ/WATER 100 ML 100 ML 25 ML IVPB ×2 (08:44→13:40)
[2022-08-06] MEDS: LORazepam INJ (*CRX) 2 MG/ML VIAL 0.5 MG IV PUSH ×2 (08:50→18:23)
[2022-08-06] MEDS: CENTRAL LINE FLUSH 10 ML IV PUSH ×3 (08:52→22:12)
[2022-08-06] MEDS: PANTOPRAZOLE SODIUM IV 40 MG VIAL IV PUSH (08:52)
--- NOTE | 2022-08-06 09:35 | P.PNNP_ITS ---
Progress Note: A&P Assessment and Plan (1) Anasarca: Code(s): R60.1 - Generalized edema Status: Acute Assessment and Plan: * localized to bilateral lower extremities * suspect this may have been precipitated diminished oral intake and low albumin possibly leading to 3rd spacing * good urine output with IV bumex use previously * s/p IV albumin chased by IV bumex to see if this will facilitate diuresis (stopped 08/05/22 due to rising CO2 and sodium) * may need D5W IVFs... * follow I/Os and renal function * replete K+ as needed (although the addition of aldactone should help) (2) Hypokalemia: Code(s): E87.6 - Hypokalemia Status: Acute Assessment and Plan: * suspect due to a combination of total body store depletion, vomiting (GI loss), and previous attempts at diuresis * given her vomiting issues, K+ being replaced IV * on aldactone and dosage has been increased * check magnesium intermittently (3) Intractable nausea and vomiting: Code(s): R11.2 - Nausea with vomiting, unspecified Status: Acute Assessment and Plan: * ongoing issue limiting oral intake * presumably related to pancreatitis and gastric outlet obstruction * on antiemetics and NG tube in place * follow clinical symptoms (4) Acute kidney injury: Code(s): N17.9 - Acute kidney failure, unspecified Status: Acute Assessment and Plan: * resolved * suspect VONNIE/ARF due to volume depletion and previous NPO status * imaging to date without obstruction * follow trend of repeat labs and UOP Will continue to follow. Subjective Date/time seen: 08/06/22 09:35 IV albumin + IV bumex discontinued yesterday due to her rising sodium level - LE edema is better but difficult to fully assess how much this helped as urine output not fully documented and daily weights do not seem accurate given the wide fluctuations in readings; feels a little better today. Exam Narrative: General: elderly female in NAD Heart: normal S1 and S2; no rub Lungs: clear to auscultation Abdomen: soft, mild TTP, nondistended, positive bowel sounds Extremities: no cyanosis or clubbing; trace - 1+ edema Skin: warm and dry Objective Data Vital Signs Vital Signs: Vital Signs Temp Pulse Resp BP Pulse Ox 08/06/22 06:59 96.9 F L 76 22 H 175/76 H 94 08/06/22 00:00 97.4 F L 82 20 151/72 H 90 Intake/Output Intake/Output: Intake & Output 08/03/22 08/04/22 08/05/22 08/06/22 23:59 23:59 23:59 23:59 Intake Total 3495 2505 2405 100 Output Total 1200 879 019 1707 Balance 2295 1705 1755 -2200 Meds/Results Medications: Active Medications Generic Name Dose Route Start Last Admin Trade Name Freq PRN Reason Stop Dose Admin Acetaminophen 650 mg 07/17/22 21:31 07/28/22 20:14 Acetaminophen 325 Mg Tablet PO 650 mg Q6H PRN Administration Mild Pain (1-3) or Fever Hydrocodone Bitart/Acetaminophen 1 tab 07/20/22 08:36 08/03/22 12:11 Hydrocodone/Acetaminophen (*Crx) 5-325 Mg Tablet PO 1 tab Q6H PRN Administration Pain Rated 4-6 Al Hydrox/Mg Hydrox/Simethicone 30 ml 07/22/22 04:11 08/03/22 08:08 Mag Hydrox/Al
--- NOTE | 2022-08-06 09:35 | PM.PNNEP ---
Progress Note: A&P Assessment and Plan (1) Anasarca: Code(s): R60.1 - Generalized edema Status: Acute Assessment and Plan: localized to bilateral lower extremities suspect this may have been precipitated diminished oral intake and low albumin possibly leading to 3rd spacing good urine output with IV bumex use previously s/p IV albumin chased by IV bumex to see if this will facilitate diuresis (stopped 08/05/22 due to rising CO2 and sodium) may need D5W IVFs... follow I/Os and renal function replete K+ as needed (although the addition of aldactone should help) (2) Hypokalemia: Code(s): E87.6 - Hypokalemia Status: Acute Assessment and Plan: suspect due to a combination of total body store depletion, vomiting (GI loss), and previous attempts at diuresis given her vomiting issues, K+ being replaced IV on aldactone and dosage has been increased check magnesium intermittently (3) Intractable nausea and vomiting: Code(s): R11.2 - Nausea with vomiting, unspecified Status: Acute Assessment and Plan: ongoing issue limiting oral intake presumably related to pancreatitis and gastric outlet obstruction on antiemetics and NG tube in place follow clinical symptoms (4) Acute kidney injury: Code(s): N17.9 - Acute kidney failure, unspecified Status: Acute Assessment and Plan: resolved suspect VONNIE/ARF due to volume depletion and previous NPO status imaging to date without obstruction follow trend of repeat labs and UOP Will continue to follow. Subjective Date/time seen: 08/06/22 09:35 IV albumin + IV bumex discontinued yesterday due to her rising sodium level - LE edema is better but difficult to fully assess how much this helped as urine output not fully documented and daily weights do not seem accurate given the wide fluctuations in readings; feels a little better today. Exam Narrative: General: elderly female in NAD Heart: normal S1 and S2; no rub Lungs: clear to auscultation Abdomen: soft, mild TTP, nondistended, positive bowel sounds Extremities: no cyanosis or clubbing; trace - 1+ edema Skin: warm and dry Objective Data Vital Signs Vital Signs: Vital Signs Temp Pulse Resp BP Pulse Ox 08/06/22 06:59 96.9 F L 76 22 H 175/76 H 94 08/06/22 00:00 97.4 F L 82 20 151/72 H 90 Intake/Output Intake/Output: Intake & Output 08/03/22 08/04/22 08/05/22 08/06/22 23:59 23:59 23:59 23:59 Intake Total 3495 2505 2405 100 Output Total 1200 600 899 8470 Balance 2295 1705 1755 -2200 Meds/Results Medications: Active Medications Generic Name Dose Route Start Last Admin Trade Name Freq PRN Reason Stop Dose Admin Acetaminophen 650 mg 07/17/22 21:31 07/28/22 20:14 Acetaminophen 325 Mg Tablet PO 650 mg Q6H PRN Administration Mild Pain (1-3) or Fever Hydrocodone Bitart/Acetaminophen 1 tab 07/20/22 08:36 08/03/22 12:11 Hydrocodone/Acetaminophen (*Crx) 5-325 Mg Tablet PO 1 tab Q6H PRN Administration Pain Rated 4-6 Al Hydrox/Mg Hydrox/Simethicone 30 ml 07/22/22 04:11 08/03/22 08:08 Mag Hydrox/Al Hydrox/Simeth 30 Ml Udc PO 30 ml Q6H PRN Administration Indigestion Alprazolam 1 mg 08/02/22 21:00 08/06/22 00:30 Alprazolam (*Crx) 0.5 Mg Tablet PO Not Given HS DELILAH Lipase/Protease/Amylase 2 cap 07/21/22 08:00 08/06/22 08:52 Lipase/Amylase/Protease 12,000 Units Cap PO Not Given TIDWM DELILAH Benzocaine 1 lozenge 08/04/22 10:09 08/04/22 12:07 Benzocaine/Menthol (*Bkc) 18 Ea Lozenge PO 1 lozenge PRN PRN Administration Sore Throat Dextrose 12.5 gm 08/03/22 11:16 Dextrose 50% 25 Gm/50 Ml Syringe IV PUSH PRN PRN Hypoglycemia Protocol Glucagon 1 mg 08/03/22 11:16 Glucagon For Inj 1 Mg Vial IM PRN PRN Hypoglycemia Protocol Glucose 15 gm 08/03/22 11:16 Glucose
--- NOTE | 2022-08-06 10:17 | PCNFU ---
Nutrition Follow-Up Complete: Inadequate energy intake related to nausea and vomiting, as evidenced by poor appetite and need for full TPN Goal:Tolerate TPN at goal rate Meet estimated nutrition needs Pt current nutrition is NPO, on TPN for nutrition. Nutrition recommendation: Consider increasing TPN to Last recorded weight is 109.1 kg - stable. Bowel Motility: +BM / Labs Reviewed: Hgb:11.3, HCT:36.4, Na:149, K:2.5 - on KCL, BUN:40 Meds Noted: heparin, novolog, KCL, protonix Skin: WNL Additional Notes: pt on TPN for nutrition support. TPN 10/14 running at 40ml/hr per previous rec to provide 1182kcals, 48g protein, 1210ml fluid. Recommend to consider increasing TPN to 60ml/hr to provide 1522kcals, 72g protein and closer meet estimated needs. Monitor TPN tolerance, diet advancement, labs, weights, plan of care Follow up Friday and Friday
[2022-08-06 11:36] LABS: Glucose Point of Care 174 mg/dl (65-105)
[2022-08-06] MEDS: HEPARIN SODIUM 5,000 UNITS/ML VIAL 5000 UNITS SUB-Q ×2 (13:42→21:39)
[2022-08-06] MEDS: AMINO ACIDS 5%/D15W/E-LYTES/CA 2,000 ML with MULTIVITAMINS-12 INJ VIAL 1 2.5 ML, MULTIV... 40 ML IV CONT (13:44)
--- NOTE | 2022-08-06 14:29 | PM.IMPN ---
Progress Note: A&P Assessment and Plan (1) Transaminitis: Code(s): R74.01 - Elevation of levels of liver transaminase levels Status: Acute Assessment and Plan: 76-year-old female with paroxysmal atrial fibrillation on chronic anticoagulation and hypertension who presented to the emergency department for evaluation of abdominal pain, transaminase was elevated, ? Right upper quadrant ultrasound with mild hepatomegaly and echogenic liver,?Partially contracted gallbladder with cholelithiasis.? MRCP was refused and hence underwent ERCP.? ERCP revealed no stones in the bile duct likely passed stones or sludge. post ERCP pancreatitis with elevated liver enzymes to? 5000.? Will? Need cholecystectomy as an outpatient basis. General surgery followed the patient.? Repeat CT with severe peripancreatic inflammation worsened with interval development of peripancreatic collections along with leucocytosis, Started on Zosyn. Continued to have pain, repeat CT ?Showed severe peripancreatic inflammation worsened with interval development of peripancreatic collections.(Urine negative for UTI) Also developed VONNIE. 08/06/2021 interval history: patient continued to complaint of abdominal pain nausea or vomiting, poor appetite, repeat CT scan of abdomen shows cholelithiasis and inflammatory around pancreas and pseudocyst, on 08/03 patient was seen by Dr. Booth general surgeon and reviewed patient CT scan of abdomen showed significant inflammation around Pancrease and suspected patient has developed gastric outlet obstruction, upper gi series confirmed and on 08/04 surgeon has ordered NG tube, there is over 2350cc of bile like fluid has drained, today stats she is passing little gas, No BM, patient seen by general surgeon, GI and primary class teacher, patient's daughter is present in the room and gave updates, on 08/03 also called [facility] and spoke with Dr. Centeno Gi fellow and has accepted the patient, once the bed available, will transfer the patient. (2) Abdominal pain: Code(s): R10.9 - Unspecified abdominal pain Status: Acute (3) Abnormal abdominal ultrasound: Code(s): R93.5 - Abnormal findings on diagnostic imaging of other abdominal regions, including retroperitoneum Status: Acute (4) Cholelithiasis: Code(s): K80.20 - Calculus of gallbladder without cholecystitis without obstruction Status: Deleted (5) Paroxysmal atrial fibrillation: Code(s): I48.0 - Paroxysmal atrial fibrillation Status: Acute (6) Chronic anticoagulation: Code(s): Z79.01 - [facility] (current) use of anticoagulants Status: Acute (7) Hypertension: Code(s): I10 - Essential (primary) hypertension Status: Acute Subjective Date/time seen: 08/06/22 14:29 76-year-old female with paroxysmal atrial fibrillation on chronic anticoagulation and hypertension who presented to the emergency department for evaluation of abdominal pain, transaminase was elevated, ? Right upper quadrant ultrasound with mild hepatomegaly and echogenic liver,?Partially contracted gallbladder with cholelithiasis.? MRCP was refused and hence underwent ERCP.? ERCP revealed no stones in the bile duct likely passed stones or sludge. post ERCP pancreatitis with elevated liver enzymes to? 5000.? Will? Need cholecystectomy as an outpatient basis. General surgery followed the patient.? Repeat CT with severe peripancreatic inflammation worsened with interval development of peripancreatic collections along with leucocytosis, Started on Zosyn. Continued to have pain, repeat CT ?Showed severe peripancreatic inflammation worsened with interval development of peripancreatic collections.(Urine negative for UTI) Also developed VONNIE. 08/06/2021 interval history: patient continued to complaint of abdominal pain nausea or vomiting, poor appetite, repeat CT scan of abdomen shows cholelithiasis and inflammatory around pancreas and pseudocyst, on 08/03 patient was seen
[2022-08-06 18:47] LABS: Glucose Point of Care 157 mg/dl (65-105)
[2022-08-06 19:12] LABS: Potassium 3.1 mmol/L (3.4-5.0)
[2022-08-06] MEDS: MELATONIN 5 MG TABLET PO (21:38)
[2022-08-06] MEDS: ALPRAZolam (*CRX) 0.5 MG TABLET 1 MG PO (21:38)
[2022-08-06] MEDS: SOTALOL HCL 40 MG TABLET PO (21:38)
[2022-08-06] MEDS: NYSTATIN 100,000 UNITS/ML SUSP 5 ML ORAL.SUSP PO (21:39)
[2022-08-06] MEDS: SIMETHICONE 125 MG CHEW TAB PO (21:39)
[2022-08-07] VITALS (7 sets, daily range): BP systolic 149–152; BP diastolic 72–84; PULSE 76–92; RESP 16–18; TEMP 36–36.8; O2SAT 94
[2022-08-07] MEDS: MAGNES & ALUM HYD/SIMETH/DIPHENHYD/LIDOCAINE 119 ML MOUTHWASH BY MOUTH ×6 (00:16→21:48)
[2022-08-07 00:51] LABS: Glucose Point of Care 172 mg/dl (65-105)
[2022-08-07] MEDS: HEPARIN SODIUM 5,000 UNITS/ML VIAL 5000 UNITS SUB-Q ×3 (04:59→21:47)
[2022-08-07] MEDS: LORazepam INJ (*CRX) 2 MG/ML VIAL 0.5 MG IV PUSH ×2 (05:00→11:41)
[2022-08-07] MEDS: CENTRAL LINE FLUSH 10 ML IV PUSH ×3 (05:03→21:49)
[2022-08-07 05:43] LABS: Glucose Point of Care 155 mg/dl (65-105)
[2022-08-07 06:24] LABS: Hematocrit 35.4 % (37.0-47.0); Mean Corpuscular HGB Conc 31.1 g/dl (32-36); Mean Corpuscular Hemoglobin 28.2 pg (26-34); Mean Corpuscular Volume 90.8 fl (80-100); Platelet Count Result 248 k/mm3 (150-375); White Blood Count 8.8 K/mm3 (4.5-10.0)
[2022-08-07 06:39] LABS: Alanine Aminotransferase 24 U/L (6-35); Albumin Level 2.8 g/dL (3.5-5.1); Alkaline Phosphatase 81 U/L (38-126); Anion Gap 2 mmol/L (8-16); Aspartate Amino Transferase 33 U/L (14-36); Bilirubin,Total 2.1 mg/dL (0.2-1.3); Blood Urea Nitrogen 44 mg/dL (7-17); Carbon Dioxide 39 mmol/L (22-30); Chloride 108 mmol/L (98-107); Estimated CRCL calculation 57 ml/min; Estimated Glomerular Filt Rate > 60; Glucose 176 mg/dL (65-110); Lipase 46 U/L (23-300); Magnesium 2.3 mg/dL (1.6-2.3); Phosphorus 3.9 mg/dL (2.5-4.5); Potassium 3.1 mmol/L (3.4-5.0); Sodium 149 mmol/L (137-145); Triglycerides 124 mg/dL (<150)
[2022-08-07] MEDS: PANTOPRAZOLE SODIUM IV 40 MG VIAL IV PUSH (09:45)
[2022-08-07] MEDS: NYSTATIN 100,000 UNITS/ML SUSP 5 ML ORAL.SUSP PO ×4 (10:04→21:47)
--- NOTE | 2022-08-07 11:44 | WPDGIPROGNO ---
Progress Note: A&P Assessment and Plan (1) Gastric outlet obstruction: Code(s): K31.1 - Adult hypertrophic pyloric stenosis Status: Acute Assessment and Plan: patient seen yesterday by , who ordered upper GI. This confirms his suspicion That she had gastric outlet obstructiondue to the edema surrounding the pancreas . upper GI revealed:1. Large volume of fluid in the stomach despite the patient reporting only sips of water today, likely gastric outlet obstruction secondary to pancreatitis. 2. Spontaneous gastroesophageal reflux. 1200 cc has been withdrawn by NG tube already 08/07/2022 NG output for the last 24 hours has not yet been recorded. 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 If she truly has significantly decreased output then I would like to repeat the Gastrografin upper GI. Potentially the NG could be removed. I would definitely want surgery to have the final say on that matter. I will start a low dose of metoclopramide every 6 hours to see if that is helpful. (2) Abdominal pain: Code(s): R10.9 - Unspecified abdominal pain Status: Acute Assessment and Plan: This appears to be due to cholelithiasis with choledocholithiasis. Patient asked, appropriately, it would be simpler to simply have surgery. I explained that if stones are the bile duct surgical removal would require common bile duct exploration and possible T-tube, an open procedure. We will recheck her labs and see if perhaps they have returned to normal in which case there may not be a need for ERCP. 07/19/2022 she is having significant pain today beginning with past evening. I suspect that she has pancreatitis. Lipase has been ordered but is pending. the current regimen is not controlling her pain. I will increase her hydromorphone to 1 mg every 2-3 hours 07/20/2022 much less pain today. She is not needing pain medication nearly as often. Now her pain is back to where was on admission, primarily epigastric area 07/21/2022 today she says her pain is a little more generalized than it was but still mostly epigastric. her states that she has been out of it this morning. I explained to the patient and family that we would like to get her off Dilaudid which she has been requesting regularly. I explained her that this may be causing some of her nausea and certainly some of her mental status changes, Sedation. she is finally been encouraged to cut back on pain medication. She was getting very sedated and also hypoxic. 07/24/2022 she is still having pain which is constant, diffuse, and somewhat tender on physical exam. She again declines CT with contrast. I will give her laxative because she has not had a bowel movement for few days. Hopefully that will help. 07/26/[address] scan without contrast did reveal peripancreatic inflammation. Nothing to indicate abscess. White blood count is higher. She has been started on Zosyn empirically although her procalcitonins have been normal up to this point. 07/29/2022 pain is better each day and is more localized to the epigastric area. She finds it is more tolerable, and is able to walk around now. 07/31/2022 I am concerned that her pain seems to be worse today. There was a slight increase her weight blood count as well although which remains afebrile 08/01/2022 she is more concerned about vomiting today than pain although she does continue to have generalized discomfort in the form of full sensation. She feels full of gas. 08/02 no significant change today. 08/03/2022. She feels that she may be a little better today. She has not been requesting pain medication as often as she had been. I noticed that the hydromorphone dose was somehow reduced to 0.2 mg and I will increase that to 0.5. she is despondent that she has not yet been transferred to [place]. I did Explain to her that they r
--- NOTE | 2022-08-07 12:04 | PM.PNNEP ---
Progress Note: A&P Assessment and Plan (1) Anasarca: Code(s): R60.1 - Generalized edema Status: Acute Assessment and Plan: localized to bilateral lower extremities suspect this may have been precipitated diminished oral intake and low albumin possibly leading to 3rd spacing good urine output with IV bumex use previously s/p IV albumin chased by IV bumex to see if this will facilitate diuresis (stopped 08/05/22 due to rising CO2 and sodium) may need D5W IVFs... follow I/Os and renal function replete K+ as needed (although the addition of aldactone should help) (2) Hypokalemia: Code(s): E87.6 - Hypokalemia Status: Acute Assessment and Plan: suspect due to a combination of total body store depletion, vomiting (GI loss), and previous attempts at diuresis given her vomiting issues, K+ being replaced IV on aldactone and dosage has been increased check magnesium intermittently (3) Intractable nausea and vomiting: Code(s): R11.2 - Nausea with vomiting, unspecified Status: Acute Assessment and Plan: ongoing issue limiting oral intake presumably related to pancreatitis and gastric outlet obstruction on antiemetics and NG tube in place follow clinical symptoms (4) Acute kidney injury: Code(s): N17.9 - Acute kidney failure, unspecified Status: Acute Assessment and Plan: resolved suspect VONNIE/ARF due to volume depletion and previous NPO status imaging to date without obstruction follow trend of repeat labs and UOP Will continue to follow. Subjective Date/time seen: 08/07/22 12:04 Abdominal pain is better but want to have the NG tube removed when able; major complaint at this time is being thirsty (and not allowed to drink); no other acute issues/events overnight or earlier this morning; no acute distress noted. Exam Narrative: General: elderly female in NAD Heart: normal S1 and S2; no rub Lungs: clear to auscultation Abdomen: soft, mild TTP, nondistended, positive bowel sounds Extremities: no cyanosis or clubbing; trace - 1+ edema Skin: warm and dry Objective Data Vital Signs Vital Signs: Vital Signs - 24 hr 08/06/22 21:38 08/06/22 22:30 08/06/22 20:00 Temperature 97.4 F L Pulse Rate 88 92 82 Respiratory Rate 16 Blood Pressure 145/78 H Pulse Oximetry 95 08/07/22 00:00 08/07/22 06:02 08/07/22 04:00 Temperature 98.3 F Pulse Rate 80 79 76 Respiratory Rate 18 Blood Pressure 149/72 H Pulse Oximetry 94 Intake/Output Intake/Output: Intake & Output 08/04/22 08/05/22 08/06/22 08/07/22 23:59 23:59 23:59 23:59 Intake Total 2505 2405 2605 2105 Output Total 673 563 2713 Balance 1705 1755 -195 2105 Meds/Results Medications: Active Medications Generic Name Dose Route Start Last Admin Trade Name Freq PRN Reason Stop Dose Admin Acetaminophen 650 mg 07/17/22 21:31 07/28/22 20:14 Acetaminophen 325 Mg Tablet PO 650 mg Q6H PRN Administration Mild Pain (1-3) or Fever Hydrocodone Bitart/Acetaminophen 1 tab 07/20/22 08:36 08/03/22 12:11 Hydrocodone/Acetaminophen (*Crx) 5-325 Mg Tablet PO 1 tab Q6H PRN Administration Pain Rated 4-6 Al Hydrox/Mg Hydrox/Simethicone 30 ml 07/22/22 04:11 08/03/22 08:08 Mag Hydrox/Al Hydrox/Simeth 30 Ml Udc PO 30 ml Q6H PRN Administration Indigestion Alprazolam 1 mg 08/02/22 21:00 08/06/22 21:38 Alprazolam (*Crx) 0.5 Mg Tablet PO 1 mg HS DELILAH Administration Lipase/Protease/Amylase 2 cap 07/21/22 08:00 08/06/22 19:38 Lipase/Amylase/Protease 12,000 Units Cap PO Not Given TIDWM DELILAH Benzocaine 1 lozenge 08/04/22 10:09 08/04/22 12:07 Benzocaine/Menthol (*Bkc) 18 Ea Lozenge PO 1 lozenge PRN PRN Administration Sore Throat Dextrose 12.5 gm 08/03/22 11:16 Dextrose 50% 25 Gm/50 Ml Syringe IV PUSH PRN PRN Hypoglycemia Protocol Gluca
--- NOTE | 2022-08-07 12:04 | P.PNNP_ITS ---
Progress Note: A&P Assessment and Plan (1) Anasarca: Code(s): R60.1 - Generalized edema Status: Acute Assessment and Plan: * localized to bilateral lower extremities * suspect this may have been precipitated diminished oral intake and low albumin possibly leading to 3rd spacing * good urine output with IV bumex use previously * s/p IV albumin chased by IV bumex to see if this will facilitate diuresis (stopped 08/05/22 due to rising CO2 and sodium) * may need D5W IVFs... * follow I/Os and renal function * replete K+ as needed (although the addition of aldactone should help) (2) Hypokalemia: Code(s): E87.6 - Hypokalemia Status: Acute Assessment and Plan: * suspect due to a combination of total body store depletion, vomiting (GI loss), and previous attempts at diuresis * given her vomiting issues, K+ being replaced IV * on aldactone and dosage has been increased * check magnesium intermittently (3) Intractable nausea and vomiting: Code(s): R11.2 - Nausea with vomiting, unspecified Status: Acute Assessment and Plan: * ongoing issue limiting oral intake * presumably related to pancreatitis and gastric outlet obstruction * on antiemetics and NG tube in place * follow clinical symptoms (4) Acute kidney injury: Code(s): N17.9 - Acute kidney failure, unspecified Status: Acute Assessment and Plan: * resolved * suspect VONNIE/ARF due to volume depletion and previous NPO status * imaging to date without obstruction * follow trend of repeat labs and UOP Will continue to follow. Subjective Date/time seen: 08/07/22 12:04 Abdominal pain is better but want to have the NG tube removed when able; major complaint at this time is being thirsty (and not allowed to drink); no other acute issues/events overnight or earlier this morning; no acute distress noted. Exam Narrative: General: elderly female in NAD Heart: normal S1 and S2; no rub Lungs: clear to auscultation Abdomen: soft, mild TTP, nondistended, positive bowel sounds Extremities: no cyanosis or clubbing; trace - 1+ edema Skin: warm and dry Objective Data Vital Signs Vital Signs: Vital Signs - 24 hr 08/06/22 21:38 08/06/22 22:30 08/06/22 20:00 Temperature 97.4 F L Pulse Rate 88 92 82 Respiratory Rate 16 Blood Pressure 145/78 H Pulse Oximetry 95 08/07/22 00:00 08/07/22 06:02 08/07/22 04:00 Temperature 98.3 F Pulse Rate 80 79 76 Respiratory Rate 18 Blood Pressure 149/72 H Pulse Oximetry 94 Intake/Output Intake/Output: Intake & Output 08/04/22 08/05/22 08/06/22 08/07/22 23:59 23:59 23:59 23:59 Intake Total 2505 2405 2605 2105 Output Total 856 566 8205 Balance 1705 1755 -195 2105 Meds/Results Medications: Active Medications Generic Name Dose Route Start Last Admin Trade Name Freq PRN Reason Stop Dose Admin Acetaminophen 650 mg 07/17/22 21:31 07/28/22 20:14 Acetaminophen 325 Mg Tablet PO 650 mg Q6H PRN Administration Mild Pain (1-3) or Fever Hydrocodone Bitart/Acetaminophen 1 tab 07/20/22 08:36 08/03/22 12:11 Hydrocodone/
[2022-08-07 12:12] LABS: Glucose Point of Care 149 mg/dl (65-105)
--- NOTE | 2022-08-07 12:34 | PM.IMPN ---
Progress Note: A&P Assessment and Plan (1) Transaminitis: Code(s): R74.01 - Elevation of levels of liver transaminase levels Status: Acute Assessment and Plan: 76-year-old female with paroxysmal atrial fibrillation on chronic anticoagulation and hypertension who presented to the emergency department for evaluation of abdominal pain, transaminase was elevated, ? Right upper quadrant ultrasound with mild hepatomegaly and echogenic liver,?Partially contracted gallbladder with cholelithiasis.? MRCP was refused and hence underwent ERCP.? ERCP revealed no stones in the bile duct likely passed stones or sludge. post ERCP pancreatitis with elevated liver enzymes to? 5000.? Will? Need cholecystectomy as an outpatient basis. General surgery followed the patient.? Repeat CT with severe peripancreatic inflammation worsened with interval development of peripancreatic collections along with leucocytosis, Started on Zosyn. Continued to have pain, repeat CT ?Showed severe peripancreatic inflammation worsened with interval development of peripancreatic collections.(Urine negative for UTI) Also developed VONNIE. 08/06/2021 interval history: patient continued to complaint of abdominal pain nausea or vomiting, poor appetite, repeat CT scan of abdomen shows cholelithiasis and inflammatory around pancreas and pseudocyst, on 08/03 patient was seen by Dr. Booth general surgeon and reviewed patient CT scan of abdomen showed significant inflammation around Pancrease and suspected patient has developed gastric outlet obstruction, upper gi series confirmed and on 08/04 surgeon has ordered NG tube, there is over 2350cc of bile like fluid has drained, today stats she is passing little gas, No BM, patient seen by general surgeon, GI and rotary shear cutter, patient's daughter is present in the room and gave updates, on 08/[address] [facility] and spoke with Dr. Centeno Gi fellow and has accepted the patient, once the bed available, will transfer the patient. (2) Abdominal pain: Code(s): R10.9 - Unspecified abdominal pain Status: Acute (3) Abnormal abdominal ultrasound: Code(s): R93.5 - Abnormal findings on diagnostic imaging of other abdominal regions, including retroperitoneum Status: Acute (4) Cholelithiasis: Code(s): K80.20 - Calculus of gallbladder without cholecystitis without obstruction Status: Deleted (5) Paroxysmal atrial fibrillation: Code(s): I48.0 - Paroxysmal atrial fibrillation Status: Acute (6) Chronic anticoagulation: Code(s): Z79.01 - prison (current) use of anticoagulants Status: Acute (7) Hypertension: Code(s): I10 - Essential (primary) hypertension Status: Acute Subjective Date/time seen: 08/07/22 12:34 no new issues wants ng tube out Exam Narrative: morbidly obese Patient is comfortable, NAD HEENT: eyes are clear and none icteric LUNGS: normal respiratory effort ABD: distended Lower extremities: no edema SKIN: nonjaundiced Neuro: grossly intact. Objective Data Vital Signs Vital Signs: Vital Signs - 24 hr 08/06/22 16:00 08/06/22 16:00 08/06/22 21:38 Temperature 97.2 F L Pulse Rate 98 105 H 88 Respiratory Rate 16 Blood Pressure 121/57 L Pulse Oximetry 96 08/06/22 22:30 08/06/22 20:00 08/07/22 00:00 Temperature 97.4 F L Pulse Rate 92 82 80 Respiratory Rate 16 Blood Pressure 145/78 H Pulse Oximetry 95 08/07/22 06:02 08/07/22 04:00 Temperature 98.3 F Pulse Rate 79 76 Respiratory Rate 18 Blood Pressure 149/72 H Pulse Oximetry 94 Intake/Output Intake/Output: Intake & Output 08/04/22 08/05/22 08/06/22 08/07/22 23:59 23:59 23:59 23:59 Intake Total 2505 2405 2605 100 Output Total 675 471 0127 Balance 1705 1755 -195 100 Meds/Results Medications: Active Medications Generic Name Dose Route Start Last Admin Trade Name Freq PRN Reason Stop Dose Admin Acetaminophen 650 mg 02
[2022-08-07] MEDS: AMINO ACIDS 5%/D15W/E-LYTES/CA 2,000 ML with MULTIVITAMINS-12 INJ VIAL 1 2.5 ML, MULTIV... 40 ML IV CONT (13:50)
[2022-08-07] MEDS: METOCLOPRAMIDE HCL INJ 10 MG/2 ML VIAL 5 MG IV PUSH ×2 (13:51→17:51)
[2022-08-07] MEDS: HYDROmorphone HCL INJ (*CRX) 1 MG/ML SYR 0.5 MG IV PUSH (19:19)
[2022-08-07 21:18] LABS: Glucose Point of Care 144 mg/dl (65-105)
[2022-08-08] VITALS (12 sets, daily range): BP systolic 115–158; BP diastolic 41–85; PULSE 77–101; RESP 14–19; TEMP 35.8–36.7; O2SAT 95–99
[2022-08-08 00:30] LABS: Glucose Point of Care 164 mg/dl (65-105)
[2022-08-08] MEDS: MAGNES & ALUM HYD/SIMETH/DIPHENHYD/LIDOCAINE 119 ML MOUTHWASH BY MOUTH ×6 (00:54→21:36)
[2022-08-08] MEDS: HEPARIN SODIUM 5,000 UNITS/ML VIAL 5000 UNITS SUB-Q ×3 (05:49→21:37)
[2022-08-08] MEDS: ONDANSETRON INJ 4 MG/2 ML VIAL IV PUSH ×2 (05:50→10:54)
[2022-08-08] MEDS: CENTRAL LINE FLUSH 10 ML IV PUSH ×3 (05:50→21:38)
[2022-08-08 06:04] LABS: Glucose Point of Care 165 mg/dl (65-105)
[2022-08-08 06:50] LABS: Basophils Percent Auto 0.5 % (0.2-1.2); Eosinophils Percent Auto 0.4 % (0-4.4); Hematocrit 36.8 % (37.0-47.0); Hemoglobin 11.4 g/dL (12.0-15.0); Immature Granulocyte Absolute 0.04 K/mm3 (0.00-0.031); Immature Granulocyte Percent A 0.5 % (0-0.5); Lymphocytes Percent Auto 9.8 % (18.3-44.2); Mean Corpuscular Hemoglobin 28.7 pg (26-34); Mean Corpuscular Volume 92.7 fl (80-100); Mean Platelet Volume 12.7 fl (7.4-10.4); Monocytes Absolute Auto 0.7 K/mm3 (0.1-0.6); Monocytes Percent Auto 8.3 % (2.6-8.5); Neutrophils Absolute Auto 6.6 K/mm3 (1.3-6.7); Neutrophils Percent Auto 80.5 % (45.5-73.1); Nucleated Red Blood Cells Perc 0.2 % (0.0-0.2); Platelet Count Result 235 k/mm3 (150-375); Red Blood Count 3.97 M/mm3 (4.2-5.4); Red Cell Distribution Width 16.2 % (11.5-14.5); White Blood Count 8.2 K/mm3 (4.5-10.0)
--- NOTE | 2022-08-08 06:59 | WPDGIPROGNO ---
Progress Note: A&P Assessment and Plan (1) Gastric outlet obstruction: Code(s): K31.1 - Adult hypertrophic pyloric stenosis Status: Acute Assessment and Plan: patient seen yesterday by , who ordered upper GI. This confirms his suspicion That she had gastric outlet obstructiondue to the edema surrounding the pancreas . upper GI revealed:1. Large volume of fluid in the stomach despite the patient reporting only sips of water today, likely gastric outlet obstruction secondary to pancreatitis. 2. Spontaneous gastroesophageal reflux. 1200 cc has been withdrawn by NG tube already 08/07/2022 NG output for the last 24 hours has not yet been recorded. 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 If she truly has significantly decreased output then I would like to repeat the Gastrografin upper GI. Potentially the NG could be removed. I would definitely want surgery to have the final say on that matter. I will start a low dose of metoclopramide every 6 hours to see if that is helpful. 08/08/2022 0 she has a significant amount of NG output yesterday, her canister is empty so far today. She would like her NG tube out. I will order the upper GI per NG to to see if she has improved gastric emptying (2) Abdominal pain: Code(s): R10.9 - Unspecified abdominal pain Status: Acute Assessment and Plan: This appears to be due to cholelithiasis with choledocholithiasis. Patient asked, appropriately, it would be simpler to simply have surgery. I explained that if stones are the bile duct surgical removal would require common bile duct exploration and possible T-tube, an open procedure. We will recheck her labs and see if perhaps they have returned to normal in which case there may not be a need for ERCP. 07/19/2022 she is having significant pain today beginning with past evening. I suspect that she has pancreatitis. Lipase has been ordered but is pending. the current regimen is not controlling her pain. I will increase her hydromorphone to 1 mg every 2-3 hours 07/20/2022 much less pain today. She is not needing pain medication nearly as often. Now her pain is back to where was on admission, primarily epigastric area 07/21/2022 today she says her pain is a little more generalized than it was but still mostly epigastric. her states that she has been out of it this morning. I explained to the patient and family that we would like to get her off Dilaudid which she has been requesting regularly. I explained her that this may be causing some of her nausea and certainly some of her mental status changes, Sedation. she is finally been encouraged to cut back on pain medication. She was getting very sedated and also hypoxic. 07/24/2022 she is still having pain which is constant, diffuse, and somewhat tender on physical exam. She again declines CT with contrast. I will give her laxative because she has not had a bowel movement for few days. Hopefully that will help. 07/26/[address] scan without contrast did reveal peripancreatic inflammation. Nothing to indicate abscess. White blood count is higher. She has been started on Zosyn empirically although her procalcitonins have been normal up to this point. 07/29/2022 pain is better each day and is more localized to the epigastric area. She finds it is more tolerable, and is able to walk around now. 07/31/2022 I am concerned that her pain seems to be worse today. There was a slight increase her weight blood count as well although which remains afebrile 08/01/2022 she is more concerned about vomiting today than pain although she does continue to have generalized discomfort in the form of full sensation. She feels full of gas. 08/02 no significant change today. 08/03/2022. She feels that she may be a little better today. She has not been requesting pain medication as often as she had be
[2022-08-08 07:04] LABS: Alanine Aminotransferase 25 U/L (6-35); Albumin Level 2.8 g/dL (3.5-5.1); Alkaline Phosphatase 86 U/L (38-126); Anion Gap 2 mmol/L (8-16); Aspartate Amino Transferase 44 U/L (14-36); Blood Urea Nitrogen 47 mg/dL (7-17); Carbon Dioxide 37 mmol/L (22-30); Chloride 111 mmol/L (98-107); Cholesterol 70 mg/dL (0-200); Estimated CRCL calculation 52 ml/min; Estimated Glomerular Filt Rate 54; Glucose 161 mg/dL (65-110); HDL Direct 20 mg/dL; Magnesium 2.5 mg/dL (1.6-2.3); Phosphorus 4.1 mg/dL (2.5-4.5); Potassium 3.2 mmol/L (3.4-5.0); Sodium 150 mmol/L (137-145); Triglycerides 130 mg/dL (<150)
[2022-08-08 07:18] LABS: LDL Cholesterol Direct < 30 mg/dL
[2022-08-08 07:52] LABS: Glucose Point of Care 173 mg/dl (65-105)
[2022-08-08] MEDS: NYSTATIN 100,000 UNITS/ML SUSP 5 ML ORAL.SUSP PO ×4 (09:54→21:37)
[2022-08-08] MEDS: PANTOPRAZOLE SODIUM IV 40 MG VIAL IV PUSH (09:54)
--- NOTE | 2022-08-08 10:47 | PCOTNOTE ---
Attempted to see patient this am, however patient going off floor at this time for G.I testing per son and present.
--- NOTE | 2022-08-08 11:25 | PM.IMPN ---
Progress Note: A&P Assessment and Plan (1) Transaminitis: Code(s): R74.01 - Elevation of levels of liver transaminase levels Status: Acute Assessment and Plan: Improved (2) Abdominal pain: Code(s): R10.9 - Unspecified abdominal pain Status: Acute (3) Abnormal abdominal ultrasound: Code(s): R93.5 - Abnormal findings on diagnostic imaging of other abdominal regions, including retroperitoneum Status: Acute (4) Cholelithiasis: Code(s): K80.20 - Calculus of gallbladder without cholecystitis without obstruction Status: Deleted (5) Paroxysmal atrial fibrillation: Code(s): I48.0 - Paroxysmal atrial fibrillation Status: Acute (6) Chronic anticoagulation: Code(s): Z79.01 - terminal carman (current) use of anticoagulants Status: Acute (7) Hypertension: Code(s): I10 - Essential (primary) hypertension Status: Acute (8) Post-ERCP acute pancreatitis: Code(s): K91.89 - Other postprocedural complications and disorders of digestive system; K85.90 - Acute pancreatitis without necrosis or infection, unspecified Status: Acute Assessment and Plan: CT scan ordered. Trend lipase. Appreciate GI and surgical input Subjective Date/time seen: 08/08/22 11:25 Still complaining of abdominal pain. No significant change Exam Narrative: morbidly obese Patient is comfortable, NAD HEENT: eyes are clear and none icteric LUNGS: normal respiratory effort ABD: distended Lower extremities: no edema SKIN: nonjaundiced Neuro: grossly intact. Objective Data Vital Signs Vital Signs: Vital Signs - 24 hr 08/07/22 16:00 08/07/22 19:45 08/07/22 21:41 Temperature 96.8 F L Pulse Rate 92 76 76 Respiratory Rate 16 Blood Pressure 152/84 H Pulse Oximetry 94 Oxygen Delivery 08/08/22 00:00 08/07/22 20:00 08/07/22 20:00 Temperature 97.2 F L Pulse Rate 85 82 Respiratory Rate 14 Blood Pressure 136/85 Pulse Oximetry 97 Oxygen Delivery Room Air 08/08/22 00:00 08/08/22 04:00 08/08/22 07:50 Temperature 96.9 F L Pulse Rate 86 84 91 Respiratory Rate 16 Blood Pressure 158/82 H Pulse Oximetry 95 Oxygen Delivery Intake/Output Intake/Output: Intake & Output 08/05/22 08/06/22 08/07/22 08/08/22 23:59 23:59 23:59 23:59 Intake Total 2405 2605 2305 Output Total 650 2800 1050 850 Balance 1755 -280 1255 -850 Meds/Results Medications: Active Medications Generic Name Dose Route Start Last Admin Trade Name Freq PRN Reason Stop Dose Admin Acetaminophen 650 mg 07/17/22 21:31 07/28/22 20:14 Acetaminophen 325 Mg Tablet PO 650 mg Q6H PRN Administration Mild Pain (1-3) or Fever Hydrocodone Bitart/Acetaminophen 1 tab 07/20/22 08:36 08/03/22 12:11 Hydrocodone/Acetaminophen (*Crx) 5-325 Mg Tablet PO 1 tab Q6H PRN Administration Pain Rated 4-6 Al Hydrox/Mg Hydrox/Simethicone 30 ml 07/22/22 04:11 08/03/22 08:08 Mag Hydrox/Al Hydrox/Simeth 30 Ml Udc PO 30 ml Q6H PRN Administration Indigestion Alprazolam 1 mg 08/02/22 21:00 08/07/22 21:41 Alprazolam (*Crx) 0.5 Mg Tablet PO Not Given HS DELILAH Lipase/Protease/Amylase 2 cap 07/21/22 08:00 08/08/22 10:22 Lipase/Amylase/Protease 12,000 Units Cap PO Not Given TIDWM DELILAH Benzocaine 1 lozenge 08/04/22 10:09 08/04/22 12:07 Benzocaine/Menthol (*Bkc) 18 Ea Lozenge PO 1 lozenge PRN PRN Administration Sore Throat Dextrose 12.5 gm 08/03/22 11:16 Dextrose 50% 25 Gm/50 Ml Syringe IV PUSH PRN PRN Hypoglycemia Protocol Glucagon 1 mg 08/03/22 11:16 Glucagon For Inj 1 Mg Vial IM PRN PRN Hypoglycemia Protocol Glucose 15 gm 08/03/22 11:16 Glucose Oral Gel 15 Gm Of Glucse In 37.5 Gm Tube PO PRN PRN Hypoglycemia Protocol Heparin Sodium (Porcine) 5,000 units 08/06/22 14:00 08/08/22 05:49 Heparin Sodium 5,000 Units/Ml Via
[2022-08-08] MEDS: AMINO ACIDS 5%/D15W/E-LYTES/CA 2,000 ML with MULTIVITAMINS-12 INJ VIAL 1 2.5 ML, MULTIV... 40 ML IV CONT (12:42)
[2022-08-08 12:44] LABS: Glucose Point of Care 121 mg/dl (65-105)
[2022-08-08] MEDS: METOCLOPRAMIDE HCL INJ 10 MG/2 ML VIAL IV PUSH ×2 (12:45→17:51)
--- NOTE | 2022-08-08 12:46 | PM.PNNEP ---
Progress Note: A&P Assessment and Plan (1) Anasarca: Code(s): R60.1 - Generalized edema Status: Acute Assessment and Plan: localized to bilateral lower extremities suspect this may have been precipitated by diminished oral intake and low albumin possibly leading to 3rd spacing good urine output with IV bumex use previously s/p IV albumin chased by IV bumex to see if this will facilitate diuresis (stopped 08/05/22 due to rising CO2 and sodium as well concerns for volume depletion) started on D5W IVFs today to compensate for free water deficit follow I/Os and renal function replete K+ as needed (although the addition of aldactone should help) (2) Hypernatremia: Code(s): E87.0 - Hyperosmolality and hypernatremia Status: Acute Assessment and Plan: due to free water deficit and inability to take oral intake D5W IVFs today follow trend of sodium level (3) Hypokalemia: Code(s): E87.6 - Hypokalemia Status: Acute Assessment and Plan: suspect due to a combination of total body store depletion, vomiting (GI loss), and previous attempts at diuresis given her vomiting issues, K+ being replaced IV on aldactone and dosage has been increased check magnesium intermittently (4) Intractable nausea and vomiting: Code(s): R11.2 - Nausea with vomiting, unspecified Status: Acute Assessment and Plan: ongoing issue which is limiting oral intake presumably related to pancreatitis and gastric outlet obstruction on antiemetics and NG tube in place follow clinical symptoms (5) Acute kidney injury: Code(s): N17.9 - Acute kidney failure, unspecified Status: Acute Assessment and Plan: resolved suspect VONNIE/ARF due to volume depletion and previous NPO status imaging to date without obstruction follow trend of repeat labs and UOP Will continue to follow. Subjective Date/time seen: 08/08/22 12:46 Major complaint is that of being thirsty (likely appropriate given her elevated sodium level); would like the NG tube out but understands the necessity of it at this time; no further nausea or vomiting at this time with on/off abdominal pain at times; no issues overnight or earlier this AM; tolerating TPN currently. Exam Narrative: General: elderly female in NAD Heart: normal S1 and S2; no rub Lungs: clear to auscultation Abdomen: soft, mild TTP, nondistended, positive bowel sounds Extremities: no cyanosis or clubbing; trace - 1+ edema Skin: warm and dry Objective Data Vital Signs Vital Signs: Vital Signs Temp Pulse Resp BP Pulse Ox O2 Del Method 08/08/22 07:50 96.9 F L 91 16 158/82 H 95 08/08/22 04:00 84 08/08/22 00:00 86 08/07/22 20:00 82 08/07/22 20:00 Room Air 08/08/22 00:00 97.2 F L 85 14 136/85 97 08/07/22 21:41 76 08/07/22 19:45 76 08/07/22 16:00 96.8 F L 92 16 152/84 H 94 Intake/Output Intake/Output: Intake & Output 08/05/22 08/06/22 08/07/22 08/08/22 23:59 23:59 23:59 23:59 Intake Total 2405 2605 2305 2005 Output Total 650 2800 1050 850 Balance 1755 -195 1255 1155 Meds/Results Medications: Active Medications Generic Name Dose Route Start Last Admin Trade Name Freq PRN Reason Stop Dose Admin Acetaminophen 650 mg 07/17/22 21:31 07/28/22 20:14 Acetaminophen 325 Mg Tablet PO 650 mg Q6H PRN Administration Mild Pain (1-3) or Fever Hydrocodone Bitart/Acetaminophen 1 tab 07/20/22 08:36 08/03/22 12:11 Hydrocodone/Acetaminophen (*Crx) 5-325 Mg Tablet PO 1 tab Q6H PRN Administration Pain Rated 4-6 Al Hydrox/Mg Hydrox/Simethicone 30 ml 07/22/22 04:11 08/03/22 08:08 Mag Hydrox/Al Hydrox/Simeth 30 Ml Udc PO 30 ml Q6H PRN Administration Indigestion Alprazolam 1 mg 08/02/22 21:00 08/07/22 21:41 Alprazolam (*Crx) 0.5 Mg Tablet PO Not Given HS DELILAH
--- NOTE | 2022-08-08 12:46 | P.PNNP_ITS ---
Progress Note: A&P Assessment and Plan (1) Anasarca: Code(s): R60.1 - Generalized edema Status: Acute Assessment and Plan: * localized to bilateral lower extremities * suspect this may have been precipitated by diminished oral intake and low albumin possibly leading to 3rd spacing * good urine output with IV bumex use previously * s/p IV albumin chased by IV bumex to see if this will facilitate diuresis (stopped 08/05/22 due to rising CO2 and sodium as well concerns for volume depletion) * started on D5W IVFs today to compensate for free water deficit * follow I/Os and renal function * replete K+ as needed (although the addition of aldactone should help) (2) Hypernatremia: Code(s): E87.0 - Hyperosmolality and hypernatremia Status: Acute Assessment and Plan: * due to free water deficit and inability to take oral intake * D5W IVFs today * follow trend of sodium level (3) Hypokalemia: Code(s): E87.6 - Hypokalemia Status: Acute Assessment and Plan: * suspect due to a combination of total body store depletion, vomiting (GI loss), and previous attempts at diuresis * given her vomiting issues, K+ being replaced IV * on aldactone and dosage has been increased * check magnesium intermittently (4) Intractable nausea and vomiting: Code(s): R11.2 - Nausea with vomiting, unspecified Status: Acute Assessment and Plan: * ongoing issue which is limiting oral intake * presumably related to pancreatitis and gastric outlet obstruction * on antiemetics and NG tube in place * follow clinical symptoms (5) Acute kidney injury: Code(s): N17.9 - Acute kidney failure, unspecified Status: Acute Assessment and Plan: * resolved * suspect VONNIE/ARF due to volume depletion and previous NPO status * imaging to date without obstruction * follow trend of repeat labs and UOP Will continue to follow. Subjective Date/time seen: 08/08/22 12:46 Major complaint is that of being thirsty (likely appropriate given her elevated sodium level); would like the NG tube out but understands the necessity of it at this time; no further nausea or vomiting at this time with on/off abdominal pain at times; no issues overnight or earlier this AM; tolerating TPN currently. Exam Narrative: General: elderly female in NAD Heart: normal S1 and S2; no rub Lungs: clear to auscultation Abdomen: soft, mild TTP, nondistended, positive bowel sounds Extremities: no cyanosis or clubbing; trace - 1+ edema Skin: warm and dry Objective Data Vital Signs Vital Signs: Vital Signs Temp Pulse Resp BP Pulse Ox O2 Del Method 08/08/22 07:50 96.9 F L 91 16 158/82 H 95 08/08/22 04:00 84 08/08/22 00:00 86 08/07/22 20:00 82 08/07/22 20:00 Room Air 08/08/22 00:00 97.2 F L 85 14 136/85 97 08/07/22 21:41 76 08/07/22 19:45 76 08/07/22 16:00 96.8 F L 92 16 152/84 H 94 Intake/Output Intake/Output: Intake & Output 08/05/22 08/06/22 08/07/22 08/08/22 23:59 23:59 23:59 23:59 Intake Total 2405 2605 2305 2004 Output Total 650 2800 1050 850 Balance 1755 -195 1255 1155 Meds/Results Medications:
--- NOTE | 2022-08-08 14:31 | PM.PNGS ---
Progress Note: A&P Assessment and Plan (1) Gastric outlet obstruction: Code(s): K31.1 - Adult hypertrophic pyloric stenosis Status: Acute Assessment and Plan: Water-soluble upper GI today still showed a gastric outlet obstruction, but some contrast does move through to the small bowel and colon. On the images at 45 minutes, there was still a significant amount of contrast sitting in the stomach. She is moving her bowels. Will try clamping her NG tube this afternoon and letting her try some liquids. If she tolerates this, then could consider removing the NG tube eventually. Although, the upper GI suggests she likely would not tolerate anything other than just clear liquids. Continue NG and TPN for now. Awaiting transfer to tertiary care facility. 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 Her white count has normalized and she is afebrile. This continues to cause at least a partial gastric outlet obstruction. Ultimately, she needs to be transferred to a tertiary care facility where hepatobiliary surgeons are available and she could have this fluid collection drained to relieve the obstruction. Still awaiting bed placement at [facility]. (3) Post-ERCP acute pancreatitis: Code(s): K91.89 - Other postprocedural complications and disorders of digestive system; K85.90 - Acute pancreatitis without necrosis or infection, unspecified Status: Acute Assessment and Plan: Pancreatic enzymes normalized. Awaiting transfer to tertiary care facility. (4) Cholelithiasis: Code(s): K80.20 - Calculus of gallbladder without cholecystitis without obstruction Status: Acute Assessment and Plan: Will eventually need an interval cholecystectomy in the future Plan I have discussed the patient's case and plan of care with Dr. Rodarte. Subjective Subjective Date/Time Seen: 08/08/22 14:31 Patient reports: no new complaints, flatus and bowel movement Interval history: We have been asked by the Hospitalist to come back and evaluate the patient. She is awaiting transfer to a tertiary care facility for pancreatitis with pseudocyst causing gastric outlet obstruction. She currently has an NG tube and is on TPN. She had a repeat CT a/p today and water-soluble upper GI with SBS. Results reviewed prior to seeing patient. She has had a large liquid BM that filled her bed and also a large portion of the commode since coming back from the contrast study. She reports some nausea after having the contrast down in Radiology, but this has subsided. Review of Systems Constitutional: Constitutional: Reports no additional constitutional complaints, Denies chills, Denies fever(s) and Reports weakness (generalized weakness due to the long hospitalization) Cardiovascular: Cardiovascular: Reports no additional cardiovascular complaints and Denies chest pain Respiratory: Respiratory: Reports no additional respiratory complaints, Denies cough and Denies dyspnea Gastrointestinal: Gastrointestinal: Reports as per HPI, Reports no additional gastrointestinal complaints, Denies bloating, Reports nausea and Denies vomiting Exam Const: General: comfortable and no acute distress Nutritional Appearance: obese Orientation/consciousness: patient oriented x3 GI: Inspection: non-distended and obesity GI Palp: Yes Soft to palpation, Yes Tenderness to palpation present (GI) (across upper abdomen, worse in epigastrum), No Guarding due to palpation present (GI) and No Rebound tenderness present Auscultation: normal bowel sounds Objective Data Vital Signs Vital Signs: Vital Signs - 24 hr 08/07/22 16:00 0
[2022-08-08] MEDS: DEXTROSE 5% IN WATER 500 ML 75 ML IV CONT (15:13)
--- NOTE | 2022-08-08 15:17 | PCPTNOTE ---
PT attempted to see patient 2x this A.M. however patient out of room for testing. PT returned this afternoon and patient declined stating she had testing this morning and not able to do therapy at this time. PT will continue to follow per plan of care.
[2022-08-08 18:40] LABS: Glucose Point of Care 234 mg/dl (65-105)
[2022-08-08] MEDS: INSULIN ASPART (*BKC) 100 UNITS/ML SUB-Q (18:41)
[2022-08-08] MEDS: SOTALOL HCL 40 MG TABLET PO (20:01)
[2022-08-08 22:51] LABS: Glucose Point of Care 163 mg/dl (65-105)
[2022-08-09] VITALS (7 sets, daily range): BP systolic 136–141; BP diastolic 70–75; PULSE 72–90; RESP 14–20; TEMP 36.4–37.2; O2SAT 92–96
[2022-08-09] MEDS: MAGNES & ALUM HYD/SIMETH/DIPHENHYD/LIDOCAINE 119 ML MOUTHWASH BY MOUTH ×5 (00:58→17:03)
[2022-08-09] MEDS: METOCLOPRAMIDE HCL INJ 10 MG/2 ML VIAL IV PUSH ×4 (00:59→17:03)
[2022-08-09] MEDS: HEPARIN SODIUM 5,000 UNITS/ML VIAL 5000 UNITS SUB-Q ×2 (05:09→13:30)
[2022-08-09] MEDS: CENTRAL LINE FLUSH 10 ML IV PUSH ×2 (05:09→13:30)
[2022-08-09 05:23] LABS: Glucose Point of Care 163 mg/dl (65-105)
[2022-08-09 08:27] LABS: Glucose Point of Care 151 mg/dl (65-105)
[2022-08-09] MEDS: SOTALOL HCL 40 MG TABLET PO (08:42)
[2022-08-09] MEDS: NYSTATIN 100,000 UNITS/ML SUSP 5 ML ORAL.SUSP PO ×3 (08:44→17:03)
[2022-08-09] MEDS: PANTOPRAZOLE SODIUM IV 40 MG VIAL IV PUSH (08:45)
[2022-08-09 09:04] LABS: Basophils Percent Auto 0.2 % (0.2-1.2); Eosinophils Absolute Auto 0.1 K/mm3 (0-0.3); Eosinophils Percent Auto 0.6 % (0-4.4); Hematocrit 38.8 % (37.0-47.0); Immature Granulocyte Absolute 0.06 K/mm3 (0.00-0.031); Immature Granulocyte Percent A 0.7 % (0-0.5); Lymphocytes Absolute Auto 0.96 K/mm3 (0.9-3.2); Lymphocytes Percent Auto 10.9 % (18.3-44.2); Mean Corpuscular HGB Conc 28.4 g/dl (32-36); Mean Corpuscular Hemoglobin 27.8 pg (26-34); Mean Corpuscular Volume 98.2 fl (80-100); Mean Platelet Volume 12.9 fl (7.4-10.4); Monocytes Absolute Auto 0.7 K/mm3 (0.1-0.6); Neutrophils Percent Auto 79.6 % (45.5-73.1); Platelet Count Result 239 k/mm3 (150-375); Red Blood Count 3.95 M/mm3 (4.2-5.4); Red Cell Distribution Width 17.7 % (11.5-14.5); White Blood Count 8.8 K/mm3 (4.5-10.0)
--- NOTE | 2022-08-09 11:22 | PC.NURSE ---
Pt's and two sons were in the room and asked to speak with me. They wanted to know why pt was not receiving PT/OT several times/hours a day. They wanted pt up and moving frequently so that she doesn't lose muscle and ligament function. I explained that with certain medical conditions activity increases the problem therefore depending on the situation increased activity is not warranted. I spoke with PT and OT and they stated that she is on an every other day schedule and that she frequently refuses therapy. 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 there are restrictions as to what and how often they can do anything. I also verified, per the request of the son, when pt received ativan and IV pain med. Per the mar, neither were administered since 08/07/22. I made the family aware of this and was told that was untrue as the son alleges to have witnessed a bald man giving pt ativan and IV pain med. I attempted to explain that the meds have to be scanned, etc. and according to the mar pt has not received either since 08/07/22 and they were given several hours apart. He kept arguing the point. He also asked that if pt refuses therapies or treatments if we would call him or his sister, Queta, and inform them that pt is refusing. I made health unit coordinator, Laya Albrecht, aware of the situation and allegations made by the family.
--- NOTE | 2022-08-09 11:26 | PM.IMPN ---
Progress Note: A&P Assessment and Plan (1) Transaminitis: Code(s): R74.01 - Elevation of levels of liver transaminase levels Status: Acute Assessment and Plan: Improved (2) Abdominal pain: Code(s): R10.9 - Unspecified abdominal pain Status: Acute (3) Abnormal abdominal ultrasound: Code(s): R93.5 - Abnormal findings on diagnostic imaging of other abdominal regions, including retroperitoneum Status: Acute (4) Cholelithiasis: Code(s): K80.20 - Calculus of gallbladder without cholecystitis without obstruction Status: Deleted (5) Paroxysmal atrial fibrillation: Code(s): I48.0 - Paroxysmal atrial fibrillation Status: Acute (6) Chronic anticoagulation: Code(s): Z79.01 - intermediate manager (current) use of anticoagulants Status: Acute (7) Hypertension: Code(s): I10 - Essential (primary) hypertension Status: Acute (8) Post-ERCP acute pancreatitis: Code(s): K91.89 - Other postprocedural complications and disorders of digestive system; K85.90 - Acute pancreatitis without necrosis or infection, unspecified Status: Acute Assessment and Plan: CT noted Lipase has normalized Appreciate GI and surgical input Pseudocyst noted in fluid collection around the pancreas. Await transfer to [facility] Date/time seen: 08/09/22 11:26 No new issues. Tolerating sips Exam Narrative: morbidly obese Patient is comfortable, NAD HEENT: eyes are clear and none icteric LUNGS: normal respiratory effort ABD: distended Lower extremities: no edema SKIN: nonjaundiced Neuro: grossly intact. Objective Data Vital Signs Vital Signs: Vital Signs - 24 hr 08/08/22 15:14 08/08/22 12:00 08/08/22 16:00 Temperature 96.4 F L Pulse Rate 83 101 H 77 Respiratory Rate 19 Blood Pressure 123/57 L Pulse Oximetry 99 Oxygen Delivery 08/08/22 20:01 08/08/22 22:33 08/08/22 22:47 Temperature 98.1 F Pulse Rate 100 85 Respiratory Rate 19 Blood Pressure 115/41 L 140/62 Pulse Oximetry 98 Oxygen Delivery 08/08/22 20:00 08/08/22 20:00 08/09/22 00:00 Temperature Pulse Rate 97 79 Respiratory Rate Blood Pressure Pulse Oximetry Oxygen Delivery Room Air 08/09/22 04:00 08/09/22 07:47 08/09/22 08:42 Temperature 98.9 F Pulse Rate 72 77 90 Respiratory Rate 20 Blood Pressure 136/70 Pulse Oximetry 92 Oxygen Delivery 08/09/22 08:00 Temperature Pulse Rate Respiratory Rate Blood Pressure Pulse Oximetry Oxygen Delivery Room Air Intake/Output Intake/Output: Intake & Output 08/06/22 08/07/22 08/08/22 08/09/22 23:59 23:59 23:59 23:59 Intake Total 2605 2305 2425 360 Output Total 2800 1050 1600 580 Balance -195 1255 825 -220 Meds/Results Medications: Active Medications Generic Name Dose Route Start Last Admin Trade Name Freq PRN Reason Stop Dose Admin Acetaminophen 650 mg 07/17/22 21:31 07/28/22 20:14 Acetaminophen 325 Mg Tablet PO 650 mg Q6H PRN Administration Mild Pain (1-3) or Fever Al Hydrox/Mg Hydrox/Simethicone 30 ml 07/22/22 04:11 08/03/22 08:08 Mag Hydrox/Al Hydrox/Simeth 30 Ml Udc PO 30 ml Q6H PRN Administration Indigestion Alprazolam 1 mg 08/02/22 21:00 08/07/22 21:41 Alprazolam (*Crx) 0.5 Mg Tablet PO Not Given HS DELILAH Lipase/Protease/Amylase 2 cap 07/21/22 08:00 08/08/22 10:22 Lipase/Amylase/Protease 12,000 Units Cap PO Not Given TIDWM DELILAH Benzocaine 1 lozenge 08/04/22 10:09 08/04/22 12:07 Benzocaine/Menthol (*Bkc) 18 Ea Lozenge PO 1 lozenge PRN PRN Administration Sore Throat Dextrose 12.5 gm 08/03/22 11:16 Dextrose 50% 25 Gm/50 Ml Syringe IV PUSH PRN PRN Hypoglycemia Protocol Glucagon 1 mg 08/03/22 11:16 Glucagon For Inj 1 Mg Vial IM PRN PRN Hypoglycemia Protocol Glucose 15 gm 08/03/22 11:16 Glucose Oral Gel 15 Gm Of Glucse I
--- NOTE | 2022-08-09 11:49 | PCNFU ---
Nutrition Follow-Up Complete: Inadequate energy intake related to nausea and vomiting, as evidenced by poor appetite and need for full TPN Tolerate TPN at goal rate Meet estimated nutrition needs Goal: Pt current nutrition is TPN Clinmix 5/15 E without lipids. 682 kcals, 48 g protein, 1210 ml total volume. Nutrition recommendation: Continue with current orders at this time. Last recorded weight is 107.9 kg. Down 2%/1 week. Bowel Motility: Had BM 08/08/22 Labs Reviewed: All labs are pending, they had to be rechecked Meds Noted: Creon, potassium cholride, lasix, spironolactone Skin: 2+ pitting edema BLE Additional Notes: Per RN, labs are being rechecked. No lipids running. Pt is on list to transfer to [place]. Continue to monitor Monitor tolerance, diet advancement, labs, weights, plan of care Follow up Friday and Friday
[2022-08-09 11:59] LABS: Glucose Point of Care 191 mg/dl (65-105)
[2022-08-09] MEDS: AMINO ACIDS 5%/D15W/E-LYTES/CA 2,000 ML with MULTIVITAMINS-12 INJ VIAL 1 2.5 ML, MULTIV... 40 ML IV CONT (12:02)
[2022-08-09 12:31] LABS: Alanine Aminotransferase 29 U/L (6-35); Albumin Level 2.7 g/dL (3.5-5.1); Alkaline Phosphatase 99 U/L (38-126); Anion Gap 5 mmol/L (8-16); Aspartate Amino Transferase 48 U/L (14-36); Bilirubin,Total 1.4 mg/dL (0.2-1.3); Blood Urea Nitrogen 53 mg/dL (7-17); Calcium 9.3 mg/dL (8.4-10.2); Carbon Dioxide 36 mmol/L (22-30); Chloride 112 mmol/L (98-107); Estimated CRCL calculation 38 ml/min; Estimated Glomerular Filt Rate 37; Glucose 184 mg/dL (65-110); Lipase 66 U/L (23-300); Magnesium 2.6 mg/dL (1.6-2.3); Phosphorus 4.3 mg/dL (2.5-4.5); Potassium 3.1 mmol/L (3.4-5.0); Sodium 153 mmol/L (137-145); Triglycerides 109 mg/dL (<150)
--- NOTE | 2022-08-09 12:53 | PM.PNGS ---
Progress Note: A&P Assessment and Plan (1) Gastric outlet obstruction: Code(s): K31.1 - Adult hypertrophic pyloric stenosis Status: Acute Assessment and Plan: exam benign, secondary to compression from pancreatic fluid collection vs pseudocyst, cont clears and clamp NG, cont TPN, awaiting transfer Subjective Subjective Date/Time Seen: 08/09/22 12:53 feels better today, +bowel fxn, tata clears Review of Systems Review of Systems: All systems reviewed & are unremarkable except as noted in HPI and below Exam Const: General: cooperative, comfortable and no acute distress Resp: Auscultation: clear to auscultation bilaterally Cardio: Rate: regular rate Rhythm: regular rhythm GI: Inspection: normal to inspection and non-distended GI Palp: Yes abdominal tenderness, Yes Soft to palpation, Yes Tenderness to palpation present (GI), No Guarding due to palpation present (GI) and No Rigid due to palpation Objective Data Vital Signs Vital Signs: Vital Signs - 24 hr 08/08/22 15:14 08/08/22 16:00 08/08/22 20:01 Temperature 35.8 C L Pulse Rate 83 77 100 Respiratory Rate 19 Blood Pressure 123/57 L Pulse Oximetry 99 Oxygen Delivery 08/08/22 22:33 08/08/22 22:47 08/08/22 20:00 Temperature 36.7 C Pulse Rate 85 Respiratory Rate 19 Blood Pressure 115/41 L 140/62 Pulse Oximetry 98 Oxygen Delivery Room Air 08/08/22 20:00 08/09/22 00:00 08/09/22 04:00 Temperature Pulse Rate 97 79 72 Respiratory Rate Blood Pressure Pulse Oximetry Oxygen Delivery 08/09/22 07:47 08/09/22 08:42 08/09/22 08:00 Temperature 37.2 C Pulse Rate 77 90 Respiratory Rate 20 Blood Pressure 136/70 Pulse Oximetry 92 Oxygen Delivery Room Air 08/09/22 08:00 08/09/22 12:00 Temperature Pulse Rate 85 88 Respiratory Rate Blood Pressure Pulse Oximetry Oxygen Delivery Intake/Output Intake/Output: Intake & Output 08/06/22 08/07/22 08/08/22 08/09/22 23:59 23:59 23:59 23:59 Intake Total 2605 2305 2425 1360 Output Total 2800 1050 1600 580 Balance -195 1255 825 780 Meds/Results Medications: Active Medications Generic Name Dose Route Start Last Admin Trade Name Freq PRN Reason Stop Dose Admin Acetaminophen 650 mg 07/17/22 21:31 07/28/22 20:14 Acetaminophen 325 Mg Tablet PO 650 mg Q6H PRN Administration Mild Pain (1-3) or Fever Al Hydrox/Mg Hydrox/Simethicone 30 ml 07/22/22 04:11 08/03/22 08:08 Mag Hydrox/Al Hydrox/Simeth 30 Ml Udc PO 30 ml Q6H PRN Administration Indigestion Alprazolam 1 mg 08/02/22 21:00 08/07/22 21:41 Alprazolam (*Crx) 0.5 Mg Tablet PO Not Given HS DELILAH Lipase/Protease/Amylase 2 cap 07/21/22 08:00 08/08/22 10:22 Lipase/Amylase/Protease 12,000 Units Cap PO Not Given TIDWM DELILAH Benzocaine 1 lozenge 08/04/22 10:09 08/04/22 12:07 Benzocaine/Menthol (*Bkc) 18 Ea Lozenge PO 1 lozenge PRN PRN Administration Sore Throat Dextrose 12.5 gm 08/03/22 11:16 Dextrose 50% 25 Gm/50 Ml Syringe IV PUSH PRN PRN Hypoglycemia Protocol Glucagon 1 mg 08/03/22 11:16 Glucagon For Inj 1 Mg Vial IM PRN PRN Hypoglycemia Protocol Glucose 15 gm 08/03/22 11:16 Glucose Oral Gel 15 Gm Of Glucse In 37.5 Gm Tube PO PRN PRN Hypoglycemia Protocol Heparin Sodium (Porcine) 5,000 units 08/06/22 14:00 08/09/22 05:09 Heparin Sodium 5,000 Units/Ml Vial SUB-Q 5,000 units Q8HR DELILAH Administration Hydralazine HCl 10 mg 08/06/22 08:26 Hydralazine Hcl 20 Mg/Ml Vial IV PUSH Q8H PRN SBP > 160 or DBP > 105 Hydromorphone HCl 0.5 mg 08/03/22 09:34 08/07/22 19:19 Hydromorphone Hcl Inj (*Crx) 1 Mg/Ml Syr IV PUSH 0.5 mg Q3H PRN Administration Pain Rated 7-10 Dextrose 1,000 mls @ 50 mls/hr 08/02/22 06:13 Dextrose 10% IV CONT .Q20H PRN if PN is interrupted Multivitamins 2.5 ml/ 2,005 mls @
--- NOTE | 2022-08-09 13:49 | P.PNNP_ITS ---
Progress Note: A&P Assessment and Plan (1) Anasarca: Code(s): R60.1 - Generalized edema Status: Acute Assessment and Plan: * edema, localized to bilateral lower extremities * suspect this may have been precipitated by diminished oral intake and low albumin possibly leading to 3rd spacing * I/O positive about 800cc. * currently on no diuretics. * getting TPN. * high sodium limits our treatment of edema. (2) Hypernatremia: Code(s): E87.0 - Hyperosmolality and hypernatremia Status: Acute Assessment and Plan: * due to free water deficit and inability to take oral intake * on TPN only right now. * will add D5W 100cc hr and repeat the sodium later this evening. (3) Hypokalemia: Code(s): E87.6 - Hypokalemia Status: Acute Assessment and Plan: * suspect due to a combination of total body store depletion, refeeding, vomiting (GI loss), and previous attempts at diuresis * given her vomiting issues, K+ being replaced IV * on aldactone and dosage has been increased * mg okay (4) Intractable nausea and vomiting: Code(s): R11.2 - Nausea with vomiting, unspecified Status: Acute Assessment and Plan: * ongoing issue which is limiting oral intake * presumably related to pancreatitis and gastric outlet obstruction * on antiemetics and NG tube in place * follow clinical symptoms (5) Acute kidney injury: Code(s): N17.9 - Acute kidney failure, unspecified Status: Acute Assessment and Plan: * resolved * Cr a bit higher today. extra D5W may help Will continue to follow. Subjective Date/time seen: 08/09/22 13:49 Interval history: alert. NGT in getting TPN ptfeels okay Exam Narrative: General: elderly female in NAD Heart: normal S1 and S2; no rub Lungs: clear to auscultation Abdomen: soft, mild TTP, nondistended, positive bowel sounds Extremities: no cyanosis or clubbing; trace - 1+ edema Skin: no rash Objective Data Vital Signs Vital Signs: Vital Signs - 24 hr 08/08/22 15:14 08/08/22 16:00 08/08/22 20:01 Temperature 96.4 F L Pulse Rate 83 77 100 Respiratory Rate 19 Blood Pressure 123/57 L Pulse Oximetry 99 Oxygen Delivery 08/08/22 22:33 08/08/22 22:47 08/08/22 20:00 Temperature 98.1 F Pulse Rate 85 Respiratory Rate 19 Blood Pressure 115/41 L 140/62 Pulse Oximetry 98 Oxygen Delivery Room Air 08/08/22 20:00 08/09/22 00:00 08/09/22 04:00 Temperature Pulse Rate 97 79 72 Respiratory Rate Blood Pressure Pulse Oximetry Oxygen Delivery 08/09/22 07:47 08/09/22 08:42 08/09/22 08:00 Temperature 98.9 F Pulse Rate 77 90 Respiratory Rate 20 Blood Pressure 136/70 Pulse Oximetry 92 Oxygen Delivery Room Air 08/09/22 08:00 08/09/22 12:00 Temperature Pulse Rate 85 88 Respiratory Rate Blood Pressure Pulse Oximetry Oxygen Delivery Intake/Output Intake/Output: Intake & Output 08/06/22
--- NOTE | 2022-08-09 13:49 | PM.PNNEP ---
Progress Note: A&P Assessment and Plan (1) Anasarca: Code(s): R60.1 - Generalized edema Status: Acute Assessment and Plan: edema, localized to bilateral lower extremities suspect this may have been precipitated by diminished oral intake and low albumin possibly leading to 3rd spacing I/O positive about 800cc. currently on no diuretics. getting TPN. high sodium limits our treatment of edema. (2) Hypernatremia: Code(s): E87.0 - Hyperosmolality and hypernatremia Status: Acute Assessment and Plan: due to free water deficit and inability to take oral intake on TPN only right now. will add D5W 100cc hr and repeat the sodium later this evening. (3) Hypokalemia: Code(s): E87.6 - Hypokalemia Status: Acute Assessment and Plan: suspect due to a combination of total body store depletion, refeeding, vomiting (GI loss), and previous attempts at diuresis given her vomiting issues, K+ being replaced IV on aldactone and dosage has been increased mg okay (4) Intractable nausea and vomiting: Code(s): R11.2 - Nausea with vomiting, unspecified Status: Acute Assessment and Plan: ongoing issue which is limiting oral intake presumably related to pancreatitis and gastric outlet obstruction on antiemetics and NG tube in place follow clinical symptoms (5) Acute kidney injury: Code(s): N17.9 - Acute kidney failure, unspecified Status: Acute Assessment and Plan: resolved Cr a bit higher today. extra D5W may help Will continue to follow. Subjective Date/time seen: 08/09/22 13:49 Interval history: alert. NGT in getting TPN ptfeels okay Exam Narrative: General: elderly female in NAD Heart: normal S1 and S2; no rub Lungs: clear to auscultation Abdomen: soft, mild TTP, nondistended, positive bowel sounds Extremities: no cyanosis or clubbing; trace - 1+ edema Skin: no rash Objective Data Vital Signs Vital Signs: Vital Signs - 24 hr 08/08/22 15:14 08/08/22 16:00 08/08/22 20:01 Temperature 96.4 F L Pulse Rate 83 77 100 Respiratory Rate 19 Blood Pressure 123/57 L Pulse Oximetry 99 Oxygen Delivery 08/08/22 22:33 08/08/22 22:47 08/08/22 20:00 Temperature 98.1 F Pulse Rate 85 Respiratory Rate 19 Blood Pressure 115/41 L 140/62 Pulse Oximetry 98 Oxygen Delivery Room Air 08/08/22 20:00 08/09/22 00:00 08/09/22 04:00 Temperature Pulse Rate 97 79 72 Respiratory Rate Blood Pressure Pulse Oximetry Oxygen Delivery 08/09/22 07:47 08/09/22 08:42 08/09/22 08:00 Temperature 98.9 F Pulse Rate 77 90 Respiratory Rate 20 Blood Pressure 136/70 Pulse Oximetry 92 Oxygen Delivery Room Air 08/09/22 08:00 08/09/22 12:00 Temperature Pulse Rate 85 88 Respiratory Rate Blood Pressure Pulse Oximetry Oxygen Delivery Intake/Output Intake/Output: Intake & Output 08/06/22 08/07/22 08/08/22 08/09/22 23:59 23:59 23:59 23:59 Intake Total 2605 2305 2425 1700 Output Total 2800 1050 1600 580 Balance -195 0437 277 9087 Meds/Results Medications: Active Medications Generic Name Dose Route Start Last Admin Trade Name Freq PRN Reason Stop Dose Admin Acetaminophen 650 mg 07/17/22 21:31 07/28/22 20:14 Acetaminophen 325 Mg Tablet PO 650 mg Q6H PRN Administration Mild Pain (1-3) or Fever Al Hydrox/Mg Hydrox/Simethicone 30 ml 07/22/22 04:11 08/03/22 08:08 Mag Hydrox/Al Hydrox/Simeth 30 Ml Udc PO 30 ml Q6H PRN Administration Indigestion Alprazolam 1 mg 08/02/22 21:00 08/07/22 21:41 Alprazolam (*Crx) 0.5 Mg Tablet PO Not Given HS DELILAH Lipase/Protease/Amylase 2 cap 07/21/22 08:00 08/08/22 10:22 Lipase/Amylase/Protease 12,000 Units Cap PO Not Given TIDWM DELILAH Benzocaine 1 lozenge 08/04/22 10:09 08/04/22 12:07 Benzocaine/Menthol (*Bkc) 18 Ea Lozenge PO 1 lozenge
--- NOTE | 2022-08-09 14:49 | PC.NURSE ---
During OT therapy, pt accidentally pulled her NG tube out while changing her gown. I contacted Dr. Rodarte regarding the aforementioned. He stated to leave the NG tube out since pt is on clears and seems to be tolerating it well. Dr. Rodarte explained to pt that if she begins to have problems again, the NG will have to be reinserted at that time. Pt claims to have understood.
[2022-08-09] MEDS: DEXTROSE 5% 1,000 ML 1,000 ML 100 ML IV CONT (15:02)
[2022-08-09 17:56] LABS: Glucose Point of Care 169 mg/dl (65-105)
--- NOTE | 2022-08-09 21:43 | PC.NURSE ---
Pt transferred to [facility] via ambulance Pt with PICC to right upper arm. Family with pt. Report given to ambulance divers. Pt/family took belongings. Paperwork/meds given to ambulance drivers. D?C 2048
--- NOTE | 2022-09-19 07:24 | PM.TDS ---
Transfer Discharge Sum: Prov Provider Date of admission: 07/18/22 14:51 Primary care physician: Shannen Doan, MD Admitting clinician: Lilia Taylor MD Consults: 07/17/22 16:19 Consult to Physician Routine Comment: Consulting Provider: Kevin Steele brand designer/MD group to consult: Cedric Reason for consultation: RUQ pain, transaminitis Has provider been notified: Yes 07/21/22 Consult to Physician Routine Comment: Spoke w/office 0921 07/22 (, [place]) Consulting Provider: Doreen Rodarte brand designer/MD group to consult: general surgery -readd Reason for consultation: cholelithiasis Has provider been notified: Yes Consult to Physician Routine Comment: Spoke w/office 0907/22 (, [place]) Consulting Provider: Leticia Montgomery brand designer/ group to consult: nephrology Reason for consultation: acute kidney disease Has provider been notified: Yes 07/30/22 Consult to Physician Routine Comment: Spoke w/dr 0815 07/30 (, [place]) Consulting Provider: Leticia Montgomery brand designer/ group to consult: Nephrology Reason for consultation: Edema, diuretic recommendations Has provider been notified: Yes 08/02/22 06:13 Consult to Dietitian Routine Reason for Consult:: TPN DS: Admitting Diagnosis Discharge Date 08/09/22 Admitting Diagnosis Pancreatitis DS: Discharge Diagnosis Discharge Diagnosis (1) Transaminitis: Code(s): R74.01 - Elevation of levels of liver transaminase levels Status: Acute (2) Abdominal pain: Code(s): R10.9 - Unspecified abdominal pain Status: Acute (3) Abnormal abdominal ultrasound: Code(s): R93.5 - Abnormal findings on diagnostic imaging of other abdominal regions, including retroperitoneum Status: Acute (4) Cholelithiasis: Code(s): K80.20 - Calculus of gallbladder without cholecystitis without obstruction Status: Deleted (5) Paroxysmal atrial fibrillation: Code(s): I48.0 - Paroxysmal atrial fibrillation Status: Acute (6) Chronic anticoagulation: Code(s): Z79.01 - termite helper (current) use of anticoagulants Status: Acute (7) Hypertension: Code(s): I10 - Essential (primary) hypertension Status: Acute (8) Post-ERCP acute pancreatitis: Code(s): K91.89 - Other postprocedural complications and disorders of digestive system; K85.90 - Acute pancreatitis without necrosis or infection, unspecified Status: Acute Transfer Discharge Sum: Med Medications Active and Home Medications: Home Medications acetaminophen 500 mg tablet (Tylenol Extra Strength) 500 mg PO Q6H PRN Fever Or Pain 01/28/20 [History Confirmed 07/17/22] alprazolam 2 mg tablet 1 mg PO HS 01/28/20 [History Confirmed 07/17/22] apixaban 5 mg tablet (Eliquis) 5 mg PO Q12HR 30 days #60 tabs 01/31/20 [Rx Confirmed 07/17/22] losartan 50 mg tablet 50 mg PO DAILY 07/17/22 [History Confirmed 07/17/22] sertraline 50 mg tablet 50 mg PO DAILY 07/17/22 [History Confirmed 07/17/22] sotalol 80 mg tablet 40 mg PO Q12HR 07/17/22 [History Confirmed 07/17/22] Transfer Discharge Sum: Hosp Hospital Course Hospital course: Sheryl Melendez is a 77 year old female who came in with abdominal pain found to have pancreatitis. She also had some fluid around the peripancreatic region. He was having some gastric outlet obstruction symptoms. Surgery was consulted and patient was treated conservatively. Patient was ultimately transferred to outside facility for further evaluation and management. Time Spent with Patient Time attestation: Total time spent providing and/or coordinating transfer services: Exam Const: General: cooperative, comfortable, no acute distress, alert, awake, acute distress mild, confusion ( She thought it was still evening), ill appearing, tired appearing, uncomfortable and obese Nutritional Appearance: obese Orientation/consciousness: oriented to person, oriented to place, No oriented to time, patient ginger
== END 2022-08-09 20:49 | disposition short-term general hospital (02) | DRG 439 ==
LOC: ANHED 18:00 → ANH3MEDSUR 18:56
PROVIDERS: Internal Medicine; Internal Medicine Gastroenterology; Internal Medicine Nephrology; Physician Assistant; Admitting Provider Hospitalist; Emergency Provider Emergency Medicine; PCP Family Medicine; Visit Provider Family Medicine
PROC: 0F798ZZ Dilation of Common Bile Duct, Via Natural or Artificial Opening Endoscopic (ICD-10-PCS; CPT 43260; principal; 2022-07-18 11:30)
DX: K85.90 Acute pancreatitis without necrosis or infection, unspecified (principal); E87.0 Hyperosmolality and hypernatremia; K31.1 Adult hypertrophic pyloric stenosis; N17.9 Acute kidney failure, unspecified; K80.70 Calculus of gallbladder and bile duct without cholecystitis without obstruction; I48.0 Paroxysmal atrial fibrillation; I10 Essential (primary) hypertension; E78.5 Hyperlipidemia, unspecified; Z88.5 Allergy status to narcotic agent; E86.0 Dehydration; E87.6 Hypokalemia; Z79.01 Long term (current) use of anticoagulants; Z20.822 Contact with and (suspected) exposure to COVID-19; Z87.891 Personal history of nicotine dependence; R60.1 Generalized edema; R19.7 Diarrhea, unspecified
CPT/HCPCS: 36415; 36569; 36600; 71045; 74018; 74176; 74178; 74240; 74248; 74329; 76705; 76775; 80048; 80053; 80061; 80069; 80074; 81001; 81050; 82375; 82436; 82570; 82805; 82948; 83050; 83605; 83690; 83735; 83880; 84100; 84132; 84145; 84156; 84300; 84443; 84466; 84478; 84540; 85025; 85027; 85610; 85730; 85999; 87040; 87086; 87088; 87106; 87636; 94618; 96361; 96374; 96375; 97110; 97116; 97161; 97164; 97165; 97166; 97530; 97535; 99285; A9270; C1751; C9113; G0378; J0330; J0360; J0743; J1100; J1170; J1644; J1815; J1885; J1940; J2060; J2270; J2310; J2370; J2405; J2543; J2550; J2704; J2765; J3010; J3480; J7030; J7040; J7060; J7070; J7120; P9047; Q9967; U0003; U0005